=== PATIENT | female | born 1945 | race Caucasian/White ===

== ENCOUNTER 2019-03-20 12:41 | Inpatient (IN) | payer MEDICARE, MEDICAID, SELFPAY ==
[2019-03-21] VITALS (8 sets, daily range): BP systolic 144–162; BP diastolic 80–85; PULSE 64–73; RESP 18–22; TEMP 36.4–36.7; O2SAT 91–98
[2019-03-21] MEDS: heparin 5,000 unit/mL INJ 1 mL 5000 UNIT SUBCUT ×2 (06:00→13:52)
[2019-03-21] MEDS: amlodipine 10 mg Tablet PO (08:49)
[2019-03-21] MEDS: azithromycin 250 mg Tablet 500 MG PO (08:49)
[2019-03-21] MEDS: sennosides-docusate Tablet 2 TAB PO (08:49)
[2019-03-21] MEDS: levothyroxine 25 mcg Tablet PO (08:49)
[2019-03-21] MEDS: pantoprazole DR 40 mg Tablet PO (08:49)
[2019-03-21] MEDS: predniSONE 20 mg Tablet 40 MG PO (08:49)
[2019-03-21] MEDS: polyethylene glycol 3350 Pkt 17 gm PO (08:51)
--- NOTE | 2019-03-21 10:14 | P.DS_ITS ---
Discharge Providers Date of Admission: 03/19/19 20:06 Date of Discharge: 03/21/19 Attending Provider at Admission: Master Gomez MD Attending Provider at Discharge: Master Gomez MD Primary Care Provider: Viri Molina Diagnoses at Discharge Discharge Diagnosis (1) COPD exacerbation: Status: Acute Problem details: Significantly improving (2) Acute bronchitis: Status: Acute Problem details: Significantly improving (3) Obesity: Status: Acute Problem details: Discussed weight loss (4) Chronic kidney disease, stage II (mild): Status: Acute (5) Hypertension: Status: Acute Problem details: Controlled (6) Sleep apnea, obstructive: Status: Acute Problem details: Needs outpatient sleep study (7) Type 2 diabetes mellitus: Status: Acute (8) 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: Status: Acute (9) Chronic back pain: Status: Acute Reason for Visit Reason for Visit: Reason For Visit: Bronchitis Resp Distress Physical Exam Narrative: EXAM NARRATIVE: General exam no apparent distress Cardiovascular regular in rhythm Lungs a few bilateral expiratory wheezes. Extremities no cyanosis clubbing or edema Discharge Data Data Completed and Pending: Labs from last 24 hours 03/20/19 03/20/19 03/20/19 21:35 16:18 11:24 WBC RBC Hgb Hct MCV MCH MCHC RDW Plt Count MPV Neut % (Auto) Lymph % (Auto) Branch % (Auto) Eos % (Auto) Baso % (Auto) Neut # (Auto) Lymph # (Auto) Branch # (Auto) Eos # (Auto) Baso # (Auto) Nucleated RBC % (a uto) Nucleated RBCs # Specimen Type Sample Site ABG pH ABG pCO2 ABG pO2 ABG HCO3 ABG Base Excess Vineet Test Hematocrit O2 Delivery Device O2 Liters/Min [employer] Tech ID Sodium Potassium Chloride Carbon Dioxide Anion Gap BUN Creatinine POC Glucose 248 H 199 H 270 H Random Glucose Calcium Phosphorus Total Bilirubin AST ALT Alkaline Phosphata se Troponin T Hi Sens 6Hr Troponin T Hi Sens 6Hr Delta Total Protein Albumin Globulin Influenza Type A A g Influenza Type B A g 03/20/19 03/20/19 03/20/19 10:30 08:10 03:15 WBC RBC Hgb Hct MCV MCH MCHC RDW Plt Count MPV Neut % (Auto) Lymph % (Auto) Branch % (Auto) Eos % (Auto) Baso % (Auto) Neut # (Auto) Lymph # (Auto) Branch # (Auto) Eos # (Auto) Baso # (Auto) Nucleated RBC % (a uto) Nucleated RBCs # Specimen Type Arterial Sample Site Radial, right ABG pH 7.40 ABG pCO2 51.1 H ABG pO2 79.1 L ABG HCO3 31.6 H ABG Base Excess 5.6 H Vineet Test Pos Hematocrit 37.5 O2 Delivery Device NC O2 Liters/Min 3.0 Convenience Recycle Center Tech ID harkr Sodium Potassium Chloride Carbon Dioxide Anion Gap BUN Creatinine POC Glucose 303 H Random Glucose Calcium Phosphorus Total Bilirubin AST ALT Alkaline Phosphata se Troponin T Hi Sens 6Hr Troponin T Hi Sens 6Hr Delta Total Protein Albumin Globulin Influenza Type A A g NEGATIVE Influenza Type B A g NEGATIVE 03/20/19 03/20/19 03/20/19 01:10 01:10 01:10 WBC 7.5 RBC 4.50 Hgb 11.9 Hct 39.6 MCV 88.0 MCH 26.4 L MCHC 30.1 RDW 15.3 H Plt Count 263 MPV 10.1 Neut % (Auto) 90.5 Lymph % (Auto) 7.4 Branch % (Auto) 0.9 Eos % (Auto) 0.0 Baso % (Auto) 0.1 Neut # (Auto) 6.8 Lymph # (Auto) 0.6 L Branch # (Auto) 0.1 L Eos # (Auto) 0.0 Baso # (Auto) 0.0 Nucleated RBC % (a uto) 0.5 Nucleated RBCs # 0.0 Specimen Type Sample Site ABG pH ABG pCO2 ABG pO2 ABG HCO3 ABG Base Excess Vineet Test Hematocrit O2 Delivery Device O2 Liters/Min [employer] Tech ID Sodium 135 L Potassium 4.4 Chloride 93 L Carbon Dioxide 27 Anion Gap 19.4 H BUN 15 Creatinine 1.4 H POC Glucose Random Glucose 259 H Calcium 8.9 Phosphorus 2.6 Total Bilirubin 0.2 AST 18 ALT 9 Alkaline Phosphata se 100 Troponin T Hi Sens 6Hr 11.25 H Troponin T Hi Sens 6Hr Delta -0.49 L Total Protein 7.2 Albumin 4.1 Globulin 3.1 Influenza Type A A g Influenza Type B A g Vitals: Last Vital Signs Temp 97.5 F L 03/21/19 08:00 Pulse 67 03/21/19 08:00 Resp 22 H 03/21/19 08:00 BP 162/85 03/21/19 08:00 Pulse Ox 96 01/01/20 08:00 Discharge Plan Discharge Patient Disposition: Home, Self-Care Condition: Stable Prescriptions: New fluticasone propion-salmeterol [Advair Diskus] 500-50 mcg/dose blister with device 1 inh INHALATION BID Qty: 60 RF: 0 ipratropium-albuterol 0.5 mg-3 mg(2.5 mg base)/3 mL solution for nebulization 3 ml INHALATION Q6H PRN (Reason: shortness of breath or wheezing) Qty: 180 RF: 0 prednisone 20 mg Tablet 40 mg PO DAILY Qty: 6 RF: 0 levofloxacin [Levaquin] 750 mg tablet 750 mg PO DAILY 7 Days RF: 0 Continued gabapentin 600 mg tablet 900 mg PO TID RF: 0 ascorbic acid (vitamin C) 1,000 mg Tablet Extended Release 1,000 mg PO Q12H RF: 0 metformin 850 mg tablet 850 mg PO BID RF: 0 amlodipine 5 mg tablet 5 mg PO DAILY RF: 0 aspirin [Aspir-81] 81 mg Tablet,Delayed Release (Dr/Ec) 81 mg PO DAILY RF: 0 levothyroxine 25 mcg tablet 25 mcg PO DAILY RF: 0 methenamine hippurate 1 gram tablet 1 g PO BID RF: 0 omeprazole 20 mg capsule,delayed release(DR/EC) 20 mg PO BID RF: 0 lovastatin 20 mg tablet 20 mg PO DAILY RF: 0 Linzess 290 mcg capsule 290 mcg PO DAILY PRN (Reason: Constipation) RF: 0 Discontinued sulfamethoxazole-trimethoprim [Bactrim DS] 800-160 mg Tablet 1 tab PO BID RF: 0 ranitidine HCl 150 mg capsule 150 mg PO BID RF: 0 morphine 15 mg tablet 15 mg PO QID PRN (Reason: Pain, Severe) RF: 0 Discharge Orders: Discharge Order (Routine); Ordered 03/21/19 Ordered By: Master Gomez Other Ambulatory Orders: DME: Nebulizer (Order) Location: None Selected Ordered By: Master Gomez Referrals: Viri Molina DO [Primary Care Provider] - 4-7 days (Please call Dr. Molina's office tomorrow to set up your follow up appointment.) Discharge Diet: Diabetic Discharge Activity: Resume usual activity Activity Restrictions/Additional Instructions: Take all medicine as prescribed. Avoid any tobacco smoke. Please arrange for outpatient sleep study. This can be arranged through primary care provider. Indication is sleep disordered breathing, snoring, insomnia, witnessed apnea. Primary to consider repeating CT scan noncontrast 3 to 6 months secondary to nodules noted on CT scan in hospital Discharge Attestations Time Spent in Discharge Care*: greater than 30 min Quality Metrics Clinical Quality Measures During this hospital stay, did patient experience: None Coding Level of Care Code Acute Street Sweeper Operator for Nayelig Fwd Diagnoses COPD exacerbation J44.1 Acute bronchitis J20.9 Obesity E66.9 Chronic kidney disease, stage II (mild) N18.2 Hypertension I10 Sleep apnea, obstructive G47.33 Type 2 diabetes mellitus E11.9 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 E03.9 Chronic back pain M54.9; G89.29
[2019-03-21] MEDS: insulin glargine 100 units/1 mL 35 UNIT SUBCUT (10:37)
[2019-03-21] MEDS: TRAMadol 50 mg Tablet PO (10:39)
== END 2019-03-21 15:11 | disposition home or self-care (01) | DRG 190 ==
PROVIDERS: Admitting Provider Internal Medicine; Emergency Provider Emergency Medicine; Family Provider Family Medicine; PCP Family Medicine; Referring Provider Family Medicine; Visit Provider Internal Medicine
DX: J44.1 Chronic obstructive pulmonary disease with (acute) exacerbation (principal); J96.21 Acute and chronic respiratory failure with hypoxia; J96.22 Acute and chronic respiratory failure with hypercapnia; Z68.42 Body mass index [BMI] 45.0-49.9, adult; J20.9 Acute bronchitis, unspecified; J44.0 Chronic obstructive pulmonary disease with (acute) lower respiratory infection; E66.01 Morbid (severe) obesity due to excess calories; Z79.4 Long term (current) use of insulin; G89.29 Other chronic pain; M54.5 Low back pain; M19.90 Unspecified osteoarthritis, unspecified site; E11.22 Type 2 diabetes mellitus with diabetic chronic kidney disease; I12.9 Hypertensive chronic kidney disease with stage 1 through stage 4 chronic kidney disease, or unspecified chronic kidney disease; N18.2 Chronic kidney disease, stage 2 (mild); E03.9 Hypothyroidism, unspecified; Z87.891 Personal history of nicotine dependence; K59.03 Drug induced constipation; T40.2X5A Adverse effect of other opioids, initial encounter; G47.33 Obstructive sleep apnea (adult) (pediatric); Z79.82 Long term (current) use of aspirin
CPT/HCPCS: 36415; 36416; 36600; 71045; 71275; 80053; 82803; 82962; 83036; 83880; 84100; 84443; 84484; 85025; 85378; 85610; 87804; 93005; 93306; 93970; 94640; 96365; 96375; 97116; 97161; 99284; 99285; G0378; J0456; J0696; J1644; J1815; J2270; J7512; J7611; Q0144; Q9967

== ENCOUNTER → 2019-03-30 10:48 | Outpatient (BNVA) | payer MEDICARE, MEDICAID, SELFPAY | PROVIDERS: Family Provider Family Medicine; PCP Family Medicine; Visit Provider Family Medicine | DX: R10.13 Epigastric pain (principal); Z79.4 Long term (current) use of insulin; M54.5 Low back pain; G89.29 Other chronic pain; I12.9 Hypertensive chronic kidney disease with stage 1 through stage 4 chronic kidney disease, or unspecified chronic kidney disease; E11.22 Type 2 diabetes mellitus with diabetic chronic kidney disease; N18.2 Chronic kidney disease, stage 2 (mild) | CPT/HCPCS: 36415; 80053; 80061; 83036 ==

== ENCOUNTER 2019-05-02 12:00 | Outpatient (CLI) | payer MEDICARE, MEDICAID, SELFPAY | END 2019-05-02 12:01 | disposition home or self-care (01) | LOC: SLEEP 05-03 13:21 | PROVIDERS: Family Provider Family Medicine; PCP Family Medicine; Visit Provider Family Medicine | DX: G47.33 Obstructive sleep apnea (adult) (pediatric) (principal) | CPT/HCPCS: G0399 ==

== ENCOUNTER → 2019-08-02 10:33 | Outpatient (BNVA) | payer MEDICARE, MEDICAID, SELFPAY | PROVIDERS: Family Provider Family Medicine; PCP Family Medicine; Referring Provider Family Medicine; Visit Provider Family Medicine | DX: E11.65 Type 2 diabetes mellitus with hyperglycemia (principal); Z79.4 Long term (current) use of insulin; I10 Essential (primary) hypertension; R79.89 Other specified abnormal findings of blood chemistry; R94.5 Abnormal results of liver function studies | CPT/HCPCS: 80053; 80074; 83036 ==

== ENCOUNTER → 2019-09-19 09:46 | Outpatient (BNVA) | payer MEDICARE, MEDICAID, SELFPAY | PROVIDERS: Family Provider Family Medicine; PCP Family Medicine; Referring Provider Family Medicine; Visit Provider Anesthesiology Pain Medicine | DX: G89.29 Other chronic pain (principal); M47.816 Spondylosis without myelopathy or radiculopathy, lumbar region; M54.16 Radiculopathy, lumbar region; E66.9 Obesity, unspecified; Z79.891 Long term (current) use of opiate analgesic | CPT/HCPCS: 99204; 99205 ==

== ENCOUNTER → 2020-01-23 11:09 | Outpatient (BNVA) | payer MEDICARE, MEDICAID, SELFPAY | PROVIDERS: Family Provider Family Medicine; PCP Family Medicine; Visit Provider Family Medicine | DX: I10 Essential (primary) hypertension (principal); E78.5 Hyperlipidemia, unspecified; E11.9 Type 2 diabetes mellitus without complications; E03.9 Hypothyroidism, unspecified; Z79.4 Long term (current) use of insulin; D64.9 Anemia, unspecified | CPT/HCPCS: 80053; 80061; 82043; 82728; 83036; 83550; 84443; 85025 ==

== ENCOUNTER 2020-03-15 11:08 | Inpatient (IN) | payer MEDICARE, MEDICAID, SELFPAY ==
[2020-03-15] VITALS (20 sets, daily range): BP systolic 97–198; BP diastolic 65–138; PULSE 62–92; RESP 13–30; TEMP 37.8–37.9; O2SAT 72–99; BMI 64.5
--- NOTE | 2020-03-15 11:29 | XRR_ITS ---
PROCEDURE INFORMATION: Exam: XR Chest, 1 View Exam date and time: 03/15/2020 11:34 AM Age: 74 years old Clinical indication: Shortness of breath; Additional info: Sepsis, hypoxia TECHNIQUE: Imaging protocol: XR of the chest Views: 1 view. COMPARISON: CR Chest 1 [place] [id number] 03/19/2019 6:41 PM FINDINGS: Lungs: Left lung base is not well seen. There are some streaky opacities at the left lung base. Pleural space: Left costophrenic angle is obscured and a pleural effusion cannot be excluded. Heart/Mediastinum: Possible cardiomegaly. Heart size not optimally evaluated with a single AP view of the chest. Vasculature: There is calcified plaque in the aortic arch similar to the prior study. Bones/joints: Unremarkable. XR/XR chest 1V [id number] IMPRESSION: Streaky opacities at the left lung base may represent scarring, atelectasis, or pneumonia.
--- NOTE | 2020-03-15 11:34 | ECG_ITS ---
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 Measurements Intervals Robert Rate: 85 P: -66 LA: 197 QRS: -13 QRSD: 83 T: 0 QT: 352 QTc: 421 Interpretive Statements SINUS RHYTHM WITH OCCASIONAL SUPRAVENTRICULAR PREMATURE COMPLEXES LOW QRS VOLTAGE IN PRECORDIAL LEADS [QRS DEFLECTION < 1.0 mV IN CHEST LEADS] ANTERIOR MYOCARDIAL INFARCTION , OF INDETERMINATE AGE [40+ ms Q WAVE AND/OR ST/T ABNORMALITY IN V3/V4] Compared to ECG 03/20/2019 00:34:14 Sinus arrhythmia no longer present First degree AV block no longer present Myocardial infarct finding still present Electronically Signed On 03-15-2020 16:40:39 SALESPERSON [employer] by Tray Rizo M.D. [id number]
--- NOTE | 2020-03-15 11:47 | ED_ITS ---
HPI - Altered Mental Status General: Chief Complaint: Altered Mental Status Stated Complaint: AMS; HEADACHE Time Seen by Provider: 03/15/20 11:24 History of Present Illness: HPI narrative: The patient is a 74-year-old female with past medical history COPD, diabetes, sleep apnea, and chronic kidney disease who comes to the ER after she was found unresponsive by EMS. Family were unable to get a hold of her and called 911. She was found slumped over in a chair. Her temperature is 100.3. She was found satting in the 70s on room air and is placed on 4 L oxygen and now in the upper 80s low 90s. She appears to be in mild respiratory distress and is tachycardic as well. In the ED she is also altered mental status and confused. Answer some questions correctly and others she answers inappropriate answers MD complaint: altered mental status, confusion, decreased responsiveness and weakness Onset (ago): unknown Severity: severe Consistency of symptoms: Constant Context: diabetes and COPD Review of Systems General: Reports: ROS unobtainable due to medical condition and Other (altered mental status) [facility] ED PFSH: Medical History Chronic back pain Chronic kidney disease, stage II (mild) COPD (chronic obstructive pulmonary disease) Dyslipidemia Enrolled in chronic care management 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 care home (current) use of opiate analgesic Obesity Discussed weight loss Sleep apnea, obstructive Needs outpatient sleep study Type 2 diabetes mellitus, with long-term current use of insulin Surgical History History of cholecystectomy History of tonsillectomy and adenoidectomy S/P appendectomy Family History Other Diabetes Social History Smoking and tobacco status: former smoker Alcohol intake: never Physical Exam Narrative: EXAM NARRATIVE: The patient is in moderate respiratory distress, tachypneic, and hypoxic satting in the upper 80s low 90s on 4 L of nasal cannula oxygen. She has altered mental status with confusion and inattention. She answers some questions appropriately well most questions are inappropriately answered. She has a large ventral hernia which is not significantly tender. On her lower extremities bilaterally she has reddish pigmentation likely from chronic venous stasis and old ulcers. Does not appear to be acutely erythematous but more likely a chronic issue. Const: EXAM LIMITATIONS: altered mental status GENERAL APPEARANCE: comfortable, in distress, anxious, combative, ill appearing, appears older than stated age and diaphoretic NUTRITIONAL APPEARANCE: obese ORIENTATION/CONSCIOUSNESS: Yes awake, Yes oriented to person and Yes confused HENMT: COMMON NORMALS: normocephalic, external ears normal and Normal external nose present HEAD & SCALP: normal to inspection and normocephalic NOSE: Normal external nose present EXTERNAL EAR: Yes external ears normal MOUTH: Normal oral and palatal mucosa present THROAT: posterior oropharynx normal Eye: COMMON NORMALS: Equal, round and reactive pupils present and EOMs intact bilaterally GENERAL EYE: appearance normal, both eyes and all related structures PUPIL: Yes Equal, round and reactive pupils present Neck/C-Spine: COMMON NORMALS: full ROM, no lymphadenopathy, no meningeal signs and no JVD GENERAL: Yes normal visual inspection Lymph: LYMPHATIC: no lymphadenopathy noted Chest: COMMONS NORMALS: normal inspection of the chest and normal palpation of entire chest wall Resp: EFFORT & INSPECTION: Yes able to speak in complete sentences, Yes tachypneic, Yes respiratory distress (moderate), Yes labored, Yes Actively coughing and Yes uses accessory muscles AUSCULTATION: wheezes and diminished lung sounds Cardio: COMMON NORMALS: no JVD, regular rhythm, S1 normal heart sound present, S2 normal heart sound present and Peripheral pulses 2+ throughout RATE: tachycardic RHYTHM: regular rhythm HEART SOUNDS: S1 normal heart sound present and S2 normal heart sound present PERIPHERAL PULSES: Peripheral pulses 2+ throughout GI: COMMON NORMALS: Soft to palpation and non-tender INSPECTION: Yes other (Ventral wall abdominal hernia quite large in size. Nontender.) PALPATION: Yes Soft to palpation : COMMON NORMALS: Yes no CVA tenderness BLADDER/KIDNEY EXAM: Yes no CVA tenderness Back/Pelvis: COMMON NORMALS: no CVA tenderness, thoracic and lumbar spine normal to inspection, no thoracic nor lumbar tenderness and thoraco-lumbar ROM normal Extremity: COMMON NORMALS: normal to inspection, full ROM, capillary refill normal, no joint enlargement and no pedal edema NARRATIVE EXTREMITY EXAM: Hyperpigmentation to ankles and feet bilaterally likely from venous stasis ulcers which are old. GENERAL: Yes normal exam except as noted Neuro: COMMON NORMALS: CN's II-XII intact bilaterally, moves all extremities, no focal motor deficits and no sensory deficits noted SENSORIUM/ORIENTATION: Yes oriented to person MENINGEAL SIGNS: Yes no meningeal signs SPEECH: speech normal GAIT: Yes Unable to assess gait MOTOR EXAM: 5/5 motor strength present throughout Psych: COMMON NORMALS: speech normal APPEARANCE: Yes unkempt and Yes disheveled ATTITUDE: Yes bizarre and Yes agitated SPEECH: Yes normal speech MOOD & AFFECT: Yes depressed mood and Yes irritable Skin: COMMON NORMALS: no rashes or lesions noted NARRATIVE SKIN EXAM: Hyperpigmentation in ankles from old venous stasis ulcers. Diaphoresis generally in her face GENERAL SKIN EXAM: no rashes or lesions noted Course Vital Signs: Vital signs: Vital Signs Temperature 100.3 F H 03/15/20 11:12 Pulse Rate 83 03/15/20 17:00 Respiratory Rate 22 H 03/15/20 17:00 Blood Pressure 146/88 03/15/20 17:00 Pulse Oximetry 96 03/15/20 17:00 MDM - Altered Mental Status MDM Narrative: Medical decision making narrative: The patient came in from home after she was not responding to phone calls for hours. She was found slumped over in a chair. Satting in the 70s on room air in respiratory distress. Chest x-ray reveals left lower lobe pneumonia and she was started on antibiotics. She also has a UTI. Her COPD is chronic and severe and her last ABG at a prior visit showed CO2 in the 50s at baseline. Here it is in the 60s and she was confused on arrival. Given nasal cannula oxygen and albuterol treatment her mental status improved moderately however she is still mildly confused. We will place her on BiPAP now. Discussed with Dr. Castellanos who accepts to the ICU Differential Diagnosis: Differential diagnosis altered mental status: Likely alcoholic intoxication, altered mental status, delirium and dementia Lab Data: Labs: Lab Results 03/15/20 03/15/20 03/15/20 Range/Units 11:43 11:43 11:48 D-Dimer (0-0.59) ug/mIFE U Specimen Type Arterial Sample Site Brachial, left ABG pH 7.35 (7.35-7.45) ABG pCO2 64.3 H* (35-45) mmHg ABG pO2 97.0 (80.0-100.0) mmH g ABG HCO3 35.1 H (22-26) mmol/L ABG O2 Saturation ABG Base Excess 7.1 H (-2.0-2.0) mmol/ L Vineet Test N/a A-a O2 Gradient (5-10) mmHg Hematocrit 42.1 (37-47) % Hgb O2 Saturation 94.8 L (95-100) % Carboxyhemoglobin 1.5 (0.4-20.1) %THgb Methemoglobin 1.0 (0.4-1.5) % Total Hemoglobin 13.7 (12-16) g/dL Ionized Calcium (1.1-1.4) mmol/L O2 Delivery Device Nc O2 Liters/Min 8.0 % FiO2 % Shoemaking Cutter ID Gd Sodium (136-145) mmol/L Potassium (3.5-5.1) mmol/L Chloride (98-107) mmol/L Carbon Dioxide (22-29) mmol/L Anion Gap (5-19) BUN (8-23) mg/dL Creatinine (0.5-0.9) mg/dL GFR Calculation Glucose (65-115) mg/dL Calculated Osmolal ity (285-295) mOsm/k g Lactate (0.5-2.2) mmol/L Calcium (8.5-10.5) mg/dL Total Bilirubin (0.15-1.2) mg/dL AST (0-32) U/L ALT (0-33) U/L Alkaline Phosphata se (35-105) IU/L Troponin T Baselin e (0-10) ng/L Troponin T 120 Min [place] (0-10) ng/L Delta Troponin T (0-10) ABS# NT-Pro-B Natriuret Pep (0-450) pg/mL Total Protein (6.6-8.7) g/dL Albumin (3.5-5.2) g/dL Globulin (1.3-4.6) g/dL Procalcitonin (0-0.5) ng/mL Urine Color Yellow (Yellow) Urine Appearance Hazy A (CLEAR) Urine pH 5 (5-7) Ur Specific Gravit y 1.020 (1.005-1.030) Urine Protein 2+ H (Negative) Urine Glucose (UA) 2+ (Normal) Urine Ketones 1+ H (Negative) Urine Blood Neg (Negative) Urine Nitrate Positive H (Negative) Urine Bilirubin Neg (Negative) Urine Urobilinogen Norm (Negative) mg/dL Ur Leukocyte Arianna ase Negative (Negative) Urine RBC None (0-2) /hpf Urine WBC 10-15 H (0-5) /hpf Ur Squamous Epith Cells 0-4 H (0-5) /hpf Amorphous Sediment Not Reportable Urine Bacteria 4+ H (NONE) /hpf Urine Mucus 2+ /hpf Urine Opiates Scre en Negative (Negative) ng/mL Ur Barbiturates Sc reen Negative (Negative) ng/mL Ur Phencyclidine S crn Negative (Negative) ng/mL Ur Amphetamines Sc reen Negative (Negative) ng/mL U Benzodiazepines Scrn Negative (Negative) ng/mL Urine Cocaine Scre en Negative (Negative) ng/mL U Marijuana (THC) Screen Negative (Negative) ng/mL Ethyl Alcohol (0-10) mg/dL Influenza Type A A g (Negative) Influenza Type B A g (Negative) SARS-CoV-2 Ag (Rap id) (Negative) 03/15/20 03/15/20 03/15/20 Range/Units 12:40 12:40 12:40 D-Dimer 3.02 H (0-0.59) ug/mIFE U Specimen Type Sample Site ABG pH (7.35-7.45) ABG pCO2 (35-45) mmHg ABG pO2 (80.0-100.0) mmH g ABG HCO3 (22-26) mmol/L ABG O2 Saturation ABG Base Excess (-2.0-2.0) mmol/ L Vineet Test A-a O2 Gradient (5-10) mmHg Hematocrit (37-47) % Hgb O2 Saturation (95-100) % Carboxyhemoglobin (0.4-20.1) %THgb Methemoglobin (0.4-1.5) % Total Hemoglobin (12-16) g/dL Ionized Calcium (1.1-1.4) mmol/L O2 Delivery Device O2 Liters/Min % FiO2 % [place] Cutter ID Sodium (136-145) mmol/L Potassium (3.5-5.1) mmol/L Chloride (98-107) mmol/L Carbon Dioxide (22-29) mmol/L Anion Gap (5-19) BUN (8-23) mg/dL Creatinine (0.5-0.9) mg/dL GFR Calculation Glucose (65-115) mg/dL Calculated Osmolal ity (285-295) mOsm/k g Lactate 1.4 (0.5-2.2) mmol/L Calcium (8.5-10.5) mg/dL Total Bilirubin (0.15-1.2) mg/dL AST (0-32) U/L ALT (0-33) U/L Alkaline Phosphata se (35-105) IU/L Troponin T Baselin e 22 H (0-10) ng/L Troponin T 120 Min [place] (0-10) ng/L Delta Troponin T (0-10) ABS# NT-Pro-B Natriuret Pep (0-450) pg/mL Total Protein (6.6-8.7) g/dL Albumin (3.5-5.2) g/dL Globulin (1.3-4.6) g/dL Procalcitonin (0-0.5) ng/mL Urine Color (Yellow) Urine Appearance (CLEAR) Urine pH (5-7) Ur Specific Gravit y (1.005-1.030) Urine Protein (Negative) Urine Glucose (UA) (Normal) Urine Ketones (Negative) Urine Blood (Negative) Urine Nitrate (Negative) Urine Bilirubin (Negative) Urine Urobilinogen (Negative) mg/dL Ur Leukocyte Arianna ase (Negative) Urine RBC (0-2) /hpf Urine WBC (0-5) /hpf Ur Squamous Epith Cells (0-5) /hpf Amorphous Sediment Urine Bacteria (NONE) /hpf Urine Mucus /hpf Urine Opiates Scre en (Negative) ng/mL Ur Barbiturates Sc reen (Negative) ng/mL Ur Phencyclidine S crn (Negative) ng/mL Ur Amphetamines Sc reen (Negative) ng/mL U Benzodiazepines Scrn (Negative) ng/mL Urine Cocaine Scre en (Negative) ng/mL U Marijuana (THC) Screen (Negative) ng/mL Ethyl Alcohol (0-10) mg/dL Influenza Type A A g (Negative) Influenza Type B A g (Negative) SARS-CoV-2 Ag (Rap id) (Negative) 03/15/20 03/15/20 03/15/20 Range/Units 12:40 12:40 12:40 D-Dimer (0-0.59) ug/mIFE U Specimen Type Sample Site ABG pH (7.35-7.45) ABG pCO2 (35-45) mmHg ABG pO2 (80.0-100.0) mmH g ABG HCO3 (22-26) mmol/L ABG O2 Saturation ABG Base Excess (-2.0-2.0) mmol/ L Vineet Test A-a O2 Gradient (5-10) mmHg Hematocrit (37-47) % Hgb O2 Saturation (95-100) % Carboxyhemoglobin (0.4-20.1) %THgb Methemoglobin (0.4-1.5) % Total Hemoglobin (12-16) g/dL Ionized Calcium (1.1-1.4) mmol/L O2 Delivery Device O2 Liters/Min % FiO2 % [place] Cutter ID Sodium (136-145) mmol/L Potassium (3.5-5.1) mmol/L Chloride (98-107) mmol/L Carbon Dioxide (22-29) mmol/L Anion Gap (5-19) BUN (8-23) mg/dL Creatinine (0.5-0.9) mg/dL GFR Calculation Glucose (65-115) mg/dL Calculated Osmolal ity (285-295) mOsm/k g Lactate (0.5-2.2) mmol/L Calcium (8.5-10.5) mg/dL Total Bilirubin (0.15-1.2) mg/dL AST (0-32) U/L ALT (0-33) U/L Alkaline Phosphata se (35-105) IU/L Troponin T Baselin e (0-10) ng/L Troponin T 120 Min [place] (0-10) ng/L Delta Troponin T (0-10) ABS# NT-Pro-B Natriuret Pep 56790 H (0-450) pg/mL Total Protein (6.6-8.7) g/dL Albumin (3.5-5.2) g/dL Globulin (1.3-4.6) g/dL Procalcitonin 0.16 (0-0.5) ng/mL Urine Color (Yellow) Urine Appearance (CLEAR) Urine pH (5-7) Ur Specific Gravit y (1.005-1.030) Urine Protein (Negative) Urine Glucose (UA) (Normal) Urine Ketones (Negative) Urine Blood (Negative) Urine Nitrate (Negative) Urine Bilirubin (Negative) Urine Urobilinogen (Negative) mg/dL Ur Leukocyte Arianna ase (Negative) Urine RBC (0-2) /hpf Urine WBC (0-5) /hpf Ur Squamous Epith Cells (0-5) /hpf Amorphous Sediment Urine Bacteria (NONE) /hpf Urine Mucus /hpf Urine Opiates Scre en (Negative) ng/mL Ur Barbiturates Sc reen (Negative) ng/mL Ur Phencyclidine S crn (Negative) ng/mL Ur Amphetamines Sc reen (Negative) ng/mL U Benzodiazepines Scrn (Negative) ng/mL Urine Cocaine Scre en (Negative) ng/mL U Marijuana (THC) Screen (Negative) ng/mL Ethyl Alcohol < 10 (0-10) mg/dL Influenza Type A A g Negative (Negative) Influenza Type B A g Negative (Negative) SARS-CoV-2 Ag (Rap id) Negative (Negative) 03/15/20 03/15/20 03/15/20 Range/Units 12:40 14:25 16:36 D-Dimer (0-0.59) ug/mIFE U Specimen Type Arterial Sample Site Radial, right ABG pH 7.35 (7.35-7.45) ABG pCO2 63.4 H* (35-45) mmHg ABG pO2 69.5 L (80.0-100.0) mmH g ABG HCO3 35.0 H (22-26) mmol/L ABG O2 Saturation 90.3 ABG Base Excess 7.2 H (-2.0-2.0) mmol/ L Vineet Test Pos A-a O2 Gradient 14.3 H (5-10) mmHg Hematocrit 41.9 (37-47) % Hgb O2 Saturation 88.5 L (95-100) % Carboxyhemoglobin 1.4 (0.4-20.1) %THgb Methemoglobin 0.5 (0.4-1.5) % Total Hemoglobin 13.7 (12-16) g/dL Ionized Calcium 1.1 (1.1-1.4) mmol/L O2 Delivery Device Nc O2 Liters/Min 4.0 % FiO2 36.0 % Shoemaking Cutter ID Gd Sodium 138 142.0 (136-145) mmol/L Potassium 4.8 4.3 (3.5-5.1) mmol/L Chloride 95 L (98-107) mmol/L Carbon Dioxide 31 H (22-29) mmol/L Anion Gap 16.8 (5-19) BUN 32 H (8-23) mg/dL Creatinine 1.4 H (0.5-0.9) mg/dL GFR Calculation Not Reportable Glucose 331 H 297.0 H (65-115) mg/dL Calculated Osmolal ity 306 H (285-295) mOsm/k g Lactate (0.5-2.2) mmol/L Calcium 9.0 (8.5-10.5) mg/dL Total Bilirubin 0.3 (0.15-1.2) mg/dL AST 407 H (0-32) U/L ALT 394 H (0-33) U/L Alkaline Phosphata se 129 H (35-105) IU/L Troponin T Baselin e (0-10) ng/L Troponin T 120 Min [place] 18.28 H (0-10) ng/L Delta Troponin T -3.72 L (0-10) ABS# NT-Pro-B Natriuret Pep (0-450) pg/mL Total Protein 7.7 (6.6-8.7) g/dL Albumin 3.7 (3.5-5.2) g/dL Globulin 4.0 (1.3-4.6) g/dL Procalcitonin (0-0.5) ng/mL Urine Color (Yellow) Urine Appearance (CLEAR) Urine pH (5-7) Ur Specific Gravit y (1.005-1.030) Urine Protein (Negative) Urine Glucose (UA) (Normal) Urine Ketones (Negative) Urine Blood (Negative) Urine Nitrate (Negative) Urine Bilirubin (Negative) Urine Urobilinogen (Negative) mg/dL Ur Leukocyte Arianna ase (Negative) Urine RBC (0-2) /hpf Urine WBC (0-5) /hpf Ur Squamous Epith Cells (0-5) /hpf Amorphous Sediment Urine Bacteria (NONE) /hpf Urine Mucus /hpf Urine Opiates Scre en (Negative) ng/mL Ur Barbiturates Sc reen (Negative) ng/mL Ur Phencyclidine S crn (Negative) ng/mL Ur Amphetamines Sc reen (Negative) ng/mL U Benzodiazepines Scrn (Negative) ng/mL Urine Cocaine Scre en (Negative) ng/mL U Marijuana (THC) Screen (Negative) ng/mL Ethyl Alcohol (0-10) mg/dL Influenza Type A A g (Negative) Influenza Type B A g (Negative) SARS-CoV-2 Ag (Rap id) (Negative) Discharge Plan Discharge Patient Disposition: Admitted As Inpatient Clinical Impression: Acute on chronic respiratory failure with hypercapnia, Delirium due to general medical condition, Acute UTI, Altered mental status Condition: Stable Discharge Activity: Bedrest Coding Level of Care Code ED Vault Service Mechanic for Isaiah Fwd Exam Comprehensive
[2020-03-15 12:02] LABS: ABG PH Result 7.35 (7.35-7.45); Arterial Blood Gas Hematocrit 42.1 % (37-47); Base Excess ABG 7.1 mmol/L (-2.0-2.0); Blood Gas Operator Identificat GD; Blood Gas Sample Site Brachial, left; Blood Gas Sample Type Arterial; Carboxyhemoglobin 1.5 %THgb (0.4-20.1); HCO3 ABG 35.1 mmol/L (22-26); HGB O2 Sat 94.8 % (95-100); Oxygen Device NC; Total Hemoglobin 13.7 g/dL (12-16)
[2020-03-15] MEDS: albuterol 8 gm MDI 2 PUFF INHALATION (12:04)
[2020-03-15 12:23] LABS: ABG PCO2 64.3 mmHg (35-45)
[2020-03-15] MEDS: piperacillin-tazobactam 3.375 GM in sodium chloride 0.9% (plus) 50 ML IV (12:26)
[2020-03-15] MEDS: vancomycin 1,500 MG/300 ML PIGGYBACK 200 MG IV (12:26)
[2020-03-15] MEDS: acetaminophen 325 mg Tablet 1000 MG PO (12:32)
[2020-03-15] MEDS: sodium chloride 0.9% 1,000 ML 999 ML IV (12:32)
[2020-03-15 13:33] LABS: Amphetamines Screen Urine Negative (Negative); Barbiturates Screen Urine Negative (Negative); Benzodiazepines Screen Urine Negative (Negative); Cocaine Screen Urine Negative (Negative); Glucose Urine UA 2+ (Normal); Ketones Urine 1+ (Negative); Opiate Screen Urine Negative (Negative); PCP Screen Urine Negative (Negative); Protein Urine 2+ (Negative); THC Screen Urine Negative (Negative); Urine Appearance Hazy (CLEAR); Urine Color Yellow (Yellow); pH Urine 5 (5-7)
[2020-03-15 13:33] LABS: D Dimer 3.02 ug/mIFEU (0-0.59)
[2020-03-15 13:34] LABS: Bilirubin Urine Neg (Negative); Blood Urine Neg (Negative); Leukocyte Esterase Urine Negative (Negative); Nitrate Urine Positive (Negative); Urobilinogen Urine Norm (Negative)
--- NOTE | 2020-03-15 13:34 | ECG_ITS ---
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 Measurements Intervals [place] Rate: 80 P: [place]: QRS: -14 QRSD: 92 T: 33 QT: 391 QTc: 454 Interpretive Statements SINUS RHYTHM WITH SINUS ARRHYTHMIA WITH FIRST DEGREE AV BLOCK LOW QRS VOLTAGE IN PRECORDIAL LEADS [QRS DEFLECTION < 1.0 mV IN CHEST LEADS] POSSIBLE ANTERIOR MYOCARDIAL INFARCTION , OF INDETERMINATE AGE [30 ms Q WAVE IN V3/V4, OR R < 0.2 mV IN V4] Compared to ECG 03/15/2020 11:51:23 Myocardial infarct finding still present Electronically Signed On 03-15-2020 16:49:27 DENTAL APPLIANCE REPAIRER by Tray Rizo M.D. [email or web address] [email or web address].[employer]/store/OM/[id number]
[2020-03-15 13:35] LABS: Add Urine Microscopic? YES
[2020-03-15 13:38] LABS: Influenza A by IFA Negative (Negative); Influenza B by IFA Negative (Negative); Lactate (Lactic Acid level) 1.4 mmol/L (0.5-2.2); SARS Covid-2 Antigen Negative (Negative); Troponin(5th) Baseline 22 ng/L (0-10)
[2020-03-15 13:40] LABS: NT Pro B Type Natriuretic Pept 11027 pg/mL (0-450); Procalcitonin 0.16 ng/mL (0-0.5)
[2020-03-15 13:50] LABS: Bacteria Urine 4+ /hpf; Squamous Epithelial Cell Urine 0-4 /hpf (0-5)
[2020-03-15 13:51] LABS: Mucus Urine 2+ /hpf
[2020-03-15 13:59] LABS: Alcohol Level < 10 mg/dL (0-10)
--- NOTE | 2020-03-15 14:12 | CTR_ITS ---
PROCEDURE INFORMATION: Exam: CT Angiography Chest With Contrast Exam date and time: 03/15/2020 3:14 PM Age: 74 years old Clinical indication: Shortness of breath; Additional info: Elevated d dimer. Chest pain, dyspnea. TECHNIQUE: Imaging protocol: Computed tomographic angiography of the chest with intravenous contrast. 3D rendering (Not supervised by radiologist): MIP and/or 3D reconstructed images were created by the technologist. Radiation optimization: All CT scans at this facility use at least one of these dose optimization techniques: automated exposure control; mA and/or kV adjustment per patient size (includes targeted exams where dose is matched to clinical indication); or iterative reconstruction. Contrast material: VISI 320; Contrast volume: 72 ml; Contrast route: INTRAVENOUS (IV); COMPARISON: CTA Chest-Pulmonary Emb [id number] 03/19/2019 9:43 PM RADIATION DOSE METRICS: Total DLP (mGy-cm): 569.35 FINDINGS: Pulmonary arteries: There is no definite contrast within subsegmental branches of the right pulmonary artery supplying the right lower lobe seen best on coronal series 601 images 24 and 25. Tiny pulmonary emboli in these regions cannot be excluded. There is artifact in this region making evaluation suboptimal. Aorta: Unremarkable. No aortic aneurysm. No aortic dissection. Lungs: There are dependent atelectatic changes in the lungs. Pleural space: Unremarkable. No pneumothorax. No pleural effusion. Heart: Multivessel atherosclerotic disease which involves the coronary arteries. Cardiomegaly. Mediastinal space: There is fluid in the esophagus. Lymph nodes: Unremarkable. No enlarged lymph nodes. Bones/joints: Unremarkable. No acute fracture. Soft tissues: Unremarkable. CT/CT angio chest PE protcl [id number] IMPRESSION: 1. Suboptimal/grainy images.There is no definite contrast within subsegmental branches of the right pulmonary artery supplying the right lower lobe and tiny pulmonary emboli in these regions cannot be excluded. 2. Cardiomegaly. 3. There is fluid in the esophagus consistent with poor swallowing and/or reflux. 4. Multivessel atherosclerotic disease which involves the coronary arteries. Radiation Dose CTDIVOL = (mGy): DLP = 569.35 (mGy-cm)
[2020-03-15] MEDS: FUROsemide 10 mg/mL SDV 4mL 40 MG IVP (14:22)
--- NOTE | 2020-03-15 14:37 | PC.NURSE ---
EKG done at 1409 and shown to ER doctor
[2020-03-15 15:27] LABS: Alanine Aminotransferase 394 U/L (0-33); Albumin Level 3.7 g/dL (3.5-5.2); Alkaline Phosphatase 129 IU/L (35-105); Anion Gap 16.8 (5-19); Aspartate Amino Transferase 407 U/L (0-32); Blood Urea Nitrogen 32 mg/dL (8-23); Carbon Dioxide 31 mmol/L (22-29); Chloride 95 mmol/L (98-107); Glucose 331 mg/dL (65-115); Osmolality Calculated 306 mOsm/kg (285-295); Potassium 4.8 mmol/L (3.5-5.1); Sodium 138 mmol/L (136-145); Total Bilirubin 0.3 mg/dL (0.15-1.2); Total Protein 7.7 g/dL (6.6-8.7)
[2020-03-15 15:40] LABS: Troponin 5 2HR 18.28 ng/L (0-10)
[2020-03-15 15:46] LABS: Troponin 5 2HR Delta -3.72 ABS# (0-10)
[2020-03-15] MEDS: iodixanol 320 mg/mL 100mL Btl IV (16:30)
[2020-03-15 16:47] LABS: ABG PCO2 63.4 mmHg (35-45); ABG PH Result 7.35 (7.35-7.45); Alveolar-Arterial Oxygen Gradi 14.3 mmHg (5-10); Arterial Blood Gas Hematocrit 41.9 % (37-47); Base Excess ABG 7.2 mmol/L (-2.0-2.0); Blood Gas Allen Test Pos; Blood Gas Operator Identificat GD; Blood Gas Sample Site Radial, right; Blood Gas Sample Type Arterial; Carboxyhemoglobin 1.4 %THgb (0.4-20.1); HGB O2 Sat 88.5 % (95-100); Ionized Calcium Level - ABG 1.1 mmol/L (1.1-1.4); Methemoglobin 0.5 % (0.4-1.5); Oxygen Device NC; Oxygen Saturation ABG 90.3; PO2 ABG 69.5 mmHg (80.0-100.0); Potassium Level - ABG 4.3 mmol/L (3.5-5.0); Total Hemoglobin 13.7 g/dL (12-16)
--- NOTE | 2020-03-15 18:56 | PM.HP ---
Providers/Chief Complaint Admitting Physician: Ray Castellanos Primary Care Provider: iVri Molina DO Chief Complaint: AMS; HEADACHE History of Present Illness 74-year-old lady with history of COPD, diabetes, ABBY, chronic kidney disease, hypothyroidism, obesity is admitted after she was brought to ER due to confusion, noted hypoxic, initially saturating in the 70s on room air, not normally on oxygen, subsequently requiring 4 L oxygen by nasal cannula. Noted low-grade fever 100.3. Initially tachypnea, 26-30. She is hypoxemic and hypercapnic, ABG 7.35/63.4/69.5/35 she is noted to have BUN 32, creatinine 1.4. Glucose is 331. Bicarbonate 31. Anion gap 16.8. AST 407, ALT 394, alk phos 129. Baseline troponin is 22. 2-hour troponin 18.28. BNP is 11,027. Urinalysis is nitrate positive, 10-15 WBCs. Urine drug screen is unremarkable. Rapid influenza is negative. Rapid COVID-19 is negative. Chest x-ray with streaky opacities in the left lung base, may represent scarring atelectasis or pneumonia. CTA chest with suboptimal/brain images, no definitive contrast with subsegmental branches of right pulmonary artery supplying the right lower lobe and tiny pulmonary emboli in region cannot be excluded. Fluid in esophagus consistent with poor swallowing and/or reflux. Multivessel atherosclerotic disease involving coronary arteries. In ER she received a dose of Lasix, also a bolus of 1 L. Started on vancomycin, Zosyn. After initial treatment she is more alert. She is able to provide a large portion of her past medical history. Still sluggish responses, and appears to have some asterixis. She reports she is having chronic back pain in her lower back and shoulders. Reports that she is in the hospital because she missed [facility] . It appears that her family got concerned about her and called EMS. She denies normally using oxygen. She says she has been having cough productive of small months of phlegm. Denies chest pain or pressure. She is having a frontal headache. She has no nausea vomiting or diarrhea. She did not notice fever at home. She has a chronic rash on her lower extremities which she says she meant to follow-up with wound care clinic, however, says that she has missed a number of appointments and is not sure whether she can still follow-up not. She says at home she gets around with a walker. She says she does not drive but takes a bus to get to her appointments. She reports she did not take any of her medications this morning. She states in case of cardiac arrest wants attempted resuscitation, but not prolonged if not successful and no prolonged life support. She names her son Sandeep Hoffman as surrogate decision-maker if she was not able to. Or son's monster? Cynthia Saba. Review of Systems Const: Reports: fatigue; Denies: chills, body aches or malaise Eyes: Denies: change in vision or eye redness ENMT: Denies: throat pain, oral sores or ear or mastoid pain Card: Denies: chest pain, edema, pre-syncope or dyspnea on exertion Resp: Reports: dyspnea and productive cough; Denies: change in phlegm color or hemoptysis GI: Denies: abdominal pain, nausea, vomiting, diarrhea, constipation, hematochezia or melena : Denies: flank pain, urinary frequency or hematuria Musc: Denies: back pain, joint swelling or joint redness Skin/Breast: Denies: rash, sores or new lesions Neuro: Reports: headache(s) and confusion; Denies: numbness in extremities, weakness in extremities, dizziness or seizure-like activity Endo: Denies: polyuria or polydipsia Lit/Lymph: Denies: easy bleeding or purpura All/Imm: Denies: urticaria, throat swelling or tongue swelling Medications/Allergies Home Medications Medication Instructions Recorded Confirmed Last Taken Type methenamine hippurate 1 g PO BID 03/20/19 03/15/20 Unknown History fluticasone propion-salmeterol 1 inh INHALATION BID #60 each 03/21/19 03/15/20 Unknown Rx [Advair Diskus] ipratropium-albuterol 3 ml INHALATION Q6H PRN #180 ml 03/21/19 03/15/20 Unknown Rx baclofen 10 mg tablet 10 - 20 mg PO TID PRN tab 05/16/19 03/15/20 Unknown History sennosides 8.6 mg-docusate sodium 2 tab-cap PO BID tab 05/16/19 03/15/20 Unknown History 50 mg tablet furosemide 40 mg tablet 40 mg PO BID #180 tab 08/02/19 03/15/20 Unknown Rx ondansetron HCl 4 mg tablet 4 mg PO Q8H PRN 7 Days #20 tab 09/19/19 03/15/20 Unknown Rx insulin lispro 100 unit/mL 10 unit SUBCUT TID #15 ml 09/25/19 03/15/20 Unknown Rx subcutaneous pen linaclotide 290 mcg capsule 290 mcg PO DAILY PRN #90 cap 11/08/19 03/15/20 Unknown Rx pen needle, diabetic 31 gauge x #200 each 11/21/19 03/15/20 Unknown Rx 3/16 gabapentin 600 mg tablet 900 mg PO TID #135 tab 11/27/19 03/15/20 Unknown Rx metformin 850 mg tablet 850 mg PO BID #60 tab 02/06/20 03/15/20 Unknown Rx sucralfate 1 gram tablet 1 g PO BID #60 tab 02/06/20 03/15/20 Unknown Rx lovastatin 20 mg tablet 20 mg PO DAILY #90 tab 02/12/20 03/15/20 Unknown Rx mirtazapine 7.5 mg tablet 7.5 mg PO DAILY #90 tab 02/22/20 03/15/20 Unknown Rx amlodipine 5 mg tablet 5 mg PO DAILY #90 tab 02/25/20 03/15/20 Unknown Rx pantoprazole 40 mg tablet,delayed 40 mg PO DAILY #90 tab 02/25/20 03/15/20 Unknown Rx release insulin detemir U-100 100 unit/mL 40 unit SUBCUT BID #15 ml 03/04/20 03/15/20 Unknown Rx (3 mL) subcutaneous pen levothyroxine 25 mcg tablet 25 mcg PO DAILY #90 tab 03/04/20 03/15/20 Unknown Rx aspirin 81 mg PO DAILY 03/15/20 03/15/20 Unknown History morphine 15 mg PO QID PRN 03/15/20 03/15/20 Unknown History sitagliptin [Januvia] 100 mg PO DAILY 03/15/20 03/15/20 Unknown History Allergies Allergy/AdvReac Type Severity Reaction Status Date / Time codeine Allergy ALGY-Hives Verified 02/22/20 09:54 PFSH Acute PFSH: Medical History Chronic back pain Chronic kidney disease, stage II (mild) COPD (chronic obstructive pulmonary disease) Dyslipidemia Enrolled in chronic care management 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 intermediate frame tender (current) use of opiate analgesic Obesity Discussed weight loss Sleep apnea, obstructive Needs outpatient sleep study Type 2 diabetes mellitus, with long-term current use of insulin Surgical History History of cholecystectomy History of tonsillectomy and adenoidectomy S/P appendectomy Family History Other Diabetes Social History Smoking and tobacco status: former smoker Alcohol intake: never Vitals/I&O/Wt Last Vital Signs Temp 100.3 F H 03/15/20 11:12 Pulse 69 03/15/20 18:22 Resp 17 03/15/20 18:00 BP 167/99 03/15/20 18:00 Pulse Ox 95 03/15/20 18:22 03/15/20 03/15/20 03/15/20 06:59 14:59 22:59 Intake Total 1300 / 1300 Balance 1300 / 1300 Weight last 48 hrs Weight 181.437 kg Physical Exam Const: COMMON NORMALS: no acute distress and patient oriented x3 NUTRITIONAL APPEARANCE: obese ORIENTATION/CONSCIOUSNESS: Yes awake OTHER: somnolent, sluggish responses HENMT: COMMON NORMALS: oropharynx normal Neck/C-Spine: COMMON NORMALS: no JVD Resp: COMMON NORMALS: normal respiratory effort AUSCULTATION: crackles (Basis) OTHER: Coarse breathing sounds Cardio: COMMON NORMALS: no JVD, regular rhythm, S1 normal heart sound present, S2 normal heart sound present and No murmurs present (Cardio) RHYTHM: regular rhythm HEART SOUNDS: S1 normal heart sound present and S2 normal heart sound present GI: COMMON NORMALS: Normal to inspection, nondistended, normoactive bowel sounds present, Soft to palpation and non-tender PALPATION: Yes Soft to palpation Extremity: COMMON NORMALS: no joint enlargement and no pedal edema Neuro: COMMON NORMALS: patient oriented x3 and moves all extremities Skin: LESIONS: lesion noted RASHES: rashes noted (Chronic rash, and lesions on right and left lower extremity, extending from) Urinary Catheter Management^: Chowdary: Cath Placed During This Visit: yes Reason for Continuing Indwelling Catheter: Accurate Measurement of Urinary Output in Critically Ill Patients Urinary Catheter Date of Insertion: 03/15/20 Urinary Catheter Time of Insertion: 13:39 Data : 03/15/20 12:40 03/15/20 12:40 Micro: Microbiology 03/15/20 12:40 Blood Culture - Preliminary Blood SPECIMEN COLLECTED A&P Assessment and plan (1) Delirium due to general medical condition: Confused on presentation. Acute encephalopathy resulting from acute infection, UTI, also acute hypercapnia, she is also on a number of medications which could contribute to mental status changes, although says she did not take medications this morning. Confusion appears to be improving with treatment in ER. Continue treatment of respiratory failure, UTI. Supportive care. Discussed with her son's Status: Acute (2) Acute UTI: Continue Zosyn. Follow urine culture. Status: Acute (3) Acute on chronic respiratory failure with hypercapnia: This may be multifactorial. She does have underlying COPD, although normally not requiring oxygen. It may be that UTI, acute encephalopathy cause her to retain carbon dioxide, subsequently also resulting in hypercapnic respiratory failure. She appears to be doing better with oxygen support and initial treatments in ER. She additionally appears to have COPD exacerbation, with productive cough for which we will treat her with steroid, antibiotic, breathing treatments. She is febrile. She has atelectasis, but cannot exclude entirely pneumonia. For now continue vancomycin and Zosyn for possible bacterial pneumonia. COVID-19 rapid antigen is negative, however, D-dimer is elevated, she is febrile, with leukocytosis, discussed with her and her [id number] regarding possible COVID-19 infection. Requesting PCR confirmation. CTA without obvious PE, however, without good visualization, with No definite contrastIn subsegmental branches of right pulmonary artery supplying the right lower lobe. Tiny pulmonary emboli not excluded. She is having no chest pain, however. There is no tachycardia. No unilateral Lower extremity swelling, and her symptoms are better explained otherwise. For now we will monitor with prophylactic anticoagulation. Possible concomitant OHS. Status: Acute (4) Transaminitis: She has no right upper quadrant pain. She does have diabetes per vsavkjag-sm-vjs. Possible fatty liver disease, although at the same time as discussed with flnldump-ss-qyg transaminitis appears to be more new since January. Will assess by right upper quadrant ultrasound. Hold statin. Reassess. Status: Acute Additional A&P Information Elevated D-dimer: No definitive evidence of VTE. Will check lower extremity Doppler. Abnormal troponin: She has no chest pain. There is no suggestion currently of acute RI. Suspect this is demand ischemia secondary to hypoxia. 6-hour troponin could not be drawn. Will reschedule for the morning. Chronic kidney disease, possible acute kidney injury superimposed: Received 1 L fluid challenge in ER. Hold off additional fluids for now. Monitor volume status. Renal function. Avoid nephrotoxins. Diabetes: She cannot recall exactly her insulin dose. For now we will start her on Levemir 20 units nightly. Sliding scale. 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: Check TSH Obesity ABBY Chronic back pain Other comorbidities Attestations Medical Necessity Statement*: Admission of over 2 midnights ago needed for assessment management of acute encephalopathy with acute hypoxic and hypercapnic respiratory failure, UTI in a lady with multiple comorbidities including chronic kidney disease, diabetes, morbid obesity and other. Coding Level of Care Code Acute Order Entry Administrator for [facility] Fwd Exam Comprehensive Diagnoses Delirium due to general medical condition F05 Acute UTI N39.0 Acute on chronic respiratory failure with hypercapnia J96.22 Transaminitis R74.01
[2020-03-15 19:16] LABS: Basophils # 0.1 10^3/uL (0.0-0.1); Basophils % 0.5 %; Eosinophils % 0.2 %; Hematocrit 46.3 % (37.0-47.0); Hemoglobin 13.5 g/dL (11.5-15.3); Lymphocytes # 1.7 10^3/uL (0.8-4.8); Lymphocytes % 11.1 %; Mean Corpuscular HGB Conc 29.2 g/dL (30.0-36.0); Mean Corpuscular Hemoglobin 27.3 pg (28.0-34.0); Mean Corpuscular Volume 93.7 fL (81-99); Mean Platelet Volume 10.5 fL (7.4-10.4); Monocytes # 1.1 10^3/uL (0.2-0.9); Monocytes % 7.2 %; Neutrophils # 12.61 10^3/uL (1.8-7.7); Neutrophils % 80.5 %; Nucleated Red Blood Cells # 0.2 /100WBC; Platelet Count 323 10^3/cmm (130-400); Red Blood Count 4.94 10^6/uL (4.1-5.3); Red Cell Distribution Width 18.5 % (12.1-15.1); White Blood Count 15.7 10^3/uL (4.0-10.0)
--- NOTE | 2020-03-15 19:54 | PC.NURSE ---
this nurse, veena (FRAN) and phlebotomy attempted to draw 6hr troponin and blood cultures. notified.
--- NOTE | 2020-03-15 19:56 | PC.NURSE ---
Attempted calling report, nurse unable to take report at this time.
--- NOTE | 2020-03-15 19:57 | PC.NURSE ---
2400mL emptied from catheter.
--- NOTE | 2020-03-15 20:32 | PC.NURSE ---
EKG done at 2024 and shown to ER doctor
--- NOTE | 2020-03-15 21:47 | PC.NURSE ---
Attempted calling report. Nurse is not available. Will call back.
[2020-03-15 22:38] LABS: Troponin 5 6HR 19.36 ng/L (0-10)
[2020-03-15 23:28] LABS: Basophils # 0.1 10^3/uL (0.0-0.1); Basophils % 0.5 %; Eosinophils # 0.1 10^3/uL (0.0-0.8); Eosinophils % 0.8 %; Hematocrit 45.2 % (37.0-47.0); Hemoglobin 13.5 g/dL (11.5-15.3); Lymphocytes # 1.3 10^3/uL (0.8-4.8); Lymphocytes % 7.6 %; Mean Corpuscular HGB Conc 29.9 g/dL (30.0-36.0); Mean Corpuscular Hemoglobin 27.2 pg (28.0-34.0); Mean Corpuscular Volume 91.1 fL (81-99); Mean Platelet Volume 10.1 fL (7.4-10.4); Monocytes # 1.9 10^3/uL (0.2-0.9); Monocytes % 10.7 %; Neutrophils # 13.85 10^3/uL (1.8-7.7); Neutrophils % 79.9 %; Nucleated Red Blood Cells # 0.2 /100WBC; Nucleated Red Blood Cells % 0.9 %; Platelet Count 327 10^3/cmm (130-400); Red Blood Count 4.96 10^6/uL (4.1-5.3); White Blood Count 17.3 10^3/uL (4.0-10.0)
[2020-03-15 23:38] LABS: Lactic Sepsis W/Reflex 1.2 mmol/L (0.5-2.2)
--- NOTE | 2020-03-15 23:47 | PC.PHAR ---
Vancomycin is dosed at 1gm IVPB every 12 hours to produce a predicted trough level of 17.78 (population based pharmacokinetic analysis). A trough level has been ordered from the lab to be obtained before the fourth dose to confirm and adjust if needed.
[2020-03-15 23:48] LABS: Alanine Aminotransferase 356 U/L (0-33); Albumin Level 3.4 g/dL (3.5-5.2); Alkaline Phosphatase 123 IU/L (35-105); Anion Gap 13.2 (5-19); Aspartate Amino Transferase 244 U/L (0-32); Blood Urea Nitrogen 30 mg/dL (8-23); C Reactive Protein 43.8 mg/L (0.0-4.9); Calcium 8.7 mg/dL (8.5-10.5); Carbon Dioxide 34 mmol/L (22-29); Chloride 96 mmol/L (98-107); Globulin 3.7 g/dL (1.3-4.6); Glucose 312 mg/dL (65-115); Osmolality Calculated 306 mOsm/kg (285-295); Potassium 4.2 mmol/L (3.5-5.1); Sodium 139 mmol/L (136-145); Thyroid Stimulating Hormone 3.59 uIU/mL (0.27-4.20); Total Bilirubin 0.4 mg/dL (0.15-1.2); Total Protein 7.1 g/dL (6.6-8.7)
[2020-03-16] VITALS (52 sets, daily range): BP systolic 104–164; BP diastolic 56–101; PULSE 60–105; RESP 9–39; TEMP 36.8–37.8; O2SAT 84–97
[2020-03-16] MEDS: piperacillin-tazobactam 3.375 GM in sodium chloride 0.9% (plus) 50 ML IV ×3 (00:05→20:45)
[2020-03-16] MEDS: gabapentin 300 mg Capsule 900 MG PO ×4 (00:05→20:45)
[2020-03-16] MEDS: enoxaparin 40 mg/0.4 mL Syringe SUBCUT (00:06)
[2020-03-16] MEDS: insulin glargine 100 units/1 mL 20 UNIT SUBCUT ×2 (00:06→20:47)
[2020-03-16 00:14] LABS: Glucose Point of Care 272 mg/dL (70-110)
[2020-03-16] MEDS: vancomycin 1,000 MG in sodium chloride 0.9% 250 ML 250 MG IV ×2 (00:19→11:13)
--- NOTE | 2020-03-16 03:45 | ECG_ITS ---
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 Measurements Intervals [place] Rate: 72 P: [place]: QRS: -17 QRSD: 96 T: 252 QT: 417 QTc: 459 Interpretive Statements ATRIAL FIBRILLATION LOW QRS VOLTAGE IN PRECORDIAL LEADS [QRS DEFLECTION < 1.0 mV IN CHEST LEADS] POSSIBLE ANTERIOR MYOCARDIAL INFARCTION [30 ms Q WAVE IN V3/V4, OR R < 0.2 mV IN V4], OF INDETERMINATE AGE MODERATE T-WAVE ABNORMALITY, CONSIDER LATERAL ISCHEMIA [-0.1+ mV T WAVE IN I/aVL/V5/V6] Compared to ECG 03/15/2020 20:25:08 T-wave abnormality now present Possible ischemia now present Myocardial infarct finding still present Electronically Signed On 03-16-2020 11:02:28 PATROL COMMANDER by Tray Rizo M.D. [email or web address].[email or web address]/[id number]
--- NOTE | 2020-03-16 04:40 | PC.NURSE ---
Patient had 11 beat run of v-tach. She is asymptomatic. EKG performed and showed aFib. Patients rate is 70s-90s. Dr. Kolb notified. No new orders except to check morning labs and add magnesium to labs.
[2020-03-16 05:53] LABS: Troponin T (5th) Once 19 ng/L (0-10)
[2020-03-16 06:02] LABS: ABG PCO2 57.7 mmHg (35-45); ABG PH Result 7.42 (7.35-7.45); Arterial Blood Gas Hematocrit 41.1 % (37-47); Base Excess ABG 10.4 mmol/L (-2.0-2.0); Blood Gas Allen Test Pos; Blood Gas Sample Type Arterial; HCO3 ABG 37.1 mmol/L (22-26); Oxygen Device BIPAP; PO2 ABG 84.2 mmHg (80.0-100.0)
[2020-03-16 08:24] LABS: Magnesium 1.9 mg/dL (1.7-2.3)
[2020-03-16 08:24] LABS: Glucose Point of Care 173 mg/dL (70-110)
[2020-03-16] MEDS: levothyroxine 25 mcg Tablet PO (09:32)
[2020-03-16] MEDS: aspirin 81 mg Chew Tablet PO (09:32)
[2020-03-16] MEDS: sucralfate 1 gm Tablet PO ×2 (09:32→17:05)
[2020-03-16] MEDS: amlodipine 5 mg Tablet PO (09:33)
[2020-03-16] MEDS: pantoprazole DR 40 mg Tablet PO (09:33)
--- NOTE | 2020-03-16 11:25 | P.PN_ITS ---
Subjective Subjective: Interval history: Afebrile since this morning, ultrasound liver from yesterday shows intra and extrahepatic biliary dilatation and possible pancreatic duct dilatation as well. Lipase at 8. WBC trending up to 17.3. Blood culture thus far negative to date, urine culture showing gram-negative rods prelim on culture. Medications: Reviewed: Yes Vitals/I&O/Wt Last Vital Signs Temp 100.1 F H 03/15/20 23:00 Pulse 67 03/16/20 09:49 Resp 17 03/16/20 09:00 BP 137/70 03/16/20 09:00 Pulse Ox 94 03/16/20 09:49 03/15/20 03/16/20 03/16/20 22:59 06:59 14:59 Intake Total 1300 / 1300 250 / 1550 0 / 0 Output Total 3200 / 3200 Balance 1300 / 1300 -2950 / -1650 0 / 0 Weight last 48 hrs Weight 133.81 kg Weight 181.437 kg Physical Exam Narrative: EXAM NARRATIVE: GEN: Awake, alert and oriented, no acute distress CVS: S1S2 N RS: CTA B/L Abd: Soft, nt/nd , bs+ CARDROOM DRAWING RUNNER: no focal neuro deficits Urinary Catheter Management^: Chowdary: Cath Placed During This Visit: yes Reason for Continuing Indwelling Catheter: Accurate Measurement of Urinary Output in Critically Ill Patients Urinary Catheter Date of Insertion: 03/15/20 Urinary Catheter Time of Insertion: 13:39 Data : 03/15/20 22:00 03/15/20 22:00 Micro: Microbiology 03/15/20 11:43 Urine Culture - Preliminary Urine Catheterized Gram Negative Rods 03/15/20 22:00 Blood Culture - Preliminary Blood SPECIMEN COLLECTED 03/15/20 12:40 Blood Culture - Preliminary Blood SPECIMEN COLLECTED A&P Assessment and plan (1) Delirium due to general medical condition: Confused on presentation. Likelyt multifactorial, acute encephalopathy resulting from acute infection, hypercapnia, she is also on a number of medications which could contribute to mental status changes Status: Acute (2) Acute UTI: Continue Zosyn. Follow urine culture. Status: Acute (3) Acute on chronic respiratory failure with hypercapnia: Likely from COPD exacerbation,Add steroids methylpred 30mg iv q8h less likely PNA, few infiltrates on CTA chest CTA without obvious PE, however, without good visualization, with No definite contrastIn subsegmental branches of right pulmonary artery supplying the right lower lobe. Tiny pulmonary emboli not excluded. She is having no chest pain, however. There is no tachycardia. No unilateral Lower extremity swelling, and her symptoms are better explained otherwise. For now we will monitor with proph ylactic anticoagulation. Possible concomitant OHS. Status: Acute (4) Transaminitis: RUQ USG with intra and xtrahepatic biliary dilattaion, possible pancreatic duct dilattaion , concernf or cholangitis continue zosyn ordered MRCP s/p cholecystectomy per US Status: Acute Additional A&P Information Elevated D-dimer: No definitive evidence of VTE. Will check lower extremity Doppler. Abnormal troponin: She has no chest pain. There is no suggestion currently of acute SD. Suspect this is demand ischemia secondary to hypoxia. 6-hour troponin could not be drawn. Will reschedule for the morning. Chronic kidney disease, possible acute kidney injury superimposed: Received 1 L fluid challenge in ER. Hold off additional fluids for now. Monitor volume status. Renal function. Avoid nephrotoxins. Diabetes: She cannot recall exactly her insulin dose. For now we will start her on Levemir 20 units nightly. Sliding scale. 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: Check TSH Obesity ABBY Chronic back pain Other comorbidities Plan: Add steroids, d/c vanc, MRCP, check lipase for possible pancreatitis Attestations Medical Necessity Statement*: continued Bipap use, monitor resp status, MRCP fro biliary diltataion. possible cholangitis Coding Level of Care Code Acute Public Relations Senior Associate for [facility]g Fwd Diagnoses Delirium due to general medical condition F05 Acute UTI N39.0 Acute on chronic respiratory failure with hypercapnia J96.22 Transaminitis R74.01
[2020-03-16 11:32] LABS: Glucose Point of Care 153 mg/dL (70-110)
[2020-03-16 11:45] LABS: Lipase 31 U/L (13-60)
[2020-03-16 17:03] LABS: Glucose Point of Care 162 mg/dL (70-110)
[2020-03-16 20:20] LABS: Glucose Point of Care 290 mg/dL (70-110)
--- NOTE | 2020-03-16 23:10 | USR_ITS ---
PROCEDURE INFORMATION: Exam: US Abdomen, Limited; Right Upper Quadrant Exam date and time: 03/16/2020 6:30 AM Age: 74 years old Clinical indication: Abnormal findings; Abnormal lab test; Elevated liver enzymes; Patient HX: S/P cholecystectomy, appy (unsure when); Additional info: Hepatobiliary. Transminintis. TECHNIQUE: Imaging protocol: US abdomen. Real time ultrasound with image documentation. Limited exam focused on the right upper quadrant. COMPARISON: CT abdomen pelvis w con* [id number] 06/10/2017 3:00 PM FINDINGS: Evaluation is limited due to patient body habitus. Liver: No focal hepatic mass. Gallbladder: Status post cholecystectomy. Common bile duct: Combined intrahepatic and extrahepatic biliary ductal dilatation, with the common bile duct measuring 17 mm in maximum diameter. ERCP or MRCP can be performed for further evaluation if clinically indicated. Pancreas: Partial obscuration of the pancreas by bowel gas, with borderline pancreatic ductal dilatation. Right kidney: Normal right renal morphology. No hydronephrosis. Inferior vena cava: Unremarkable IVC. US/US liver [id number] IMPRESSION: Combined intrahepatic and extrahepatic biliary ductal dilatation, with the common bile duct measuring 17 mm in maximum diameter. ERCP or MRCP can be performed for further evaluation if clinically indicated.
--- NOTE | 2020-03-16 23:10 | USR_ITS ---
PROCEDURE INFORMATION: Exam: US Duplex Lower Extremity Veins, Bilateral Exam date and time: 03/16/2020 6:30 AM Age: 74 years old Clinical indication: Other: Elevated d-dimer; Additional info: Assess for vte TECHNIQUE: Imaging protocol: Real-time duplex ultrasound of the extremities with 2-D nichols scale, color Doppler flow and spectral waveform analysis with image documentation. Complete exam focused on the bilateral lower extremity veins. COMPARISON: No relevant prior studies available. FINDINGS: Right deep veins: No deep venous thrombosis in the visualized right common femoral, profunda femoris, superficial femoral, popliteal, posterior tibial, or peroneal veins. Right superficial veins: Saphenofemoral junction is patent without thrombus. Left deep veins: No deep venous thrombosis in the visualized left common femoral, profunda femoris, superficial femoral, popliteal, posterior tibial, or peroneal veins. Left superficial veins: Saphenofemoral junction is patent without thrombus. Soft tissues: Subcutaneous edema. US/[place] [id number] IMPRESSION: No deep venous thrombosis in the visualized bilateral lower extremities.
--- NOTE | 2020-03-16 23:28 | USR_ITS ---
PROCEDURE INFORMATION: Exam: US Abdomen; Limited Exam date and time: 03/16/2020 6:30 AM Age: 74 years old Clinical indication: Abdominal tenderness; Additional info: Tender periumbilical hernia TECHNIQUE: Imaging protocol: Limited ultrasound of the periumbilical region. COMPARISON: CT abdomen pelvis w con* [id number] 06/10/2017 3:00 PM FINDINGS: Intraperitoneal space: No pathologic soft tissue mass or fluid collection. Soft tissues: Fat containing umbilical hernia, which was better visualized on CT. US/US abdomen limited [id number] IMPRESSION: Fat containing umbilical hernia, which was better visualized on CT.
[2020-03-17] VITALS (24 sets, daily range): BP systolic 114–146; BP diastolic 56–80; PULSE 51–80; RESP 9–23; TEMP 36.7–37.1; O2SAT 92–97
[2020-03-17] MEDS: enoxaparin 40 mg/0.4 mL Syringe SUBCUT (00:16)
[2020-03-17] MEDS: piperacillin-tazobactam 3.375 GM in sodium chloride 0.9% (plus) 50 ML IV ×3 (05:29→20:44)
[2020-03-17 07:45] LABS: Glucose Point of Care 215 mg/dL (70-110)
[2020-03-17] MEDS: pantoprazole DR 40 mg Tablet PO (08:30)
[2020-03-17] MEDS: aspirin 81 mg Chew Tablet PO (08:31)
[2020-03-17] MEDS: gabapentin 300 mg Capsule 900 MG PO ×3 (08:31→20:43)
[2020-03-17] MEDS: sucralfate 1 gm Tablet PO (08:31)
[2020-03-17] MEDS: levothyroxine 25 mcg Tablet PO (08:31)
[2020-03-17] MEDS: amlodipine 5 mg Tablet PO (08:31)
--- NOTE | 2020-03-17 09:37 | PC.CHAP ---
Pastoral Care Encounter/Spiritual Assessment Type of Contact [] Declined leaf conditioner helper visit [] Patient/Family/Request visit [] Outpatient visit [] Follow-up visit [] Physician referral [] Code/Alert [] Routine visit [] Staff referral [] Actively dying [] Patient sleeping [] Family support [] [] Out of room [] Palliative care [] [] Receiving care in room [] Pre-surgical visit [] Trauma [] Long length of stay [x] ICU visit [] Other: Relational/Emotional Strength [] Patient feels connected with others/family/visitors/staff [] Distress [] Loneliness/isolation [] Abandonment Spirituality of Patient [] Person of Keren [] Attends Yarsani of their Keren [] Believes in Prayer [] Reads Bible or Mormonism materials [] There are Spiritual issues to be addressed Fruit And Vegetable Classer Interventions [x] Prayer [] Active listening [] Non-anxious presence [] Spiritual/emotional support [] Crisis/trauma care [] Spiritual counseling [] Bereavement support [] Provided bereavement packet [] Provided Bible/devotional materials [] Provided toy/stuffed animal, coloring book to patient or family member [] Provided Communion [] Anointing/[place] [] Salvation [x] Completed spiritual assessment [] Other: Impact on Illness or Injury [] Angry [] Fearful [] Anxious [] Often cries [] Exhaustion [] Unable to work [] Unable to attend mormon [] Unable to walk/stand [] Unable to read [] Unable to drive [] Unable to eat/drink [] Unable to sleep [] Unable to be with family [] Patient intubated [] Other: Summary Time spent with patient
[2020-03-17 11:36] LABS: Glucose Point of Care 388 mg/dL (70-110)
[2020-03-17 14:39] LABS: Basophils % 0.2 %; Hematocrit 41.8 % (37.0-47.0); Hemoglobin 12.5 g/dL (11.5-15.3); Lymphocytes # 1.1 10^3/uL (0.8-4.8); Lymphocytes % 8.8 %; Mean Corpuscular HGB Conc 29.9 g/dL (30.0-36.0); Mean Corpuscular Hemoglobin 27.4 pg (28.0-34.0); Mean Corpuscular Volume 91.5 fL (81-99); Monocytes # 0.5 10^3/uL (0.2-0.9); Monocytes % 4.2 %; Neutrophils # 11.14 10^3/uL (1.8-7.7); Neutrophils % 86.2 %; Nucleated Red Blood Cells % 0 %; Platelet Count 273 10^3/cmm (130-400); Red Blood Count 4.57 10^6/uL (4.1-5.3); White Blood Count 12.9 10^3/uL (4.0-10.0)
[2020-03-17 15:04] LABS: Blood Urea Nitrogen 34 mg/dL (8-23); Calcium 8.3 mg/dL (8.5-10.5); Carbon Dioxide 30 mmol/L (22-29); Chloride 100 mmol/L (98-107); Glucose 305 mg/dL (65-115); Osmolality Calculated 311 mOsm/kg (285-295); Sodium 141 mmol/L (136-145)
[2020-03-17 15:07] LABS: Anion Gap 15.4 (5-19); Potassium 4.4 mmol/L (3.5-5.1)
[2020-03-17 16:07] LABS: Quest SARS-CoV-2 RNA NOT DETECTED (NOT DETECTED)
--- NOTE | 2020-03-17 16:07 | P.PN_ITS ---
Subjective Subjective: Interval history: Patient feels subjectively improved today. Saturating 92% on supplemental O2, leukocytosis trending down to 12.9. Used BiPAP overnight, remains off since this morning. Pending MRCP later today. Covid PCR returned negative Medications: Reviewed: Yes Vitals/I&O/Wt Last Vital Signs Temp 98.6 F 03/17/20 12:07 Pulse 77 03/17/20 14:00 Resp 23 H 03/17/20 11:00 BP 116/60 03/17/20 11:00 Pulse Ox 92 03/17/20 11:00 03/17/20 03/17/20 03/17/20 06:59 14:59 22:59 Intake Total 50 / 450 1130 / 1130 Output Total 250 / 4300 Balance -200 / -3850 1130 / 1130 Weight last 48 hrs Weight 133.81 kg Physical Exam Narrative: EXAM NARRATIVE: GEN: Awake, alert and oriented, no acute distress CVS: S1S2 N RS: CTA B/L Abd: Soft, nt/nd , bs+ MERCERIZING RANGE CONTROLLER: no focal neuro deficits Urinary Catheter Management^: Chowdary: Cath Placed During This Visit: yes Reason for Continuing Indwelling Catheter: Accurate Measurement of Urinary Output in Critically Ill Patients Urinary Catheter Date of Insertion: 03/15/20 Urinary Catheter Time of Insertion: 13:39 Data : 03/17/20 14:30 03/17/20 14:30 Micro: Microbiology 03/15/20 11:43 Urine Culture - Final Urine Catheterized Klebsiella pneumoniae 03/15/20 22:00 Blood Culture - Preliminary Blood NEGATIVE TO DATE 03/15/20 12:40 Blood Culture - Preliminary Blood NEGATIVE TO DATE A&P Assessment and plan (1) Delirium due to general medical condition: Confused on presentation. Likelyt multifactorial, acute encephalopathy resulting from acute infection, hypercapnia, she is also on a number of medications which could contribute to mental status changes. now resolved, patient alert awake and oriented x 3 Status: Acute (2) Acute UTI: Urine cx with Klebsiella pn, susceptible to multiple abx Continue Zosyn for now as also covering for possible cholangitis, if MRCP negatove for the same, will narrow coverage to ceftriaxone Status: Acute (3) Acute on chronic respiratory failure with hypercapnia: Likely from COPD exacerbation,Added steroids methylpred 30mg iv q8h 03/16, will taper on 03/18 less likely PNA, few infiltrates on CTA chest CTA without obvious PE Status: Acute (4) Transaminitis: RUQ USG with intra and xtrahepatic biliary dilattaion, possible pancreatic duct dilattaion , concern f or cholangitis continue zosyn ordered MRCP , pending this evening s/p cholecystectomy per US lipase normal, less likely pancreatitis Status: Acute Additional A&P Information Elevated D-dimer: No definitive evidence of VTE. negative LE duplex Abnormal troponin: She has no chest pain. There is no suggestion currently of acute HI. Suspect this is demand ischemia secondary to hypoxia. Chronic kidney disease, possible acute kidney injury superimposed: cr at [facility] for now Diabetes: She cannot recall exactly her insulin dose. For now we will start her on Levemir 20 units nightly. Sliding scale. Obesity ABBY Chronic back pain Other comorbidities transfer out of ICU Attestations Medical Necessity Statement*: pending MRCP today, resp status improving Coding Level of Care Code Acute Senior Drafter for Chg Fwd Diagnoses Delirium due to general medical condition F05 Acute UTI N39.0 Acute on chronic respiratory failure with hypercapnia J96.22 Transaminitis R74.01
[2020-03-17 16:32] LABS: Alanine Aminotransferase 356 U/L (0-33); Albumin Level 3.2 g/dL (3.5-5.2); Alkaline Phosphatase 95 IU/L (35-105); Aspartate Amino Transferase 160 U/L (0-32); Globulin 3.3 g/dL (1.3-4.6); Total Bilirubin 0.3 mg/dL (0.15-1.2); Total Protein 6.5 g/dL (6.6-8.7)
--- NOTE | 2020-03-17 17:08 | PC.RESP ---
Pulmonary Rehab information sent to patient.
[2020-03-17 17:45] LABS: Glucose Point of Care 269 mg/dL (70-110)
--- NOTE | 2020-03-17 17:51 | PC.NURSE ---
Alvarado NPO for MRCP at 1810. Novolog administration clarified with Dr. Almaguer. Verbal order to administer insulin as prescribed due to hyperglycemia. RBVO. Nurse to continue to monitor.
--- NOTE | 2020-03-17 18:45 | PC.NURSE ---
Report given at bedside to SEBASTIAN Haji on [facility]. No further questions at this time. Family notified of transfer.
--- NOTE | 2020-03-17 19:10 | PC.NURSE ---
Dr. Almaguer notified MRI was not able to be obtained on patient because patient did not fit in machine. No new orders received at this time.
[2020-03-17 20:25] LABS: Glucose Point of Care 227 mg/dL (70-110)
[2020-03-17] MEDS: insulin glargine 100 units/1 mL 20 UNIT SUBCUT (20:43)
[2020-03-18] VITALS (12 sets, daily range): BP systolic 114–168; BP diastolic 69–77; PULSE 55–81; RESP 17–20; TEMP 36.6–36.9; O2SAT 92–96
[2020-03-18] MEDS: enoxaparin 40 mg/0.4 mL Syringe SUBCUT ×2 (00:56→22:11)
[2020-03-18] MEDS: piperacillin-tazobactam 3.375 GM in sodium chloride 0.9% (plus) 50 ML IV ×3 (05:22→20:21)
[2020-03-18 08:06] LABS: Glucose Point of Care 220 mg/dL (70-110)
[2020-03-18 08:30] LABS: Basophils % 0.2 %; Hematocrit 43.4 % (37.0-47.0); Hemoglobin 12.7 g/dL (11.5-15.3); Lymphocytes # 1.2 10^3/uL (0.8-4.8); Lymphocytes % 9.6 %; Mean Corpuscular HGB Conc 29.3 g/dL (30.0-36.0); Mean Corpuscular Hemoglobin 27.1 pg (28.0-34.0); Mean Corpuscular Volume 92.7 fL (81-99); Mean Platelet Volume 9.9 fL (7.4-10.4); Monocytes # 0.6 10^3/uL (0.2-0.9); Monocytes % 4.4 %; Neutrophils # 10.84 10^3/uL (1.8-7.7); Neutrophils % 85.2 %; Nucleated Red Blood Cells % 0 %; Platelet Count 291 10^3/cmm (130-400); Red Blood Count 4.68 10^6/uL (4.1-5.3); Red Cell Distribution Width 17.9 % (12.1-15.1); White Blood Count 12.7 10^3/uL (4.0-10.0)
[2020-03-18] MEDS: aspirin 81 mg Chew Tablet PO (08:33)
[2020-03-18] MEDS: levothyroxine 25 mcg Tablet PO (08:33)
[2020-03-18] MEDS: pantoprazole DR 40 mg Tablet PO (08:33)
[2020-03-18] MEDS: gabapentin 300 mg Capsule 900 MG PO ×3 (08:33→20:20)
[2020-03-18] MEDS: sucralfate 1 gm Tablet PO ×2 (08:33→17:35)
[2020-03-18] MEDS: amlodipine 5 mg Tablet PO (08:33)
[2020-03-18 08:43] LABS: Alanine Aminotransferase 295 U/L (0-33); Albumin Level 3.2 g/dL (3.5-5.2); Alkaline Phosphatase 96 IU/L (35-105); Anion Gap 11.7 (5-19); Aspartate Amino Transferase 90 U/L (0-32); Blood Urea Nitrogen 33 mg/dL (8-23); Calcium 8.4 mg/dL (8.5-10.5); Carbon Dioxide 33 mmol/L (22-29); Chloride 100 mmol/L (98-107); Globulin 3.7 g/dL (1.3-4.6); Glucose 256 mg/dL (65-115); Osmolality Calculated 306 mOsm/kg (285-295); Potassium 4.7 mmol/L (3.5-5.1); Sodium 140 mmol/L (136-145); Total Bilirubin 0.4 mg/dL (0.15-1.2); Total Protein 6.9 g/dL (6.6-8.7)
[2020-03-18 10:46] LABS: Glucose Point of Care 256 mg/dL (70-110)
--- NOTE | 2020-03-18 12:06 | CT_ITS ---
WS: [id number] CT ABDOMEN PELVIS TECHNIQUE: Noncontrast CT of the abdomen and pelvis with coronal and sagittal reformatted images. CLINICAL INFORMATION: transaminitis, biliary dilatation on US, unable to get MRCP COMPARISON: CT . Ultrasound March 09, 2020 DLP: 1786.[address] scans at [facility] use at least one of these dose optimization techniques: automat ed exposure control; mA and/or kV adjustment per patient size (includes targeted exams where dose is matched to clinical indication); or iterative reconstruction. FINDINGS: Noncontrast liver demonstrates anterior and extrahepatic biliary ductal dilatation of the measuring u p to 2.0 CCM. This is unchanged since the prior 2 CTs October 19, 2016 and . No evidence of pr ogressed dilatation. Contrast was not administered today. Noncontrast pancreas appears unremarkable. Fatty atrophy of the pancreas. Common bile duct appears to taper distally at the pancreatic head. Small esophageal hiatal hernia. Trace pleural fluid in the lung bases with bibasilar usexu no atelect asis. Adrenal glands are normal. No hydronephrosis in either kidney. Bilateral renal cortical atrophy . Normal caliber abdominal aorta. Mild aortic calcification. CT/CT abdomen pelvis wo con [id number] IMPRESSION: Issues
[2020-03-18 12:12] LABS: Hepatitis A Antibody IgM Non-Reactive (Nonreactive); Hepatitis B Core AB, Total Non-Reactive (Nonreactive); Hepatitis B Surface AB 3.5 (0-8.5); Hepatitis B Surface Antigen Non-Reactive (Nonreactive); Hepatitis C Virus Antibody Non-Reactive (Nonreactive)
--- NOTE | 2020-03-18 14:36 | PM.PN ---
Subjective Subjective: Interval history: MRCP unable to be completed yesterday due to patient's body weight. CAT scan ordered today. Liver function is trending down reassuringly. Patient remains afebrile and hemodynamically stable at this time. Using baseline supplemental O2 at 4 L/min via nasal cannula. Did not require BiPAP use overnight. Medications: Reviewed: Yes Vitals/I&O/Wt Last Vital Signs Temp 98.0 F 03/18/20 11:37 Pulse 64 03/18/20 11:37 Resp 18 03/18/20 11:37 BP 135/69 03/18/20 11:37 Pulse Ox 92 03/18/20 11:37 03/17/20 03/18/20 03/18/20 22:59 06:59 14:59 Intake Total 50 / 1180 350 / 1530 890 / 890 Output Total 450 / 450 0 / 450 Balance -400 / 730 350 / 1080 890 / 890 Weight last 48 hrs Weight 139.706 kg Physical Exam Narrative: EXAM NARRATIVE: GEN: Awake, alert and oriented, no acute distress CVS: S1S2 N RS: CTA B/L Abd: Soft, nt/nd , bs+ MINIATURE SET CONSTRUCTOR: no focal neuro deficits Urinary Catheter Management^: Chowdary: Cath Placed During This Visit: yes Reason for Continuing Indwelling Catheter: Accurate Measurement of Urinary Output in Critically Ill Patients Urinary Catheter Date of Insertion: 03/15/20 Urinary Catheter Time of Insertion: 13:39 Data : 03/18/20 08:05 03/18/20 08:05 Micro: Microbiology 03/15/20 11:43 Urine Culture - Final Urine Catheterized Klebsiella pneumoniae A&P Assessment and plan (1) Delirium due to general medical condition: Confused on presentation. Likelyt multifactorial, acute encephalopathy resulting from acute infection, hypercapnia, she is also on a number of medications which could contribute to mental status changes. now resolved, patient alert awake and oriented x 3 Status: Acute (2) Acute UTI: Urine cx with Klebsiella pn, susceptible to multiple abx Continue Zosyn for now as also covering for possible cholangitis, if imaging negatove for the same, will narrow coverage to ceftriaxone Status: Acute (3) Acute on chronic respiratory failure with hypercapnia: Likely from COPD exacerbation, taper steroids to prednisone 40 mg p.o. daily Leukocytosis still persisting at about 12.7, likely to be contributed by steroids for COPD exacerbation. less likely PNA, few infiltrates on CTA chest CTA without obvious PE Status: Acute (4) Transaminitis: RUQ USG with intra and xtrahepatic biliary dilattaion, possible pancreatic duct dilattaion , concern f or cholangitis continue zosyn ordered MRCP , however the study could not be completed due to patient size. Ordered CT abdomen instead. Liver function is improving with AST ALT trending down which is reassuring. s/p cholecystectomy per US lipase normal, less likely pancreatitis Status: Acute Additional A&P Information Elevated D-dimer: No definitive evidence of VTE. negative LE duplex Abnormal troponin: She has no chest pain. There is no suggestion currently of acute MN. Suspect this is demand ischemia secondary to hypoxia. Chronic kidney disease, possible acute kidney injury superimposed: cr at baseline for now Diabetes: She cannot recall exactly her insulin dose. Continue sliding scale insulin Obesity ABBY Chronic back pain Other comorbidities transfer out of ICU Attestations Medical Necessity Statement*: Ct today, overnight oximetery study, [facility] Coding Level of Care Code Acute College Counselor for Chg Fwd Diagnoses Delirium due to general medical condition F05 Acute UTI N39.0 Acute on chronic respiratory failure with hypercapnia J96.22 Transaminitis R74.01
[2020-03-18 17:01] LABS: Glucose Point of Care 234 mg/dL (70-110)
--- NOTE | 2020-03-18 17:09 | PC.SOCIAL ---
IMM Update Pg. 2 of IMM updated and reviewed with patient who verbalized understanding. Copy provided.
[2020-03-18 21:21] LABS: Glucose Point of Care 385 mg/dL (70-110)
[2020-03-18] MEDS: insulin glargine 100 units/1 mL 20 UNIT SUBCUT (21:32)
[2020-03-19] VITALS (11 sets, daily range): BP systolic 122–168; BP diastolic 75–85; PULSE 56–88; RESP 17–20; TEMP 36.2–36.8; O2SAT 83–97; BMI 49.7
[2020-03-19] MEDS: piperacillin-tazobactam 3.375 GM in sodium chloride 0.9% (plus) 50 ML IV ×2 (04:36→12:28)
[2020-03-19 06:14] LABS: Glucose Point of Care 269 mg/dL (70-110)
--- NOTE | 2020-03-19 08:03 | P.DS_ITS ---
Discharge Providers Date of Admission: 03/15/20 17:32 Date of Discharge: March 19, 2020 Attending Provider at Admission: Ray Castellanos Attending Provider at Discharge: Berna Almaguer MD Primary Care Provider: Viri Molina DO Diagnoses at Discharge Discharge Diagnosis (1) Delirium due to general medical condition: Status: Acute (2) Acute UTI: Status: Acute (3) Acute on chronic respiratory failure with hypercapnia: Status: Acute (4) Transaminitis: Status: Acute Reason for Visit Reason for Visit: AMS; HEADACHE Hospital Course Hospital Course 74-year-old lady with history of COPD, diabetes, ABBY, chronic kidney disease, hypothyroidism, obesity is admitted on 03/15 after she was brought to ER due to confusion, noted hypoxic, initially saturating in the 70s on room air, not normally on oxygen, subsequently requiring 4 L oxygen by nasal cannula. Noted low-grade fever 100.3. Initially tachypnea, 26-30. She is hypoxemic and hypercapnic, ABG 7.35/63.4/69.5/35. Chest x-ray with streaky opacities in the left lung base, may represent scarring atelectasis or pneumonia. CTA chest without evidence of PE. Encephalopathy improved significantly after being placed on BiPAP, overall thought to be multifactorial resulting from acute infection, acute cystitis and hypercapnia. She does carry a diagnosis of sleep apnea as well and is supposed to be using the CPAP at nighttime but she has not used 1 in recent months because the nasal CPAP mask irritates her facial skin. Urine culture eventually returned with Klebsiella pneumonia, susceptible to several antibiotics. She was treated empirically with piperacillin tazobactam. Her LFTs were noted to be deranged upon arrival, now trending down during the course of admission. Ultrasound of the abdomen was initially concerning for biliary dilatation, this was attempted to be followed up with an MRCP given deranged LFTs, however because of her size she could not fit into the MRI machine. A CT was performed instead and overall while the biliary dilatation was still noted, the radiologist did compared to multiple prior scans and this is not noted to be any worse than what has been pre-existing pain since 2017. Lipase was negative therefore less likely to be pancreatitis. She is status post cholecystectomy already. Patient improved significantly with treatment of COPD exacerbation with IV steroids and scheduled nebulization. She is being discharged today with recommendation to continue her inhalers at home, prednisone taper has been given, she will finish a course of Levaquin both for the UTI and COPD exacerbation. Referral has been provided to pulmonology as outpatient. Home oxygen evaluation was performed and she did qualify for 2 L/min both on overnight oximetry and during daytime. A CPAP mask is being arranged for her and oxygen is to be bled into the CPAP machine at night. She has in home services Physical Exam Narrative: EXAM NARRATIVE: GEN: Awake, alert and oriented, no acute distress CVS: S1S2 N RS: CTA B/L Abd: Soft, nt/nd , bs+ GARNISHER: no focal neuro deficits Urinary Catheter Management^: Chowdary: Cath Placed During This Visit: yes, but has since been removed by the nurse Reason for Continuing Indwelling Catheter: Decision to DC Catheter Urinary Catheter Date of Insertion: 03/15/20 Urinary Catheter Time of Insertion: 13:39 Date Urinary Catheter Removed: 03/18/20 Time Urinary Catheter Discontinued: 17:50 Discharge Data Data Completed and Pending: Completed Studies During Hospitalization Category Date Time Status CT abdomen pelvis wo con [id number] Rout ine Cat Scan 03/18/20 12:[address] angio chest PE protcl [id number] Stat Cat Scan 03/15/20 14:12 Completed XR chest 1V [id number] Stat Exams 03/15/20 11:29 [place] [id number] Routin e Ultrasound 03/16/20 23:10 Completed US abdomen limite d [id number] Routine Ultrasound 03/16/20 23:28 Completed US liver [id number] Ro utine Ultrasound 03/16/20 23:10 Completed Pending at discharge Category Date Time Status Blood Culture Sta t Lab 03/15/20 22:00 Results Labs from last 24 hours 03/19/20 03/18/20 03/18/20 06:06 21:11 16:51 WBC RBC Hgb Hct MCV MCH MCHC RDW Plt Count MPV Neut % (Auto) Lymph % (Auto) [place] % (Auto) Eos % (Auto) Baso % (Auto) Neut # (Auto) Lymph # (Auto) [place] # (Auto) Eos # (Auto) Baso # (Auto) Nucleated RBC % (a uto) Nucleated RBCs # Sodium Potassium Chloride Carbon Dioxide Anion Gap BUN Creatinine GFR Calculation Glucose POC Glucose 269 H 385 H 234 H Calculated Osmolal ity Calcium Total Bilirubin AST ALT Alkaline Phosphata se Total Protein Albumin Globulin Hepatitis A IgM Ab Hep Bs Antigen Hep Bs Antibody Hep B Core Total A b Hepatitis C Antibo dy 03/18/20 03/18/20 03/18/20 10:35 08:05 08:05 WBC RBC Hgb Hct MCV MCH MCHC RDW Plt Count MPV Neut % (Auto) Lymph % (Auto) [place] % (Auto) Eos % (Auto) Baso % (Auto) Neut # (Auto) Lymph # (Auto) [place] # (Auto) Eos # (Auto) Baso # (Auto) Nucleated RBC % (a uto) Nucleated RBCs # Sodium 140 Potassium 4.7 Chloride 100 Carbon Dioxide 33 H Anion Gap 11.7 BUN 33 H Creatinine 1.3 H GFR Calculation Not Reportable Glucose 256 H POC Glucose 256 H Calculated Osmolal ity 306 H Calcium 8.4 L Total Bilirubin 0.4 AST 90 H ALT 295 H Alkaline Phosphata se 96 Total Protein 6.9 Albumin 3.2 L Globulin 3.7 Hepatitis A IgM Ab Non-reactive Hep Bs Antigen Non-reactive Hep Bs Antibody 3.5 Hep B Core Total A b Non-reactive Hepatitis C Antibo dy Non-reactive 03/18/20 03/18/20 08:05 08:04 WBC 12.7 H RBC 4.68 Hgb 12.7 Hct 43.4 MCV 92.7 MCH 27.1 L MCHC 29.3 L RDW 17.9 H Plt Count 291 MPV 9.9 Neut % (Auto) 85.2 Lymph % (Auto) 9.6 [place] % (Auto) 4.4 Eos % (Auto) 0.0 Baso % (Auto) 0.2 Neut # (Auto) 10.84 H Lymph # (Auto) 1.2 [place] # (Auto) 0.6 Eos # (Auto) 0.0 Baso # (Auto) 0.0 Nucleated RBC % (a uto) 0 Nucleated RBCs # 0.0 Sodium Potassium Chloride Carbon Dioxide Anion Gap BUN Creatinine GFR Calculation Glucose POC Glucose 220 H Calculated Osmolal ity Calcium Total Bilirubin AST ALT Alkaline Phosphata se Total Protein Albumin Globulin Hepatitis A IgM Ab Hep Bs Antigen Hep Bs Antibody Hep B Core Total A b Hepatitis C Antibo dy Vitals: Last Vital Signs Temp 97.6 F 03/19/20 03:40 Pulse 63 03/19/20 07:54 Resp 20 H 03/19/20 07:54 BP 134/79 03/19/20 03:40 Pulse Ox 96 03/19/20 07:54 Discharge Plan Discharge Patient Disposition: Home Condition: Stable Prescriptions: New levofloxacin 750 mg tablet 750 mg PO DAILY 3 Days Qty: 3 RF: 0 prednisone 10 mg tablets,dose pack See Rx Instructions .ROUTE .COMPLEX Qty: 21 RF: 0 Continued ondansetron HCl [Zofran] 4 mg tablet 4 mg PO Q8H PRN (Reason: nausea and vomiting) 7 Days Qty: 20 RF: 0 baclofen 10 mg tablet 10 - 20 mg PO TID PRN (Reason: Pain) RF: 0 sennosides-docusate sodium [Stool Softener-Laxative] 8.6-50 mg tablet 2 tab-cap PO BID RF: 0 furosemide [Lasix] 40 mg tablet 40 mg PO BID Qty: 180 RF: 1 insulin lispro [Humalog KwikPen Insulin] 100 unit/mL insulin pen 10 unit SUBCUT TID Qty: 15 RF: 0 mirtazapine 7.5 mg tablet 7.5 mg PO DAILY Qty: 90 RF: 0 (DME) pen needle, diabetic [BD Ultra-Fine Mini Pen Needle] 31 gauge x 3/16 needle See Rx Instructions .ROUTE .MEDSUPPLY Qty: 200 RF: 1 gabapentin 600 mg tablet 900 mg PO TID Qty: 135 RF: 0 metformin 850 mg tablet 850 mg PO BID Qty: 60 RF: 2 sucralfate 1 gram tablet 1 g PO BID Qty: 60 RF: 2 lovastatin 20 mg tablet 20 mg PO DAILY Qty: 90 RF: 0 amlodipine 5 mg tablet 5 mg PO DAILY Qty: 90 RF: 0 pantoprazole 40 mg tablet,delayed release (DR/EC) 40 mg PO DAILY Qty: 90 RF: 1 levothyroxine 25 mcg tablet 25 mcg PO DAILY Qty: 90 RF: 1 Levemir FlexTouch U-100 Insuln 100 unit/mL (3 mL) insulin pen 40 unit SUBCUT BID Qty: 15 RF: 3 methenamine hippurate 1 gram tablet 1 g PO BID RF: 0 ipratropium-albuterol 0.5 mg-3 mg(2.5 mg base)/3 mL solution for nebulization 3 ml INHALATION Q6H PRN (Reason: shortness of breath or wheezing) Qty: 180 RF: 0 fluticasone propion-salmeterol [Advair Diskus] 500-50 mcg/dose blister with device 1 inh INHALATION BID Qty: 60 RF: 0 Linzess 290 mcg capsule 290 mcg PO DAILY PRN (Reason: Constipation) Qty: 90 RF: 1 aspirin 81 mg Tablet,Chewable 81 mg PO DAILY RF: 0 Januvia 100 mg tablet 100 mg PO DAILY RF: 0 morphine 15 mg Tablet 15 mg PO QID PRN (Reason: Pain) RF: 0 Discharge Orders: Discharge Order (Routine); Ordered 03/19/20 Ordered By: Berna Almaguer Other Ambulatory Orders: DME: Miscellaneous (Order) Location: None Selected Ordered By: Berna Almaguer DME: Oxygen (Order) Location: None Selected Ordered By: Berna Almaguer DME: Oxygen (Order) Location: None Selected Ordered By: Berna Almaguer Referrals: Viri Molina DO [Primary Care Provider] - 03/25/20 2:30 pm Vivian Parker MD [Physician] - 04/07/20 3:00 pm (worsening COPD) Discharge Diet: Diabetic Discharge Activity: Increase activity as tolerated Patient Instructions: COPD, Prednisone (By mouth), Levofloxacin (By mouth), COPD Stoplight Discharge Attestations Time Spent in Discharge Care*: greater than 30 min Specific Discharge Activities: educating patient, discussing with case worker/social workers/dc planners and documenting/other paperwork Quality Metrics Clinical Quality Measures During this hospital stay, did patient experience: None Coding Level of Care Code Acute Cargo Operations Agent for [facility] Fwd Diagnoses Delirium due to general medical condition F05 Acute UTI N39.0 Acute on chronic respiratory failure with hypercapnia J96.22 Transaminitis R74.01
[2020-03-19] MEDS: pantoprazole DR 40 mg Tablet PO (08:40)
[2020-03-19] MEDS: levothyroxine 25 mcg Tablet PO (08:40)
[2020-03-19] MEDS: sucralfate 1 gm Tablet PO (08:40)
[2020-03-19] MEDS: aspirin 81 mg Chew Tablet PO (08:40)
[2020-03-19] MEDS: gabapentin 300 mg Capsule 900 MG PO ×2 (08:40→14:58)
[2020-03-19] MEDS: amlodipine 5 mg Tablet PO (08:40)
[2020-03-19] MEDS: FUROsemide 10 mg/mL SDV 2mL 20 MG IVP (08:43)
[2020-03-19 11:59] LABS: Glucose Point of Care 370 mg/dL (70-110)
--- NOTE | 2020-03-19 14:50 | XR_ITS ---
WS: [id number] Exam: XR hip BI 3-4V wo/w pel [id number] Date/Time of Exam: 03/19/2020 3:02 PM Reason For Exam: slide to floor No fracture or dislocation involving the right or left hips. Moderately advanced degenerative narrowi ng of the bilateral hip joints which is bilaterally symmetrical. Normal bilateral soft tissues. XR/XR hip BI 3-4V wo/[place] [id number] IMPRESSION: 1. No fracture or dislocation. 2. Moderate degenerative changes of both hips the pattern is bilaterally symmet rical.
[2020-03-19 16:31] LABS: Glucose Point of Care 203 mg/dL (70-110)
== END 2020-03-19 17:20 | disposition home or self-care (01) | DRG 190 ==
LOC: ER 17:38 → ICU 18:38 → MEDSURG 03-17 19:52
PROVIDERS: Internal Medicine; Admitting Provider Internal Medicine; Emergency Provider Family Medicine; PCP Family Medicine; Visit Provider Student in an Organized Health Care Education/Training Program
DX: J44.1 Chronic obstructive pulmonary disease with (acute) exacerbation (principal); J96.22 Acute and chronic respiratory failure with hypercapnia; J96.21 Acute and chronic respiratory failure with hypoxia; Z68.42 Body mass index [BMI] 45.0-49.9, adult; F05 Delirium due to known physiological condition; G93.40 Encephalopathy, unspecified; N30.00 Acute cystitis without hematuria; K83.09 Other cholangitis; N17.9 Acute kidney failure, unspecified; I24.8 Other forms of acute ischemic heart disease; E11.22 Type 2 diabetes mellitus with diabetic chronic kidney disease; N18.2 Chronic kidney disease, stage 2 (mild); G47.33 Obstructive sleep apnea (adult) (pediatric); E03.9 Hypothyroidism, unspecified; E66.01 Morbid (severe) obesity due to excess calories; G89.29 Other chronic pain; M54.9 Dorsalgia, unspecified; R21 Rash and other nonspecific skin eruption; E78.5 Hyperlipidemia, unspecified; Z79.891 Long term (current) use of opiate analgesic; Z87.891 Personal history of nicotine dependence; B96.1 Klebsiella pneumoniae [K. pneumoniae] as the cause of diseases classified elsewhere; Z79.82 Long term (current) use of aspirin; Z79.4 Long term (current) use of insulin
CPT/HCPCS: 12345; 36415; 36416; 36600; 51702; 71045; 71275; 73522; 74176; 76705; 80048; 80051; 80053; 80076; 80306; 80307; 81001; 82330; 82803; 82805; 82962; 83605; 83690; 83735; 83880; 84145; 84443; 84484; 85025; 85378; 86140; 86705; 86706; 86709; 86803; 87040; 87077; 87086; 87186; 87340; 87426; 87635; 87804; 93005; 93970; 94640; 94660; 96372; 99283; J1650; J1815 ×2; J1940; J2543; J2920; J3370; J3535; J7030; J7050; Q9967

== ENCOUNTER 2020-03-20 13:54 | Inpatient (IN) | payer MEDICARE, MEDICAID, SELFPAY ==
[2020-03-20] VITALS (9 sets, daily range): BP systolic 105–134; BP diastolic 59–81; PULSE 62–82; RESP 16–20; TEMP 36.6–36.7; O2SAT 91–98; BMI 45.1
--- NOTE | 2020-03-20 14:44 | ECG_ITS ---
[facility] Test Date: 2020-03-20 Pat Name: Irina Velasquez Department: Room: Gender: Female Target Worker: : 1945 Requested By: Rigoberto Martinez Order Number: [id number] Percy MD: Tray Rizo M.D. Measurements Intervals [place] Rate: 67 P: VT: QRS: 69 QRSD: 94 T: 0 QT: 364 QTc: 386 Interpretive Statements ATRIAL FIBRILLATION LOW QRS VOLTAGE IN PRECORDIAL LEADS [QRS DEFLECTION < 1.0 mV IN CHEST LEADS] ANTEROSEPTAL MYOCARDIAL INFARCTION , OF INDETERMINATE AGE [40+ ms Q WAVE IN V1-V4] Compared to ECG 03/16/2020 03:57:20 T-wave abnormality no longer present Possible ischemia no longer present Myocardial infarct finding still present Electronically Signed On 03-20-2020 14:59:02 [employer]ARK [employer]INNER by Tray Rizo M.D. [id number]
--- NOTE | 2020-03-20 14:44 | XR_ITS ---
WS: [id number] Exam: XR chest 1V portable [id number] Date/Time of Exam: 03/20/2020 2:44 PM Reason For Exam: dyspnea/cough Comparison 03/15/2020. The lungs are fully expanded and clear. Heart size is top limits normal. The mediastinum and bony tho rax are unremarkable. No pleural effusions. No pneumothorax. XR/XR chest 1V portable [id number] IMPRESSION: 1. No acute cardiopulmonary finding. No change.
--- NOTE | 2020-03-20 14:58 | PC.NURSE ---
EKG done at 1455 and shown to ER doctor
--- NOTE | 2020-03-20 15:08 | W.ED.WEAKNES ---
HPI - Weakness General: Chief complaint: Weakness Stated complaint: BILATERAL LEG PAIN Time Seen by Provider: 03/20/20 14:29 History of Present Illness: HPI Narrative: 74-year-old female who was discharged yesterday from [facility]. Since getting home she has she has not been able to get up or get around and she is too weak to stand. Reviewing the hospitalist notes and talking to the hospitalist discharge to that offered to discharge to the custodial and she declined now she is returning stating she cannot manage things at home. She denies chest pain denies shortness of breath denies dysuria urgency or frequency. MD Complaint: generalized weakness and difficulty walking Onset (ago): week(s) Duration: constant Location: LLE and RLE Relieving factors: none Exacerbating factors: none Associated symptoms: Reports myalgias and short of breath; Denies chest pain, chills, confusion, melena, decreased appetite, diaphoresis, dysuria, easy bruising, fever(s), headache(s), nausea, rash, syncope or vomiting Review of Systems Const: Denies: fever(s), chills or diaphoresis ENMT: Denies: throat pain, ear or mastoid pain, nasal discharge or nasal congestion Card: Denies: chest pain or syncope Resp: Denies: dyspnea, productive cough or non-productive cough GI: Denies: nausea or melena : Denies: dysuria Skin/Breast: Denies: rash or pruritus Neuro: Denies: headache(s) or confusion Lit/Lymph: Denies: easy bruising PFSH ED PFSH: Medical History Chronic back pain Chronic kidney disease, stage II (mild) COPD (chronic obstructive pulmonary disease) Dyslipidemia Enrolled in chronic care management 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 jail (current) use of opiate analgesic Obesity Discussed weight loss Sleep apnea, obstructive Needs outpatient sleep study Type 2 diabetes mellitus, with long-term current use of insulin Surgical History History of cholecystectomy History of tonsillectomy and adenoidectomy S/P appendectomy Family History Other Diabetes Social History Smoking and tobacco status: former smoker Alcohol intake: never Physical Exam Const: COMMON NORMALS: no acute distress GENERAL APPEARANCE: cooperative and comfortable ORIENTATION/CONSCIOUSNESS: Yes awake, Yes oriented to person, Yes oriented to place and Yes oriented to time HENMT: COMMON NORMALS: normocephalic and atraumatic HEAD & SCALP: normocephalic and atraumatic Neck/C-Spine: COMMON NORMALS: no JVD Resp: COMMON NORMALS: normal respiratory effort, No retractions, No use of accessory muscles and clear to auscultation bilaterally AUSCULTATION: clear to auscultation bilaterally Cardio: COMMON NORMALS: no JVD, regular rate, regular rhythm and No murmurs present (Cardio) RATE: regular rate RHYTHM: regular rhythm GI: COMMON NORMALS: Soft to palpation and No hepatosplenomegaly present AUSCULTATION: Yes normoactive bowel sounds PALPATION: Yes Soft to palpation, No Tenderness to palpation present (GI), No Guarding due to palpation present (GI) and Yes No hepatosplenomegaly present Neuro: SENSORIUM/ORIENTATION: Yes oriented to person, Yes oriented to place and Yes oriented to time Course Vital Signs: Vital signs: Vital Signs Temperature 97.5 F L 03/21/20 07:55 Pulse Rate 58 L 03/21/20 07:55 Respiratory Rate 18 03/21/20 07:55 Blood Pressure 125/69 03/21/20 07:55 Pulse Oximetry 93 03/21/20 07:55 MDM - Weakness MDM Narrative: Medical decision making narrative: Morbidly obese unable to ambulate. Her history reviewed discussed Dr. Arriola who discharged her yesterday we will go ahead and readmit her to the hospital and look for placement. Discharge Plan Discharge Patient Disposition: Admitted As Inpatient Admit Provider: Berna Almaguer Clinical Impression: Generalized weakness, Obesity, Chronic kidney disease, stage II (mild), Hypertension, Sleep apnea, obstructive, 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, Chronic back pain, Type 2 diabetes mellitus, with long-term current use of insulin, COPD (chronic obstructive pulmonary disease), Physical deconditioning Condition: Stable Coding Level of Care Code ED Professor Of Astronomy for Chg Fwd Exam Detailed
--- NOTE | 2020-03-20 15:20 | CT_ITS ---
WS: [id number] Exam: CT pelvis wo con [id number] Date/Time of Exam: 03/20/2020 3:25 PM Reason For Exam: pain after fall No evidence of the pelvic fracture. The hips are intact bilaterally. The pelvis is osteopenic. Degene rative changes of the visualized spine and hips. No sign of pelvic wall hematoma or mass. No mass or adenopathy within the pelvis. Large abdominal wall panniculus. DLP: 1348.[address] scans at [facility] use at least one of these dose optimization techniques: automat ed exposure control; mA and/or kV adjustment per patient size (includes targeted exams where dose is matched to clinical indication); or iterative reconstruction. CT/CT pelvis con [id number] IMPRESSION: 1. No indication of acute pelvic or hip fracture. 2. No pelvic wall mass or hematoma. No mass or adenopathy within the pelvis.
--- NOTE | 2020-03-20 15:27 | DCPLANNER ---
wind power project manager was asked to find long-term placement for patient. Nena from the in patient side of care coordination called complex case manager and asked complex case manager if complex case manager could start working on long-term placement. wind power project manager spoke with patient and she stated that she would like to go to a long-term. wind power project manager gave patient the medicare performance information, and had patient sign the Patient Choice sheet. Patient stated that she would like to go to [facility] first, then [facility] would be second choice. wind power project manager called [facility], spoke with [facility] was told that they were unable to accept at this time. wind power project manager called [facility], spoke with Jaja, was told that they would need a prior auth since patient has a medicare advantage plan. She stated that due to the holiday weekend that it would be at least next week before they would be able to get a prior authorization. wind power project manager informed ED physician of this and Nena on the in patient side of this.
[2020-03-20 16:18] LABS: Basophils % 0.1 %; Eosinophils # 0.3 10^3/uL (0.0-0.8); Eosinophils % 1.9 %; Lymphocytes # 2.7 10^3/uL (0.8-4.8); Lymphocytes % 19.8 %; Mean Corpuscular HGB Conc 29.5 g/dL (30.0-36.0); Mean Corpuscular Hemoglobin 27.5 pg (28.0-34.0); Mean Corpuscular Volume 93.2 fL (81-99); Monocytes # 1.5 10^3/uL (0.2-0.9); Monocytes % 11.2 %; Neutrophils # 8.92 10^3/uL (1.8-7.7); Neutrophils % 66.6 %; Nucleated Red Blood Cells % 0 %; Platelet Count 307 10^3/cmm (130-400); Red Blood Count 4.72 10^6/uL (4.1-5.3); Red Cell Distribution Width 17.2 % (12.1-15.1); White Blood Count 13.4 10^3/uL (4.0-10.0)
[2020-03-20 16:41] LABS: Alanine Aminotransferase 132 U/L (0-33); Albumin Level 3.3 g/dL (3.5-5.2); Alkaline Phosphatase 91 IU/L (35-105); Anion Gap 11.5 (5-19); Aspartate Amino Transferase 24 U/L (0-32); Blood Urea Nitrogen 33 mg/dL (8-23); Calcium 8.7 mg/dL (8.5-10.5); Carbon Dioxide 34 mmol/L (22-29); Chloride 99 mmol/L (98-107); Creatine Phosphokinase 43 U/L (26-192); Globulin 3.1 g/dL (1.3-4.6); Glucose 163 mg/dL (65-115); Osmolality Calculated 303 mOsm/kg (285-295); Potassium 3.5 mmol/L (3.5-5.1); Sodium 141 mmol/L (136-145); Total Bilirubin 0.3 mg/dL (0.15-1.2); Total Protein 6.4 g/dL (6.6-8.7)
[2020-03-20 17:35] LABS: Glucose Point of Care 121 mg/dL (70-110)
[2020-03-20] MEDS: pneumococcal (23 valent) SDV 0.5 mL IM (18:00)
[2020-03-20 19:10] LABS: Add Urine Microscopic? NO
[2020-03-20 20:17] LABS: Bilirubin Urine Neg (Negative); Blood Urine Neg (Negative); Glucose Urine UA Norm (Normal); Ketones Urine Negative (Negative); Leukocyte Esterase Urine Negative (Negative); Nitrate Urine Negative (Negative); Protein Urine Neg (Negative); Specific Gravity, Urine 1.005 (1.005-1.030); Urine Appearance Clear (CLEAR); Urine Color Yellow (Yellow); Urobilinogen Urine Norm (Negative)
[2020-03-20 21:25] LABS: Glucose Point of Care 168 mg/dL (70-110)
--- NOTE | 2020-03-20 21:36 | PM.HP ---
Providers/Chief Complaint Admitting Physician: Berna Almaguer MD Primary Care Provider: Viri Molina DO Chief Complaint: BILATERAL LEG PAIN History of Present Illness Irina Velasquez is a 74 year old female discharged yesterday after being managed for hypercapenic respiratory failure, UTI and encephalopathy, please see discharge summary from yesterday. Prior to discharge yesterday she had slipped between her commode and bed , x ray of the pelvis and hip were without acute fractures, she elected to return home. She remaine din her recliner for most of the night, today when attempted to get out she felt weak and deconditioned, felt her knees give out and came back to the hospital for weakness Review of Systems General: Reports: 10 or more systems reviewed and unremarkable except in HPI and below Const: Denies: fever(s), chills or body aches Eyes: Denies: change in vision, blurry vision or photophobia ENMT: Reports: hoarseness; Denies: throat pain, enlarged tonsils, odynophagia or nasal congestion Card: Denies: chest pain, palpitations, irregular heart rhythm, edema, swelling of feet/ankles, lightheadedness, pre-syncope, dyspnea on exertion or orthopnea Resp: Denies: dyspnea, productive cough, non-productive cough, wheezing, stridor, pain on inspiration, change in phlegm color, hemoptysis or chest congestion GI: Denies: abdominal pain, nausea, vomiting, hematemesis, coffee ground emesis, dysphagia, heartburn, diarrhea, constipation, GI cramping, change in stool character, hematochezia or melena : Denies: flank pain, difficulty voiding, dysuria, urinary frequency, urinary urgency, urinary hesitancy or hematuria Musc: Denies: neck pain, back pain, extremity pain, joint swelling, joint warmth or deformity Neuro: Denies: headache(s), numbness in extremities, weakness in extremities, sensory changes, difficulty walking, frequent falls, dizziness, vertigo, behavioral changes, Slurred speech present or seizure-like activity Psych: Denies: anxiety, depression, suicidal ideation or homicidal ideation Endo: Denies: polyuria, polydipsia, tired all the time, cold intolerance or hot flashes Lit/Lymph: Denies: easy bruising or easy bleeding Medications/Allergies Home Medications Medication Instructions Recorded Confirmed Last Taken Type methenamine hippurate 1 g PO BID@0700,199903/20/19 03/20/20 03/20/20 History ipratropium-albuterol 3 ml INHALATION Q6H PRN #180 ml 03/21/19 03/20/20 Unknown Rx baclofen 10 mg tablet 10 - 20 mg PO TID PRN tab 05/16/19 03/20/20 Unknown History sennosides 8.6 mg-docusate sodium 2 tab-cap PO BID@0700,1999 tab 05/16/19 03/20/20 03/20/20 History 50 mg tablet ondansetron HCl 4 mg tablet 4 mg PO Q8H PRN 7 Days #20 tab 09/19/19 03/20/20 Unknown Rx linaclotide 290 mcg capsule 290 mcg PO DAILY PRN #90 cap 11/08/19 03/20/20 03/20/20 Rx pen needle, diabetic 31 gauge x #200 each 11/21/19 03/20/20 Unknown Rx 3/16 Januvia 100 mg PO DAILY@0700 03/15/20 03/20/20 03/20/20 History aspirin 81 mg PO DAILY@0700 03/15/20 03/20/20 03/20/20 History prednisone See Rx Instructions .ROUTE 03/19/20 03/20/20 Unknown Rx .COMPLEX #21 ea Humalog KwikPen Insulin 10 unit SUBCUT TID@0700,1200,1900 03/20/20 03/20/20 03/20/20 History Lasix 40 mg PO BID@0700,1900 03/20/20 03/20/20 03/20/20 History Levemir FlexTouch U-100 Insuln 40 unit SUBCUT BID@0700,1900 03/20/20 03/20/20 03/20/20 History amlodipine 5 mg PO DAILY@0700 03/20/20 03/20/20 03/20/20 History gabapentin 900 mg PO TID@0700,1200,1900 03/20/20 03/20/20 03/20/20 History levofloxacin 750 mg PO DAILY@0700 03/20/20 03/20/20 Unknown History levothyroxine 25 mcg PO DAILY@0700 03/20/20 03/20/20 03/20/20 History lovastatin 20 mg PO DAILY@0703/20/20 03/20/20 03/20/20 History metformin 850 mg PO BID@699,199903/20/20 03/20/20 03/20/20 History mirtazapine 7.5 mg PO DAILY@199903/20/20 03/20/20 03/20/20 History pantoprazole 40 mg PO DAILY@0703/20/20 03/20/20 03/20/20 History sucralfate 1 g PO BID@699,199903/20/20 03/20/20 03/20/20 History Allergies Allergy/AdvReac Type Severity Reaction Status Date / Time codeine Allergy ALGY-Hives Verified 02/22/20 09:54 PFSH Acute PFSH: Medical History Chronic back pain Chronic kidney disease, stage II (mild) COPD (chronic obstructive pulmonary disease) Dyslipidemia Enrolled in chronic care management 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 shelter (current) use of opiate analgesic Obesity Discussed weight loss Sleep apnea, obstructive Needs outpatient sleep study Type 2 diabetes mellitus, with long-term current use of insulin Surgical History History of cholecystectomy History of tonsillectomy and adenoidectomy S/P appendectomy Family History Other Diabetes Social History Smoking and tobacco status: former smoker Alcohol intake: never Vitals/I&O/Wt Last Vital Signs Temp 97.9 F 03/20/20 19: Pulse 62 03/20/20 19:20 Resp 16 03/20/20 19:20 BP 134/76 03/20/20 19:20 Pulse Ox 95 03/20/20 19:20 03/20/20 03/20/20 03/20/20 06:59 14:59 22:59 Intake Total 240 / 240 Balance 240 / 240 Weight last 48 hrs Weight 127.006 kg Physical Exam Narrative: EXAM NARRATIVE: GEN: Awake, alert and oriented, no acute distress CVS: S1S2 N RS: CTA B/L Abd: Soft, nt/nd , bs+ GARAGE SUPERVISOR: no focal neuro deficits Urinary Catheter Management^: Chowdary: Cath Placed During This Visit: yes Reason for Continuing Indwelling Catheter: Other Urinary Catheter Date of Insertion: 03/20/20 Urinary Catheter Time of Insertion: 16:15 Data : 03/20/20 15:46 03/20/20 15:46 A&P Assessment and plan (1) Generalized weakness: Status: Acute (2) Physical deconditioning: Status: Acute (3) COPD (chronic obstructive pulmonary disease): Status: Acute Additional A&P Information Patient experiencing generalized weakness and physical deconditioing after recent hospital discharge lives alone, states she is unable to manage independently at home , SNF will likely be most appropriate in this setting aids social worker consult PT/OT X ray pelvis yesterday without acute fractures , check CT hip and pelvis additionally ,ordred from ER continue abx prescribe don discharge to complete course Continue prednisone taper as prescribed on discharge yesetrday Full code DVt ppx: lovenox Attestations Medical Necessity Statement*: >2midnight anticipated Coding Level of Care Code Acute Elastic Attacher Chainstitch for Chg Fwd Diagnoses Generalized weakness R53.1 Physical deconditioning R53.81 COPD (chronic obstructive pulmonary disease) J44.9
[2020-03-20] MEDS: insulin glargine 100 units/1 mL 30 UNIT SUBCUT (22:54)
[2020-03-20] MEDS: morphine IR 15 mg Tablet PO (23:35)
[2020-03-21] VITALS (10 sets, daily range): BP systolic 123–161; BP diastolic 69–83; PULSE 58–80; RESP 18–20; TEMP 35.9–36.8; O2SAT 93–98
[2020-03-21] MEDS: aspirin 81 mg Chew Tablet PO (06:18)
[2020-03-21] MEDS: atorvastatin 40 mg Tablet 20 MG PO (06:18)
[2020-03-21] MEDS: gabapentin 300 mg Capsule 600 MG PO ×3 (06:18→17:25)
[2020-03-21] MEDS: amlodipine 5 mg Tablet PO (06:18)
[2020-03-21] MEDS: levoFLOXacin 750 mg Tablet PO (06:19)
[2020-03-21] MEDS: levothyroxine 25 mcg Tablet PO (06:19)
[2020-03-21] MEDS: pantoprazole DR 40 mg Tablet PO (06:20)
[2020-03-21] MEDS: sennosides-docusate Tablet 2 TAB PO ×2 (06:20→20:30)
[2020-03-21] MEDS: morphine IR 15 mg Tablet PO (06:21)
[2020-03-21] MEDS: sucralfate 1 gm Tablet PO ×2 (06:21→20:30)
[2020-03-21 06:35] LABS: Basophils % 0.2 %; Eosinophils # 0.4 10^3/uL (0.0-0.8); Eosinophils % 3.5 %; Hematocrit 46.1 % (37.0-47.0); Lymphocytes # 3.3 10^3/uL (0.8-4.8); Lymphocytes % 26.5 %; Mean Corpuscular HGB Conc 28.2 g/dL (30.0-36.0); Mean Corpuscular Hemoglobin 27.5 pg (28.0-34.0); Mean Corpuscular Volume 97.7 fL (81-99); Mean Platelet Volume 10.1 fL (7.4-10.4); Monocytes # 1.2 10^3/uL (0.2-0.9); Monocytes % 9.5 %; Neutrophils # 7.49 10^3/uL (1.8-7.7); Nucleated Red Blood Cells % 0 %; Platelet Count 265 10^3/cmm (130-400); Red Blood Count 4.72 10^6/uL (4.1-5.3); Red Cell Distribution Width 17.5 % (12.1-15.1); White Blood Count 12.5 10^3/uL (4.0-10.0)
[2020-03-21 07:03] LABS: Blood Urea Nitrogen 29 mg/dL (8-23); Calcium 8.1 mg/dL (8.5-10.5); Carbon Dioxide 29 mmol/L (22-29); Chloride 100 mmol/L (98-107); Glucose 61 mg/dL (65-115); Osmolality Calculated 290 mOsm/kg (285-295); Sodium 138 mmol/L (136-145)
[2020-03-21 07:04] LABS: Anion Gap 13.7 (5-19); Potassium 4.7 mmol/L (3.5-5.1)
[2020-03-21 07:06] LABS: Glucose Point of Care 72 mg/dL (70-110)
[2020-03-21] MEDS: FUROsemide 40 mg Tablet PO (07:57)
[2020-03-21] MEDS: predniSONE 20 mg Tablet PO (07:57)
--- NOTE | 2020-03-21 09:29 | PC.CHAP ---
Pastoral Care Encounter/Spiritual Assessment Type of Contact [] Declined logistics specialist visit [] Patient/Family/Request visit [] Outpatient visit [] Follow-up visit [] Physician referral [] Code/Alert [x] Routine visit [] Staff referral [] Actively dying [] Patient sleeping [] Family support [] [] Out of room [] Palliative care [] [] Receiving care in room [] Pre-surgical visit [] Trauma [] Long length of stay [] ICU visit [] Other: Relational/Emotional Strength [x] Patient feels connected with others/family/visitors/staff [] Distress [] Loneliness/isolation [] Abandonment Spirituality of Patient [x] Person of Keren [] Attends Anglican of their Keren [] Believes in Prayer [] Reads Bible or Catholic materials [] There are Spiritual issues to be addressed Purler Interventions [x] Prayer [x] Active listening [] Non-anxious presence [] Spiritual/emotional support [] Crisis/trauma care [] Spiritual counseling [] Bereavement support [] Provided bereavement packet [] Provided Bible/devotional materials [] Provided toy/stuffed animal, coloring book to patient or family member [] Provided Communion [] Anointing/[place] [] Salvation [x] Completed spiritual assessment [] Other: Impact on Illness or Injury [] Angry [] Fearful [] Anxious [] Often cries [] Exhaustion [] Unable to work [] Unable to attend oriental orthodox [] Unable to walk/stand [] Unable to read [] Unable to drive [] Unable to eat/drink [] Unable to sleep [] Unable to be with family [] Patient intubated [] Other: Summary patient can not hold her food down Time spent with patient 10 min
[2020-03-21 11:47] LABS: Glucose Point of Care 148 mg/dL (70-110)
--- NOTE | 2020-03-21 15:23 | P.PN_ITS ---
Subjective Subjective: Interval history: Complains of dyspnea mass nausea vomiting since this morning. Unable to participate with PT today as she felt dizzy and was placed back in bed. Noted to be hypoglycemic this morning Medications: Reviewed: Yes Vitals/I&O/Wt Last Vital Signs Temp 97.6 F 03/21/20 12:00 Pulse 74 03/21/20 14:46 Resp 18 03/21/20 14:46 BP 131/82 03/21/20 12:00 Pulse Ox 97 03/21/20 14:46 03/21/20 03/21/20 03/21/20 06:59 14:59 22:59 Intake Total 240 / 240 Output Total 225 / 1175 750 / 750 Balance -225 / -935 -510 / -510 Weight last 48 hrs Weight 127.006 kg Physical Exam Narrative: EXAM NARRATIVE: GEN: Awake, alert and oriented, no acute distress CVS: S1S2 N RS: CTA B/L Abd: Soft, nt/nd , bs+, reducible ventral hernia AIRPLANE AND ENGINE INSPECTOR: no focal neuro deficits Urinary Catheter Management^: Chowdary: Cath Placed During This Visit: yes Reason for Continuing Indwelling Catheter: Other Urinary Catheter Date of Insertion: 03/20/20 Urinary Catheter Time of Insertion: 16:15 Data : 03/21/20 05:13 03/21/20 05:13 A&P Assessment and plan (1) Generalized weakness: Status: Acute (2) Physical deconditioning: Status: Acute (3) COPD (chronic obstructive pulmonary disease): Status: Acute Additional A&P Information Patient experiencing generalized weakness and physical deconditioing after recent hospital discharge Today reports dizziness, few episodes of vomiting in the morning, still describing significant weakness Check orthostatics, telemetry monitoring to rule out underlying arrhythmias this patient noted to be tachycardic when feeling dizzy, noted hypoglycemia this morning at 61, which may be contributing, reduce insulin glargine to [address] head to rule out CVA lives alone, states she is unable to manage independently at home , SNF will likely be most appropriate in this setting neonatal social worker consult for placement to SNF PT/OT X ray pelvis yesterday without acute fractures , CT hip without any acute hip or pelvic fractures Change p.o. levofloxacin to IV ceftriaxone in case contributing to her dizziness Continue prednisone 1 g p.o. daily for COPD exacerbation from recent admission Full code DVt ppx: lovenox Attestations Medical Necessity Statement*: CT head today, hypoglycemic needing insulin adjustment, check orthostatics and telemetry monitoring for any underlying arrhythmias, ongoing disposition decisions regarding placement to SNF Coding Level of Care Code Acute Outside Sales Manager for Chg Fwd Diagnoses Generalized weakness R53.1 Physical deconditioning R53.81 COPD (chronic obstructive pulmonary disease) J44.9
[2020-03-21 17:09] LABS: Glucose Point of Care 191 mg/dL (70-110)
[2020-03-21] MEDS: cefTRIAXone 1,000 MG in sodium chloride 0.9% (plus) 50 ML 100 MG IV (18:33)
[2020-03-21 21:28] LABS: Glucose Point of Care 225 mg/dL (70-110)
[2020-03-21] MEDS: insulin glargine 100 units/1 mL 15 UNIT SUBCUT (21:37)
[2020-03-22] VITALS (12 sets, daily range): BP systolic 128–146; BP diastolic 73–77; PULSE 57–89; RESP 17–20; TEMP 36.4–36.9; O2SAT 91–97
[2020-03-22] MEDS: aspirin 81 mg Chew Tablet PO (06:21)
[2020-03-22] MEDS: levothyroxine 25 mcg Tablet PO (06:22)
[2020-03-22] MEDS: amlodipine 5 mg Tablet PO (06:22)
[2020-03-22] MEDS: gabapentin 300 mg Capsule 600 MG PO ×3 (06:22→17:48)
[2020-03-22] MEDS: atorvastatin 40 mg Tablet 20 MG PO (06:23)
[2020-03-22] MEDS: pantoprazole DR 40 mg Tablet PO (06:23)
[2020-03-22] MEDS: sennosides-docusate Tablet 2 TAB PO ×2 (07:08→20:12)
[2020-03-22] MEDS: sucralfate 1 gm Tablet PO ×2 (07:08→20:13)
[2020-03-22 07:15] LABS: Glucose Point of Care 117 mg/dL (70-110)
--- NOTE | 2020-03-22 08:00 | CTR_ITS ---
PROCEDURE INFORMATION: Exam: CT Head Without Contrast Exam date and time: 03/22/2020 8:09 AM Age: 74 years old Clinical indication: Patient HX: C/O dizziness, n/v; Additional info: Dizzziness, nausea TECHNIQUE: Imaging protocol: Computed tomography of the head without contrast. Radiation optimization: All CT scans at this facility use at least one of these dose optimization techniques: automated exposure control; mA and/or kV adjustment per patient size (includes targeted exams where dose is matched to clinical indication); or iterative reconstruction. COMPARISON: No relevant prior studies available. RADIATION DOSE METRICS: Total DLP (mGy-cm): 809.13 FINDINGS: Brain: There is volume loss. There is periventricular white matter lucency consistent with chronic microvascular disease. There is no evidence of acute infarct. There is no hemorrhage or extra-axial collection. There is no mass. Cerebral ventricles: Ventricular size is proportionate to the prominence of the sulci.. Bones/joints: Unremarkable. No acute fracture. Paranasal sinuses: Visualized sinuses are unremarkable. No fluid levels. Mastoid air cells: Visualized mastoid air cells are well aerated. Soft tissues: Unremarkable. CT/CT head wo con* [id number] IMPRESSION: 1. Volume loss and chronic microvascular disease. 2. No acute intracranial lesion or injury. Radiation Dose CTDIVOL = (mGy): DLP = 809.13 (mGy-cm)
[2020-03-22] MEDS: predniSONE 20 mg Tablet PO (08:19)
[2020-03-22] MEDS: FUROsemide 40 mg Tablet PO (08:19)
[2020-03-22 11:06] LABS: Glucose Point of Care 200 mg/dL (70-110)
--- NOTE | 2020-03-22 13:42 | P.PN_ITS ---
Subjective Subjective: Interval history: States feeling somewhat better today today. Dizziness is better. CT head was unable to be completed yesterday. Participating with physical therapy as she was afraid she may fall. Medications: Reviewed: Yes Vitals/I&O/Wt Last Vital Signs Temp 97.6 F 03/22/20 11:00 Pulse 71 03/22/20 11:00 Resp 20 H 03/22/20 11:00 BP 146/76 03/22/20 11:00 Pulse Ox 94 03/22/20 11:00 03/21/20 03/22/20 03/22/20 22:59 06:59 14:59 Intake Total 120 / 360 120 / 120 Balance 120 / -390 120 / 120 Weight last 48 hrs Weight 127.006 kg Physical Exam 2 Narrative: EXAM NARRATIVE: GEN: Awake, alert and oriented, no acute distress CVS: S1S2 N RS: CTA B/L Abd: Soft, nt/nd , bs+ INSTALLATION AND REPAIR TECHNICIAN: no focal neuro deficits Urinary Catheter Management^: Chowdary: Cath Placed During This Visit: yes Reason for Continuing Indwelling Catheter: Acute Urinary Retention or Obstruction Urinary Catheter Date of Insertion: 03/20/20 Urinary Catheter Time of Insertion: 16:15 Data : 03/21/20 05:13 03/21/20 05:13 A&P Assessment and plan (1) Generalized weakness: Status: Acute (2) Physical deconditioning: Status: Acute (3) COPD (chronic obstructive pulmonary disease): Status: Acute Additional A&P Information Patient experiencing generalized weakness and physical deconditioing after recent hospital discharge Dizziness is better today, orthostatics are stable, however still does not participate with PT afraid that she will not be able to bear weight on both of her legs. C no events on telemetry. No further hypoglycemic episodes Check CT head to rule out CVA, the study was not performed yesterday lives alone, states she is unable to manage independently at home , SNF will likely be most appropriate in this setting social worker delinquency prevention consult for placement to SNF PT/OT X ray pelvis yesterday without acute fractures , CT hip without any acute hip or pelvic fractures Change p.o. levofloxacin to IV ceftriaxone in case contributing to her dizziness Continue prednisone 20 p.o. daily for COPD exacerbation from recent admission And budesonide inhalation, change DuoNeb to scheduled 6-hour nebulization, CPAP at night Full code DVt ppx: lovenox Attestations Medical Necessity Statement*: Significant deconditioning after recent hospital admission, awaiting SNF placement, CT head today Coding Level of Care Code Acute Telegraph Installer for Chg Fwd Diagnoses Generalized weakness R53.1 Physical deconditioning R53.81 COPD (chronic obstructive pulmonary disease) J44.9
[2020-03-22] MEDS: ipratropium-albuterol 3 mL Neb INHALATION ×2 (14:53→20:02)
[2020-03-22 16:56] LABS: Glucose Point of Care 292 mg/dL (70-110)
[2020-03-22] MEDS: cefTRIAXone 1,000 MG in sodium chloride 0.9% (plus) 50 ML 100 MG IV (19:23)
[2020-03-22] MEDS: budesonide 0.5 mg/2 mL Neb INHALATION (20:02)
[2020-03-22 21:30] LABS: Glucose Point of Care 300 mg/dL (70-110)
[2020-03-22] MEDS: insulin glargine 100 units/1 mL 15 UNIT SUBCUT (21:48)
[2020-03-23] VITALS (19 sets, daily range): BP systolic 105–150; BP diastolic 64–82; PULSE 54–80; RESP 16–18; TEMP 36.5–37.1; O2SAT 90–96
[2020-03-23] MEDS: ipratropium-albuterol 3 mL Neb INHALATION ×4 (02:50→20:57)
[2020-03-23 05:22] LABS: Basophils % 0.2 %; Eosinophils # 0.4 10^3/uL (0.0-0.8); Eosinophils % 2.8 %; Hematocrit 40.5 % (37.0-47.0); Hemoglobin 11.9 g/dL (11.5-15.3); Lymphocytes # 2.7 10^3/uL (0.8-4.8); Lymphocytes % 19.6 %; Mean Corpuscular HGB Conc 29.4 g/dL (30.0-36.0); Mean Corpuscular Hemoglobin 27.9 pg (28.0-34.0); Mean Corpuscular Volume 95.1 fL (81-99); Mean Platelet Volume 10.5 fL (7.4-10.4); Monocytes # 1.2 10^3/uL (0.2-0.9); Monocytes % 8.9 %; Neutrophils # 9.46 10^3/uL (1.8-7.7); Neutrophils % 68.1 %; Nucleated Red Blood Cells % 0 %; Platelet Count 268 10^3/cmm (130-400); Red Blood Count 4.26 10^6/uL (4.1-5.3); White Blood Count 13.9 10^3/uL (4.0-10.0)
[2020-03-23 05:56] LABS: Alanine Aminotransferase 61 U/L (0-33); Albumin Level 3.2 g/dL (3.5-5.2); Alkaline Phosphatase 90 IU/L (35-105); Aspartate Amino Transferase 19 U/L (0-32); Blood Urea Nitrogen 26 mg/dL (8-23); Calcium 8.6 mg/dL (8.5-10.5); Carbon Dioxide 39 mmol/L (22-29); Chloride 98 mmol/L (98-107); Glucose 130 mg/dL (65-115); Osmolality Calculated 303 mOsm/kg (285-295); Sodium 143 mmol/L (136-145); Total Bilirubin 0.4 mg/dL (0.15-1.2); Total Protein 6.2 g/dL (6.6-8.7)
[2020-03-23 06:09] LABS: Anion Gap 9.7 (5-19); Potassium 3.7 mmol/L (3.5-5.1)
[2020-03-23] MEDS: levothyroxine 25 mcg Tablet PO (06:40)
[2020-03-23] MEDS: aspirin 81 mg Chew Tablet PO (06:40)
[2020-03-23] MEDS: gabapentin 300 mg Capsule 600 MG PO ×3 (06:40→17:41)
[2020-03-23] MEDS: pantoprazole DR 40 mg Tablet PO (06:40)
[2020-03-23] MEDS: amlodipine 5 mg Tablet PO (06:40)
[2020-03-23] MEDS: atorvastatin 40 mg Tablet 20 MG PO (06:41)
[2020-03-23] MEDS: morphine IR 15 mg Tablet PO (06:46)
[2020-03-23 07:27] LABS: Glucose Point of Care 112 mg/dL (70-110)
[2020-03-23] MEDS: sennosides-docusate Tablet 2 TAB PO ×2 (08:47→20:26)
[2020-03-23] MEDS: baclofen 10 mg Tablet PO ×2 (08:48→17:41)
[2020-03-23] MEDS: FUROsemide 40 mg Tablet PO (08:48)
[2020-03-23] MEDS: predniSONE 20 mg Tablet PO (08:49)
[2020-03-23] MEDS: meclizine 25 mg tablet PO (08:49)
[2020-03-23] MEDS: lidocaine 5% Patch 1 PATCH TOPICAL ×3 (08:51→21:22)
[2020-03-23] MEDS: budesonide 0.5 mg/2 mL Neb INHALATION ×2 (09:57→20:57)
[2020-03-23] MEDS: fixodent 39 gm Tube 1 APPLIC DENTAL (10:47)
[2020-03-23] MEDS: sucralfate 1 gm Tablet PO ×2 (10:47→20:26)
--- NOTE | 2020-03-23 11:03 | P.PN_ITS ---
Subjective Subjective: Interval history: ct head negative, afebrile, hemodynamically stable, no acute events , leukocytosis imcreasing to 13, likely from steroids Medications: Reviewed: Yes Vitals/I&O/Wt Last Vital Signs Temp 97.7 F 03/23/20 08:00 Pulse 67 03/23/20 10:05 Resp 18 03/23/20 10:05 BP 145/77 03/23/20 08:00 Pulse Ox 92 03/23/20 10:05 03/22/20 03/23/20 03/23/20 22:59 06:59 14:59 Intake Total 620 / 1040 240 / 1280 Output Total 1500 / 3500 Balance 620 / -960 -1260 / -2220 Physical Exam Narrative: EXAM NARRATIVE: GEN: Awake, alert and oriented, no acute distress CVS: S1S2 N RS: CTA B/L Abd: Soft, nt/nd , bs+ COMPUTER INFORMATION SYSTEMS PROFESSOR: no focal neuro deficits Urinary Catheter Management^: Chowdary: Cath Placed During This Visit: yes Reason for Continuing Indwelling Catheter: Accurate Measurement of Urinary Output in Critically Ill Patients Urinary Catheter Date of Insertion: 03/20/20 Urinary Catheter Time of Insertion: 16:15 Data : 03/23/20 04:38 03/23/20 04:38 A&P Assessment and plan (1) Generalized weakness: Status: Acute (2) Physical deconditioning: Status: Acute (3) COPD (chronic obstructive pulmonary disease): Status: Acute Additional A&P Information Patient experiencing generalized weakness and physical deconditioing after recent hospital discharge Dizziness is better today, orthostatics are stable,encourage partcipation with PT no events on telemetry. No further hypoglycemic episodes after reducing lantus to 15 units, Fingersticks well controleld Check CT head to rule out CVA, study negative for the same lives alone, states she is unable to manage independently at home , SNF will likely be most appropriate in this setting social and political studies professor consult for placement to SNF PT/OT X ray pelvis without acute fractures , CT hip without any acute hip or pelvic fractures Stop iv ceftriaxone as completed adequate course for UTI from last admission , reduce prednisone to 10mg po qd conitnue budesonide inhalation, change DuoNeb to scheduled 6-hour nebulization, CPAP at night Full code DVt ppx: lovenox Attestations Medical Necessity Statement*: awaiting safe discharge to SNF Coding Level of Care Code Acute Delinquency Counselor for Chg Fwd Diagnoses Generalized weakness R53.1 Physical deconditioning R53.81 COPD (chronic obstructive pulmonary disease) J44.9
--- NOTE | 2020-03-23 11:16 | PC.SOCIAL ---
Pg 2 IMM Explained to pt Pg 2 IMM. No questions voiced. Provided pt a copy. Signed, dated, & timed a copy & placed in chart.
[2020-03-23 11:30] LABS: Glucose Point of Care 211 mg/dL (70-110)
[2020-03-23 17:27] LABS: Glucose Point of Care 286 mg/dL (70-110)
[2020-03-23 20:18] LABS: Glucose Point of Care 338 mg/dL (70-110)
[2020-03-23] MEDS: insulin glargine 100 units/1 mL 15 UNIT SUBCUT (20:27)
--- NOTE | 2020-03-23 23:26 | PC.RESP ---
at 2252 placed cpap on patient, at 2315 checked on patient, patient took off cpap it was laying on her stomach sp02 82% on room air, placed patient back on cpap sp02 increased to 95%, spoke with nurse, placed patient on continuous pulse ox at this time
[2020-03-24] VITALS (12 sets, daily range): BP systolic 130–145; BP diastolic 69–80; PULSE 52–82; RESP 17–20; TEMP 36.6–37.2; O2SAT 90–95
[2020-03-24] MEDS: ipratropium-albuterol 3 mL Neb INHALATION ×3 (02:13→14:48)
--- NOTE | 2020-03-24 04:06 | PC.NURSE ---
C-PAP : AT 2256 RESPIRATORY THERAPIST NOTIFIED THIS NURSE THAT PATIENT HAD REMOVED C-PAP MASK AND HAD IT RESTING ON HER STOMACH AND WAS SATING AT 82%. RESPIRATORY THEN REAPPLIED MASK TO PATIENT AND SATS CAME UP TO 95%. RESPIRATORY SPOKE WITH THIS NURSE AND WE COLLECTIVELY DECIDED TO PUT HER ON CONTINUOUS PULSE OX MACHINE TO MONITOR HER O2 LEVELS. THIS NURSE ROUNDED ON PATIENT AT 0325 AND PATIENT HAD C-PAP MASK ON AND WAS SATING AT 92%. AT 0340 RESPIRATORY ROUNDED WITH PATIENT AND SHE ENTERED THE ROOM THE CONTINUOUS PULSE OX MACHINE WAS BEEPING, UPON ENTERING ROOM PATIENT WAS REMOVING MASK, PULSE OX LEAD AND SHUT OFF CONTINUOUS MONITOR THAT WAS AT BEDSIDE. RESPIRATORY PUT PATIENT ON NASAL CANNULA AT 2.5 L. RESPIRATORY THEN NOTIFIED THIS NURSE OF HER ACTIONS AND NURSE WENT AND SPOKE WITH PATIENT. WHEN ASKED WHY SHE TOOK THE PROBE AND MONITOR OFF SHE STATED I TOOK IT ALL OFF BECAUSE IT STARTED BEEPING AND IT IS DRIVING ME NUTS. THIS NURSE EDUCATED PATIENT ON IMPORTANCE OF MAINTAINING OXYGENATION SATURATIONS ABOVE 90% AND THE REASON FOR THE MONITOR. PATIENT REFUSED TO HAVE NEW PROBE PLACED.
[2020-03-24 06:34] LABS: Glucose Point of Care 115 mg/dL (70-110)
[2020-03-24] MEDS: atorvastatin 40 mg Tablet 20 MG PO (06:40)
[2020-03-24] MEDS: amlodipine 5 mg Tablet PO (06:41)
[2020-03-24] MEDS: levothyroxine 25 mcg Tablet PO (06:41)
[2020-03-24] MEDS: pantoprazole DR 40 mg Tablet PO (06:41)
[2020-03-24] MEDS: aspirin 81 mg Chew Tablet PO (06:42)
[2020-03-24] MEDS: gabapentin 300 mg Capsule 600 MG PO ×2 (06:46→12:04)
[2020-03-24] MEDS: sennosides-docusate Tablet 2 TAB PO (06:47)
[2020-03-24] MEDS: meclizine 25 mg tablet PO (08:21)
[2020-03-24] MEDS: FUROsemide 40 mg Tablet PO (08:21)
[2020-03-24] MEDS: predniSONE 20 mg Tablet 10 MG PO (08:22)
[2020-03-24] MEDS: lidocaine 5% Patch 1 PATCH TOPICAL (08:22)
[2020-03-24] MEDS: budesonide 0.5 mg/2 mL Neb INHALATION (08:44)
--- NOTE | 2020-03-24 10:55 | PM.DCS ---
Discharge Providers Date of Admission: 03/20/20 15:21 Date of Discharge: March 24, 2020 Attending Provider at Admission: Berna Almaguer MD Attending Provider at Discharge: Berna Almaguer MD Primary Care Provider: Viri Molina DO Diagnoses at Discharge Discharge Diagnosis (1) Generalized weakness: Status: Acute (2) Physical deconditioning: Status: Acute (3) COPD (chronic obstructive pulmonary disease): Status: Acute Reason for Visit Reason for Visit: BILATERAL LEG PAIN Hospital Course Hospital Course 74-year-old lady with history of COPD, diabetes, ABBY, chronic kidney disease, hypothyroidism, obesity is admitted on 03/15 after she was brought to ER due to confusion, noted hypoxic, initially saturating in the 70s on room air, not normally on oxygen, subsequently requiring 4 L oxygen by nasal cannula. Noted low-grade fever 100.3. Initially tachypnea, 26-30. She is hypoxemic and hypercapnic, ABG 7.35/63.4/69.5/35. Chest x-ray with streaky opacities in the left lung base, may represent scarring atelectasis or pneumonia. CTA chest without evidence of PE. Encephalopathy improved significantly after being placed on BiPAP, overall thought to be multifactorial resulting from acute infection, acute cystitis and hypercapnia. She does carry a diagnosis of sleep apnea as well and is supposed to be using the CPAP at nighttime but she has not used 1 in recent months because the nasal CPAP mask irritates her facial skin. Urine culture eventually returned with Klebsiella pneumonia, susceptible to several antibiotics. She was treated empirically with piperacillin tazobactam. A CT was performed instead and overall while the biliary dilatation was still noted, the radiologist did compared to multiple prior scans and this is not noted to be any worse than what has been pre-existing pain since 2017. Lipase was negative therefore less likely to be pancreatitis.Patient improved significantly with treatment of COPD exacerbation with IV steroids and scheduled nebulization. She was discharged on March 19, qualified for 2 L/min at home with an overnight oximetry and during daytime. She was advised to use her CPAP at home.She was discharged with recommendation to continue her inhalers at home, prednisone taper ,a course of Levaquin both for the UTI and COPD exacerbation. Referral was provided to pulmonology as outpatient. Prior to discharge home on March 19, she had a mechanical fall when she slipped between the bedside commode and her bed, x-ray of the hip and pelvis was performed which did not show any fractures, she was anxious to return home and was eventually discharged. She returned the next day on March 20 with increasing difficulty on attempting to get out of bed, felt like her knees were giving way under her, felt overall very weak and deconditioned and therefore decided to come back to the hospital. She also complained of dizziness and some nausea this time. The latter did improve with being given meclizine and ondansetron. CT of the head was unremarkable. X-rays and CT of the pelvis were performed which did not show any evidence of fracture either in the pelvis or at the hips. She was noted to be significantly deconditioned after her recent hospital stay, underwent physical therapy evaluation was stopped overall benefit from continued skilled therapy to increase strength mobility and independence. Patient does live alone and therefore increased endurance and strength will be crucial before returning home safely. 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 Urinary Catheter Management^: Chowdary: Cath Placed During This Visit: yes Reason for Continuing Indwelling Catheter: Acute Urinary Retention or Obstruction Urinary Catheter Date of Insertion: 03/20/20 Urinary Catheter Time of Insertion: 16:15 Discharge Data Data Completed and Pending: Completed Studies During Hospitalization Category Date Time Status CT head wo con* 7 0450 Routine Cat Scan 03/22/20 08:[address] pelvis wo con [id number] Stat Cat Scan 03/20/20 15:20 Completed XR chest 1V harris ble [id number] Stat Exams 03/20/20 14:44 Completed Labs from last 24 hours 03/24/20 03/23/20 03/23/20 06:31 20:14 17:03 POC Glucose 115 H 338 H 286 H 03/23/20 10:51 POC Glucose 211 H Vitals: Last Vital Signs Temp 97.9 F 03/24/20 07:44 Pulse 66 03/24/20 08:56 Resp 17 03/24/20 08:44 BP 142/80 03/24/20 07:44 Pulse Ox 94 03/24/20 08:44 Discharge Plan Discharge Patient Disposition: Xfer SNF Condition: Stable Prescriptions: New meclizine 25 mg Tablet 25 mg PO TID PRN (Reason: Dizziness) 30 Days Qty: 90 RF: 0 gabapentin 300 mg Capsule 600 mg PO TID@0700,1200,1900 30 Days Qty: 90 RF: 0 Continued ondansetron HCl [Zofran] 4 mg tablet 4 mg PO Q8H PRN (Reason: nausea and vomiting) 7 Days Qty: 20 RF: 0 baclofen 10 mg tablet 10 - 20 mg PO TID PRN (Reason: Pain) RF: 0 sennosides-docusate sodium [Stool Softener-Laxative] 8.6-50 mg tablet 2 tab-cap PO BID@699,1999 RF: 0 (DME) pen needle, diabetic [BD Ultra-Fine Mini Pen Needle] 31 gauge x 3/16 needle See Rx Instructions .ROUTE .MEDSUPPLY Qty: 200 RF: 1 methenamine hippurate 1 gram tablet 1 g PO BID@699,1999 RF: 0 ipratropium-albuterol 0.5 mg-3 mg(2.5 mg base)/3 mL solution for nebulization 3 ml INHALATION Q6H PRN (Reason: shortness of breath or wheezing) Qty: 180 RF: 0 Linzess 290 mcg capsule 290 mcg PO DAILY PRN (Reason: Constipation) Qty: 90 RF: 1 aspirin 81 mg Tablet,Chewable 81 mg PO DAILY@0700 RF: 0 Januvia 100 mg tablet 100 mg PO DAILY@0700 RF: 0 prednisone 10 mg tablets,dose pack See Rx Instructions .ROUTE .COMPLEX Qty: 21 RF: 0 Lasix 40 mg tablet 40 mg PO BID@0700,1900 RF: 0 sucralfate 1 gram tablet 1 g PO BID@699,1999 RF: 0 metformin 850 mg tablet 850 mg PO BID@699,1999 RF: 0 amlodipine 5 mg tablet 5 mg PO DAILY@0700 RF: 0 levothyroxine 25 mcg tablet 25 mcg PO DAILY@0700 RF: 0 pantoprazole 40 mg tablet,delayed release (DR/EC) 40 mg PO DAILY@0700 RF: 0 lovastatin 20 mg tablet 20 mg PO DAILY@0700 RF: 0 Humalog KwikPen Insulin 100 unit/mL insulin pen 10 unit SUBCUT TID@0700,1200,1900 RF: 0 mirtazapine 7.5 mg tablet 7.5 mg PO DAILY@1999 RF: 0 Changed Levemir FlexTouch U-100 Insuln 100 unit/mL (3 mL) insulin pen 20 unit SUBCUT QPM Qty: 0 RF: 0 Discontinued gabapentin 600 mg tablet 900 mg PO TID@0700,1200,1900 RF: 0 levofloxacin 750 mg tablet 750 mg PO DAILY@0700 RF: 0 Discharge Orders: Discharge Order (Routine); Ordered 03/24/20 Ordered By: Berna Almaguer Referrals: [facility] [Outside] Discharge Diet: Usual diet and Diabetic Discharge Activity: Increase activity as tolerated and As per PT/OT instructions Activity Restrictions/Additional Instructions: Continue CPAP use at nighttime. Chowdary was attempted to be removed, however patient requests keeping it in for her own comfort, removal of Chowdary would need to be reassessed at the half-way. Discharge Attestations Time Spent in Discharge Care*: greater than 30 min Quality Metrics Clinical Quality Measures During this hospital stay, did patient experience: None Coding Level of Care Code Acute Steward/Stewardess Smoke Room for Isaiah Fwpatience Diagnoses Generalized weakness R53.1 Physical deconditioning R53.81 COPD (chronic obstructive pulmonary disease) J44.9
--- NOTE | 2020-03-24 11:22 | PC.NURSE ---
In room to remove patient's Chowdary Catheter at this time. Patient states, You can not take it out because I can not pee if you do. Explained to patient that the doctor requests I take it out because she needs to be getting up and down to make her legs stronger. Patient states, No I need it because I can not pee without it. Dr. Almaguer notified.
[2020-03-24 11:23] LABS: Glucose Point of Care 246 mg/dL (70-110)
--- NOTE | 2020-03-24 11:53 | PC.NURSE ---
Attempted to call report to [facility]. Nurse is with another new admit and will need another 30 minutes.
--- NOTE | 2020-03-24 12:39 | PC.NURSE ---
Report to Arabella Hall RN at [facility] at this time.
--- NOTE | 2020-03-24 14:37 | PC.RESP ---
Pulmonary Rehab information sent to patient.
--- NOTE | 2020-03-24 16:30 | PC.NURSE ---
Patient assisted to EMS stretcher x4 people. Patient is A&Ox3. Respirations are even and non-labored on 2 liters by nasal cannula. All patient belongings sent with patient to [facility] Including dress, pants, coat, cell phone and cell phone smelter charger.
== END 2020-03-24 16:30 | disposition skilled nursing facility (03) | DRG 190 ==
LOC: ER 14:29 → MEDSURG 15:44
PROVIDERS: Admitting Provider Student in an Organized Health Care Education/Training Program; Emergency Provider Family Medicine; PCP Family Medicine; Visit Provider Student in an Organized Health Care Education/Training Program
DX: J44.1 Chronic obstructive pulmonary disease with (acute) exacerbation (principal); J96.22 Acute and chronic respiratory failure with hypercapnia; Z68.42 Body mass index [BMI] 45.0-49.9, adult; N39.0 Urinary tract infection, site not specified; F05 Delirium due to known physiological condition; R53.1 Weakness; G89.29 Other chronic pain; M54.9 Dorsalgia, unspecified; E11.22 Type 2 diabetes mellitus with diabetic chronic kidney disease; N18.2 Chronic kidney disease, stage 2 (mild); E11.649 Type 2 diabetes mellitus with hypoglycemia without coma; E78.5 Hyperlipidemia, unspecified; E03.9 Hypothyroidism, unspecified; Z79.891 Long term (current) use of opiate analgesic; E66.9 Obesity, unspecified; G47.33 Obstructive sleep apnea (adult) (pediatric); Z87.891 Personal history of nicotine dependence; R53.81 Other malaise; R42 Dizziness and giddiness; Z79.82 Long term (current) use of aspirin; Z79.4 Long term (current) use of insulin; B96.1 Klebsiella pneumoniae [K. pneumoniae] as the cause of diseases classified elsewhere
CPT/HCPCS: 12345; 36415; 36416; 51702; 70450; 71045; 72192; 80048; 80053; 81003; 82550; 82962; 85025; 90471; 90732; 93005; 94640; 94762; 96372; 97110; 97162; 99283; J0696; J1815 ×2; J7512; J7626; J8597

== ENCOUNTER 2020-06-05 15:47 | Inpatient (IN) | payer MEDICARE, MEDICAID, SELFPAY ==
[2020-06-05] VITALS (8 sets, daily range): BP systolic 106–140; BP diastolic 58–85; PULSE 71–117; RESP 16–26; TEMP 36.9–37.1; O2SAT 90–99; BMI 45.8
--- NOTE | 2020-06-05 16:02 | ECG_ITS ---
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 Measurements Intervals [place] Rate: 84 P: IN: QRS: 13 QRSD: 93 T: 92 QT: 343 QTc: 407 Interpretive Statements ATRIAL FIBRILLATION WITH ABERRANT CONDUCTION OR VENTRICULAR PREMATURE COMPLEXES LOW QRS VOLTAGE IN PRECORDIAL LEADS [QRS DEFLECTION < 1.0 mV IN CHEST LEADS] POSSIBLE ANTERIOR MYOCARDIAL INFARCTION , PROBABLY OLD [30 ms Q WAVE IN V3/V4, OR R < 0.2 mV IN V4] ABNORMAL RHYTHM ECG Compared to ECG 03/20/2020 14:55:04 Ventricular premature complex(es) now present Aberrant conduction of supraventricular beat(s) now present Myocardial infarct finding still present Electronically Signed On 06-06-2020 22:57:07 CDT by Jane Calvillo M.D. [email or web address]
--- NOTE | 2020-06-05 16:02 | XR_ITS ---
WS: [id number] XR chest 1V portable [id number] REASON FOR EXAM: ams FINDINGS: Examination is unchanged compared to previous study 03/20/2020. There is elevation There is elevation of the left hemidiaphragm. Mild tortuosity thoracic aorta without aneurysmal dilatation. Mild cardiomegaly. No active pulmonary parenchymal or pleural disease. XR/XR chest 1V portable [id number] IMPRESSION: No acute abnormality identified.
[2020-06-05 16:29] LABS: ABG PH Result 7.28 (7.35-7.45); Alveolar-Arterial Oxygen Gradi 6.3 mmHg (5-10); Arterial Blood Gas Hematocrit 34.8 % (37-47); Base Excess ABG 10.4 mmol/L (-2.0-2.0); Blood Gas Allen Test Pos; Blood Gas Operator Identificat CAK; Blood Gas Sample Site Brachial, left; Blood Gas Sample Type Arterial; Carboxyhemoglobin 1.4 %THgb (0.4-20.1); HCO3 ABG 40.1 mmol/L (22-26); HGB O2 Sat 93.1 % (95-100); Ionized Calcium Level - ABG 1.3 mmol/L (1.1-1.4); Methemoglobin 0.3 % (0.4-1.5); Oxygen Device NC; Oxygen Saturation ABG 94.7; PO2 ABG 76.3 mmHg (80.0-100.0); Potassium Level - ABG 4.4 mmol/L (3.5-5.0); Total Hemoglobin 11.4 g/dL (12-16)
[2020-06-05 16:30] LABS: ABG PCO2 86.2 mmHg (35-45)
--- NOTE | 2020-06-05 16:45 | W.ED.WEAKNES ---
HPI - Weakness General: Chief complaint: Weakness Stated complaint: GENERAL WEAKNESS Time Seen by Provider: 06/05/20 15:48 Source: patient Mode of arrival: EMS History of Present Illness: HPI Narrative: 74-year-old female with history of COPD, chronic respiratory failure with hypercapnia, insulin-dependent diabetes, chronic pain, and CKD who is complaining of generalized weakness and inability to care for self at home. She was hospitalized here in March of this year for acute on chronic respiratory failure, altered mental status, UTI, COPD exacerbation. She was discharged to [facility], and recently left there to go back home where she lives alone. She has trouble moving around her house, getting up to use the bathroom, fixing food for self, and taking her medication. She has decreased appetite, and has not eaten much over the past 24 hours, and her weakness has worsened over that time. She denies using oxygen or CPAP at home. No fever. No nausea vomiting or diarrhea. MD Complaint: generalized weakness and lack of energy Onset (ago): day(s) Duration: constant and progressively worsening Location: generalized Context: history of similar Associated symptoms: Reports decreased appetite, myalgias and short of breath; Denies chest pain, chills, dysuria, fever(s), headache(s), nausea or vomiting Review of Systems General: Reports: 10 or more systems reviewed and unremarkable except in HPI and below Const: Reports: change in appetite, fatigue and malaise; Denies: fever(s), chills or body aches Eyes: Denies: change in vision, blurry vision or blind spots ENMT: Denies: odynophagia or hoarseness Card: Reports: edema and swelling of feet/ankles; Denies: chest pain or irregular heart rhythm Resp: Reports: dyspnea, wheezing and chest congestion GI: Reports: bloating; Denies: nausea or vomiting : Reports: difficulty voiding; Denies: flank pain, dysuria or urinary frequency Musc: Reports: neck pain, back pain, extremity swelling, joint swelling and muscle weakness Skin/Breast: Reports: rash and erythema; Denies: skin tenderness Neuro: Reports: weakness in extremities and difficulty walking; Denies: headache(s) or Slurred speech present PFS ED PFSH: Medical History (Updated 06/07/20 @ 14:32 by Kenyon Dc DO) Chronic back pain Chronic idiopathic constipation Chronic kidney disease, stage II (mild) COPD (chronic obstructive pulmonary disease) Dyslipidemia Enrolled in chronic care management Hypertension 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 custodial (current) use of opiate analgesic Obesity Sleep apnea, obstructive sleep study 04/2019, does not sound like she ever had titration study for bipap at home Type 2 diabetes mellitus, with long-term current use of insulin Venous stasis ulcers Surgical History History of cholecystectomy History of tonsillectomy and adenoidectomy S/P appendectomy Family History Other Diabetes Social History (Updated 06/06/20 @ 07:17 by Donna Bunn MD) Smoking and tobacco status: former smoker Alcohol intake: never Substance/Drug Use: never Household members: none and other Details: has some nurse practitioner home assessments services a few days per week Physical Exam Const: EXAM LIMITATIONS: physical limitations GENERAL APPEARANCE: in distress, disheveled and ill appearing; not diaphoretic NUTRITIONAL APPEARANCE: obese morbidly obese HENMT: COMMON NORMALS: normocephalic and atraumatic HEAD & SCALP: normocephalic and atraumatic FACE & SINUS: normal facial exam and face symmetric Eye: COMMON NORMALS: Equal, round and reactive pupils present, EOMs intact bilaterally, conjunctivae normal and no scleral icterus GENERAL EYE: appearance normal, both eyes and all related structures CONJUNCTIVA: Yes conjunctivae normal PUPIL: Yes Equal, round and reactive pupils present Neck/C-Spine: COMMON NORMALS: full ROM, no lymphadenopathy, supple and no meningeal signs Resp: EFFORT & INSPECTION: Yes respiratory distress, Yes decreased respiratory effort, Yes uses accessory muscles and Yes prolonged expiratory phase AUSCULTATION: rales and diminished lung sounds Cardio: COMMON NORMALS: regular rate, S1 normal heart sound present and S2 normal heart sound present RATE: regular rate RHYTHM: abnormal rhythm HEART SOUNDS: S1 normal heart sound present and S2 normal heart sound present GI: COMMON NORMALS: Soft to palpation PALPATION: Yes Soft to palpation, No Tenderness to palpation present (GI), No Guarding due to palpation present (GI) and No Rigid due to palpation Extremity: GENERAL: Yes edema Neuro: MENINGEAL SIGNS: Yes no meningeal signs Skin: NARRATIVE SKIN EXAM: Intertrigo GENERAL SKIN EXAM: erythema Course Vital Signs: Vital signs: Vital Signs Temperature 98.1 F 06/07/20 19:20 Pulse Rate 79 06/07/20 19:20 Respiratory Rate 18 06/07/20 19:20 Blood Pressure 119/73 06/07/20 19:20 Pulse Oximetry 91 06/07/20 19:20 MDM - Weakness MDM Narrative: Medical decision making narrative: 74-year-old female with generalized weakness, acute on chronic respiratory failure with hypercapnia, unable to care for self at home. she lives by herself, and wishes to be placed back in a [place] [facility]. she does have chronic respiratory failure with hypercapnia and does not have a CPAP or BiPAP at home. I just cussed the case with Dr. henning, hospitalist, she excepts admission for obersvation. Lab Data: Labs: Lab Results 06/05/20 06/05/20 06/05/20 Range/Units 16:17 17:00 18:20 WBC 10.1 H (4.0-10.0) 10^3/ uL RBC 3.67 L (4.1-5.3) 10^6/u L Hgb 10.7 L (11.5-15.3) g/dL Hct 36.9 L (37.0-47.0) % MCV 100.5 H (81-99) fL MCH 29.2 (28.0-34.0) pg MCHC 29.0 L (30.0-36.0) g/dL RDW 14.1 (12.1-15.1) % Plt Count 260 (130-400) 10^3/c mm MPV 10.2 (7.4-10.4) fL Neut % (Auto) 65.7 % Lymph % (Auto) 23.0 % Dickson % (Auto) 8.8 % Eos % (Auto) 1.5 % Baso % (Auto) 0.5 % Neut # (Auto) 6.62 (1.8-7.7) 10^3/u L Lymph # (Auto) 2.3 (0.8-4.8) 10^3/u L Dickson # (Auto) 0.9 (0.2-0.9) 10^3/u L Eos # (Auto) 0.2 (0.0-0.8) 10^3/u L Baso # (Auto) 0.1 (0.0-0.1) 10^3/u L Nucleated RBC % (a uto) 0 % Nucleated RBCs # 0.0 /100WBC PT (12.1-14.9) SECO NDS INR (0.8-1.2) Specimen Type Arterial Sample Site Brachial, left ABG pH 7.28 L (7.35-7.45) ABG pCO2 86.2 H* (35-45) mmHg ABG pO2 76.3 L (80.0-100.0) mmH g ABG HCO3 40.1 H (22-26) mmol/L ABG O2 Saturation 94.7 ABG Base Excess 10.4 H (-2.0-2.0) mmol/ L Vineet Test Pos A-a O2 Gradient 6.3 (5-10) mmHg Hematocrit 34.8 L (37-47) % Hgb O2 Saturation 93.1 L (95-100) % Carboxyhemoglobin 1.4 (0.4-20.1) %THgb Methemoglobin 0.3 L (0.4-1.5) % Total Hemoglobin 11.4 L (12-16) g/dL Sodium 143.0 (131-143) mmol/L Potassium 4.4 (3.5-5.0) mmol/L Glucose 304.0 H (70-115) mg/dL Ionized Calcium 1.3 (1.1-1.4) mmol/L O2 Delivery Device Nc O2 Liters/Min 3.0 % FiO2 32.0 % Research Associate Quality Control Qc ID Cak Chloride (98-107) mmol/L Carbon Dioxide (22-29) mmol/L Anion Gap (5-19) BUN (8-23) mg/dL Creatinine (0.5-0.9) mg/dL GFR Calculation POC Glucose (70-110) mg/dL Estimat Average Gl ucose Hemoglobin A1c (4.0-6.0) % Calculated Osmolal ity (285-295) mOsm/k g Lactic Acid (0.5-2.2) mmol/L Calcium (8.5-10.5) mg/dL Phosphorus (2.5-4.5) mg/dL Magnesium (1.7-2.3) mg/dL Total Bilirubin (0.15-1.2) mg/dL AST (0-32) U/L ALT (0-33) U/L Alkaline Phosphata se (35-105) IU/L NT-Pro-B Natriuret Pep (0-450) pg/mL Total Protein (6.6-8.7) g/dL Albumin (3.5-5.2) g/dL Globulin (1.3-4.6) g/dL TSH (0.27-4.20) uIU/ mL Urine Color Yellow (Yellow) Urine Appearance Hazy A (CLEAR) Urine pH 5 (5-7) Ur Specific Gravit y 1.015 (1.005-1.030) Urine Protein Neg (Negative) Urine Glucose (UA) Norm (Normal) Urine Ketones Negative (Negative) Urine Blood Neg (Negative) Urine Nitrate Negative (Negative) Urine Bilirubin Neg (Negative) Urine Urobilinogen Norm (Negative) mg/dL Ur Leukocyte Arianna ase Negative (Negative) Urine RBC None (0-2) /hpf Urine WBC None (0-5) /hpf Ur Squamous Epith Cells None (0-5) /hpf Ur Transition Epit h Cell None /hpf Amorphous Sediment Not Reportable Urine Bacteria Trace (NONE) /hpf 06/05/20 06/05/20 06/05/20 Range/Units 18:20 18:20 18:20 WBC (4.0-10.0) 10^3/ uL RBC (4.1-5.3) 10^6/u L Hgb (11.5-15.3) g/dL Hct (37.0-47.0) % MCV (81-99) fL MCH (28.0-34.0) pg MCHC (30.0-36.0) g/dL RDW (12.1-15.1) % Plt Count (130-400) 10^3/c mm MPV (7.4-10.4) fL Neut % (Auto) % Lymph % (Auto) % Dickson % (Auto) % Eos % (Auto) % Baso % (Auto) % Neut # (Auto) (1.8-7.7) 10^3/u L Lymph # (Auto) (0.8-4.8) 10^3/u L Dickson # (Auto) (0.2-0.9) 10^3/u L Eos # (Auto) (0.0-0.8) 10^3/u L Baso # (Auto) (0.0-0.1) 10^3/u L Nucleated RBC % (a uto) % Nucleated RBCs # /100WBC PT 14.00 (12.1-14.9) SECO NDS INR 1.05 (0.8-1.2) Specimen Type Sample Site ABG pH (7.35-7.45) ABG pCO2 (35-45) mmHg ABG pO2 (80.0-100.0) mmH g ABG HCO3 (22-26) mmol/L ABG O2 Saturation ABG Base Excess (-2.0-2.0) mmol/ L Vineet Test A-a O2 Gradient (5-10) mmHg Hematocrit (37-47) % Hgb O2 Saturation (95-100) % Carboxyhemoglobin (0.4-20.1) %THgb Methemoglobin (0.4-1.5) % Total Hemoglobin (12-16) g/dL Sodium 140 (131-143) mmol/L Potassium 4.3 (3.5-5.0) mmol/L Glucose 256 H (70-115) mg/dL Ionized Calcium (1.1-1.4) mmol/L O2 Delivery Device O2 Liters/Min % FiO2 % Research Associate Quality Control Qc ID Chloride 96 L (98-107) mmol/L Carbon Dioxide 39 H (22-29) mmol/L Anion Gap 9.3 (5-19) BUN 21 (8-23) mg/dL Creatinine 1.0 H (0.5-0.9) mg/dL GFR Calculation Not Reportable POC Glucose (70-110) mg/dL Estimat Average Gl ucose Hemoglobin A1c (4.0-6.0) % Calculated Osmolal ity 302 H (285-295) mOsm/k g Lactic Acid 1.0 (0.5-2.2) mmol/L Calcium 9.1 (8.5-10.5) mg/dL Phosphorus (2.5-4.5) mg/dL Magnesium 1.7 (1.7-2.3) mg/dL Total Bilirubin 0.2 (0.15-1.2) mg/dL AST 11 (0-32) U/L ALT 11 (0-33) U/L Alkaline Phosphata se 104 (35-105) IU/L NT-Pro-B Natriuret Pep 2750 H (0-450) pg/mL Total Protein 7.3 (6.6-8.7) g/dL Albumin 3.3 L (3.5-5.2) g/dL Globulin 4.0 (1.3-4.6) g/dL TSH 2.21 (0.27-4.20) uIU/ mL Urine Color (Yellow) Urine Appearance (CLEAR) Urine pH (5-7) Ur Specific Gravit y (1.005-1.030) Urine Protein (Negative) Urine Glucose (UA) (Normal) Urine Ketones (Negative) Urine Blood (Negative) Urine Nitrate (Negative) Urine Bilirubin (Negative) Urine Urobilinogen (Negative) mg/dL Ur Leukocyte Arianna ase (Negative) Urine RBC (0-2) /hpf Urine WBC (0-5) /hpf Ur Squamous Epith Cells (0-5) /hpf Ur Transition Epit h Cell /hpf Amorphous Sediment Urine Bacteria (NONE) /hpf 06/06/20 06/06/20 06/06/20 Range/Units 06:50 07:37 07:37 WBC 11.1 H (4.0-10.0) 10^3/ uL RBC 3.88 L (4.1-5.3) 10^6/u L Hgb 11.2 L (11.5-15.3) g/dL Hct 38.3 (37.0-47.0) % MCV 98.7 (81-99) fL MCH 28.9 (28.0-34.0) pg MCHC 29.2 L (30.0-36.0) g/dL RDW 14.0 (12.1-15.1) % Plt Count 243 (130-400) 10^3/c mm MPV 9.9 (7.4-10.4) fL Neut % (Auto) 70.5 % Lymph % (Auto) 17.7 % Dickson % (Auto) 8.8 % Eos % (Auto) 2.2 % Baso % (Auto) 0.5 % Neut # (Auto) 7.83 H (1.8-7.7) 10^3/u L Lymph # (Auto) 2.0 (0.8-4.8) 10^3/u L Dickson # (Auto) 1.0 H (0.2-0.9) 10^3/u L Eos # (Auto) 0.2 (0.0-0.8) 10^3/u L Baso # (Auto) 0.1 (0.0-0.1) 10^3/u L Nucleated RBC % (a uto) 0 % Nucleated RBCs # 0.0 /100WBC PT (12.1-14.9) SECO NDS INR (0.8-1.2) Specimen Type Sample Site ABG pH (7.35-7.45) ABG pCO2 (35-45) mmHg ABG pO2 (80.0-100.0) mmH g ABG HCO3 (22-26) mmol/L ABG O2 Saturation ABG Base Excess (-2.0-2.0) mmol/ L Vineet Test A-a O2 Gradient (5-10) mmHg Hematocrit (37-47) % Hgb O2 Saturation (95-100) % Carboxyhemoglobin (0.4-20.1) %THgb Methemoglobin (0.4-1.5) % Total Hemoglobin (12-16) g/dL Sodium 143 (131-143) mmol/L Potassium 4.3 (3.5-5.0) mmol/L Glucose 202 H (70-115) mg/dL Ionized Calcium (1.1-1.4) mmol/L O2 Delivery Device O2 Liters/Min % FiO2 % Research Associate Quality Control Qc ID Chloride 96 L (98-107) mmol/L Carbon Dioxide 40 H (22-29) mmol/L Anion Gap 11.3 (5-19) BUN 18 (8-23) mg/dL Creatinine 0.9 (0.5-0.9) mg/dL GFR Calculation Not Reportable POC Glucose 213 H (70-110) mg/dL Estimat Average Gl ucose Hemoglobin A1c (4.0-6.0) % Calculated Osmolal ity 304 H (285-295) mOsm/k g Lactic Acid (0.5-2.2) mmol/L Calcium 9.3 (8.5-10.5) mg/dL Phosphorus 3.4 (2.5-4.5) mg/dL Magnesium 1.7 (1.7-2.3) mg/dL Total Bilirubin 0.3 (0.15-1.2) mg/dL AST 11 (0-32) U/L ALT 10 (0-33) U/L Alkaline Phosphata se 100 (35-105) IU/L NT-Pro-B Natriuret Pep (0-450) pg/mL Total Protein 7.4 (6.6-8.7) g/dL Albumin 3.5 (3.5-5.2) g/dL Globulin 3.9 (1.3-4.6) g/dL TSH (0.27-4.20) uIU/ mL Urine Color (Yellow) Urine Appearance (CLEAR) Urine pH (5-7) Ur Specific Gravit y (1.005-1.030) Urine Protein (Negative) Urine Glucose (UA) (Normal) Urine Ketones (Negative) Urine Blood (Negative) Urine Nitrate (Negative) Urine Bilirubin (Negative) Urine Urobilinogen (Negative) mg/dL Ur Leukocyte Arianna ase (Negative) Urine RBC (0-2) /hpf Urine WBC (0-5) /hpf Ur Squamous Epith Cells (0-5) /hpf Ur Transition Epit h Cell /hpf Amorphous Sediment Urine Bacteria (NONE) /hpf 06/06/20 Range/Units 07:37 WBC (4.0-10.0) 10^3/ uL RBC (4.1-5.3) 10^6/u L Hgb (11.5-15.3) g/dL Hct (37.0-47.0) % MCV (81-99) fL MCH (28.0-34.0) pg MCHC (30.0-36.0) g/dL RDW (12.1-15.1) % Plt Count (130-400) 10^3/c mm MPV (7.4-10.4) fL Neut % (Auto) % Lymph % (Auto) % Dickson % (Auto) % Eos % (Auto) % Baso % (Auto) % Neut # (Auto) (1.8-7.7) 10^3/u L Lymph # (Auto) (0.8-4.8) 10^3/u L Dickson # (Auto) (0.2-0.9) 10^3/u L Eos # (Auto) (0.0-0.8) 10^3/u L Baso # (Auto) (0.0-0.1) 10^3/u L Nucleated RBC % (a uto) % Nucleated RBCs # /100WBC PT (12.1-14.9) SECO NDS INR (0.8-1.2) Specimen Type Sample Site ABG pH (7.35-7.45) ABG pCO2 (35-45) mmHg ABG pO2 (80.0-100.0) mmH g ABG HCO3 (22-26) mmol/L ABG O2 Saturation ABG Base Excess (-2.0-2.0) mmol/ L Vineet Test A-a O2 Gradient (5-10) mmHg Hematocrit (37-47) % Hgb O2 Saturation (95-100) % Carboxyhemoglobin (0.4-20.1) %THgb Methemoglobin (0.4-1.5) % Total Hemoglobin (12-16) g/dL Sodium (131-143) mmol/L Potassium (3.5-5.0) mmol/L Glucose (70-115) mg/dL Ionized Calcium (1.1-1.4) mmol/L O2 Delivery Device O2 Liters/Min % FiO2 % Research Associate Quality Control Qc ID Chloride (98-107) mmol/L Carbon Dioxide (22-29) mmol/L Anion Gap (5-19) BUN (8-23) mg/dL Creatinine (0.5-0.9) mg/dL GFR Calculation POC Glucose (70-110) mg/dL Estimat Average Gl ucose 194 Hemoglobin A1c 8.4 H (4.0-6.0) % Calculated Osmolal ity (285-295) mOsm/k g Lactic Acid (0.5-2.2) mmol/L Calcium (8.5-10.5) mg/dL Phosphorus (2.5-4.5) mg/dL Magnesium (1.7-2.3) mg/dL Total Bilirubin (0.15-1.2) mg/dL AST (0-32) U/L ALT (0-33) U/L Alkaline Phosphata se (35-105) IU/L NT-Pro-B Natriuret Pep (0-450) pg/mL Total Protein (6.6-8.7) g/dL Albumin (3.5-5.2) g/dL Globulin (1.3-4.6) g/dL TSH (0.27-4.20) uIU/ mL Urine Color (Yellow) Urine Appearance (CLEAR) Urine pH (5-7) Ur Specific Gravit y (1.005-1.030) Urine Protein (Negative) Urine Glucose (UA) (Normal) Urine Ketones (Negative) Urine Blood (Negative) Urine Nitrate (Negative) Urine Bilirubin (Negative) Urine Urobilinogen (Negative) mg/dL Ur Leukocyte Arianna ase (Negative) Urine RBC (0-2) /hpf Urine WBC (0-5) /hpf Ur Squamous Epith Cells (0-5) /hpf Ur Transition Epit h Cell /hpf Amorphous Sediment Urine Bacteria (NONE) /hpf Discharge Plan Discharge Patient Disposition: Placed in Observation Admit Provider: Donna Bunn Clinical Impression: Acute on chronic respiratory failure with hypercapnia, Generalized weakness, Physical deconditioning Coding Level of Care Code ED 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
[2020-06-05 17:16] LABS: Add Urine Microscopic? YES; Bilirubin Urine Neg (Negative); Blood Urine Neg (Negative); Glucose Urine UA Norm (Normal); Ketones Urine Negative (Negative); Leukocyte Esterase Urine Negative (Negative); Nitrate Urine Negative (Negative); Protein Urine Neg (Negative); Specific Gravity, Urine 1.015 (1.005-1.030); Urine Appearance Hazy (CLEAR); Urine Color Yellow (Yellow); Urobilinogen Urine Norm (Negative); pH Urine 5 (5-7)
[2020-06-05 17:22] LABS: Add Urine Culture? No; Bacteria Urine TRACE /hpf
--- NOTE | 2020-06-05 18:30 | ECG_ITS ---
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 Measurements Intervals Gower Rate: 123 P: 159 AR: 152 QRS: 155 QRSD: 143 T: 158 QT: 251 QTc: 360 Interpretive Statements Possible atrial fibrillation with rapid ventricular rate ARM LEADS REVERSED [INVERTED P AND QRS IN I] ABNORMAL RHYTHM ECG Compared to ECG 06/05/2020 16:16:38 Atrial fibrillation no longer present Aberrant conduction of supraventricular beat(s) no longer present Myocardial infarct finding no longer present Heavy artifacts. Need to repeat the study Electronically Signed On 06-06-2020 23:23:29 CDT by Jane Calvillo M.D. [id number]
--- NOTE | 2020-06-05 18:35 | PC.NURSE ---
EKG done at 1830 and shown to ER doctor
[2020-06-05 18:55] LABS: Basophils # 0.1 10^3/uL (0.0-0.1); Basophils % 0.5 %; Eosinophils # 0.2 10^3/uL (0.0-0.8); Eosinophils % 1.5 %; Hematocrit 36.9 % (37.0-47.0); Hemoglobin 10.7 g/dL (11.5-15.3); Lymphocytes # 2.3 10^3/uL (0.8-4.8); Mean Corpuscular Hemoglobin 29.2 pg (28.0-34.0); Mean Corpuscular Volume 100.5 fL (81-99); Mean Platelet Volume 10.2 fL (7.4-10.4); Monocytes # 0.9 10^3/uL (0.2-0.9); Monocytes % 8.8 %; Neutrophils # 6.62 10^3/uL (1.8-7.7); Neutrophils % 65.7 %; Nucleated Red Blood Cells % 0 %; Platelet Count 260 10^3/cmm (130-400); Red Blood Count 3.67 10^6/uL (4.1-5.3); Red Cell Distribution Width 14.1 % (12.1-15.1); White Blood Count 10.1 10^3/uL (4.0-10.0)
--- NOTE | 2020-06-05 19:02 | PC.NURSE ---
PATIENT REPORT RECEIVED FROM FRAN PHILLIPS AND CARE TRANSFERRED TO FRAN FREY
[2020-06-05 19:06] LABS: INR 1.05 (0.8-1.2)
[2020-06-05 19:28] LABS: Alanine Aminotransferase 11 U/L (0-33); Albumin Level 3.3 g/dL (3.5-5.2); Alkaline Phosphatase 104 IU/L (35-105); Anion Gap 9.3 (5-19); Aspartate Amino Transferase 11 U/L (0-32); Blood Urea Nitrogen 21 mg/dL (8-23); Calcium 9.1 mg/dL (8.5-10.5); Carbon Dioxide 39 mmol/L (22-29); Chloride 96 mmol/L (98-107); Glucose 256 mg/dL (65-115); Magnesium 1.7 mg/dL (1.7-2.3); NT Pro B Type Natriuretic Pept 2750 pg/mL (0-450); Osmolality Calculated 302 mOsm/kg (285-295); Potassium 4.3 mmol/L (3.5-5.1); Sodium 140 mmol/L (136-145); Thyroid Stimulating Hormone 2.21 uIU/mL (0.27-4.20); Total Bilirubin 0.2 mg/dL (0.15-1.2); Total Protein 7.3 g/dL (6.6-8.7)
--- NOTE | 2020-06-05 20:31 | P.HP_ITS ---
Providers/Chief Complaint Admitting Physician: Donna Bunn MD Primary Care Provider: Viri Molina DO Chief Complaint: GENERAL WEAKNESS History of Present Illness Irina Velasquez is a 74 year old female who presented to the emergency room with chief complaint of not able to get around and feeling sleepy, mildly short of breath. She was last hospitalized here in March. She spent a couple of months and rehabilitation. She was discharged from there on May 19. She had b een doing okay initially at home but gradually over time has become weaker. Today she has got to the point that she could not get up and do what she needed to do. She felt like she was as bad as she was in February prior to when she ended up going to rehab. She felt heavy. She has a CPAP at home but reports that it needs some attention therefore she has not been using it. She reports compliance with her oxygen. She is not smoking. She has been having edema. The wounds to her lower extremities are better than they have been but continued to require constant care. Reports compliance with usual medications. The pain in her lower back limits her ability to do things. She admits to spending a lot of her time in her chair/recliner, being able to do less the longer she is home. While she describes the difficulty getting up is a sudden onset, she denies any new paresthesias to the lower extremities beyond her usual diabetic neuropathy. She denies any new bowel or bladder incontinence. No weakness involved both upper and lower extremities and was more general rather than focal. On arrival to the emergency room, oxygen saturations were around 90 to 92% on usual 2 L. She was tachycardic. ABG showed 28/86/76. She had some clinical evidence as well as some laboratory findings suggestive of volume overload. She was put on BiPAP. She is being admitted for further evaluation and treatment. Review of Systems Const: Reports: change in appetite, change in weight (Gain) and fatigue; Denies: fever(s) or chills Eyes: Denies: change in vision ENMT: Denies: throat pain, dry mouth or nasal congestion Card: Reports: edema, dyspnea on exertion and other (Chronically unable to lie flat); Denies: chest pain or palpitations Resp: Reports: dyspnea, productive cough, non-productive cough and wheezing GI: Reports: constipation and bloating; Denies: abdominal pain, nausea, vomiting or diarrhea : Reports: urinary incontinence Musc: Reports: back pain and extremity pain Skin/Breast: Reports: rash (Under breasts and in groin); Denies: pruritus Neuro: Reports: numbness in extremities and weakness in extremities; Denies: headache(s) or dizziness Psych: Denies: anxiety or depression Lit/Lymph: Denies: easy bruising or easy bleeding Medications/Allergies Home Medications Medication Instructions Recorded Confirmed Last Taken Type methenamine hippurate 1 g PO BID@07,199903/20/19 06/05/20 06/05/20 History ipratropium-albuterol 3 ml INHALATION Q6H PRN #180 ml 03/21/19 06/05/20 Unknown Rx baclofen 10 mg tablet 10 - 20 mg PO TID PRN tab 05/16/19 06/05/20 06/05/20 History sennosides 8.6 mg-docusate sodium 2 tab-cap PO BID@07,1999 tab 05/16/19 06/05/20 06/05/20 History 50 mg tablet ondansetron HCl 4 mg tablet 4 mg PO Q8H PRN 7 Days #20 tab 09/19/19 06/05/20 Unknown Rx Januvia 100 mg PO DAILY@0700 03/15/20 06/05/20 03/20/20 History aspirin 81 mg PO DAILY@0700 03/15/20 06/05/20 06/05/20 History amlodipine 5 mg PO DAILY@0700 03/20/20 06/05/20 06/05/20 History furosemide [Lasix] 40 mg PO BID@0700,1900 03/20/20 06/05/20 06/05/20 History insulin lispro [Humalog KwikPen 10 unit SUBCUT TID@0700,1200,1900 03/20/20 06/05/20 06/05/20 History Insulin] levothyroxine 25 mcg PO DAILY@0700 03/20/20 06/05/20 06/05/20 History lovastatin 20 mg PO DAILY@0700 03/20/20 06/05/20 06/05/20 History metformin 850 mg PO BID@07,199903/20/20 06/05/20 06/05/20 History mirtazapine 7.5 mg PO DAILY@199903/20/20 06/05/20 06/04/20 History pantoprazole 40 mg PO DAILY@69903/20/20 06/05/20 06/05/20 History sucralfate 1 g PO BID@699,199903/20/20 06/05/20 06/05/20 History Levemir FlexTouch U-100 Insuln 30 unit SUBCUT DAILY 06/05/20 06/05/20 06/04/20 History Linzess 290 mcg PO DAILY@0706/05/20 06/05/20 06/05/20 History gabapentin 600 mg PO TID 06/05/20 06/05/20 06/05/20 History meclizine 25 mg PO TID PRN 06/05/20 06/05/20 06/05/20 History potassium chloride 20 meq PO DAILY 06/05/20 06/05/20 Unknown History Allergies Allergy/AdvReac Type Severity Reaction Status Date / Time codeine Allergy ALGY-Hives Verified 06/05/20 15:58 PFSH Acute PFSH: Medical History (Updated 06/06/20 @ 07:39 by Donna Bunn MD) Chronic back pain Chronic idiopathic constipation Chronic kidney disease, stage II (mild) COPD (chronic obstructive pulmonary disease) Dyslipidemia Enrolled in chronic care management Hypertension 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 skilled nursing (current) use of opiate analgesic Obesity Sleep apnea, obstructive sleep study 04/2019, does not sound like she ever had titration study for bipap at home Type 2 diabetes mellitus, with long-term current use of insulin Venous stasis ulcers Surgical History History of cholecystectomy History of tonsillectomy and adenoidectomy S/P appendectomy Family History Other Diabetes Social History (Updated 06/06/20 @ 07:17 by Donna Bunn MD) Smoking and tobacco status: former smoker Alcohol intake: never Substance/Drug Use: never Household members: none and other Details: 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 Vitals/I&O/Wt Last Vital Signs Temp 98.8 F 06/05/20 15:48 Pulse 82 06/05/20 19:07 Resp 17 06/05/20 19:07 BP 121/85 06/05/20 19:07 Pulse Ox 90 06/05/20 17:58 Weight last 48 hrs Weight 128.82 kg Physical Exam Const: OTHER: Alert, oriented x3, cooperative, morbidly obese HENMT: OTHER: Normocephalic atraumatic, moist mucus membranes Eye: OTHER: Extraocular movements are intact Neck/C-Spine: OTHER: Large but supple Resp: OTHER: Scattered wheezes, lip breathing, has to pause every couple of sentences to take of breath, no accessory muscle use Cardio: OTHER: Regular rhythm, distant heart sounds GI: OTHER: Abdomen soft, nontender, obese with positive bowel sounds : OTHER: Catheter noted Extremity: OTHER: Swelling noted to both feet and ankle with 1+ pretibial edema. Chronic stasis changes. Neuro: OTHER: Face symmetric, speech clear, moves all extremities Psych: OTHER: Normal affect Skin: OTHER: Chronic stasis changes noted to both lower extremities. Several look like scabs have recently fallen off but there is no weeping or oozing wounds. None are actively bleeding. Urinary Catheter Management^: Chowdary: Cath Placed During This Visit: yes Urinary Catheter Date of Insertion: 06/05/20 Urinary Catheter Time of Insertion: 17:14 Data : 06/05/20 18:20 06/05/20 18:20 Other Labs: Laboratory Results WBC 10.1 10^3/uL (4.0-10.0) H 06/05/20 18:20 RBC 3.67 10^6/uL (4.1-5.3) L 06/05/20 18:20 Hgb 10.7 g/dL (11.5-15.3) L 06/05/20 18:20 Hct 36.9 % (37.0-47.0) L 06/05/20 18:20 MCV 100.5 fL (81-99) H 06/05/20 18:20 MCH 29.2 pg (28.0-34.0) 06/05/20 18:20 MCHC 29.0 g/dL (30.0-36.0) L 06/05/20 18:20 RDW 14.1 % (12.1-15.1) 06/05/20 18:20 Plt Count 260 10^3/cmm (130-400) 06/05/20 18:20 MPV 10.2 fL (7.4-10.4) 06/05/20 18:20 Neut % (Auto) 65.7 % 06/05/20 18:20 Lymph % (Auto) 23.0 % 06/05/20 18:20 Archer % (Auto) 8.8 % 06/05/20 18:20 Eos % (Auto) 1.5 % 06/05/20 18:20 Baso % (Auto) 0.5 % 06/05/20 18:20 Neut # (Auto) 6.62 10^3/uL (1.8-7.7) 06/05/20 18:20 Lymph # (Auto) 2.3 10^3/uL (0.8-4.8) 06/05/20 18:20 Archer # (Auto) 0.9 10^3/uL (0.2-0.9) 06/05/20 18:20 Eos # (Auto) 0.2 10^3/uL (0.0-0.8) 06/05/20 18:20 Baso # (Auto) 0.1 10^3/uL (0.0-0.1) 06/05/20 18:20 Nucleated RBC % (auto) 0 % 06/05/20 18:20 Nucleated RBCs # 0.0 /100WBC 06/05/20 18:20 PT 14.00 SECONDS (12.1-14.9) 06/05/20 18:20 INR 1.05 (0.8-1.2) 06/05/20 18:20 Specimen Type Arterial 06/05/20 16:17 Sample Site Brachial, left 06/05/20 16:17 ABG pH 7.28 (7.35-7.45) L 06/05/20 16:17 ABG pCO2 86.2 mmHg (35-45) H* 06/05/20 16:17 ABG pO2 76.3 mmHg (80.0-100.0) L 06/05/20 16:17 ABG HCO3 40.1 mmol/L (22-26) H 06/05/20 16:17 ABG O2 Saturation 94.7 06/05/20 16:17 ABG Base Excess 10.4 mmol/L (-2.0-2.0) H 06/05/20 16:17 Vineet Test Pos 06/05/20 16:17 A-a O2 Gradient 6.3 mmHg (5-10) 06/05/20 16:17 Hematocrit 34.8 % (37-47) L 06/05/20 16:17 Hgb O2 Saturation 93.1 % (95-100) L 06/05/20 16:17 Carboxyhemoglobin 1.4 %THgb (0.4-20.1) 06/05/20 16:17 Methemoglobin 0.3 % (0.4-1.5) L 06/05/20 16:17 Total Hemoglobin 11.4 g/dL (12-16) L 06/05/20 16:17 Sodium 143.0 mmol/L (131-143) 06/05/20 16:17 Potassium 4.4 mmol/L (3.5-5.0) 06/05/20 16:17 Glucose 304.0 mg/dL (70-115) H 06/05/20 16:17 Ionized Calcium 1.3 mmol/L (1.1-1.4) 06/05/20 16:17 O2 Delivery Device Nc 06/05/20 16:17 O2 Liters/Min 3.0 % 06/05/20 16:17 FiO2 32.0 % 06/05/20 16:17 Display Coordinator ID Cak 06/05/20 16:17 Sodium 140 mmol/L (136-145) 06/05/20 18:20 Potassium 4.3 mmol/L (3.5-5.1) 06/05/20 18:20 Chloride 96 mmol/L (98-107) L 06/05/20 18:20 Carbon Dioxide 39 mmol/L (22-29) H 06/05/20 18:20 Anion Gap 9.3 (5-19) 06/05/20 18:20 BUN 21 mg/dL (8-23) 06/05/20 18:20 Creatinine 1.0 mg/dL (0.5-0.9) H 06/05/20 18:20 GFR Calculation Not Reportable 06/05/20 18:20 Glucose 256 mg/dL (65-115) H 06/05/20 18:20 Calculated Osmolality 302 mOsm/kg (285-295) H 06/05/20 18:20 Lactic Acid 1.0 mmol/L (0.5-2.2) 06/05/20 18:20 Calcium 9.1 mg/dL (8.5-10.5) 06/05/20 18:20 Magnesium 1.7 mg/dL (1.7-2.3) 06/05/20 18:20 Total Bilirubin 0.2 mg/dL (0.15-1.2) 06/05/20 18:20 AST 11 U/L (0-32) 06/05/20 18:20 ALT 11 U/L (0-33) 06/05/20 18:20 Alkaline Phosphatase 104 IU/L (35-105) 06/05/20 18:20 NT-Pro-B Natriuret Pep 2750 pg/mL (0-450) H 06/05/20 18:20 Total Protein 7.3 g/dL (6.6-8.7) 06/05/20 18:20 Albumin 3.3 g/dL (3.5-5.2) L 06/05/20 18:20 Globulin 4.0 g/dL (1.3-4.6) 06/05/20 18:20 TSH 2.21 uIU/mL (0.27-4.20) 06/05/20 18:20 Urine Color Yellow (Yellow) 06/05/20 17:00 Urine Appearance Hazy (CLEAR) A 06/05/20 17:00 Urine pH 5 (5-7) 06/05/20 17:00 Ur Specific [place] 1.015 (1.005-1.030) 06/05/20 17:00 Urine Protein Neg (Negative) 06/05/20 17:00 Urine Glucose (UA) Norm (Normal) 06/05/20 17:00 Urine Ketones Negative (Negative) 06/05/20 17:00 Urine Blood Neg (Negative) 06/05/20 17:00 Urine Nitrate Negative (Negative) 06/05/20 17:00 Urine Bilirubin Neg (Negative) 06/05/20 17:00 Urine Urobilinogen Norm mg/dL (Negative) 06/05/20 17:00 Ur Leukocyte Esterase Negative (Negative) 06/05/20 17:00 Urine RBC None /hpf (0-2) 06/05/20 17:00 Urine WBC None /hpf (0-5) 06/05/20 17:00 Ur Squamous Epith Cells None /hpf (0-5) 06/05/20 17:00 Ur Transition Epith Cell None /hpf 06/05/20 17:00 Amorphous Sediment Not Reportable 06/05/20 17:00 Urine Bacteria Trace /hpf (NONE) 06/05/20 17:00 Impressions Chest X-Ray 06/05/20 16:02 IMPRESSION: No acute abnormality identified. A&P Assessment and plan (1) Acute on chronic respiratory failure with hypercapnia: Multifactorial from untreated sleep apnea, obesity hypoventilation, COPD. And suspect that she has a component of some pulmonary hypertension and diastolic dysfunction. Last echocardiogram a couple of years ago reported probably normal ejection fraction but was limited study due to body habitus and I suspect it will be the same today. Her BNP has increased from baseline values but not higher than what it was in March. Chest x-ray did not show gross effusions. No fever findings suggestive of pulmonary infection. 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: Status: Chronic (7) Chronic idiopathic constipation: Status: Chronic (8) Type 2 diabetes mellitus, with long-term current use of insulin: Status: Chronic Qualifiers: Diabetes mellitus complication status: with neurologic complications Diabetes mellitus complication detail: with polyneuropathy Qualified Code(s): E11.42 - Type 2 diabetes mellitus with diabetic polyneuropathy; Z79.4 - skilled nursing (current) use of insulin (9) Venous stasis ulcers: Status: Chronic Qualifiers: Venous stasis ulcer site: ankle Varicose vein presence: without varicose veins Laterality: left Non-pressure ulcer stage: limited to breakdown of skin Qualified Code(s): I87.2 - Venous insufficiency (chronic) (peripheral); L97.321 - Non-pressure chronic ulcer of left ankle limited to breakdown of skin (10) Chronic kidney disease, stage II (mild): Status: Chronic (11) Hypertension: Status: Chronic Qualifiers: Hypertension type: essential hypertension Qualified Code(s): I10 - Essential (primary) hypertension (12) 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: Status: Chronic Qualifiers: 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 type: acquired Qualified Code(s): E03.9 - 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, unspecified (13) Obesity: Status: Chronic Qualifiers: Obesity type: unspecified obesity type Obesity classification: adult class 3 (BMI >= 40) Serious obesity comorbidity presence: with serious comorb idity Body mass index: BMI 45.0-49.9 Qualified Code(s): E66.01 - Morbid (severe) obesity due to excess calories; Z68.42 - Body mass index [BMI] 45.0- 49.9, adult Additional A&P Information Inpatient admission IV diuresis Chowdary catheter was placed in the emergency room, will continue currently to monitor I's and O's closely Continue BiPAP Recheck ABG in the morning Breathing treatments Given diabetes I have held off on steroids until we see how she responds to other management Hold amlodipine currently, monitor blood pressures PT and OT evaluation Other home medications have been continued though those for which she can take arrangement at the lower end Bariatric recliner in the room to help with back pain Nystatin powder under breast and groin Sliding scale insulin We will need to reevaluate patient after some diuresis and BiPAP and see if she is physically doing any better and able to go back home. I will asked social media executive to see her to evaluate options for either broadened assistance at home, long-term care placement, assisted living placement or if indicated clinically return to skilled placement. Lovenox for DVT prophylaxis Supportive care otherwise Adarsh with patient and she was given an opportunity to ask questions Full code Attestations Medical Necessity Statement*: Anticipated stay greater than 2 midnights in a 74-year-old with comorbid conditions as listed who lives alone presenting with increasing weakness, difficulty breathing, evidence of recurrent hypercapnia and some volume overload after being home a little more than 2 weeks from skilled placement. She not have BiPAP or functioning CPAP at home. She is being treated with BiPAP here and will receive IV diuresis. We will evaluate her status after optimizing her medically to determine disposition plans as indicated. 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 Z79.891 Chronic idiopathic constipation K59.04 Type 2 diabetes mellitus, with long-term current use of insulin E11.42; Z79.4 Diabetes mellitus complication status: with neurologic complications Diabetes mellitus complication detail: with polyneuropathy Venous stasis ulcers I87.2; L97.321 Venous stasis ulcer site: ankle Varicose vein presence: without varicose veins Laterality: left Non-pressure ulcer stage: limited to breakdown of skin Chronic kidney disease, stage II (mild) N18.2 Hypertension I10 Hypertension type: essential hypertension 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 E03.9 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 type: acquired Obesity E66.01; Z68.42 Obesity type: unspecified obesity type Obesity classification: adult class 3 (BMI >= 40) Serious obesity comorbidity presence: with serious comorbidity Body mass index: BMI 45.0-49.9
[2020-06-06] VITALS (14 sets, daily range): BP systolic 116–144; BP diastolic 61–83; PULSE 65–84; RESP 15–19; TEMP 36.6–37.1; O2SAT 92–97
[2020-06-06 07:22] LABS: Glucose Point of Care 213 mg/dL (70-110)
[2020-06-06] MEDS: aspirin 81 mg Chew Tablet PO (07:38)
[2020-06-06] MEDS: FUROsemide 10 mg/mL SDV 4mL 40 MG IVP ×2 (07:38→18:23)
[2020-06-06] MEDS: enoxaparin 40 mg/0.4 mL Syringe SUBCUT (07:38)
[2020-06-06] MEDS: baclofen 10 mg Tablet PO (07:38)
[2020-06-06] MEDS: atorvastatin 40 mg Tablet 20 MG PO (07:38)
[2020-06-06] MEDS: levothyroxine 25 mcg Tablet PO (07:38)
[2020-06-06] MEDS: pantoprazole DR 40 mg Tablet PO (07:38)
[2020-06-06] MEDS: sitagliptin 100 mg Tablet PO (07:38)
[2020-06-06 08:00] LABS: Basophils # 0.1 10^3/uL (0.0-0.1); Basophils % 0.5 %; Eosinophils # 0.2 10^3/uL (0.0-0.8); Eosinophils % 2.2 %; Hematocrit 38.3 % (37.0-47.0); Hemoglobin 11.2 g/dL (11.5-15.3); Lymphocytes % 17.7 %; Mean Corpuscular HGB Conc 29.2 g/dL (30.0-36.0); Mean Corpuscular Hemoglobin 28.9 pg (28.0-34.0); Mean Corpuscular Volume 98.7 fL (81-99); Mean Platelet Volume 9.9 fL (7.4-10.4); Monocytes % 8.8 %; Neutrophils # 7.83 10^3/uL (1.8-7.7); Neutrophils % 70.5 %; Nucleated Red Blood Cells % 0 %; Platelet Count 243 10^3/cmm (130-400); Red Blood Count 3.88 10^6/uL (4.1-5.3); White Blood Count 11.1 10^3/uL (4.0-10.0)
[2020-06-06 08:20] LABS: Alanine Aminotransferase 10 U/L (0-33); Albumin Level 3.5 g/dL (3.5-5.2); Alkaline Phosphatase 100 IU/L (35-105); Anion Gap 11.3 (5-19); Aspartate Amino Transferase 11 U/L (0-32); Blood Urea Nitrogen 18 mg/dL (8-23); Calcium 9.3 mg/dL (8.5-10.5); Carbon Dioxide 40 mmol/L (22-29); Chloride 96 mmol/L (98-107); Globulin 3.9 g/dL (1.3-4.6); Glucose 202 mg/dL (65-115); Magnesium 1.7 mg/dL (1.7-2.3); Osmolality Calculated 304 mOsm/kg (285-295); Phosphorus 3.4 mg/dL (2.5-4.5); Potassium 4.3 mmol/L (3.5-5.1); Sodium 143 mmol/L (136-145); Total Bilirubin 0.3 mg/dL (0.15-1.2); Total Protein 7.4 g/dL (6.6-8.7)
[2020-06-06] MEDS: gabapentin 300 mg Capsule 600 MG PO ×3 (11:14→22:21)
[2020-06-06] MEDS: potassium chloride ER 20 mEq Tablet PO (11:14)
[2020-06-06] MEDS: sennosides-docusate Tablet 2 TAB PO ×2 (11:15→22:21)
[2020-06-06] MEDS: vitamin A & D oint 1 APPLIC TOPICAL ×2 (11:16→18:27)
[2020-06-06] MEDS: nystatin powder 15 gm Btl 1 APPLIC TOPICAL ×2 (11:16→18:27)
[2020-06-06 11:20] LABS: Glucose Point of Care 243 mg/dL (70-110)
[2020-06-06] MEDS: sucralfate 1 gm Tablet PO ×2 (11:48→22:21)
[2020-06-06 12:42] LABS: Glucose Point of Care 225 mg/dL (70-110)
--- NOTE | 2020-06-06 13:17 | PC.CHAP ---
Pastoral Care Encounter/Spiritual Assessment Type of Contact [] Declined aerophysics engineer visit [] Patient/Family/Request visit [] Outpatient visit [] Follow-up visit [] Physician referral [] Code/Alert [xx] Routine visit [] Staff referral [] Actively dying [] Patient sleeping [] Family support [] [] Out of room [] Palliative care [] [] Receiving care in room [] Pre-surgical visit [] Trauma [] Long length of stay [] ICU visit [] Other: Relational/Emotional Strength [xx] Patient feels connected with others/family/visitors/staff [] Distress [] Loneliness/isolation [] Abandonment Spirituality of Patient [xx] Person of Keren [] Attends Oriental Orthodox of their Keren [xx] Believes in Prayer [] Reads Bible or Sikhism materials [] There are Spiritual issues to be addressed Commercial Hvac Technician Interventions [xx] Prayer [xx] Active listening [xx] Non-anxious presence [] Spiritual/emotional support [] Crisis/trauma care [] Spiritual counseling [] Bereavement support [] Provided bereavement packet [] Provided Bible/devotional materials [] Provided toy/stuffed animal, coloring book to patient or family member [] Provided Communion [] Anointing/[place] [] Salvation [xx] Completed spiritual assessment [] Other: Impact on Illness or Injury [] Angry [] Fearful [] Anxious [] Often cries [] Exhaustion [] Unable to work [] Unable to attend jehovah's witness [] Unable to walk/stand [] Unable to read [] Unable to drive [] Unable to eat/drink [] Unable to sleep [] Unable to be with family [] Patient intubated [] Other: Summary Patient not feeling well enough for general visit but did want prayer. Patient stated [facility] as previous rehab time was not long enough to accomplish its purpose. She had returned home May 19. Time spent with patient
[2020-06-06 15:12] LABS: Glucose Point of Care 264 mg/dL (70-110)
[2020-06-06] MEDS: ipratropium-albuterol 3 mL Neb INHALATION ×2 (15:15→21:41)
--- NOTE | 2020-06-06 15:55 | PM.PN ---
Subjective Subjective: Interval history: Overnight labs and H&P reviewed. No interim events. Off BiPAP, saturating 94% on 3 L/min nasal cannula Medications: Reviewed: Yes Vitals/I&O/Wt Last Vital Signs Temp 97.9 F 06/06/20 10:55 Pulse 81 06/06/20 15:25 Resp 18 06/06/20 15:15 BP 144/80 06/06/20 10:55 Pulse Ox 94 06/06/20 15:15 06/06/20 06/06/20 06/06/20 06:59 14:59 22:59 Intake Total 260 / 260 Output Total 350 / 350 1650 / 1650 Balance -350 / -350 -1390 / -1390 Weight last 48 hrs Weight 128.82 kg Physical Exam Narrative: EXAM NARRATIVE: GEN: Awake, alert and oriented, no acute distress CVS: S1S2 N RS: CTA B/L Abd: Soft, nt/nd , bs+ DIRECTOR OF OUTSIDE SALES: no focal neuro deficits Urinary Catheter Management^: Chowdary: Cath Placed During This Visit: yes Reason for Continuing Indwelling Catheter: Acute Urinary Retention or Obstruction Urinary Catheter Date of Insertion: 06/05/20 Urinary Catheter Time of Insertion: 17:14 Data : 06/06/20 07:37 06/06/20 07:37 A&P Assessment and plan (1) Acute on chronic respiratory failure with hypercapnia: Multifactorial from untreated sleep apnea, obesity hypoventilation, COPD. And suspect that she has a component of some pulmonary hypertension and diastolic dysfunction. Last echocardiogram a couple of years ago reported probably normal ejection fraction but was limited study due to body habitus. Her BNP has increased from baseline values but not higher than what it was in March. Chest x-ray did not show gross effusions. No fever or findings suggestive of pneumonia. 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: Status: Chronic (7) Chronic idiopathic constipation: Status: Chronic (8) Type 2 diabetes mellitus, with long-term current use of insulin: Status: Chronic Qualifiers: Diabetes mellitus complication status: with neurologic complications Diabetes mellitus complication detail: with polyneuropathy Qualified Code(s): E11.42 - Type 2 diabetes mellitus with diabetic polyneuropathy; Z79.4 - retirement (current) use of insulin (9) Venous stasis ulcers: Status: Chronic Qualifiers: Venous stasis ulcer site: ankle Varicose vein presence: without varicose veins Laterality: left Non-pressure ulcer stage: limited to breakdown of skin Qualified Code(s): I87.2 - Venous insufficiency (chronic) (peripheral); L97.321 - Non-pressure chronic ulcer of left ankle limited to breakdown of skin (10) Chronic kidney disease, stage II (mild): Status: Chronic (11) Hypertension: Status: Chronic Qualifiers: Hypertension type: essential hypertension Qualified Code(s): I10 - Essential (primary) hypertension (12) 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: Status: Chronic Qualifiers: 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 type: acquired Qualified Code(s): E03.9 - 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, unspecified (13) Obesity: Status: Chronic Qualifiers: Body mass index: BMI 45.0-49.9 Obesity classification: adult class 3 (BMI >= 40) Obesity type: unspecified obesity type Serious obesity comorbidity presence: with serious comorbidity Qualified Code(s): E66.01 - Morbid (severe) obesity due to excess calories; Z68.42 - Body mass index [BMI] 45.0-49.9, adult Additional A&P Information Inpatient admission IV diuresis Chowdary catheter was placed in the emergency room, will continue currently to monitor I's and O's closely Continue BiPAP as needed Duoneb + budesonide inhalation Holding amlodipine currently, monitor blood pressures PT and OT evaluation, will need SNF placement due to significant deconditionig Nystatin powder under breast and groin Sliding scale insulin Lovenox for DVT prophylaxis Supportive care otherwise Full code Attestations Medical Necessity Statement*: optimization of respiratory status, COPD exacerbation, SNF placement Coding Level of Care Code Acute Tent Assembler for Nayelig Fwd Diagnoses Acute on chronic respiratory failure with hypercapnia J96.22 Generalized weakness R53.1 COPD (chronic obstructive pulmonary disease) J44.9 COPD type: unspecified COPD Sleep apnea, obstructive G47.33 Lumbar radiculopathy M54.16 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 Z79.891 Chronic idiopathic constipation K59.04 Type 2 diabetes mellitus, with long-term current use of insulin E11.42; Z79.4 Diabetes mellitus complication status: with neurologic complications Diabetes mellitus complication detail: with polyneuropathy Venous stasis ulcers I87.2; L97.321 Venous stasis ulcer site: ankle Varicose vein presence: without varicose veins Laterality: left Non-pressure ulcer stage: limited to breakdown of skin Chronic kidney disease, stage II (mild) N18.2 Hypertension I10 Hypertension type: essential hypertension 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 E03.9 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 type: acquired Obesity E66.01; Z68.42 Body mass index: BMI 45.0-49.9 Obesity classification: adult class 3 (BMI >= 40) Obesity type: unspecified obesity type Serious obesity comorbidity presence: with serious comorbidity
[2020-06-06 16:52] LABS: Glucose Point of Care 208 mg/dL (70-110)
[2020-06-06 20:35] LABS: Glucose Point of Care 209 mg/dL (70-110)
[2020-06-06] MEDS: budesonide 0.5 mg/2 mL Neb INHALATION (21:41)
[2020-06-07] VITALS (10 sets, daily range): BP systolic 97–132; BP diastolic 58–79; PULSE 55–86; RESP 16–19; TEMP 36.3–37.1; O2SAT 91–96
[2020-06-07] MEDS: sitagliptin 100 mg Tablet PO (06:37)
[2020-06-07] MEDS: FUROsemide 10 mg/mL SDV 4mL 40 MG IVP ×2 (06:37→18:15)
[2020-06-07] MEDS: aspirin 81 mg Chew Tablet PO (06:37)
[2020-06-07] MEDS: enoxaparin 40 mg/0.4 mL Syringe SUBCUT (06:37)
[2020-06-07] MEDS: atorvastatin 40 mg Tablet 20 MG PO (06:37)
[2020-06-07] MEDS: pantoprazole DR 40 mg Tablet PO (06:37)
[2020-06-07] MEDS: sucralfate 1 gm Tablet PO ×2 (06:43→21:26)
[2020-06-07] MEDS: sennosides-docusate Tablet 2 TAB PO ×2 (06:43→21:25)
[2020-06-07] MEDS: levothyroxine 25 mcg Tablet PO (06:43)
[2020-06-07 06:45] LABS: Glucose Point of Care 106 mg/dL (70-110)
[2020-06-07] MEDS: budesonide 0.5 mg/2 mL Neb INHALATION ×2 (07:56→21:11)
[2020-06-07] MEDS: ipratropium-albuterol 3 mL Neb INHALATION ×2 (07:56→21:11)
[2020-06-07] MEDS: potassium chloride ER 20 mEq Tablet PO (08:56)
[2020-06-07] MEDS: gabapentin 300 mg Capsule 600 MG PO ×3 (08:56→21:25)
[2020-06-07] MEDS: nystatin powder 15 gm Btl 1 APPLIC TOPICAL ×2 (08:57→18:14)
[2020-06-07] MEDS: vitamin A & D oint 1 APPLIC TOPICAL ×2 (08:57→18:15)
[2020-06-07 10:45] LABS: Glucose Point of Care 305 mg/dL (70-110)
--- NOTE | 2020-06-07 14:29 | PM.PN ---
Subjective Subjective: Interval history: Patient seen sitting in bed. BiPAP is at her bedside for nighttime. Nurse rounds with me and tells me patient's been very active today. She states that she is tired physically. Medications: Reviewed: Yes Vitals/I&O/Wt Last Vital Signs Temp 98.1 F 06/07/20 11:06 Pulse 86 06/07/20 11:06 Resp 17 06/07/20 11:06 BP 106/73 06/07/20 11:06 Pulse Ox 93 06/07/20 11:06 06/06/20 06/07/20 06/07/20 22:59 06:59 14:59 Intake Total 120 / 380 260 / 260 Output Total 1350 / 3000 500 / 3500 850 / 850 Balance -1230 / -2620 -500 / -3120 -590 / -590 Weight last 48 hrs Weight 128.82 kg Physical Exam Narrative: EXAM NARRATIVE: General, morbidly obese. No acute distress. Heart regular rate and rhythm normal S1-S2 without murmurs clicks gallops or rubs Lungs diminished throughout no wheezes rales or rhonchi. Prolonged expiration phase. Abdomen morbidly obese nontender nondistended positive bowel sounds Extremities no edema. Patient does have chronic venous stasis changes in bilateral lower extremities Urinary Catheter Management^: Chowdary: Cath Placed During This Visit: yes Reason for Continuing Indwelling Catheter: Acute Urinary Retention or Obstruction Urinary Catheter Date of Insertion: 06/05/20 Urinary Catheter Time of Insertion: 17:14 Data : 06/06/20 07:37 06/06/20 07:37 A&P Assessment and plan (1) Venous stasis ulcers: localized treatment Status: Chronic Qualifiers: Venous stasis ulcer site: ankle Varicose vein presence: without varicose veins Laterality: left Non-pressure ulcer stage: limited to breakdown of skin Qualified Code(s): I87.2 - Venous insufficiency (chronic) (peripheral); L97.321 - Non-pressure chronic ulcer of left ankle limited to breakdown of skin (2) Hypertension: on home meds Status: Chronic Qualifiers: Hypertension type: essential hypertension Qualified Code(s): I10 - Essential (primary) hypertension (3) Generalized weakness: PT/OT, to SNF for rehab, will require more so she can manage at home. Status: Acute (4) COPD (chronic obstructive pulmonary disease): stable Status: Chronic Qualifiers: COPD type: unspecified COPD Qualified Code(s): J44.9 - Chronic obstructive pulmonary disease, unspecified (5) Anxiety: on home regimen Status: Chronic (6) Type 2 diabetes mellitus, with long-term current use of insulin: last HgbA1C was Jan 2020. Will order. Pt's accu checks have been very high. Status: Chronic Qualifiers: Diabetes mellitus complication status: with neurologic complications Diabetes mellitus complication detail: with polyneuropathy Qualified Code(s): E11.42 - Type 2 diabetes mellitus with diabetic polyneuropathy; Z79.4 - worm raiser (current) use of insulin (7) 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: pt oon home meds. Status: Chronic Qualifiers: 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 type: acquired Qualified Code(s): E03.9 - 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, unspecified (8) Sleep apnea, obstructive: on BIpap at night Status: Chronic (9) Obesity: Status: Chronic Qualifiers: Body mass index: BMI 45.0-49.9 Obesity classification: adult class 3 (BMI >= 40) Obesity type: unspecified obesity type Serious obesity comorbidity presence: with serious comorbidity Qualified Code(s): E66.01 - Morbid (severe) obesity due to excess calories; Z68.42 - Body mass index [BMI] 45.0-49.9, adult (10) CHF (congestive heart failure): currently on lasix 40 mg q12h with good outpt. I don't see echo. Will need one at some point in next few months. Status: Acute Attestations Medical Necessity Statement*: continued diuresis Coding Level of Care Code Acute Pulmonary Physical Therapist for [facility] Fwd Diagnoses Venous stasis ulcers I87.2; L97.321 Venous stasis ulcer site: ankle Varicose vein presence: without varicose veins Laterality: left Non-pressure ulcer stage: limited to breakdown of skin Hypertension I10 Hypertension type: essential hypertension Generalized weakness R53.1 COPD (chronic obstructive pulmonary disease) J44.9 COPD type: unspecified COPD Anxiety F41.9 Type 2 diabetes mellitus, with long-term current use of insulin E11.42; Z79.4 Diabetes mellitus complication status: with neurologic complications Diabetes mellitus complication detail: with polyneuropathy 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 E03.9 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 type: acquired Sleep apnea, obstructive G47.33 Obesity E66.01; Z68.42 Body mass index: BMI 45.0-49.9 Obesity classification: adult class 3 (BMI >= 40) Obesity type: unspecified obesity type Serious obesity comorbidity presence: with serious comorbidity CHF (congestive heart failure) I50.9
[2020-06-07 15:25] LABS: Estmated Average Glucose 194; Hemoglobin A1C 8.4 % (4.0-6.0)
[2020-06-07 17:04] LABS: Glucose Point of Care 181 mg/dL (70-110)
[2020-06-07 20:32] LABS: Glucose Point of Care 187 mg/dL (70-110)
[2020-06-07] MEDS: baclofen 10 mg Tablet PO (21:38)
[2020-06-08] VITALS (11 sets, daily range): BP systolic 110–137; BP diastolic 67–79; PULSE 65–98; RESP 16–27; TEMP 36.8–37.2; O2SAT 90–97
[2020-06-08] MEDS: aspirin 81 mg Chew Tablet PO (06:02)
[2020-06-08] MEDS: sucralfate 1 gm Tablet PO ×2 (06:02→20:48)
[2020-06-08] MEDS: sennosides-docusate Tablet 2 TAB PO ×2 (06:02→20:49)
[2020-06-08] MEDS: pantoprazole DR 40 mg Tablet PO (06:03)
[2020-06-08] MEDS: levothyroxine 25 mcg Tablet PO (06:03)
[2020-06-08] MEDS: sitagliptin 100 mg Tablet PO (06:03)
[2020-06-08] MEDS: enoxaparin 40 mg/0.4 mL Syringe SUBCUT (06:08)
[2020-06-08] MEDS: FUROsemide 10 mg/mL SDV 4mL 40 MG IVP ×2 (06:10→17:22)
[2020-06-08] MEDS: atorvastatin 40 mg Tablet 20 MG PO (06:11)
[2020-06-08 06:25] LABS: Glucose Point of Care 120 mg/dL (70-110)
[2020-06-08] MEDS: ipratropium-albuterol 3 mL Neb INHALATION ×3 (08:07→20:22)
[2020-06-08] MEDS: budesonide 0.5 mg/2 mL Neb INHALATION ×2 (08:07→20:22)
[2020-06-08] MEDS: potassium chloride ER 20 mEq Tablet PO (08:39)
[2020-06-08] MEDS: vitamin A & D oint 1 APPLIC TOPICAL ×2 (08:39→17:21)
[2020-06-08] MEDS: gabapentin 300 mg Capsule 600 MG PO ×3 (08:40→20:49)
[2020-06-08] MEDS: nystatin powder 15 gm Btl 1 APPLIC TOPICAL ×2 (08:40→17:21)
--- NOTE | 2020-06-08 10:03 | PC.NURSE ---
AM NOTE SKIN ASSESSMENT CONTINUED - NOTED SACRAL AREA TO HAVE AREAS OF DARKENED SKIN - NO OPENING NOTED - BLE WITH SCATTERED DARKENED AREAS - PREVIOUS BLISTERED AREAS NOTED - SKIN NOTED TO BE LOOSE ON BLE DUE TO PREVIOUS EDEMA
[2020-06-08 11:49] LABS: Glucose Point of Care 180 mg/dL (70-110)
[2020-06-08 14:00] LABS: Anion Gap 12.5 (5-19); Blood Urea Nitrogen 18 mg/dL (8-23); Calcium 9.3 mg/dL (8.5-10.5); Chloride 89 mmol/L (98-107); Glucose 225 mg/dL (65-115); Osmolality Calculated 299 mOsm/kg (285-295); Potassium 4.5 mmol/L (3.5-5.1); Sodium 140 mmol/L (136-145)
[2020-06-08 14:12] LABS: Carbon Dioxide 43 mmol/L (22-29)
[2020-06-08 16:58] LABS: Glucose Point of Care 254 mg/dL (70-110)
--- NOTE | 2020-06-08 18:47 | P.PN_ITS ---
Subjective Subjective: Interval history: Patient seen asleep wit BiPAP on. I did not wake her. RN said earlier she would not wear BIPAP. . Medications: Reviewed: Yes Vitals/I&O/Wt Last Vital Signs Temp 98.6 F 06/08/20 15:15 Pulse 70 06/08/20 15:28 Resp 27 H 06/08/20 15:28 BP 137/78 06/08/20 15:15 Pulse Ox 97 06/08/20 15:28 06/08/20 06/08/20 06/08/20 06:59 14:59 22:59 Intake Total 360 / 360 240 / 600 Output Total 2400 / 3250 850 / 850 Balance -2400 / -2870 360 / 360 -610 / -250 Physical Exam Narrative: EXAM NARRATIVE: General, morbidly obese. comfortable sleeping.. Heart regular rate and rhythm normal S1-S2 without murmurs clicks gallops or rubs Lungs diminished throughout no wheezes rales or rhonchi. Prolonged expiration phase. Abdomen morbidly obese nondistended positive bowel sounds Extremities no edema. Patient does have chronic venous stasis changes in bilateral lower extremities Urinary Catheter Management^: Chowdary: Cath Placed During This Visit: yes Reason for Continuing Indwelling Catheter: Other Urinary Catheter Date of Insertion: 06/05/20 Urinary Catheter Time of Insertion: 17:14 Data : 06/06/20 07:37 06/08/20 12:55 A&P Assessment and plan (1) Venous stasis ulcers: localized treatment Status: Chronic Qualifiers: Venous stasis ulcer site: ankle Varicose vein presence: without varicose veins Laterality: left Non-pressure ulcer stage: limited to breakdown of skin Qualified Code(s): I87.2 - Venous insufficiency (chronic) (peripheral); L97.321 - Non-pressure chronic ulcer of left ankle limited to breakdown of skin (2) Hypertension: on home meds Status: Chronic Qualifiers: Hypertension type: essential hypertension Qualified Code(s): I10 - Essential (primary) hypertension (3) Generalized weakness: PT/OT, to SNF for rehab, will require more so she can manage at home. Status: Acute (4) COPD (chronic obstructive pulmonary disease): stable Status: Chronic Qualifiers: COPD type: unspecified COPD Qualified Code(s): J44.9 - Chronic obstructive pulmonary disease, unspecified (5) Anxiety: on home regimen Status: Chronic (6) Type 2 diabetes mellitus, with long-term current use of insulin: Current HgbA1C 8.2. accu checks here have been high Status: Chronic Qualifiers: Diabetes mellitus complication status: with neurologic complications Diabetes mellitus complication detail: with polyneuropathy Qualified Code(s): E11.42 - Type 2 diabetes mellitus with diabetic polyneuropathy; Z79.4 - half-way (current) use of insulin (7) 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: pt on home meds. Status: Chronic Qualifiers: 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 type: acquired Qualified Code(s): E03.9 - 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, unspecified (8) Sleep apnea, obstructive: on BIpap when sleeping Status: Chronic (9) Obesity: Status: Chronic Qualifiers: Body mass index: BMI 45.0-49.9 Obesity classification: adult class 3 (BMI >= 40) Obesity type: unspecified obesity type Serious obesity comorbidity presence: with serious comorbidity Qualified Code(s): E66.01 - Morbid (severe) obesity due to excess calories; Z68.42 - Body mass index [BMI] 45.0-49.9, adult (10) CHF (congestive heart failure): currently on lasix 40 mg q12h with good outpt. I don't see echo. Will need one at some point in next few months. Status: Acute Additional A&P Information Inpatient admission IV diuresis Chowdary catheter was placed in the emergency room, will continue currently to monitor I's and O's closely Continue BiPAP as needed Duoneb + budesonide inhalation Holding amlodipine currently, monitor blood pressures PT and OT evaluation, will need SNF placement due to significant deconditionig Nystatin powder under breast and groin Sliding scale insulin Lovenox for DVT prophylaxis Supportive care otherwise Full code Attestations Medical Necessity Statement*: continued IV diuresis. Anticipate d/c tomorrow or tuesday Coding Level of Care Code Acute Paint Line Operator for g Fwd Diagnoses Venous stasis ulcers I87.2; L97.321 Venous stasis ulcer site: ankle Varicose vein presence: without varicose veins Laterality: left Non-pressure ulcer stage: limited to breakdown of skin Hypertension I10 Hypertension type: essential hypertension Generalized weakness R53.1 COPD (chronic obstructive pulmonary disease) J44.9 COPD type: unspecified COPD Anxiety F41.9 Type 2 diabetes mellitus, with long-term current use of insulin E11.42; Z79.4 Diabetes mellitus complication status: with neurologic complications Diabetes mellitus complication detail: with polyneuropathy 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 E03.9 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 type: acquired Sleep apnea, obstructive G47.33 Obesity E66.01; Z68.42 Body mass index: BMI 45.0-49.9 Obesity classification: adult class 3 (BMI >= 40) Obesity type: unspecified obesity type Serious obesity comorbidity presence: with serious comorbidity CHF (congestive heart failure) I50.9
[2020-06-08 20:02] LABS: Glucose Point of Care 294 mg/dL (70-110)
[2020-06-08] MEDS: baclofen 10 mg Tablet PO (20:49)
[2020-06-09] VITALS (13 sets, daily range): BP systolic 107–123; BP diastolic 64–78; PULSE 65–91; RESP 17–20; TEMP 36.3–37.3; O2SAT 91–95
[2020-06-09] MEDS: lanolin oint 7 gm 1 APPLIC TOPICAL (05:02)
[2020-06-09] MEDS: FUROsemide 10 mg/mL SDV 4mL 40 MG IVP ×2 (06:07→17:57)
[2020-06-09] MEDS: levothyroxine 25 mcg Tablet PO (06:11)
[2020-06-09] MEDS: sennosides-docusate Tablet 2 TAB PO ×2 (06:11→20:07)
[2020-06-09] MEDS: sitagliptin 100 mg Tablet PO (06:11)
[2020-06-09] MEDS: pantoprazole DR 40 mg Tablet PO (06:11)
[2020-06-09] MEDS: aspirin 81 mg Chew Tablet PO (06:11)
[2020-06-09] MEDS: sucralfate 1 gm Tablet PO ×2 (06:11→20:07)
[2020-06-09] MEDS: atorvastatin 40 mg Tablet 20 MG PO (06:12)
[2020-06-09] MEDS: enoxaparin 40 mg/0.4 mL Syringe SUBCUT (06:12)
[2020-06-09 07:47] LABS: Glucose Point of Care 146 mg/dL (70-110)
[2020-06-09] MEDS: budesonide 0.5 mg/2 mL Neb INHALATION ×2 (08:08→20:43)
[2020-06-09] MEDS: ipratropium-albuterol 3 mL Neb INHALATION ×3 (08:08→20:43)
--- NOTE | 2020-06-09 09:02 | PC.SOCIAL ---
-IMM update- Pg 2 of IMM updated and reviewed with pt. No questions, copy provided. Signed, dated and timed copy in chart.
[2020-06-09] MEDS: potassium chloride ER 20 mEq Tablet PO (09:33)
[2020-06-09] MEDS: gabapentin 300 mg Capsule 600 MG PO ×3 (09:33→20:07)
[2020-06-09] MEDS: nystatin powder 15 gm Btl 1 APPLIC TOPICAL ×2 (09:34→16:59)
[2020-06-09] MEDS: vitamin A & D oint 1 APPLIC TOPICAL ×2 (09:34→17:01)
[2020-06-09 11:04] LABS: Glucose Point of Care 219 mg/dL (70-110)
[2020-06-09] MEDS: ondansetron 2 mg/ML SDV 2 mL 4 MG IVP (12:41)
--- NOTE | 2020-06-09 14:35 | PC.RESP ---
Pulmonary Rehab information sent to patient.
[2020-06-09 17:23] LABS: Glucose Point of Care 229 mg/dL (70-110)
--- NOTE | 2020-06-09 18:13 | PM.PN ---
Subjective Subjective: Interval history: Saturating well currently on 3 L/min nasal cannula, required BiPAP briefly this morning, currently respiratory status is stable, no acute overnight events Medications: Reviewed: Yes Vitals/I&O/Wt Last Vital Signs Temp 97.4 F L 06/09/20 15:34 Pulse 72 06/09/20 15:34 Resp 18 06/09/20 15:34 BP 111/77 06/09/20 15:34 Pulse Ox 95 06/09/20 15:34 06/09/20 06/09/20 06/09/20 06:59 14:59 22:59 Intake Total 240 / 1316 240 / 240 240 / 480 Output Total 700 / 2350 900 / 900 225 / 1125 Balance -460 / -1034 -660 / -660 15 / -645 Physical Exam Narrative: EXAM NARRATIVE: GEN: Awake, alert and oriented, no acute distress CVS: S1S2 N RS: CTA B/L Abd: Soft, nt/nd , bs+ 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 And suspect that she has a component of some pulmonary hypertension and diastolic dysfunction. Last echocardiogram a couple of years ago reported probably normal ejection fraction but was limited study due to body habitus. Her BNP has increased from baseline values but not higher than what it was in March. Chest x-ray did not show gross effusions. No fever or findings suggestive of pneumonia. Status: Acute (2) Generalized weakness: Status: Acute (3) COPD (chronic obstructive pulmonary disease): Status: Chronic Qualifiers: COPD type: unspecified COPD Qualified Code(s): J44.9 - Chronic obstructive pulmonary disease, unspecified (4) Sleep apnea, obstructive: Status: Chronic (5) Lumbar radiculopathy: Status: Chronic (6) senior care (current) use of opiate analgesic: Status: Chronic (7) Chronic idiopathic constipation: Status: Chronic (8) Type 2 diabetes mellitus, with long-term current use of insulin: Status: Chronic Qualifiers: Diabetes mellitus complication status: with neurologic complications Diabetes mellitus complication detail: with polyneuropathy Qualified Code(s): E11.42 - Type 2 diabetes mellitus with diabetic polyneuropathy; Z79.4 - senior care (current) use of insulin (9) Venous stasis ulcers: Status: Chronic Qualifiers: Venous stasis ulcer site: ankle Varicose vein presence: without varicose veins Laterality: left Non-pressure ulcer stage: limited to breakdown of skin Qualified Code(s): I87.2 - Venous insufficiency (chronic) (peripheral); L97.321 - Non-pressure chronic ulcer of left ankle limited to breakdown of skin (10) Chronic kidney disease, stage II (mild): Status: Chronic (11) Hypertension: Status: Chronic Qualifiers: Hypertension type: essential hypertension Qualified Code(s): I10 - Essential (primary) hypertension (12) 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: Status: Chronic Qualifiers: 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 type: acquired Qualified Code(s): E03.9 - 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, unspecified (13) Obesity: Status: Chronic Qualifiers: Body mass index: BMI 45.0-49.9 Obesity classification: adult class 3 (BMI >= 40) Obesity type: unspecified obesity type Serious obesity comorbidity presence: with serious comorbidity Qualified Code(s): E66.01 - Morbid (severe) obesity due to excess calories; Z68.42 - Body mass index [BMI] 45.0-49.9, adult Additional A&P Information Inpatient admission IV diuresis Chowdary catheter was placed in the emergency room, will continue currently to monitor I's and O's closely Continue BiPAP as needed Duoneb + budesonide inhalation Holding amlodipine currently, monitor blood pressures PT and OT evaluation, will need SNF placement due to significant deconditionig Nystatin powder under breast and groin Sliding scale insulin Lovenox for DVT prophylaxis Supportive care otherwise Full code Attestations Medical Necessity Statement*: Awaiting prior authorization for SNF placement. Coding Level of Care Code Acute Mogul Operator for [facility] Fwd Diagnoses Acute on chronic respiratory failure with hypercapnia J96.22 Generalized weakness R53.1 COPD (chronic obstructive pulmonary disease) J44.9 COPD type: unspecified COPD Sleep apnea, obstructive G47.33 Lumbar radiculopathy M54.16 senior care (current) use of opiate analgesic Z79.891 Chronic idiopathic constipation K59.04 Type 2 diabetes mellitus, with long-term current use of insulin E11.42; Z79.4 Diabetes mellitus complication status: with neurologic complications Diabetes mellitus complication detail: with polyneuropathy Venous stasis ulcers I87.2; L97.321 Venous stasis ulcer site: ankle Varicose vein presence: without varicose veins Laterality: left Non-pressure ulcer stage: limited to breakdown of skin Chronic kidney disease, stage II (mild) N18.2 Hypertension I10 Hypertension type: essential hypertension 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 E03.9 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 type: acquired Obesity E66.01; Z68.42 Body mass index: BMI 45.0-49.9 Obesity classification: adult class 3 (BMI >= 40) Obesity type: unspecified obesity type Serious obesity comorbidity presence: with serious comorbidity
[2020-06-09] MEDS: baclofen 10 mg Tablet PO (20:07)
[2020-06-09 20:28] LABS: Glucose Point of Care 242 mg/dL (70-110)
[2020-06-10] VITALS (10 sets, daily range): BP systolic 101–134; BP diastolic 66–77; PULSE 66–81; RESP 17–19; TEMP 36.2–37; O2SAT 90–97
[2020-06-10] MEDS: acetaminophen 325 mg Tablet 650 MG PO ×2 (04:41→10:39)
[2020-06-10] MEDS: enoxaparin 40 mg/0.4 mL Syringe SUBCUT (06:04)
[2020-06-10] MEDS: sitagliptin 100 mg Tablet PO (06:05)
[2020-06-10] MEDS: pantoprazole DR 40 mg Tablet PO (06:05)
[2020-06-10] MEDS: atorvastatin 40 mg Tablet 20 MG PO (06:05)
[2020-06-10] MEDS: sucralfate 1 gm Tablet PO ×2 (06:06→20:57)
[2020-06-10] MEDS: levothyroxine 25 mcg Tablet PO (06:06)
[2020-06-10] MEDS: sennosides-docusate Tablet 2 TAB PO ×2 (06:06→20:57)
[2020-06-10] MEDS: aspirin 81 mg Chew Tablet PO (06:06)
[2020-06-10] MEDS: FUROsemide 10 mg/mL SDV 4mL 40 MG IVP (06:35)
[2020-06-10 06:43] LABS: Glucose Point of Care 187 mg/dL (70-110)
[2020-06-10] MEDS: potassium chloride ER 20 mEq Tablet PO (08:48)
[2020-06-10] MEDS: nystatin powder 15 gm Btl 1 APPLIC TOPICAL ×2 (08:48→18:14)
[2020-06-10] MEDS: gabapentin 300 mg Capsule 600 MG PO ×3 (08:48→20:57)
[2020-06-10] MEDS: vitamin A & D oint 1 APPLIC TOPICAL ×2 (08:49→18:14)
[2020-06-10] MEDS: ipratropium-albuterol 3 mL Neb INHALATION ×2 (08:59→20:57)
[2020-06-10] MEDS: budesonide 0.5 mg/2 mL Neb INHALATION ×2 (08:59→20:57)
[2020-06-10 12:30] LABS: Glucose Point of Care 232 mg/dL (70-110)
[2020-06-10] MEDS: baclofen 10 mg Tablet PO ×2 (13:20→20:57)
--- NOTE | 2020-06-10 13:51 | PC.NURSE ---
rcvd verbal order during heart to heart to remove calhoun catheter. investment underwriter put order in.
--- NOTE | 2020-06-10 17:01 | P.PN_ITS ---
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 And suspect that she has a component of some pulmonary hypertension and diastolic dysfunction. Last echocardiogram a couple of years ago reported probably normal ejection fraction but was limited study due to body habitus. Her BNP has increased from baseline values but not higher than what it was in March. Chest x-ray did not show gross effusions. No fever or findings suggestive of pneumonia. Status: Acute (2) Generalized weakness: Status: Acute (3) COPD (chronic obstructive pulmonary disease): Status: Chronic Qualifiers: COPD type: unspecified COPD Qualified Code(s): J44.9 - Chronic obstructive pulmonary disease, unspecified (4) Sleep apnea, obstructive: Status: Chronic (5) Lumbar radiculopathy: Status: Chronic (6) correction (current) use of opiate analgesic: Status: Chronic (7) Chronic idiopathic constipation: Status: Chronic (8) Type 2 diabetes mellitus, with long-term current use of insulin: Status: Chronic Qualifiers: Diabetes mellitus complication status: with neurologic complications Diabetes mellitus complication detail: with polyneuropathy Qualified Code(s): E11.42 - Type 2 diabetes mellitus with diabetic polyneuropathy; Z79.4 - roasterman (current) use of insulin (9) Venous stasis ulcers: Status: Chronic Qualifiers: Venous stasis ulcer site: ankle Varicose vein presence: without varicose veins Laterality: left Non-pressure ulcer stage: limited to breakdown of skin Qualified Code(s): I87.2 - Venous insufficiency (chronic) (peripheral); L97.321 - Non-pressure chronic ulcer of left ankle limited to breakdown of skin (10) Chronic kidney disease, stage II (mild): Status: Chronic (11) Hypertension: Status: Chronic Qualifiers: Hypertension type: essential hypertension Qualified Code(s): I10 - Essential (primary) hypertension (12) 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: Status: Chronic Qualifiers: 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 type: acquired Qualified Code(s): E03.9 - 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, unspecified (13) Obesity: Status: Chronic Qualifiers: Body mass index: BMI 45.0-49.9 Obesity classification: adult class 3 (BMI >= 40) Obesity type: unspecified obesity type Serious obesity comorbidity presence: with serious comorbidity Qualified Code(s): E66.01 - Morbid (severe) obesity due to excess calories; Z68.42 - Body mass index [BMI] 45.0-49.9, adult Additional A&P Information Inpatient admission IV diuresis,c hange to po lasix 60mg BID today and monitor urine output D/c calhoun catheter Continue BiPAP as needed Duoneb + budesonide inhalation Holding amlodipine currently, BP well controlled PT and OT evaluation, will need SNF placement due to significant deconditionig Nystatin powder under breast and groin Sliding scale insulin Lovenox for DVT prophylaxis Supportive care otherwise Full code Attestations Medical Necessity Statement*: chnage iv to po diuresis, awiating prior auth for SNF placement Coding Level of Care Code Acute Alumnae Secretary for Chg Fwd Diagnoses Acute on chronic respiratory failure with hypercapnia J96.22 Generalized weakness R53.1 COPD (chronic obstructive pulmonary disease) J44.9 COPD type: unspecified COPD Sleep apnea, obstructive G47.33 Lumbar radiculopathy M54.16 correction (current) use of opiate analgesic Z79.891 Chronic idiopathic constipation K59.04 Type 2 diabetes mellitus, with long-term current use of insulin E11.42; Z79.4 Diabetes mellitus complication status: with neurologic complications Diabetes mellitus complication detail: with polyneuropathy Venous stasis ulcers I87.2; L97.321 Venous stasis ulcer site: ankle Varicose vein presence: without varicose veins Laterality: left Non-pressure ulcer stage: limited to breakdown of skin Chronic kidney disease, stage II (mild) N18.2 Hypertension I10 Hypertension type: essential hypertension 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 E03.9 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 type: acquired Obesity E66.01; Z68.42 Body mass index: BMI 45.0-49.9 Obesity classification: adult class 3 (BMI >= 40) Obesity type: unspecified obesity type Serious obesity comorbidity presence: with serious comorbidity
[2020-06-10 17:02] LABS: Glucose Point of Care 207 mg/dL (70-110)
[2020-06-10 20:23] LABS: Glucose Point of Care 233 mg/dL (70-110)
[2020-06-11] VITALS (10 sets, daily range): BP systolic 112–137; BP diastolic 53–83; PULSE 18–82; RESP 14–18; TEMP 36.4–36.7; O2SAT 93–97
[2020-06-11] MEDS: sennosides-docusate Tablet 2 TAB PO (06:23)
[2020-06-11] MEDS: levothyroxine 25 mcg Tablet PO (06:23)
[2020-06-11] MEDS: atorvastatin 40 mg Tablet 20 MG PO (06:23)
[2020-06-11] MEDS: enoxaparin 40 mg/0.4 mL Syringe SUBCUT (06:23)
[2020-06-11] MEDS: sucralfate 1 gm Tablet PO (06:23)
[2020-06-11] MEDS: pantoprazole DR 40 mg Tablet PO (06:24)
[2020-06-11] MEDS: sitagliptin 100 mg Tablet PO (06:24)
[2020-06-11] MEDS: aspirin 81 mg Chew Tablet PO (06:24)
[2020-06-11 06:54] LABS: Glucose Point of Care 141 mg/dL (70-110)
[2020-06-11] MEDS: gabapentin 300 mg Capsule 600 MG PO ×2 (08:07→14:43)
[2020-06-11] MEDS: FUROsemide 40 mg Tablet 60 MG PO ×2 (08:08→15:47)
[2020-06-11] MEDS: vitamin A & D oint 1 APPLIC TOPICAL (08:08)
[2020-06-11] MEDS: potassium chloride ER 20 mEq Tablet PO (08:08)
[2020-06-11] MEDS: nystatin powder 15 gm Btl 1 APPLIC TOPICAL (08:08)
[2020-06-11] MEDS: ipratropium-albuterol 3 mL Neb INHALATION (09:10)
[2020-06-11] MEDS: budesonide 0.5 mg/2 mL Neb INHALATION (09:11)
[2020-06-11 11:06] LABS: Glucose Point of Care 262 mg/dL (70-110)
--- NOTE | 2020-06-11 12:23 | PC.SOCIAL ---
IMM Update Pg. 2 of IMM updated and reviewed with patient who verbalized understanding. Copy provided.
--- NOTE | 2020-06-11 14:32 | P.DS_ITS ---
Discharge Providers Date of Admission: 06/06/20 07:48 Date of Discharge: June 11, 2020 Attending Provider at Admission: Donna Bunn MD Attending Provider at Discharge: Berna Almaguer MD Primary Care Provider: Viri Molina DO Diagnoses at Discharge Discharge Diagnosis (1) Acute on chronic respiratory failure with hypercapnia: Status: Acute (2) Generalized weakness: Status: Acute (3) COPD (chronic obstructive pulmonary disease): Status: Chronic Qualifiers: COPD type: unspecified COPD Qualified Code(s): J44.9 - Chronic obstructive pulmonary disease, unspecified (4) Sleep apnea, obstructive: Status: Chronic Permanent problem details: sleep study 04/2019, does not sound like she ever had titration study for bipap at home (5) Lumbar radiculopathy: Status: Chronic (6) [facility] (current[facility] use of opiate analgesic: Status: Chronic (7) Chronic idiopathic constipation: Status: Chronic (8) Type 2 diabetes mellitus, with long-term current use of insulin: Status: Chronic Qualifiers: Diabetes mellitus complication status: with neurologic complications Diabetes mellitus complication detail: with polyneuropathy Qualified Code(s): E11.42 - Type 2 diabetes mellitus with diabetic polyneuropathy; 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 (9) Venous stasis ulcers: Status: Chronic Qualifiers: Venous stasis ulcer site: ankle Varicose vein presence: without varicose veins Laterality: left Non-pressure ulcer stage: limited to breakdown of skin Qualified Code(s): I87.2 - Venous insufficiency (chronic) (peripheral); L97.321 - Non-pressure chronic ulcer of left ankle limited to breakdown of skin (10) Chronic kidney disease, stage II (mild): Status: Chronic (11) Hypertension: Status: Chronic Qualifiers: Hypertension type: essential hypertension Qualified Code(s): I10 - Essential (primary) hypertension (12) 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: Status: Chronic Qualifiers: 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 type: acquired Qualified Code(s): E03.9 - 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, unspecified (13) Obesity: Status: Chronic Qualifiers: Body mass index: BMI 45.0-49.9 Obesity classification: adult class 3 (BMI >= 40) Obesity type: unspecified obesity type Serious obesity comorbidity presence: with serious comorbidity Qualified Code(s): E66.01 - Morbid (severe) obesity due to excess calories; Z68.42 - Body mass index [BMI] 45.0-49.9, adult Reason for Visit Reason for Visit: GENERAL WEAKNESS Hospital Course Hospital Course Irina Velasquez is a 74 year old female who presented to the emergency room with chief complaint of not able to get around and feeling sleepy, mildly short of breath.She was last hospitalized here in March. She spent a couple of months and rehabilitation. She was discharged from there on May 19. She had been doing okay initially at home but gradually over time has become weaker. Today she has got to the point that she could not get up and do what she needed to do.She had been having LE edema.On arrival to the emergency room, oxygen saturations were around 90 to 92% on usual 2 L. She was tachycardic. ABG showed . She had some clinical evidence as well as some laboratory findings suggestive of volume overload. She was put on BiPAP and admitted for further evaluation and treatment. Acute on chronic respiratory failure with hyp ercapnia Multifactorial from untreated sleep apnea, obesity hypoventilation, COPD. And suspect that she has a component of some pulmonary hypertension and diastolic dysfunction. No fever findings suggestive of pulmonary infection. She received diuresis initially with iv lasix, transitioned to po lasix 60mg BID upon discharge. Patient is currently euvolemic on this current regimen. BiPAP was continued nightly and as needed. Due to significant deconditioning, PT evaluation was performed and SNF placement recommended. She is being discharged today to SNF in stable condition. 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 Changes of stasis dermatitis are noted, few areas of skin excoriation, currently improving with application of A&E ointment. Urinary Catheter Management^: [place]: Cath Placed During This Visit: yes, but has since been removed by the nurse Reason for Continuing Indwelling Catheter: Decision to DC Catheter Urinary Catheter Date of Insertion: 06/05/20 Urinary Catheter Time of Insertion: 17:14 Date Urinary Catheter Removed: 06/10/20 Time Urinary Catheter Discontinued: 18:47 Discharge Data Data Completed and Pending: Completed Studies During Hospitalization Category Date Time Status XR chest 1V harris ble [id number] Stat Exams 06/05/20 16:02 Completed Labs from last 24 hours 06/11/20 06/11/20 06/10/20 10:57 06:24 19:18 POC Glucose 262 H 141 H 233 H 06/10/20 16:58 POC Glucose 207 H Vitals: Last Vital Signs Temp 97.6 F 06/11/20 12:00 Pulse 18 L 06/11/20 12:00 Resp 17 06/11/20 12:00 BP 137/83 06/11/20 12:00 Pulse Ox 97 06/11/20 12:00 Discharge Plan Discharge Patient Disposition: Xfer SNF Condition: Stable Prescriptions: New nystatin [Nystop] 100,000 unit/gram Powder 1 applic topical BID 15 Days Qty: 20 RF: 0 Continued ondansetron HCl [Zofran] 4 mg tablet 4 mg PO Q8H PRN (Reason: nausea and vomiting) 7 Days Qty: 20 RF: 0 baclofen 10 mg tablet 10 - 20 mg PO TID PRN (Reason: Pain) RF: 0 sennosides-docusate sodium [Stool Softener-Laxative] 8.6-50 mg tablet 2 tab-cap PO BID@ RF: 0 methenamine hippurate 1 gram tablet 1 g PO BID@ RF: 0 ipratropium-albuterol 0.5 mg-3 mg(2.5 mg base)/3 mL solution for nebulization 3 ml INHALATION Q6H PRN (Reason: shortness of breath or wheezing) Qty: 180 RF: 0 aspirin 81 mg Tablet,Chewable 81 mg PO DAILY@07 RF: 0 Januvia 100 mg tablet 100 mg PO DAILY@07 RF: 0 sucralfate 1 gram tablet 1 g PO BID@ RF: 0 metformin 850 mg tablet 850 mg PO BID@ RF: 0 amlodipine 5 mg tablet 5 mg PO DAILY@699 RF: 0 levothyroxine 25 mcg tablet 25 mcg PO DAILY@0700 RF: 0 pantoprazole 40 mg tablet,delayed release (DR/EC) 40 mg PO DAILY@0700 RF: 0 lovastatin 20 mg tablet 20 mg PO DAILY@0700 RF: 0 insulin lispro [Humalog KwikPen Insulin] 100 unit/mL insulin pen 10 unit SUBCUT TID@0700,1200,1900 RF: 0 mirtazapine 7.5 mg tablet 7.5 mg PO DAILY@2000 RF: 0 Levemir FlexTouch U-100 Insuln 100 unit/mL (3 mL) insulin pen 30 unit SUBCUT DAILY RF: 0 Linzess 290 mcg capsule 290 mcg PO DAILY@0700 RF: 0 gabapentin 600 mg Tablet 600 mg PO TID RF: 0 meclizine 25 mg Tablet 25 mg PO TID PRN (Reason: Dizziness) RF: 0 potassium chloride 20 mEq Tablet Extended Release 20 meq PO DAILY RF: 0 Changed furosemide [Lasix] 40 mg tablet 60 mg PO BID@0700,1900 Qty: 0 RF: 0 Discharge Orders: Discharge Order (Routine); Ordered 06/11/20 Ordered By: Berna Almaguer Referrals: Viri Molina DO [Primary Care Provider] - Discharge Diet: Cardiac and Diabetic Discharge Activity: As per PT/OT instructions Activity Restrictions/Additional Instructions: Patient uses CPAP/BiPAP at nighttime. Continue supplemental oxygen at 4 L/min, titrate to keep sats >90% Discharge Attestations Time Spent in Discharge Care*: greater than 30 min Specific Discharge Activities: educating patient, discussing with nurse case manager/social workers/dc planners and documenting/other paperwork Quality Metrics Clinical Quality Measures During this hospital stay, did patient experience: None Coding Level of Care Code Acute [facility] DC note Diagnoses Acute on chronic respiratory failure with hypercapnia J96.22 Generalized weakness R53.1 COPD (chronic obstructive pulmonary disease) J44.9 COPD type: unspecified COPD Sleep apnea, obstructive G47.33 Lumbar radiculopathy M54.16 jail (current) use of opiate analgesic Z79.891 Chronic idiopathic constipation K59.04 Type 2 diabetes mellitus, with long-term current use of insulin E11.42; Z79.4 Diabetes mellitus complication status: with neurologic complications Diabetes mellitus complication detail: with polyneuropathy Venous stasis ulcers I87.2; L97.321 Venous stasis ulcer site: ankle Varicose vein presence: without varicose veins Laterality: left Non-pressure ulcer stage: limited to breakdown of skin Chronic kidney disease, stage II (mild) N18.2 Hypertension I10 Hypertension type: essential hypertension 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 E03.9 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 type: acquired Obesity E66.01; Z68.42 Body mass index: BMI 45.0-49.9 Obesity classification: adult class 3 (BMI >= 40) Obesity type: unspecified obesity type Serious obesity comorbidity presence: with serious comorbidity
[2020-06-11 16:29] LABS: SARS Covid-2 Antigen Negative (Negative)
[2020-06-11 16:56] LABS: Glucose Point of Care 173 mg/dL (70-110)
== END 2020-06-11 19:33 | disposition skilled nursing facility (03) | DRG 189 ==
LOC: ER 19:16 → MEDSURG 19:47
PROVIDERS: Internal Medicine; Admitting Provider Hospitalist; Emergency Provider Family Medicine; PCP Family Medicine; Visit Provider Student in an Organized Health Care Education/Training Program
DX: J96.22 Acute and chronic respiratory failure with hypercapnia (principal); I13.0 Hypertensive heart and chronic kidney disease with heart failure and stage 1 through stage 4 chronic kidney disease, or unspecified chronic kidney disease; I50.30 Unspecified diastolic (congestive) heart failure; E66.2 Morbid (severe) obesity with alveolar hypoventilation; Z68.42 Body mass index [BMI] 45.0-49.9, adult; L97.321 Non-pressure chronic ulcer of left ankle limited to breakdown of skin; Z99.81 Dependence on supplemental oxygen; G89.29 Other chronic pain; E11.42 Type 2 diabetes mellitus with diabetic polyneuropathy; K59.04 Chronic idiopathic constipation; E11.22 Type 2 diabetes mellitus with diabetic chronic kidney disease; N18.2 Chronic kidney disease, stage 2 (mild); J44.9 Chronic obstructive pulmonary disease, unspecified; E78.5 Hyperlipidemia, unspecified; E03.9 Hypothyroidism, unspecified; Z79.891 Long term (current) use of opiate analgesic; I27.20 Pulmonary hypertension, unspecified; M54.16 Radiculopathy, lumbar region; Z79.4 Long term (current) use of insulin
CPT/HCPCS: 36415; 36416; 36600; 51702; 71045; 80048; 80051; 80053; 81001; 82330; 82805; 82962; 83036; 83605; 83735; 83880; 84100; 84443; 85025; 85610; 87426; 93005; 94640; 94660; 94664; 96372; 97110; 97161; 97167; 97530; 97535; 99291; G0378; J1650; J1815; J1940; J2405; J7626

== ENCOUNTER 2020-06-13 03:57 | Emergency (ER) | payer MEDICARE, MEDICAID, SELFPAY ==
--- NOTE | 2020-06-13 04:02 | CTR_ITS ---
PROCEDURE INFORMATION: Exam: CT Head Without Contrast Exam date and time: 06/13/2020 4:08 AM Age: 74 years old Clinical indication: Altered mental status/memory loss; Confusion or disorientation; Patient HX: AMS. Confusion. Patient states she thinks she has had a stroke before but is not sure. TECHNIQUE: Imaging protocol: Computed tomography of the head without contrast. Radiation optimization: All CT scans at this facility use at least one of these dose optimization techniques: automated exposure control; mA and/or kV adjustment per patient size (includes targeted exams where dose is matched to clinical indication); or iterative reconstruction. Other technique: STROKE PROTOCOL was implemented. COMPARISON: CT head wo con* [id number] 03/22/2020 2:02 PM RADIATION DOSE METRICS: Total DLP (mGy-cm): 874.94 FINDINGS: Brain: There is mild parenchymal atrophy and chronic small vessel disease. No acute infarct or hemorrhage. Cerebral ventricles: No ventriculomegaly. Bones/joints: Unremarkable. No acute fracture. Paranasal sinuses: Paranasal sinuses are clear. No air-fluid level. Mastoid air cells: Visualized mastoid air cells are clear. Soft tissues: Unremarkable. CT/CT head wo con* [id number] IMPRESSION: 1. No acute infarct or hemorrhage. 2. Mild parenchymal atrophy and chronic small vessel disease. ASSESSMENT: ASPECTS ([place] Stroke Program Early CT Score) is 10. Radiation Dose CTDIVOL = (mGy): DLP = 874.94 (mGy-cm)
[2020-06-13 04:04] VITALS: BP 145/81; PULSE 65; RESP 16; TEMP 36.6; O2SAT 93; BMI 47.1
--- NOTE | 2020-06-13 04:11 | W.ED.AMS ---
HPI - Altered Mental Status General: Chief Complaint: Altered Mental Status Stated Complaint: CONFUSED Time Seen by Provider: 06/13/20 04:01 Source: patient and EMS Mode of arrival: EMS Limitations: no limitations History of Present Illness: HPI narrative: Irina is a 74-year-old female who is here from [facility] skilled nursing and called states when they woke up this morning she was confused and was worried she is having a stroke. Patient here states that she was groggy when she first woke up but now feels fine. She has no complaints. She is able answer all my questions appropriately able to tell me her name along with a year. She has no focal deficits can move all extremities. She denies headache or chest pain. Associated symptoms: Deny depression Review of Systems Const: Denies: fever(s), chills, body aches or change in appetite Eyes: Denies: blurry vision or eye discomfort ENMT: Denies: throat pain or dental pain Card: Denies: chest pain Resp: Denies: dyspnea GI: Denies: abdominal pain, nausea, vomiting or diarrhea : Denies: dysuria Musc: Denies: neck pain or back pain Skin/Breast: Denies: rash Neuro: Reports: confusion Psych: Denies: depression Lit/Lymph: Denies: easy bruising All/Imm: Denies: urticaria PFSH ED PFSH: Medical History (Updated 06/13/20 @ 05:37 by Delores Mccall MD) Chronic back pain Chronic idiopathic constipation Chronic kidney disease, stage II (mild) COPD (chronic obstructive pulmonary disease) Dyslipidemia Enrolled in chronic care management Hypertension 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 [facility] (current) use of opiate analgesic Obesity Sleep apnea, obstructive sleep study 04/2019, does not sound like she ever had titration study for bipap at home Type 2 diabetes mellitus, with long-term current use of insulin Venous stasis ulcers Surgical History History of cholecystectomy History of tonsillectomy and adenoidectomy S/P appendectomy Family History Other Diabetes Social History (Updated 06/06/20 @ 07:17 by Donna Bunn MD) Smoking and tobacco status: former smoker Alcohol intake: never Household members: none and other Details: 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 Physical Exam Const: COMMON NORMALS: no acute distress, patient oriented x3, healthy appearing and alert ORIENTATION/CONSCIOUSNESS: Yes oriented to person, Yes oriented to place and Yes oriented to time HENMT: COMMON NORMALS: normocephalic and atraumatic HEAD & SCALP: normocephalic and atraumatic Eye: COMMON NORMALS: Equal, round and reactive pupils present and EOMs intact bilaterally PUPIL: Yes Equal, round and reactive pupils present Neck/C-Spine: COMMON NORMALS: full ROM and supple Chest: COMMONS NORMALS: normal inspection of the chest and normal palpation of entire chest wall Resp: COMMON NORMALS: normal respiratory effort, No retractions, No use of accessory muscles and clear to auscultation bilaterally AUSCULTATION: clear to auscultation bilaterally Cardio: COMMON NORMALS: regular rate, regular rhythm and No murmurs present (Cardio) RATE: regular rate RHYTHM: regular rhythm GI: COMMON NORMALS: Normal to inspection, nondistended, normoactive bowel sounds present, Soft to palpation, non-tender and no masses PALPATION: Yes Soft to palpation Extremity: COMMON NORMALS: normal to inspection and full ROM Neuro: COMMON NORMALS: patient oriented x3, moves all extremities and no focal motor deficits SENSORIUM/ORIENTATION: Yes alert, Yes oriented to person, Yes oriented to place and Yes oriented to time CRANIAL NERVES: Yes CN normal except as noted SPEECH: speech normal MOTOR EXAM: 5/5 motor strength present throughout Psych: COMMON NORMALS: mental status grossly normal, Normal thought process present and cooperative THOUGHT PROCESS: Normal thought process present Skin: COMMON NORMALS: no rashes or lesions noted and no wounds GENERAL SKIN EXAM: no rashes or lesions noted Course Vital Signs: Vital signs: Vital Signs Temperature 97.8 F 06/13/20 04:04 Pulse Rate 65 06/13/20 04:04 Respiratory Rate 16 06/13/20 04:04 Blood Pressure 145/81 06/13/20 04:04 Pulse Oximetry 93 06/13/20 04:04 MDM - Altered Mental Status MDM Narrative: Medical decision making narrative: Irina presents here with altered mental status. She is well-appearing here and is answering all my questions here appropriately and has no focal deficits. She is hypercapnic and states she is not been wearing her CPAP at the [facility]. I informed her is very important she wears her CPAP. I did offer her admission here but she adamantly refuses and states she wants to go back to the [facility]. She is awake and alert and able answer all my questions. We will discharge her back. Lab Data: Labs: Lab Results 06/13/20 06/13/20 06/13/20 Range/Units 04:46 04:46 05:24 WBC 11.3 H (4.0-10.0) 10^3/ uL RBC 4.09 L (4.1-5.3) 10^6/u L Hgb 12.0 (11.5-15.3) g/dL Hct 40.3 (37.0-47.0) % MCV 98.5 (81-99) fL MCH 29.3 (28.0-34.0) pg MCHC 29.8 L (30.0-36.0) g/dL RDW 13.7 (12.1-15.1) % Plt Count 287 (130-400) 10^3/c mm MPV 10.0 (7.4-10.4) fL Neut % (Auto) 59.7 % Lymph % (Auto) 24.7 % [place] % (Auto) 9.6 % Eos % (Auto) 5.3 % Baso % (Auto) 0.4 % Neut # (Auto) 6.72 (1.8-7.7) 10^3/u L Lymph # (Auto) 2.8 (0.8-4.8) 10^3/u L [place] # (Auto) 1.1 H (0.2-0.9) 10^3/u L Eos # (Auto) 0.6 (0.0-0.8) 10^3/u L Baso # (Auto) 0.1 (0.0-0.1) 10^3/u L Nucleated RBC % (a uto) 0 % Nucleated RBCs # 0.0 /100WBC Specimen Type Arterial Sample Site Radial, right ABG pH 7.43 (7.35-7.45) ABG pCO2 74.2 H* (35-45) mmHg ABG pO2 60.9 L (80.0-100.0) mmH g ABG HCO3 49.6 H (22-26) mmol/L ABG Base Excess 21.2 H (-2.0-2.0) mmol/ L Vineet Test Pos Hematocrit 38.1 (37-47) % O2 Delivery Device Nc O2 Liters/Min 3.0 % Wallcovering Texturer ID Harkr Sodium 144 (136-145) mmol/L Potassium 4.3 (3.5-5.1) mmol/L Chloride 92 L (98-107) mmol/L Carbon Dioxide 45 H* (22-29) mmol/L Anion Gap 11.3 (5-19) BUN 20 (8-23) mg/dL Creatinine 1.0 H (0.5-0.9) mg/dL GFR Calculation Not Reportable Glucose 127 H (65-115) mg/dL Calculated Osmolal ity 302 H (285-295) mOsm/k g Calcium 10.0 (8.5-10.5) mg/dL Discharge Plan Discharge Patient Disposition: Home Clinical Impression: Hypercapnia Altered mental status Qualifiers: Altered mental status type: unspecified Qualified Code(s): R41.82 - Altered mental status, unspecified Condition: Stable Prescriptions: No Action ondansetron HCl [Zofran] 4 mg tablet 4 mg PO Q8H PRN (Reason: nausea and vomiting) 7 Days Qty: 20 RF: 0 baclofen 10 mg tablet 10 - 20 mg PO TID PRN (Reason: Pain) RF: 0 sennosides-docusate sodium [Stool Softener-Laxative] 8.6-50 mg tablet 2 tab-cap PO BID@699,1999 RF: 0 methenamine hippurate 1 gram tablet 1 g PO BID@ RF: 0 ipratropium-albuterol 0.5 mg-3 mg(2.5 mg base)/3 mL solution for nebulization 3 ml INHALATION Q6H PRN (Reason: shortness of breath or wheezing) Qty: 180 RF: 0 aspirin 81 mg Tablet,Chewable 81 mg PO DAILY@699 RF: 0 Januvia 100 mg tablet 100 mg PO DAILY@699 RF: 0 sucralfate 1 gram tablet 1 g PO BID@699,1999 RF: 0 metformin 850 mg tablet 850 mg PO BID@699,1999 RF: 0 amlodipine 5 mg tablet 5 mg PO DAILY@699 RF: 0 levothyroxine 25 mcg tablet 25 mcg PO DAILY@0700 RF: 0 pantoprazole 40 mg tablet,delayed release (DR/EC) 40 mg PO DAILY@0700 RF: 0 lovastatin 20 mg tablet 20 mg PO DAILY@0700 RF: 0 insulin lispro [Humalog KwikPen Insulin] 100 unit/mL insulin pen 10 unit SUBCUT TID@0700,1200,1900 RF: 0 mirtazapine 7.5 mg tablet 7.5 mg PO DAILY@2000 RF: 0 Levemir FlexTouch U-100 Insuln 100 unit/mL (3 mL) insulin pen 30 unit SUBCUT DAILY RF: 0 Linzess 290 mcg capsule 290 mcg PO DAILY@0700 RF: 0 gabapentin 600 mg Tablet 600 mg PO TID RF: 0 meclizine 25 mg Tablet 25 mg PO TID PRN (Reason: Dizziness) RF: 0 potassium chloride 20 mEq Tablet Extended Release 20 meq PO DAILY RF: 0 Nystop 100,000 unit/gram Powder 1 applic topical BID 15 Days Qty: 20 RF: 0 Lasix 40 mg tablet 60 mg PO BID@0700,1900 Qty: 0 RF: 0 Discharge Orders: Discharge ED (Routine); Ordered 06/13/20 Ordered By: Delores Mccall Referrals: Viri Molina DO [Primary Care Provider] - 1-3 days Discharge Diet: Advance as tolerated Discharge Activity: Resume usual activity Patient Instructions: Opioid Safety Coding Level of Care Code ED Public Safety Dispatcher for Isaiah Fwd Exam Comprehensive
[2020-06-13 04:53] LABS: Basophils # 0.1 10^3/uL (0.0-0.1); Basophils % 0.4 %; Eosinophils # 0.6 10^3/uL (0.0-0.8); Eosinophils % 5.3 %; Hematocrit 40.3 % (37.0-47.0); Lymphocytes # 2.8 10^3/uL (0.8-4.8); Lymphocytes % 24.7 %; Mean Corpuscular HGB Conc 29.8 g/dL (30.0-36.0); Mean Corpuscular Hemoglobin 29.3 pg (28.0-34.0); Mean Corpuscular Volume 98.5 fL (81-99); Monocytes # 1.1 10^3/uL (0.2-0.9); Monocytes % 9.6 %; Neutrophils # 6.72 10^3/uL (1.8-7.7); Neutrophils % 59.7 %; Nucleated Red Blood Cells % 0 %; Platelet Count 287 10^3/cmm (130-400); Red Blood Count 4.09 10^6/uL (4.1-5.3); Red Cell Distribution Width 13.7 % (12.1-15.1); White Blood Count 11.3 10^3/uL (4.0-10.0)
[2020-06-13 05:09] VITALS: PULSE 80; O2SAT 92
[2020-06-13 05:13] LABS: Anion Gap 11.3 (5-19); Blood Urea Nitrogen 20 mg/dL (8-23); Chloride 92 mmol/L (98-107); Glucose 127 mg/dL (65-115); Osmolality Calculated 302 mOsm/kg (285-295); Potassium 4.3 mmol/L (3.5-5.1); Sodium 144 mmol/L (136-145)
[2020-06-13 05:19] LABS: Carbon Dioxide 45 mmol/L (22-29)
[2020-06-13 05:35] LABS: ABG PCO2 74.2 mmHg (35-45); ABG PH Result 7.43 (7.35-7.45); Arterial Blood Gas Hematocrit 38.1 % (37-47); Base Excess ABG 21.2 mmol/L (-2.0-2.0); Blood Gas Allen Test Pos; Blood Gas Operator Identificat HARKR; Blood Gas Sample Site Radial, right; Blood Gas Sample Type Arterial; HCO3 ABG 49.6 mmol/L (22-26); Oxygen Device NC; PO2 ABG 60.9 mmHg (80.0-100.0)
[2020-06-13 05:40] VITALS: PULSE 85; RESP 14; O2SAT 96
[2020-06-13 07:03] VITALS: BP 125/61; PULSE 61; O2SAT 97
[2020-06-13 07:32] VITALS: RESP 18
== END 2020-06-13 07:37 | disposition home or self-care (01) ==
PROVIDERS: Emergency Provider Emergency Medicine; PCP Family Medicine
DX: R41.82 Altered mental status, unspecified (principal); R06.89 Other abnormalities of breathing; Z79.82 Long term (current) use of aspirin; Z79.4 Long term (current) use of insulin; I12.9 Hypertensive chronic kidney disease with stage 1 through stage 4 chronic kidney disease, or unspecified chronic kidney disease; E11.22 Type 2 diabetes mellitus with diabetic chronic kidney disease; N18.2 Chronic kidney disease, stage 2 (mild); J44.9 Chronic obstructive pulmonary disease, unspecified; E78.5 Hyperlipidemia, unspecified; Z87.891 Personal history of nicotine dependence
CPT/HCPCS: 36600; 70450; 80048; 82803; 85025; 94660; 99284

== ENCOUNTER 2020-08-11 16:37 | Emergency (ER) | payer MEDICARE, MEDICAID, SELFPAY ==
[2020-08-11 16:39] VITALS: BP 165/97; PULSE 80; RESP 15; TEMP 36.5; O2SAT 99; BMI 46.7
--- NOTE | 2020-08-11 17:07 | ED_ITS ---
HPI - Fall General: Chief Complaint: Fall Stated Complaint: FALL/ LAC TO LEG History of Present Illness: HPI Narrative: The patient is a 75-year-old female who comes after a fall. She tripped over a basket. Her baseline mode of transportation is transferring from chair to bed. While transferring she fell forward and scraped her right leg on wheelchair and has a 4 cm laceration there. Not up-to-date on her tetanus. Offers no other complaints today or injuries from the fall. She says she only came in because the ambulance people made her. complaint: fall Place fall occurred: home Loss of consciousness: None Prolonged down time: no Symptoms prior to fall: none Context: tripped/slipped Severity: mild Quality: sharp Associated symptoms-after fall: Reports no associated symptoms; Denies abdominal pain, chest pain, confusion, difficulty walking, headache(s) or neck pain Review of Systems General: Reports: 10 or more systems reviewed and unremarkable except in HPI and below Const: Denies: fatigue Eyes: Denies: change in vision, blurry vision or eye redness ENMT: Denies: throat pain, swelling of lips/tongue, ear or mastoid pain or nasal congestion Card: Denies: chest pain, palpitations, irregular heart rhythm, edema, dyspnea on exertion or orthopnea Resp: Denies: dyspnea, productive cough or non-productive cough GI: Denies: abdominal pain, diarrhea or GI cramping : Denies: flank pain, difficulty voiding, urinary frequency or urinary urgency Musc: Denies: neck pain, back pain, extremity pain, joint pain, joint redness, limited range of motion or muscle weakness Skin/Breast: Reports: other (laceration); Denies: rash, pruritus, erythema, skin pain or skin tenderness Neuro: Denies: headache(s), numbness in extremities, weakness in extremities, sensory changes, difficulty walking, dizziness, confusion or Slurred speech present Psych: Denies: anxiety or depression Endo: Denies: polyuria All/Imm: Denies: urticaria, throat swelling or tongue swelling PFSH ED PFSH: Medical History Chronic back pain Chronic idiopathic constipation Chronic kidney disease, stage II (mild) COPD (chronic obstructive pulmonary disease) Dyslipidemia Enrolled in chronic care management Hypertension 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 Obesity Sleep apnea, obstructive sleep study 04/2019, does not sound like she ever had titration study for bipap at home Type 2 diabetes mellitus, with long-term current use of insulin Venous stasis ulcers Surgical History History of cholecystectomy History of tonsillectomy and adenoidectomy S/P appendectomy Family History Other Diabetes Social History Smoking and tobacco status: former smoker Alcohol intake: never Household members: none and other Details: has some home health lpn services a few days per week Physical Exam Const: COMMON NORMALS: no acute distress, average body habitus, patient oriented x3, no limitations, healthy appearing, alert and well nourished GENERAL APPEARANCE: cooperative, comfortable, well kempt and well developed ORIENTATION/CONSCIOUSNESS: Yes awake, Yes oriented to person, Yes oriented to place and Yes oriented to time HENMT: COMMON NORMALS: normocephalic, external ears normal and Normal external nose present HEAD & SCALP: normal to inspection and normocephalic NOSE: Normal external nose present EXTERNAL EAR: Yes external ears normal MOUTH: Normal oral and palatal mucosa present THROAT: posterior oropharynx normal Eye: COMMON NORMALS: Equal, round and reactive pupils present and EOMs intact bilaterally GENERAL EYE: appearance normal, both eyes and all related structures PUPIL: Yes Equal, round and reactive pupils present Neck/C-Spine: COMMON NORMALS: full ROM, no lymphadenopathy, no meningeal signs and no JVD GENERAL: Yes normal visual inspection Lymph: LYMPHATIC: no lymphadenopathy noted Chest: COMMONS NORMALS: normal inspection of the chest and normal palpation of entire chest wall Resp: COMMON NORMALS: normal respiratory effort, No retractions, No use of accessory muscles, clear to auscultation bilaterally and percussion normal EFFORT & INSPECTION: Yes able to speak in complete sentences AUSCULTATION: clear to auscultation bilaterally PERCUSSION: percussion normal Cardio: COMMON NORMALS: no JVD, regular rate, regular rhythm, S1 normal heart sound present, S2 normal heart sound present and Peripheral pulses 2+ throughout RATE: regular rate RHYTHM: regular rhythm HEART SOUNDS: S1 normal heart sound present and S2 normal heart sound present PERIPHERAL PULSES: Peripheral pulses 2+ throughout GI: COMMON NORMALS: Normal to inspection, nondistended, normoactive bowel sounds present, Soft to palpation, non-tender and no masses INSPECTION: Yes normal to inspection PALPATION: Yes Soft to palpation : COMMON NORMALS: Yes no CVA tenderness BLADDER/KIDNEY EXAM: Yes no CVA tenderness Back/Pelvis: COMMON NORMALS: no CVA tenderness, thoracic and lumbar spine normal to inspection, no thoracic nor lumbar tenderness and thoraco-lumbar ROM normal Extremity: COMMON NORMALS: normal to inspection, full ROM, capillary refill normal, no joint enlargement and no pedal edema GENERAL: Yes normal exam except as noted Neuro: COMMON NORMALS: patient oriented x3, CN's II-XII intact bilaterally, moves all extremities, no focal motor deficits, no sensory deficits noted and gait normal SENSORIUM/ORIENTATION: Yes alert, Yes oriented to person, Yes oriented to place and Yes oriented to time MENINGEAL SIGNS: Yes no meningeal signs Psych: COMMON NORMALS: mental status grossly normal, Normal thought process present, cooperative, normal affect and speech normal APPEARANCE: Yes well kempt ATTITUDE: Yes calm SPEECH: Yes normal speech THOUGHT PROCESS: Normal thought process present Skin: COMMON NORMALS: no rashes or lesions noted NARRATIVE SKIN EXAM: 4 cm laceration to right lateral leg. Repaired with 9 sutures. GENERAL SKIN EXAM: no rashes or lesions noted Procedures Laceration Laceration 1: Site: lower extremity Side (If applicable): right Size (cm): 4 Description: irregular Depth: simple, single layer Local Anesthetic: lidocaine 1% Amount of anesthesia used (mL): 3 Pre-repair: wound explored and irrigated extensively Skin layer closed with: other (Ethilon) Size (cm): 3-0 Number of sutures: 9 Technique: simple, interrupted Course Vital Signs: Vital signs: Vital Signs Temperature 97.7 F 08/11/20 16:39 Pulse Rate 80 08/11/20 16:39 Respiratory Rate 15 08/11/20 16:39 Blood Pressure 165/97 08/11/20 16:39 Pulse Oximetry 99 08/11/20 16:39 MDM - Fall MDM Narrative: Medical decision making narrative: The patient came after a trip and fall with a laceration to right lateral leg. It is 4 cm long and irregular repaired with 9 sutures. Sutures out in 10 to 14 days. Will be given Keflex for prevention of infection. ER with worsening symptoms or signs of infection. Primary care in a few days to monitor improvement. Tetanus updated today. Discharge Plan Discharge Patient Disposition: Home Clinical Impression: Laceration Condition: Stable Prescriptions: New cephalexin 500 mg capsule 500 mg PO BID 7 Days Qty: 14 RF: 0 No Action ondansetron HCl [Zofran] 4 mg tablet 4 mg PO Q8H PRN (Reason: nausea and vomiting) 7 Days Qty: 20 RF: 0 cephalexin 500 mg capsule 500 mg PO BID 7 Days Qty: 14 RF: 0 metformin 850 mg tablet 850 mg PO BID@699,1999 Qty: 60 RF: 1 sucralfate 1 gram tablet 1 g PO BID@699,1999 Qty: 60 RF: 1 Januvia 100 mg tablet 100 mg PO DAILY@07 Qty: 30 RF: 1 amlodipine 5 mg tablet 5 mg PO DAILY@07 Qty: 30 RF: 1 Lasix 40 mg tablet 60 mg PO BID@0700,1900 Qty: 60 RF: 1 gabapentin 600 mg tablet 600 mg PO TID Qty: 90 RF: 1 (DME) pen needle, diabetic [BD Ultra-Fine Mini Pen Needle] 31 gauge x 3/16 needle See Rx Instructions .Route Qty: 120 RF: 1 sennosides-docusate sodium [Stool Softener-Laxative] 8.6-50 mg tablet 2 tab-cap PO BID@699,1999 RF: 0 methenamine hippurate 1 gram tablet 1 g PO BID@699,1999 Qty: 180 RF: 1 ipratropium-albuterol 0.5 mg-3 mg(2.5 mg base)/3 mL solution for nebulization 3 ml INHALATION Q6H PRN (Reason: shortness of breath or wheezing) Qty: 180 RF: 0 aspirin 81 mg Tablet,Chewable 81 mg PO DAILY@0700 RF: 0 Vitamin C 1,000 mg Tablet 1,000 mg PO BID RF: 0 Ventolin HFA 90 mcg/actuation Hfa Aerosol Inhaler 2 puff INHALATION Q4H PRN (Reason: Shortness Of Breath) RF: 0 Admelog SoloStar U-100 Insulin 100 unit/mL insulin pen See Rx Instructions .ROUTE .COMPLEX RF: 0 baclofen 10 mg tablet 10 mg PO TID PRN (Reason: Muscle Spasm) RF: 0 levothyroxine 25 mcg tablet 25 mcg PO DAILY@0700 RF: 0 pantoprazole 40 mg tablet,delayed release (DR/EC) 40 mg PO DAILY@0700 RF: 0 lovastatin 20 mg tablet 20 mg PO BEDTIME RF: 0 mirtazapine 7.5 mg tablet 7.5 mg PO DAILY@2000 RF: 0 Levemir FlexTouch U-100 Insuln 100 unit/mL (3 mL) insulin pen 30 unit SUBCUT BEDTIME RF: 0 Linzess 290 mcg capsule 290 mcg PO DAILY@0700 RF: 0 meclizine 25 mg Tablet 25 mg PO TID PRN (Reason: Dizziness) RF: 0 potassium chloride 20 mEq Tablet Extended Release 10 meq PO DAILY RF: 0 Discharge Orders: Discharge ED (Routine); Ordered 08/11/20 Ordered By: Anderson Matthews Referrals: Viri Molina DO [Primary Care Provider] - Discharge Diet: Advance as tolerated Discharge Activity: Resume usual activity Patient Instructions: Laceration (ED), Opioid Safety Activity Restrictions/Additional Instructions: You have a small laceration to your right leg repaired with 9 sutures. They must be removed in 10 to 14 days. Please take Keflex to prevent infection return to the ER with worsening symptoms or signs of infection such as redness, pain, swelling, discharge, fevers. Your primary care provider can remove them or we can if needed. Coding Level of Care Code ED Press Clippings Cutter And Paster for Isaiah Fwd Exam Comprehensive
--- NOTE | 2020-08-11 17:19 | PC.PHAR ---
Addendum entered by Lauren Corona 08/11/20 17:22: pt states she hasnt filled some of her medications in a while because she had some medications the [facility]pc sent her home with-pt states she is only taking 10meq daily for kcl Original Note: pt states she takes care of her own medications-pt verified the medications entered
[2020-08-11] MEDS: lidocaine 1% INJ 20 mL SUBCUT (18:00)
[2020-08-11] MEDS: cephALEXin 500 mg Capsule PO (19:22)
[2020-08-11] MEDS: tetanus-dipt-pertussis 0.5 mL SDV IM (19:22)
== END 2020-08-11 19:38 | disposition home or self-care (01) ==
PROVIDERS: Emergency Provider Family Medicine; PCP Family Medicine
DX: S81.811A Laceration without foreign body, right lower leg, initial encounter (principal); W05.0XXA Fall from non-moving wheelchair, initial encounter; Y92.009 Unspecified place in unspecified non-institutional (private) residence as the place of occurrence of the external cause; Z23 Encounter for immunization; E66.9 Obesity, unspecified; Z68.42 Body mass index [BMI] 45.0-49.9, adult; E11.9 Type 2 diabetes mellitus without complications; Z87.891 Personal history of nicotine dependence; Z79.4 Long term (current) use of insulin; Z79.82 Long term (current) use of aspirin
CPT/HCPCS: 12002; 90471; 90715; 99283

== ENCOUNTER → 2020-09-01 13:20 | Outpatient (BNVA) | payer MEDICARE, MEDICAID, SELFPAY | PROVIDERS: PCP Family Medicine; Visit Provider Family Medicine | DX: E11.42 Type 2 diabetes mellitus with diabetic polyneuropathy (principal); Z79.4 Long term (current) use of insulin; L03.90 Cellulitis, unspecified | CPT/HCPCS: 83036 ==

== ENCOUNTER 2020-09-18 09:39 | Outpatient (CLI) | payer MEDICARE, MEDICAID, SELFPAY | END 2020-09-18 09:40 | disposition home or self-care (01) | LOC: WOUND 09:40 | PROVIDERS: PCP Family Medicine; Visit Provider Nurse Practitioner Family | DX: E11.622 Type 2 diabetes mellitus with other skin ulcer (principal); L97.812 Non-pressure chronic ulcer of other part of right lower leg with fat layer exposed | CPT/HCPCS: 11042; 99203 ==

== ENCOUNTER 2020-09-25 09:45 | Outpatient (CLI) | payer MEDICARE, MEDICAID, SELFPAY | END 2020-09-25 09:46 | disposition home or self-care (01) | LOC: WOUND 09:46 | PROVIDERS: PCP Family Medicine; Visit Provider Nurse Practitioner Family | DX: E11.622 Type 2 diabetes mellitus with other skin ulcer (principal); L97.812 Non-pressure chronic ulcer of other part of right lower leg with fat layer exposed | CPT/HCPCS: 11042 ==

== ENCOUNTER 2020-10-07 09:48 | Outpatient (CLI) | payer MEDICARE, MEDICAID, SELFPAY | END 2020-10-07 09:49 | disposition home or self-care (01) | LOC: WOUND 09:51 | PROVIDERS: PCP Family Medicine; Visit Provider Thoracic Surgery (Cardiothoracic Vascular Surgery) | DX: E11.622 Type 2 diabetes mellitus with other skin ulcer (principal); L97.811 Non-pressure chronic ulcer of other part of right lower leg limited to breakdown of skin | CPT/HCPCS: 97597 ==

== ENCOUNTER 2020-10-09 11:42 | Outpatient (CLI) | payer MEDICARE, MEDICAID, SELFPAY ==
--- NOTE | 2020-10-09 11:50 | XR_ITS ---
WS: [id number] Right leg including the tibia and fibula, AP and lateral views, 10/09/2020 Clinical Data: ACUTE PAIN D/T TRAUMA Comparison: Right knee, 07/16/2016. Findings: No fractures or dislocations are seen. The tibia and fibula are intact. There is osteoarthritic fr[place] e of the right knee with osteophytes and narrowing of the medial joint compartment.. There are numerous phleboliths throughout the subcutaneous tissue of the right leg. There is arthriti c change about the right ankle. XR/XR tibia fibula RT 2V [id number] Impression: 1. Negative for right tibial or fibular fracture. 2. Multiple subcutaneous calcifications which are probably phleboliths.
== END 2020-10-09 11:43 | disposition home or self-care (01) ==
PROVIDERS: PCP Family Medicine; Visit Provider Thoracic Surgery (Cardiothoracic Vascular Surgery)
DX: G89.11 Acute pain due to trauma (principal); M79.604 Pain in right leg
CPT/HCPCS: 73590

== ENCOUNTER 2020-10-14 09:48 | Outpatient (CLI) | payer MEDICARE, MEDICAID, SELFPAY | END 2020-10-14 09:49 | disposition home or self-care (01) | LOC: WOUND 09:49 | PROVIDERS: PCP Family Medicine; Visit Provider Nurse Practitioner Family | DX: I87.2 Venous insufficiency (chronic) (peripheral) (principal); L97.812 Non-pressure chronic ulcer of other part of right lower leg with fat layer exposed | CPT/HCPCS: 11042 ==

== ENCOUNTER 2020-10-21 09:38 | Outpatient (CLI) | payer MEDICARE, MEDICAID, SELFPAY | END 2020-10-21 09:39 | disposition home or self-care (01) | LOC: WOUND 09:39 | PROVIDERS: PCP Family Medicine; Visit Provider Thoracic Surgery (Cardiothoracic Vascular Surgery) | DX: I87.2 Venous insufficiency (chronic) (peripheral) (principal); L97.812 Non-pressure chronic ulcer of other part of right lower leg with fat layer exposed; Z87.891 Personal history of nicotine dependence | CPT/HCPCS: 97597 ==

== ENCOUNTER 2020-10-28 09:42 | Outpatient (CLI) | payer MEDICARE, MEDICAID, SELFPAY | END 2020-10-28 09:43 | disposition home or self-care (01) | LOC: WOUND 09:44 | PROVIDERS: PCP Family Medicine; Visit Provider Emergency Medicine | DX: I87.2 Venous insufficiency (chronic) (peripheral) (principal); L97.812 Non-pressure chronic ulcer of other part of right lower leg with fat layer exposed; Z87.891 Personal history of nicotine dependence | CPT/HCPCS: 11042 ==

== ENCOUNTER 2020-11-04 09:46 | Outpatient (CLI) | payer MEDICARE, MEDICAID, SELFPAY | END 2020-11-04 09:47 | disposition home or self-care (01) | LOC: WOUND 09:50 | PROVIDERS: PCP Family Medicine; Visit Provider Thoracic Surgery (Cardiothoracic Vascular Surgery) | DX: S81.811A Laceration without foreign body, right lower leg, initial encounter (principal); X58.XXXA Exposure to other specified factors, initial encounter; Z87.891 Personal history of nicotine dependence | CPT/HCPCS: 99212 ==

== ENCOUNTER 2020-11-11 09:40 | Outpatient (CLI) | payer MEDICARE, MEDICAID, SELFPAY | END 2020-11-11 09:41 | disposition home or self-care (01) | LOC: WOUND 09:41 | PROVIDERS: PCP Family Medicine; Visit Provider Nurse Practitioner Family | DX: I96 Gangrene, not elsewhere classified (principal); E11.622 Type 2 diabetes mellitus with other skin ulcer; L97.822 Non-pressure chronic ulcer of other part of left lower leg with fat layer exposed; Z87.891 Personal history of nicotine dependence | CPT/HCPCS: 11042 ==

== ENCOUNTER 2020-11-18 09:44 | Outpatient (CLI) | payer MEDICARE, MEDICAID, SELFPAY | END 2020-11-18 09:45 | disposition home or self-care (01) | LOC: WOUND 09:45 | PROVIDERS: PCP Family Medicine; Visit Provider Thoracic Surgery (Cardiothoracic Vascular Surgery) | DX: I96 Gangrene, not elsewhere classified (principal); E11.622 Type 2 diabetes mellitus with other skin ulcer; L97.822 Non-pressure chronic ulcer of other part of left lower leg with fat layer exposed; L97.812 Non-pressure chronic ulcer of other part of right lower leg with fat layer exposed; Z87.891 Personal history of nicotine dependence | CPT/HCPCS: 97597 ==

== ENCOUNTER 2020-11-23 09:07 | Emergency (ER) | payer MEDICARE, MEDICAID, SELFPAY ==
[2020-11-23 09:09] VITALS: BP 170/94; PULSE 76; RESP 20; TEMP 36.9; O2SAT 99; BMI 48.4
--- NOTE | 2020-11-23 09:25 | ED_ITS ---
HPI - General Adult General: Chief complaint: General Medical Stated complaint: WEAKNESS Time Seen by Provider: 11/23/20 09:10 History of Present Illness: HPI narrative: Patient is a 75-year-old female with history of hyperlipidemia, diabetes, COPD, CKD, chronic venous stasis ulcer in the lower extremities who presents to the emergency room for generalized weakness and inability to ambulate. Patient reports that she was in a chair for the last 2 days unable to get up. Eventually patient was able to walk the chair in which a phone call EMS. Patient says that chronically, she uses a moped to get around. However, has been having difficulty moving because of decreased strength. Patient denies any associated chest pain, shortness breath, palpitation, lightheadedness at this time. Onset: 2 days ago Duration:2 days Location:home Severity:moderate Review of Systems Narrative: Constitutional: No fever, no chills. HEENT: No vision changes CV: No chest pain, no palpitations PULM: no cough, no dyspnea. GI: No abdominal pain, no N/V/D. : No dysuria MSKEL: +diffuse weakness throughout body, +glute pain SKIN: No new rashes, no lesions. NEURO: No headache, no focal weakness. 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 Obesity Sleep apnea, obstructive sleep study 04/2019, does not sound like she ever had titration study for bipap at home Type 2 diabetes mellitus, with long-term current use of insulin Venous stasis ulcers Surgical History History of cholecystectomy History of tonsillectomy and adenoidectomy S/P appendectomy Family History Other Diabetes Social History Smoking and tobacco status: former smoker Alcohol intake: never Household members: none and other Details: has some home service consultant services a few days per week Female Reproductive History: Date of last menstrual period: 06/12/20 Physical Exam Narrative: EXAM NARRATIVE: Head: Atraumatic Eyes: PERRL, conjunctiva without injection ENT: Mucous membrane moist NECK: Supple, ROM intact LUNGS: LCTAB, no crackles/rhonchi CV: RRR ABDOMEN: Soft, nontender in all quadrants EXTREMITY: Normal ROM, strength 5/5 in all extremities SKIN: +chronic lower extremity venous stasis ulcers NEURO: Awake and alert, no focal motor deficits PSYCH: Normal mood and affect Course Vital Signs: Vital signs: Vital Signs Temperature 98.5 F 11/23/20 09:09 Pulse Rate 79 11/23/20 16:03 Respiratory Rate 16 11/23/20 16:03 Blood Pressure 157/96 11/23/20 16:03 Pulse Oximetry 96 11/23/20 16:03 MDM - General Adult MDM Narrative: Medical decision making narrative: Patient is a 75-year-old female presenting to the emergency room because she has been unable to get up out of a chair for the last 2 days. Patient complains of butt pain. On physical exam: There is no focal tenderness palpation. HDS. On reassessment, patient is noted to have white count is 11.6. Troponin is noted to to be similar to baseline at 24. I have offered patient admission for cardiac work-up however this time patient declined. Patient reports that she only want to be placed in a rehab. I Have discussed risk of not a fully workuped cardiac enzyme including possible cardiac arrhythmia and . Patient verbalized understanding of these risks and likes to follow-up with cardiology outpatient. Case was discussed with our case social work with plan for rehab. I have given patient strict instruction to follow-up with heel blacker for her troponin elevation. Patient agrees with plan and reassures me that she will follow up. Disposition: jail Lab Data: Labs: Lab Results 11/23/20 11/23/20 11/23/20 Range/Units 11:10 11:10 11:10 WBC 11.6 H (4.0-10.0) 10^3/ uL RBC 4.30 (4.1-5.3) 10^6/u L Hgb 11.8 (11.5-15.3) g/dL Hct 39.9 (37.0-47.0) % MCV 92.8 (81-99) fl MCH 27.4 L (28.0-34.0) pg MCHC 29.6 L (30.0-36.0) g/dL RDW 13.7 (12.1-15.1) % Plt Count 270 (130-400) 10^3/c mm MPV 9.6 (7.4-10.4) fL Neut % (Auto) 71.7 % Lymph % (Auto) 16.9 % [place] % (Auto) 7.9 % Eos % (Auto) 2.6 % Baso % (Auto) 0.4 % Neut # (Auto) 8.34 H (1.8-7.7) 10^3/u L Lymph # (Auto) 2.0 (0.8-4.8) 10^3/u L [place] # (Auto) 0.9 (0.2-0.9) 10^3/u L Eos # (Auto) 0.3 (0.0-0.8) 10^3/u L Baso # (Auto) 0.1 (0.0-0.1) 10^3/u L Nucleated RBC % (a uto) 0 % Nucleated RBCs # 0.0 /100WBC Sodium 141 (136-145) mmol/L Potassium 4.5 (3.5-5.1) mmol/L Chloride 95 L (98-107) mmol/L Carbon Dioxide 39 H (22-29) mmol/L Anion Gap 11.5 (5-19) BUN 11 (8-23) mg/dL Creatinine 0.9 (0.5-0.9) mg/dL GFR Calculation Not Reportable Glucose 131 H (65-115) mg/dL Calculated Osmolal ity 293 (285-295) mOsm/k g Calcium 9.0 (8.5-10.5) mg/dL Total Bilirubin 0.5 (0.15-1.2) mg/dL AST 16 (0-32) U/L ALT 11 (0-33) U/L Alkaline Phosphata se 111 H (35-105) IU/L Creatine Kinase 45 (26-192) U/L Troponin T Gen 5 n g/L 24 H (0-10) ng/L Troponin T 120 Min [place] (0-10) ng/L Delta Troponin T (0-10) ABS# Total Protein 6.7 (6.6-8.7) g/dL Albumin 3.5 (3.5-5.2) g/dL Globulin 3.2 (1.3-4.6) g/dL Lipase 16 (13-60) U/L Urine Color (Yellow) Urine Appearance (CLEAR) Urine pH (5-7) Ur Specific Gravit y (1.005-1.030) Urine Protein (Negative) Urine Glucose (UA) (Normal) Urine Ketones (Negative) Urine Blood (Negative) Urine Nitrate (Negative) Urine Bilirubin (Negative) Urine Urobilinogen (Negative) mg/dL Ur Leukocyte Arianna ase (Negative) Urine RBC (0-2) /hpf Urine WBC (0-5) /hpf Ur Squamous Epith Cells (0-5) /hpf Amorphous Sediment Urine Bacteria (NONE) /hpf Urine Mucus /hpf 11/23/20 11/23/20 Range/Units 11:53 14:41 WBC (4.0-10.0) 10^3/ uL RBC (4.1-5.3) 10^6/u L Hgb (11.5-15.3) g/dL Hct (37.0-47.0) % MCV (81-99) fl MCH (28.0-34.0) pg MCHC (30.0-36.0) g/dL RDW (12.1-15.1) % Plt Count (130-400) 10^3/c mm MPV (7.4-10.4) fL Neut % (Auto) % Lymph % (Auto) % [place] % (Auto) % Eos % (Auto) % Baso % (Auto) % Neut # (Auto) (1.8-7.7) 10^3/u L Lymph # (Auto) (0.8-4.8) 10^3/u L [place] # (Auto) (0.2-0.9) 10^3/u L Eos # (Auto) (0.0-0.8) 10^3/u L Baso # (Auto) (0.0-0.1) 10^3/u L Nucleated RBC % (a uto) % Nucleated RBCs # /100WBC Sodium (136-145) mmol/L Potassium (3.5-5.1) mmol/L Chloride (98-107) mmol/L Carbon Dioxide (22-29) mmol/L Anion Gap (5-19) BUN (8-23) mg/dL Creatinine (0.5-0.9) mg/dL GFR Calculation Glucose (65-115) mg/dL Calculated Osmolal ity (285-295) mOsm/k g Calcium (8.5-10.5) mg/dL Total Bilirubin (0.15-1.2) mg/dL AST (0-32) U/L ALT (0-33) U/L Alkaline Phosphata se (35-105) IU/L Creatine Kinase (26-192) U/L Troponin T Gen 5 n g/L (0-10) ng/L Troponin T 120 Min [place] 23.43 H (0-10) ng/L Delta Troponin T -0.57 L (0-10) ABS# Total Protein (6.6-8.7) g/dL Albumin (3.5-5.2) g/dL Globulin (1.3-4.6) g/dL Lipase (13-60) U/L Urine Color Yellow (Yellow) Urine Appearance Clear (CLEAR) Urine pH 7 (5-7) Ur Specific Gravit y 1.005 (1.005-1.030) Urine Protein Trace (Negative) Urine Glucose (UA) Norm (Normal) Urine Ketones 1+ H (Negative) Urine Blood Neg (Negative) Urine Nitrate Negative (Negative) Urine Bilirubin Neg (Negative) Urine Urobilinogen Norm (Negative) mg/dL Ur Leukocyte Arianna ase Negative (Negative) Urine RBC None (0-2) /hpf Urine WBC 0-4 H (0-5) /hpf Ur Squamous Epith Cells 0-4 H (0-5) /hpf Amorphous Sediment Not Reportable Urine Bacteria Trace (NONE) /hpf Urine Mucus Trace /hpf Imaging Data^: Other Imaging: Radiologist's impression: [address] [id number] Scan ReportSigned Patient: Irina Velasquez #: [id number]: 4Acct#:[id number]/Sex: 75 / FADM Date: 11/23/20Loc: ERRoom/Bed:Attending Dr: Ordering Provider/Ordering MD: Олег Coleman MD Date of Service: 11/23/20 Procedure(s): CT pelvis [facility] [address] Accession Number(s): [id number] Report Number: [id number] PROCEDURE INFORMATION: Exam: CT Pelvis Without Contrast; Skeletal Exam date and time: 11/23/2020 9:27 AM Age: 75 years old Clinical indication: Injury or trauma; Fall; Blunt trauma (contusions or hematomas); Bilateral; Pelvic region; Additional info: Back pain TECHNIQUE: Imaging protocol: Computed tomography images of the pelvis without contrast. Exam focused on the skeletal structures. Radiation optimization: All CT scans at this facility use at least one of these dose optimization techniques: automated exposure control; mA and/or kV adjustment per patient size (includes targeted exams where dose is matched to clinical indication); or iterative reconstruction. COMPARISON: CT pelvis [facility] [id number] 03/20/2020 3:43 PM RADIATION DOSE METRICS: Total DLP (mGy-cm): 1150.86 FINDINGS: Bladder: The urinary bladder is decompressed and difficult to assess. Reproductive: 5.7 mm submucosal/intramural anterior uterine fundal calcified leiomyoma. Vasculature: Moderate aortic atherosclerotic calcification without aneurysm. The iliac arteries show moderate bilateral atherosclerotic calcifications without evidence of aneurysm. Lymph nodes: Left inguinal lymph nodes, largest 15.5 mm short axis. Right inguinal lymph nodes, largest 12.6 mm short axis. Bones/joints: No acute bony abnormality identified. Soft tissues: Skin thickening and subcutaneous adipose edema of the lower abdominal anterior panniculus. CT/CT pelvis [facility] [address] IMPRESSION: 1. No acute bony injury identified. 2. Small uterine fundal calcified leiomyoma. 3. Nonspecific mild bilateral inguinal lymphadenopathy. 4. Skin thickening and subcutaneous adipose edema of the lower abdominal anterior panniculus. Cellulitis not excluded. Clinical correlation is recommended. Radiation Dose CTDIVOL = (mGy): DLP = 1150.86 (mGy-cm) Dictated By:Dereje Lovett MDSigned By:Dereje Lovett MDSigned Date/Time:11/23/20 1016DD/ [address] [id number] Scan ReportSigned Patient: Irina Velasquez #: [id number]: [birth year] 44Acct#:[id number]/Sex: 75 / FADM Date: 11/23/20Loc: ERRoom/Bed:Attending Dr: Ordering Provider/Ordering MD: Олег Coleman MD Date of Service: 11/23/20 Procedure(s): CT lumbar spine wo con* [id number] Accession Number(s): [id number] Report Number: [id number] PROCEDURE INFORMATION: Exam: CT Lumbar Spine Without Contrast Exam date and time: 11/23/2020 9:27 AM Age: 75 years old Clinical indication: Injury or trauma; Fall; Blunt trauma (contusions or hematomas); Additional info: Back pain TECHNIQUE: Imaging protocol: Computed tomography images of the lumbar spine without contrast. Radiation optimization: All CT scans at this facility use at least one of these dose optimization techniques: automated exposure control; mA and/or kV adjustment per patient size (includes targeted exams where dose is matched to clinical indication); or iterative reconstruction. COMPARISON: CR Lumbar Spine 2-3 views* [id number] 11/13/2018 10:04 AM RADIATION DOSE METRICS: Total DLP (mGy-cm): 2389.45 FINDINGS: Vertebrae: Diffuse osteopenia. Discs/Spinal canal/Neural foramina: Right L1-L2 and L5-S1 degenerative disc disease. Mild left L3-L4 primary facet osteoarthritis. Vasculature: Moderate aortic atherosclerotic calcification without aneurysm. The iliac arteries show moderate bilateral atherosclerotic calcifications without evidence of aneurysm. Soft tissues: Unremarkable. CT/CT lumbar spine wo con* [id number] IMPRESSION: 1. Degenerative changes as above. 2. No acute lumbar spinal bony injury identified. Radiation Dose CTDIVOL = (mGy): DLP = 2389.45 (mGy-cm) Dictated By:Dereje Lovett MDSigned By:Dereje Lovett MDSigned Date/Time:11/23/20 1026DD/ 1024 Discharge Plan Discharge Patient Disposition: [facility] Clinical Impression: Inability to walk, Weakness generalized Condition: Stable Referrals: Viri Molina DO [Primary Care Provider] - Discharge Diet: Advance as tolerated Discharge Activity: Resume usual activity Coding Level of Care Code ED Lanolin Plant Operator for Chg Deepti
--- NOTE | 2020-11-23 09:27 | ECG_ITS ---
[facility] Test Date: 2020-11-23 Pat Name: Irina Velasquez Department: Room: Gender: Female Ammonia Box Tender: : 1945 Requested By: Олег Coleman Order Number: [id number] Reading MD: TYLER LEE Measurements Intervals Benoit Rate: 66 P: OK: QRS: -13 QRSD: 91 T: 75 QT: 393 QTc: 413 Interpretive Statements ATRIAL FIBRILLATION WITH ABERRANT CONDUCTION OR VENTRICULAR PREMATURE COMPLEXES LOW QRS VOLTAGE IN PRECORDIAL LEADS [QRS DEFLECTION < 1.0 mV IN CHEST LEADS] PATTERN CONSISTENT WITH PULMONARY DISEASE Compared to ECG 06/05/2020 18:31:08 Ventricular premature complex(es) now present Aberrant conduction of supraventricular beat(s) now present Low QRS voltage now present Electronically Signed On 11-23-2020 15:02:27 CDT by TYLER LEE [id number]
[2020-11-23 11:19] LABS: Basophils # 0.1 10^3/uL (0.0-0.1); Basophils % 0.4 %; Eosinophils # 0.3 10^3/uL (0.0-0.8); Eosinophils % 2.6 %; Hematocrit 39.9 % (37.0-47.0); Hemoglobin 11.8 g/dL (11.5-15.3); Lymphocytes % 16.9 %; Mean Corpuscular HGB Conc 29.6 g/dL (30.0-36.0); Mean Corpuscular Hemoglobin 27.4 pg (28.0-34.0); Mean Corpuscular Volume 92.8 fl (81-99); Mean Platelet Volume 9.6 fL (7.4-10.4); Monocytes # 0.9 10^3/uL (0.2-0.9); Monocytes % 7.9 %; Neutrophils # 8.34 10^3/uL (1.8-7.7); Neutrophils % 71.7 %; Nucleated Red Blood Cells % 0 %; Platelet Count 270 10^3/cmm (130-400); Red Cell Distribution Width 13.7 % (12.1-15.1); White Blood Count 11.6 10^3/uL (4.0-10.0)
[2020-11-23] MEDS: sodium chloride 0.9% 500 ML IV (11:42)
[2020-11-23] MEDS: orphenadrine 30 mg/mL Inj 2 mL 60 MG IVP (11:43)
[2020-11-23 11:44] LABS: Troponin T (5th) Once 24 ng/L (0-10)
[2020-11-23 11:47] LABS: Alanine Aminotransferase 11 U/L (0-33); Albumin Level 3.5 g/dL (3.5-5.2); Alkaline Phosphatase 111 IU/L (35-105); Anion Gap 11.5 (5-19); Aspartate Amino Transferase 16 U/L (0-32); Blood Urea Nitrogen 11 mg/dL (8-23); Carbon Dioxide 39 mmol/L (22-29); Chloride 95 mmol/L (98-107); Creatine Phosphokinase 45 U/L (26-192); Globulin 3.2 g/dL (1.3-4.6); Glucose 131 mg/dL (65-115); Lipase 16 U/L (13-60); Osmolality Calculated 293 mOsm/kg (285-295); Potassium 4.5 mmol/L (3.5-5.1); Sodium 141 mmol/L (136-145); Total Bilirubin 0.5 mg/dL (0.15-1.2); Total Protein 6.7 g/dL (6.6-8.7)
[2020-11-23 12:30] LABS: Bilirubin Urine Neg (Negative); Blood Urine Neg (Negative); Glucose Urine UA Norm (Normal); Ketones Urine 1+ (Negative); Nitrate Urine Negative (Negative); Protein Urine Trace (Negative); Specific Gravity, Urine 1.005 (1.005-1.030); Urine Appearance Clear (CLEAR); Urine Color Yellow (Yellow); pH Urine 7 (5-7)
[2020-11-23 12:31] LABS: Add Urine Microscopic? YES; Leukocyte Esterase Urine Negative (Negative); Urobilinogen Urine Norm (Negative)
[2020-11-23 12:32] LABS: Bacteria Urine TRACE /hpf; Mucus Urine TRACE /hpf; Squamous Epithelial Cell Urine 0-4 /hpf (0-5); WBC Urine 0-4 /hpf (0-5)
[2020-11-23 12:33] LABS: Add Urine Culture? No
[2020-11-23 12:39] VITALS: BP 200/157; PULSE 72; O2SAT 97
[2020-11-23 14:30] VITALS: BP 179/132; PULSE 89; O2SAT 96
--- NOTE | 2020-11-23 14:54 | ECG_ITS ---
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 Counter: : 1945 Requested By: Олег Coleman Order Number: [id number] Reading MD: TYLER LEE Measurements Intervals Coleridge Rate: 74 P: DC: QRS: -4 QRSD: 88 T: 82 QT: 395 QTc: 439 Interpretive Statements ATRIAL FIBRILLATION WITH ABERRANT CONDUCTION OR VENTRICULAR PREMATURE COMPLEXES LOW QRS VOLTAGE IN PRECORDIAL LEADS [QRS DEFLECTION < 1.0 mV IN CHEST LEADS] PATTERN CONSISTENT WITH PULMONARY DISEASE Compared to ECG 11/23/2020 10:52:06 No significant changes Electronically Signed On 11-24-2020 18:37:03 CDT by TYLER LEE [id number]
[2020-11-23 16:03] VITALS: BP 157/96; PULSE 79; RESP 16; O2SAT 96
[2020-11-23 16:13] LABS: Troponin 5 2HR 23.43 ng/L (0-10)
[2020-11-23 16:48] LABS: Troponin 5 2HR Delta -0.57 ABS# (0-10)
[2020-11-24 00:59] VITALS: BP 164/90; PULSE 66; RESP 16; O2SAT 93
--- NOTE | 2020-11-24 05:35 | PC.NURSE ---
2:1 ASSIST TO BEDSIDE COMMODE FOR LARGE, SOFT, BROWN BM
[2020-11-24 06:11] VITALS: RESP 22; O2SAT 98
[2020-11-24] MEDS: oxyCODONE-APAP 5-325 mg Tablet 1 TAB PO (06:11)
[2020-11-24 09:38] LABS: SARS Covid-2 Antigen Negative (Negative)
--- NOTE | 2020-11-24 10:24 | PC.SOCIAL ---
[facility] Accepts Rossy at [facility] state that they can accept patient. Medication list, negative COVID test. Rossy is going to check to see, they will likely pick patient up. Updated patient of acceptance.
--- NOTE | 2020-11-24 11:22 | PC.SOCIAL ---
[id number] signed by Dr. Terry,faxed to [facility] at this time. Updated Dr. Terry that patient is ready to discharge. [employer] ride set up. Per Mayela w/ayan and needs O2. Trip ID: [id number] Provided Trip ID to ANJ. Gallardo states that she will call this CM back with ETA.
--- NOTE | 2020-11-24 14:51 | PC.SOCIAL ---
Called and spoke to Tyler at [facility] not sure why report could not be called tried to call but info never received by fax. Patient at facility reviewed info by phone and faxed again to [facility].
--- NOTE | 2020-11-26 14:20 | DCPLANNER ---
amusement centre manager had message to schedule a follow up appointment for patient with [facility]. amusement centre manager called [facility], spoke with Marisa, gave clinic patients information. A follow up appointment was scheduled for Wednesday, December 09, 2020 at 12:15. amusement centre manager called [facility], spoke with Tammy, gave clinic patients appointment information.
== END 2020-11-24 12:20 ==
PROVIDERS: Family Medicine; Emergency Provider Emergency Medicine; PCP Family Medicine
DX: R53.1 Weakness (principal); R26.2 Difficulty in walking, not elsewhere classified; I12.9 Hypertensive chronic kidney disease with stage 1 through stage 4 chronic kidney disease, or unspecified chronic kidney disease; E11.22 Type 2 diabetes mellitus with diabetic chronic kidney disease; N18.2 Chronic kidney disease, stage 2 (mild); J44.9 Chronic obstructive pulmonary disease, unspecified; E78.5 Hyperlipidemia, unspecified; Z87.891 Personal history of nicotine dependence; Z20.822 Contact with and (suspected) exposure to COVID-19
CPT/HCPCS: 72131; 72192; 80053; 81001; 82550; 83690; 84484; 85025; 87426; 93005; 96361; 96374; 99285; J2360; J7040

== ENCOUNTER 2020-11-25 11:09 | Outpatient (CLI) | payer MEDICARE, MEDICAID, SELFPAY | END 2020-11-25 11:10 | disposition home or self-care (01) | LOC: WOUND 11:09 | PROVIDERS: PCP Family Medicine; Visit Provider Emergency Medicine | DX: S81.812A Laceration without foreign body, left lower leg, initial encounter (principal); X58.XXXA Exposure to other specified factors, initial encounter; Z87.891 Personal history of nicotine dependence | CPT/HCPCS: 11042 ==

== ENCOUNTER 2020-11-25 22:31 | Emergency (ER) | payer MEDICARE, MEDICAID, SELFPAY ==
[2020-11-25 22:32] VITALS: BP 99/69; PULSE 78; RESP 28; TEMP 36.5; O2SAT 86; BMI 47.6
--- NOTE | 2020-11-25 22:37 | CTR_ITS ---
PROCEDURE INFORMATION: Exam: CT Head Without Contrast Exam date and time: 11/25/2020 10:37 PM Age: 75 years old Clinical indication: Altered mental status/memory loss; Confusion or disorientation; Patient HX: AMS. Lethargy. TECHNIQUE: Imaging protocol: Computed tomography of the head without contrast. Radiation optimization: All CT scans at this facility use at least one of these dose optimization techniques: automated exposure control; mA and/or kV adjustment per patient size (includes targeted exams where dose is matched to clinical indication); or iterative reconstruction. COMPARISON: CT head wo con* [id number] 06/13/2020 5:18 AM RADIATION DOSE METRICS: Total DLP (mGy-cm): 988.92 FINDINGS: Brain: The brain is unremarkable. There is no mass effect or significant white matter disease. There is no acute intracranial hemorrhage. Cerebral ventricles: There is no significant ventricular dilation. The basal cisterns are unremarkable. Paranasal sinuses: The paranasal sinuses are clear. Mastoid air cells: The mastoid air cells are clear. Bones/joints: The calvarium is intact. Soft tissues: The visible extracranial soft tissues are unremarkable. CT/CT head wo con* [id number] IMPRESSION: No acute intracranial abnormality. Radiation Dose CTDIVOL = (mGy): DLP = 988.92 (mGy-cm)
--- NOTE | 2020-11-25 22:48 | XRR_ITS ---
PROCEDURE INFORMATION: Exam: XR Chest Exam date and time: 11/25/2020 10:48 PM Age: 75 years old Clinical indication: Shortness of breath; Additional info: SOB TECHNIQUE: Imaging protocol: XR of the chest. Views: 1 view. COMPARISON: CR XR chest 1V portable [id number] 06/05/2020 4:33 PM FINDINGS: Lungs: There is no consolidation. There is central lower lung predominant ground-glass opacity bilaterally. Pleural spaces: There is no pleural effusion or pneumothorax. Heart/Mediastinum: There is mild enlargement of the cardiac silhouette. Bones/joints: Bones are unremarkable. XR/XR chest 1V portable [id number] IMPRESSION: 1. Possible mild pulmonary edema. 2. Cardiac enlargement.
[2020-11-25] MEDS: sodium chloride 0.9% 1,000 ML 999 ML IV (23:15)
[2020-11-25 23:24] LABS: Glucose Point of Care 154 mg/dL (70-110)
[2020-11-25 23:26] LABS: Basophils % 0.2 %; Hematocrit 35.7 % (37.0-47.0); Lymphocytes # 1.3 10^3/uL (0.8-4.8); Lymphocytes % 8.8 %; Mean Corpuscular Volume 96.5 fl (81-99); Monocytes # 1.6 10^3/uL (0.2-0.9); Monocytes % 10.5 %; Neutrophils # 11.79 10^3/uL (1.8-7.7); Neutrophils % 79.1 %; Nucleated Red Blood Cells % 0.3 %; Platelet Count 222 10^3/cmm (130-400); Red Cell Distribution Width 14.4 % (12.1-15.1); White Blood Count 14.9 10^3/uL (4.0-10.0)
[2020-11-25 23:43] LABS: Troponin(5th) Baseline 66 ng/L (0-10)
[2020-11-25 23:44] LABS: Lactic Sepsis W/Reflex 2.1 mmol/L (0.5-2.2)
[2020-11-25 23:46] LABS: Alkaline Phosphatase 75 IU/L (35-105); Anion Gap 14.8 (5-19); Carbon Dioxide 23 mmol/L (22-29); Potassium 3.8 mmol/L (3.5-5.1); Total Bilirubin 0.2 mg/dL (0.15-1.2)
--- NOTE | 2020-11-25 23:46 | W.ED.WEAKNES ---
HPI - Weakness General: Chief complaint: Weakness Stated complaint: AMS Time Seen by Provider: 11/25/20 22:32 Source: patient and EMS Mode of arrival: EMS Limitations: no limitations History of Present Illness: HPI Narrative: 75-year-old female presents here from [facility] with weakness and altered mental status. Patient was seen here recently 2 days ago for generalized weakness and discharged from here yesterday to the [facility]. detention states tonight that he fell there she was sleeping altered and extremely weak. Patient now is awake and answering all my questions appropriately. She remembers her stay here knows the year knows her name knows where she is at. Patient here is requiring 4 L and states that she does wear oxygen at all times. She denies any fever. Patient does state that while she is here she had a Chowdary placed that they removed before discharging the [facility]dc she has had difficulty urinating and states that she feels like she needs to go but not able to urinate. Associated symptoms: Reports confusion; Denies chest pain, chills, dysuria, easy bruising, fever(s), headache(s), nausea or vomiting Review of Systems Const: Denies: fever(s), chills, body aches or change in appetite Eyes: Denies: blurry vision or eye discomfort ENMT: Denies: throat pain or dental pain Card: Denies: chest pain Resp: Denies: dyspnea GI: Denies: abdominal pain, nausea, vomiting or diarrhea : Denies: dysuria Musc: Denies: neck pain or back pain Skin/Breast: Denies: rash Neuro: Reports: weakness in extremities and confusion; Denies: headache(s) Psych: Denies: depression Lit/Lymph: Denies: easy bruising All/Imm: Denies: urticaria PFSH ED PFSH: Medical History Chronic back pain Chronic idiopathic constipation Chronic kidney disease, stage II (mild) COPD (chronic obstructive pulmonary disease) Dyslipidemia Enrolled in chronic care management Hypertension 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 Obesity Sleep apnea, obstructive sleep study 04/2019, does not sound like she ever had titration study for bipap at home Type 2 diabetes mellitus, with long-term current use of insulin Venous stasis ulcers Surgical History History of cholecystectomy History of tonsillectomy and adenoidectomy S/P appendectomy Family History Other Diabetes Social History Smoking and tobacco status: former smoker Alcohol intake: never Household members: none and other Details: has 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 home care manager rn services a few days per week Female Reproductive History: Date of last menstrual period: 06/12/20 Physical Exam Const: COMMON NORMALS: no acute distress and patient oriented x3 GENERAL APPEARANCE: lethargic ORIENTATION/CONSCIOUSNESS: Yes lethargic HENMT: COMMON NORMALS: normocephalic and atraumatic HEAD & SCALP: normocephalic and atraumatic Eye: COMMON NORMALS: Equal, round and reactive pupils present and EOMs intact bilaterally PUPIL: Yes Equal, round and reactive pupils present Neck/C-Spine: COMMON NORMALS: full ROM and supple Chest: COMMONS NORMALS: normal inspection of the chest and normal palpation of entire chest wall Resp: COMMON NORMALS: normal respiratory effort, No retractions, No use of accessory muscles and clear to auscultation bilaterally AUSCULTATION: clear to auscultation bilaterally Cardio: COMMON NORMALS: regular rate, regular rhythm and No murmurs present (Cardio) RATE: regular rate RHYTHM: regular rhythm GI: COMMON NORMALS: Normal to inspection, nondistended, normoactive bowel sounds present, Soft to palpation, non-tender and no masses PALPATION: Yes Soft to palpation Extremity: COMMON NORMALS: normal to inspection and full ROM Neuro: COMMON NORMALS: patient oriented x3, moves all extremities and no focal motor deficits SENSORIUM/ORIENTATION: Yes lethargic Psych: COMMON NORMALS: mental status grossly normal, Normal thought process present and cooperative THOUGHT PROCESS: Normal thought process present Skin: COMMON NORMALS: no rashes or lesions noted and no wounds GENERAL SKIN EXAM: no rashes or lesions noted Procedures Intubation Time out performed: Yes sedative: Etomidate Mg Given: 20 paralytic: Succinylcholine Mg Given: 200 Laryngoscope: Amara ET Tube Size: 8 ET Tube Uncuffed: No Tube Secured Depth (cm): 26 Tube Secured Location: lips Tube Placement Confirmation: visualized tube passing through cords, equal breath sounds bilaterally, no breath sounds over epigastrium and confirmation by capnometry Patient Tolerated Procedure: well Intubation Complications: none Course Vital Signs: Vital signs: Vital Signs Temperature 97.7 F 11/25/20 22:32 Pulse Rate 65 11/26/20 04:34 Respiratory Rate 16 11/26/20 04:30 Blood Pressure 99/69 11/25/20 22:32 Pulse Oximetry 99 11/26/20 04:30 MDM - Weakness MDM Narrative: Medical decision making narrative: Presents here with history of COPD along with hypercapnia. I did trial BiPAP her bicarb worsen. Patient's tidal volumes went down and she was intubated due to respiratory failure from her hypercapnia. Patient does have a urinary tract infection as well. Patient started on IV antibiotics for the UTI and a possible pneumonia. Her Covid here is negative. Will transfer to [facility] due to ICU bed availability. Lab Data: Labs: Lab Results 11/25/20 11/25/20 11/25/20 Range/Units 11:45 23:17 23:19 WBC 14.9 H (4.0-10.0) 10^3/ uL RBC 3.70 L (4.1-5.3) 10^6/u L Hgb 10.0 L (11.5-15.3) g/dL Hct 35.7 L (37.0-47.0) % MCV 96.5 (81-99) fl MCH 27.0 L (28.0-34.0) pg MCHC 28.0 L (30.0-36.0) g/dL RDW 14.4 (12.1-15.1) % Plt Count 222 (130-400) 10^3/c mm MPV 10.0 (7.4-10.4) fL Neut % (Auto) 79.1 % Lymph % (Auto) 8.8 % [place] % (Auto) 10.5 % Eos % (Auto) 0.0 % Baso % (Auto) 0.2 % Neut # (Auto) 11.79 H (1.8-7.7) 10^3/u L Lymph # (Auto) 1.3 (0.8-4.8) 10^3/u L [place] # (Auto) 1.6 H (0.2-0.9) 10^3/u L Eos # (Auto) 0.0 (0.0-0.8) 10^3/u L Baso # (Auto) 0.0 (0.0-0.1) 10^3/u L Nucleated RBC % (a uto) 0.3 % Nucleated RBCs # 0.0 /100WBC PT (12.1-14.9) SECO NDS INR (0.8-1.2) D-Dimer (0-0.59) ug/mIFE U Specimen Type Arterial Sample Site Brachial, left ABG pH 7.22 L (7.35-7.45) ABG pCO2 (35-45) mmHg ABG pO2 69.5 L (80.0-100.0) mmH g ABG HCO3 33.0 H (22-26) mmol/L ABG Base Excess 2.9 H (-2.0-2.0) mmol/ L Vineet Test N/a Hematocrit 37.5 (37-47) % O2 Delivery Device Nc O2 Liters/Min 6.0 % FiO2 44.0 % Tidal Volume PEEP cmH20 Field Support Technician ID Rieri Sodium (136-145) mmol/L Potassium (3.5-5.1) mmol/L Chloride (98-107) mmol/L Carbon Dioxide (22-29) mmol/L Anion Gap (5-19) BUN (8-23) mg/dL Creatinine (0.5-0.9) mg/dL GFR Calculation Glucose (65-115) mg/dL POC Glucose 154 H (70-110) mg/dL Calculated Osmolal ity (285-295) mOsm/k g Lactic Acid (0.5-2.2) mmol/L Calcium (8.5-10.5) mg/dL Total Bilirubin (0.15-1.2) mg/dL AST (0-32) U/L ALT (0-33) U/L Alkaline Phosphata se (35-105) IU/L Troponin T Baselin e (0-10) ng/L Troponin T 120 Min [place] (0-10) ng/L Delta Troponin T (0-10) ABS# C-Reactive Protein (0.0-4.9) mg/L NT-Pro-B Natriuret Pep (0-450) pg/mL Total Protein (6.6-8.7) g/dL Albumin (3.5-5.2) g/dL Globulin (1.3-4.6) g/dL Urine Color (Yellow) Urine Appearance (CLEAR) Urine pH (5-7) Ur Specific Gravit y (1.005-1.030) Urine Protein (Negative) Urine Glucose (UA) (Normal) Urine Ketones (Negative) Urine Blood (Negative) Urine Nitrate (Negative) Urine Bilirubin (Negative) Urine Urobilinogen (Negative) mg/dL Ur Leukocyte Arianna ase (Negative) Urine RBC (0-2) /hpf Urine WBC (0-5) /hpf Ur Squamous Epith Cells (0-5) /hpf Amorphous Sediment Urine Bacteria (NONE) /hpf SARS-CoV-2 Ag (Rap id) (Negative) 11/25/20 11/25/20 11/25/20 Range/Units 23:19 23:19 23:19 WBC (4.0-10.0) 10^3/ uL RBC (4.1-5.3) 10^6/u L Hgb (11.5-15.3) g/dL Hct (37.0-47.0) % MCV (81-99) fl MCH (28.0-34.0) pg MCHC (30.0-36.0) g/dL RDW (12.1-15.1) % Plt Count (130-400) 10^3/c mm MPV (7.4-10.4) fL Neut % (Auto) % Lymph % (Auto) % [place] % (Auto) % Eos % (Auto) % Baso % (Auto) % Neut # (Auto) (1.8-7.7) 10^3/u L Lymph # (Auto) (0.8-4.8) 10^3/u L [place] # (Auto) (0.2-0.9) 10^3/u L Eos # (Auto) (0.0-0.8) 10^3/u L Baso # (Auto) (0.0-0.1) 10^3/u L Nucleated RBC % (a uto) % Nucleated RBCs # /100WBC PT (12.1-14.9) SECO NDS INR (0.8-1.2) D-Dimer (0-0.59) ug/mIFE U Specimen Type Sample Site ABG pH (7.35-7.45) ABG pCO2 (35-45) mmHg ABG pO2 (80.0-100.0) mmH g ABG HCO3 (22-26) mmol/L ABG Base Excess (-2.0-2.0) mmol/ L Vineet Test Hematocrit (37-47) % O2 Delivery Device O2 Liters/Min % FiO2 % Tidal Volume PEEP cmH20 Field Support Technician ID Sodium 146 H (136-145) mmol/L Potassium 3.8 (3.5-5.1) mmol/L Chloride 112 H (98-107) mmol/L Carbon Dioxide 23 (22-29) mmol/L Anion Gap 14.8 (5-19) BUN 16 (8-23) mg/dL Creatinine 1.5 H (0.5-0.9) mg/dL GFR Calculation Not Reportable Glucose 115 (65-115) mg/dL POC Glucose (70-110) mg/dL Calculated Osmolal ity 304 H (285-295) mOsm/k g Lactic Acid 2.1 (0.5-2.2) mmol/L Calcium 5.8 L* (8.5-10.5) mg/dL Total Bilirubin 0.2 (0.15-1.2) mg/dL AST 689 H (0-32) U/L ALT 459 H (0-33) U/L Alkaline Phosphata se 75 (35-105) IU/L Troponin T Baselin e 66 H (0-10) ng/L Troponin T 120 Min [place] (0-10) ng/L Delta Troponin T (0-10) ABS# C-Reactive Protein 21.7 H (0.0-4.9) mg/L NT-Pro-B Natriuret Pep 9455 H (0-450) pg/mL Total Protein 4.4 L (6.6-8.7) g/dL Albumin 2.2 L (3.5-5.2) g/dL Globulin 2.2 (1.3-4.6) g/dL Urine Color (Yellow) Urine Appearance (CLEAR) Urine pH (5-7) Ur Specific Gravit y (1.005-1.030) Urine Protein (Negative) Urine Glucose (UA) (Normal) Urine Ketones (Negative) Urine Blood (Negative) Urine Nitrate (Negative) Urine Bilirubin (Negative) Urine Urobilinogen (Negative) mg/dL Ur Leukocyte Arianna ase (Negative) Urine RBC (0-2) /hpf Urine WBC (0-5) /hpf Ur Squamous Epith Cells (0-5) /hpf Amorphous Sediment Urine Bacteria (NONE) /hpf SARS-CoV-2 Ag (Rap id) (Negative) 11/25/20 11/26/20 11/26/20 Range/Units 23:44 00:41 01:04 WBC (4.0-10.0) 10^3/ uL RBC (4.1-5.3) 10^6/u L Hgb (11.5-15.3) g/dL Hct (37.0-47.0) % MCV (81-99) fl MCH (28.0-34.0) pg MCHC (30.0-36.0) g/dL RDW (12.1-15.1) % Plt Count (130-400) 10^3/c mm MPV (7.4-10.4) fL Neut % (Auto) % Lymph % (Auto) % [place] % (Auto) % Eos % (Auto) % Baso % (Auto) % Neut # (Auto) (1.8-7.7) 10^3/u L Lymph # (Auto) (0.8-4.8) 10^3/u L [place] # (Auto) (0.2-0.9) 10^3/u L Eos # (Auto) (0.0-0.8) 10^3/u L Baso # (Auto) (0.0-0.1) 10^3/u L Nucleated RBC % (a uto) % Nucleated RBCs # /100WBC PT 17.20 H (12.1-14.9) SECO NDS INR 1.37 H (0.8-1.2) D-Dimer 9.52 H (0-0.59) ug/mIFE U Specimen Type Sample Site ABG pH (7.35-7.45) ABG pCO2 (35-45) mmHg ABG pO2 (80.0-100.0) mmH g ABG HCO3 (22-26) mmol/L ABG Base Excess (-2.0-2.0) mmol/ L Vineet Test Hematocrit (37-47) % O2 Delivery Device O2 Liters/Min % FiO2 % Tidal Volume PEEP cmH20 Field Support Technician ID Sodium (136-145) mmol/L Potassium (3.5-5.1) mmol/L Chloride (98-107) mmol/L Carbon Dioxide (22-29) mmol/L Anion Gap (5-19) BUN (8-23) mg/dL Creatinine (0.5-0.9) mg/dL GFR Calculation Glucose (65-115) mg/dL POC Glucose (70-110) mg/dL Calculated Osmolal ity (285-295) mOsm/k g Lactic Acid (0.5-2.2) mmol/L Calcium (8.5-10.5) mg/dL Total Bilirubin (0.15-1.2) mg/dL AST (0-32) U/L ALT (0-33) U/L Alkaline Phosphata se (35-105) IU/L Troponin T Baselin e (0-10) ng/L Troponin T 120 Min [place] 85.80 H (0-10) ng/L Delta Troponin T 19.80 H* (0-10) ABS# C-Reactive Protein (0.0-4.9) mg/L NT-Pro-B Natriuret Pep (0-450) pg/mL Total Protein (6.6-8.7) g/dL Albumin (3.5-5.2) g/dL Globulin (1.3-4.6) g/dL Urine Color Dark yellow (Yellow) Urine Appearance Hazy A (CLEAR) Urine pH 5 (5-7) Ur Specific Gravit y 1.020 (1.005-1.030) Urine Protein 3+ H (Negative) Urine Glucose (UA) Norm (Normal) Urine Ketones 1+ H (Negative) Urine Blood 3+ H (Negative) Urine Nitrate Negative (Negative) Urine Bilirubin 2+ H (Negative) Urine Urobilinogen 4 H (Negative) mg/dL Ur Leukocyte Arianna ase 2+ H (Negative) Urine RBC 0-4 H (0-2) /hpf Urine WBC >100 H (0-5) /hpf Ur Squamous Epith Cells 0-4 H (0-5) /hpf Amorphous Sediment Not Reportable Urine Bacteria 4+ H (NONE) /hpf SARS-CoV-2 Ag (Rap id) (Negative) 11/26/20 11/26/20 11/26/20 Range/Units 01:10 01:17 02:05 WBC (4.0-10.0) 10^3/ uL RBC (4.1-5.3) 10^6/u L Hgb (11.5-15.3) g/dL Hct (37.0-47.0) % MCV (81-99) fl MCH (28.0-34.0) pg MCHC (30.0-36.0) g/dL RDW (12.1-15.1) % Plt Count (130-400) 10^3/c mm MPV (7.4-10.4) fL Neut % (Auto) % Lymph % (Auto) % [place] % (Auto) % Eos % (Auto) % Baso % (Auto) % Neut # (Auto) (1.8-7.7) 10^3/u L Lymph # (Auto) (0.8-4.8) 10^3/u L [place] # (Auto) (0.2-0.9) 10^3/u L Eos # (Auto) (0.0-0.8) 10^3/u L Baso # (Auto) (0.0-0.1) 10^3/u L Nucleated RBC % (a uto) % Nucleated RBCs # /100WBC PT (12.1-14.9) SECO NDS INR (0.8-1.2) D-Dimer (0-0.59) ug/mIFE U Specimen Type Arterial Arterial Sample Site Brachial, left Brachial, right ABG pH 7.15 L* 7.23 L (7.35-7.45) ABG pCO2 96.4 H* 80.7 H* (35-45) mmHg ABG pO2 96.3 95.2 (80.0-100.0) mmH g ABG HCO3 33.7 H 33.5 H (22-26) mmol/L ABG Base Excess 2.2 H 3.6 H (-2.0-2.0) mmol/ L Vineet Test N/a N/a Hematocrit 37.4 38.2 (37-47) % O2 Delivery Device Bipap Bipap O2 Liters/Min % FiO2 70.0 65.0 % Tidal Volume 0.45 PEEP 10.0 cmH20 Field Support Technician ID Carol Gilmore Sodium (136-145) mmol/L Potassium (3.5-5.1) mmol/L Chloride (98-107) mmol/L Carbon Dioxide (22-29) mmol/L Anion Gap (5-19) BUN (8-23) mg/dL Creatinine (0.5-0.9) mg/dL GFR Calculation Glucose (65-115) mg/dL POC Glucose (70-110) mg/dL Calculated Osmolal ity (285-295) mOsm/k g Lactic Acid (0.5-2.2) mmol/L Calcium (8.5-10.5) mg/dL Total Bilirubin (0.15-1.2) mg/dL AST (0-32) U/L ALT (0-33) U/L Alkaline Phosphata se (35-105) IU/L Troponin T Baselin e (0-10) ng/L Troponin T 120 Min [place] (0-10) ng/L Delta Troponin T (0-10) ABS# C-Reactive Protein (0.0-4.9) mg/L NT-Pro-B Natriuret Pep (0-450) pg/mL Total Protein (6.6-8.7) g/dL Albumin (3.5-5.2) g/dL Globulin (1.3-4.6) g/dL Urine Color (Yellow) Urine Appearance (CLEAR) Urine pH (5-7) Ur Specific Gravit y (1.005-1.030) Urine Protein (Negative) Urine Glucose (UA) (Normal) Urine Ketones (Negative) Urine Blood (Negative) Urine Nitrate (Negative) Urine Bilirubin (Negative) Urine Urobilinogen (Negative) mg/dL Ur Leukocyte Arianna ase (Negative) Urine RBC (0-2) /hpf Urine WBC (0-5) /hpf Ur Squamous Epith Cells (0-5) /hpf Amorphous Sediment Urine Bacteria (NONE) /hpf SARS-CoV-2 Ag (Rap id) Negative (Negative) Imaging Data^: CT Head: Attestation: I personally reviewed and interpreted this imaging study as follows: Radiologist's impression: [address] [address] [address] Scan Report Signed Patient: Irina Velasquez Unit [facility] [id number] : 1945 [id number] Age/Sex: 75 / F ADM Date: 11/25/20 Loc: ER Room/Bed: Attending Dr: Ordering Provider/Ordering MD: Delores Mccall MD Date of Service: 11/25/20 Procedure(s): CT head wo con* [id number] Accession Number(s): [id number] Report Number: [id number] PROCEDURE INFORMATION: Exam: CT Head Without Contrast Exam date and time: 11/25/2020 10:37 PM Age: 75 years old Clinical indication: Altered mental status/memory loss; Confusion or disorientation; Patient HX: AMS. Lethargy. TECHNIQUE: Imaging protocol: Computed tomography of the head without contrast. Radiation optimization: All CT scans at this facility use at least one of these dose optimization techniques: automated exposure control; mA and/or kV adjustment per patient size (includes targeted exams where dose is matched to clinical indication); or iterative reconstruction. COMPARISON: CT head wo con* [id number] 06/13/2020 5:18 AM RADIATION DOSE METRICS: Total DLP (mGy-cm): 988.92 FINDINGS: Brain: The brain is unremarkable. There is no mass effect or significant white matter disease. There is no acute intracranial hemorrhage. Cerebral ventricles: There is no significant ventricular dilation. The basal cisterns are unremarkable. Paranasal sinuses: The paranasal sinuses are clear. Mastoid air cells: The mastoid air cells are clear. Bones/joints: The calvarium is intact. Soft tissues: The visible extracranial soft tissues are unremarkable. CT/CT head wo con* [id number] IMPRESSION: No acute intracranial abnormality. Radiation Dose CTDIVOL = (mGy): DLP = 988.92 (mGy-cm) Dictated By: aRmiro Briggs MD Signed By: Ramiro Briggs MD Signed Date/Time: 11/26/20 0010 DD/ 0008 EKG Data^: EKG 1: Attestation: I personally reviewed and interpreted this EKG as follows: EKG interpretation date: 11/25/20 EKG interpretation time: 23:00 Interpretation: afib hr [address] or t wave abonrmalities qrs 94 qtc 435 Critical Care Time Critical Care Time: Critical Care Time: Yes Total Critical Care Time: 35 Attestation: This case had a high probability of a clinically significant, sudden, or life threatening deterioration of this patient's condition which required my full and direct attention, intervention and personal management. Discharge Plan Discharge Patient Disposition: Xfer Short-Term Hosp Clinical Impression: Acute UTI Respiratory failure with hypercapnia Qualifiers: Chronicity: acute on chronic Qualified Code(s): J96.22 - Acute and chronic respiratory failure with hypercapnia Condition: Stable Referrals: Viri Molina DO [Primary Care Provider] - Coding Level of Care Code ED Improvement Analyst for Chg Fwd Exam Comprehensive
[2020-11-25 23:56] LABS: ABG PH Result 7.22 (7.35-7.45); Arterial Blood Gas Hematocrit 37.5 % (37-47); Base Excess ABG 2.9 mmol/L (-2.0-2.0); Blood Gas Sample Site Brachial, left; Blood Gas Sample Type Arterial; Oxygen Device NC; PO2 ABG 69.5 mmHg (80.0-100.0)
[2020-11-26] VITALS (14 sets, daily range): BP systolic 105–134; BP diastolic 65–93; PULSE 56–86; RESP 14–22; TEMP 36.5; O2SAT 90–100
[2020-11-26 00:01] LABS: INR 1.37 (0.8-1.2)
[2020-11-26 00:06] LABS: Alanine Aminotransferase 459 U/L (0-33); Albumin Level 2.2 g/dL (3.5-5.2); Aspartate Amino Transferase 689 U/L (0-32); Blood Urea Nitrogen 16 mg/dL (8-23); C Reactive Protein 21.7 mg/L (0.0-4.9); Calcium 5.8 mg/dL (8.5-10.5); Chloride 112 mmol/L (98-107); Globulin 2.2 g/dL (1.3-4.6); Glucose 115 mg/dL (65-115); NT Pro B Type Natriuretic Pept 9455 pg/mL (0-450); Osmolality Calculated 304 mOsm/kg (285-295); Sodium 146 mmol/L (136-145); Total Protein 4.4 g/dL (6.6-8.7)
[2020-11-26 00:10] LABS: D Dimer 9.52 ug/mIFEU (0-0.59)
--- NOTE | 2020-11-26 00:19 | CTR_ITS ---
PROCEDURE INFORMATION: Exam: CTA Chest With Contrast Exam date and time: 11/26/2020 12:19 AM Age: 75 years old Clinical indication: Shortness of breath; Patient HX: Sob/hypoxia. Elevated ddimer. TECHNIQUE: Imaging protocol: Computed tomographic angiography of the chest with contrast. 3D rendering (Not supervised by radiologist): MIP and/or 3D reconstructed images were created by the technologist. Radiation optimization: All CT scans at this facility use at least one of these dose optimization techniques: automated exposure control; mA and/or kV adjustment per patient size (includes targeted exams where dose is matched to clinical indication); or iterative reconstruction. Contrast material: VISI 320; Contrast volume: 52 ml; Contrast route: INTRAVENOUS (IV); COMPARISON: CT angio chest PE protcl [id number] 03/15/2020 4:14 PM RADIATION DOSE METRICS: Total DLP (mGy-cm): 829.58 FINDINGS: Pulmonary arteries: No pulmonary embolus or aortic dissection. Aorta: Unremarkable. No aortic aneurysm. No aortic dissection. Great vessels off aortic arch: Calcification of the thoracic aorta and/or great vessels consistent with atherosclerotic vessel disease. Lungs: Grossly stable 1.4 x 1.3 cm spiculated scar or atelectasis or infiltrate or mass in the left suprahilar parahilar area with increased associated discoid atelectasis extending to the chest wall. Axial series 2, image 150-99. Nonemergent PET scan may be helpful to rule out underlying neoplasm. Mild right basilar atelectasis and/or pneumonia. Pleural spaces: Interval appearance of small right pleural fluid collection. Heart: Stable moderate calcified coronary artery disease. Borderline to mild cardiomegaly. Lymph nodes: Unremarkable. No enlarged lymph nodes. Bones/joints: Severe thoracic spondylosis. Soft tissues: Unremarkable. CT/CT angio chest PE protcl [id number] IMPRESSION: 1. Grossly stable 1.4 x 1.3 cm spiculated scar or atelectasis or infiltrate or mass in the left suprahilar parahilar area with increased associated discoid atelectasis extending to the chest wall. Axial series 2, image 150-99. Nonemergent PET scan may be helpful to rule out underlying neoplasm. 2. Interval appearance of small right pleural fluid collection. 3. Mild right basilar atelectasis and/or pneumonia. 4. Stable moderate calcified coronary artery disease. 5. Borderline to mild cardiomegaly. 6. No pulmonary embolus or aortic dissection. Radiation Dose CTDIVOL = (mGy): DLP = 829.58 (mGy-cm)
[2020-11-26 00:52] LABS: Bacteria Urine 4+ /hpf; Bilirubin Urine 2+ (Negative); Blood Urine 3+ (Negative); Glucose Urine UA Norm (Normal); Ketones Urine 1+ (Negative); Leukocyte Esterase Urine 2+ (Negative); Nitrate Urine Negative (Negative); Protein Urine 3+ (Negative); RBC Urine 0-4 /hpf (0-2); Squamous Epithelial Cell Urine 0-4 /hpf (0-5); Urine Appearance Hazy (CLEAR); Urine Color Dark Yellow (Yellow); Urobilinogen Urine 4 mg/dL (Negative); WBC Urine >100 /hpf (0-5); pH Urine 5 (5-7)
[2020-11-26 00:53] LABS: Add Urine Culture? Yes; Add Urine Microscopic? YES
[2020-11-26] MEDS: sodium chloride 0.9% 500 ML 999 ML IV (01:00)
[2020-11-26] MEDS: cefTRIAXone 1,000 MG in sodium chloride 0.9% (plus) 50 ML 100 MG IV (01:10)
[2020-11-26 01:11] LABS: Reflex Lactate Order REFLEX LACTIC ORDERD
[2020-11-26 01:21] LABS: Arterial Blood Gas Hematocrit 37.4 % (37-47); Base Excess ABG 2.2 mmol/L (-2.0-2.0); Blood Gas Sample Site Brachial, left; Blood Gas Sample Type Arterial; HCO3 ABG 33.7 mmol/L (22-26); Oxygen Device BIPAP; PO2 ABG 96.3 mmHg (80.0-100.0)
[2020-11-26 01:54] LABS: SARS Covid-2 Antigen Negative (Negative)
[2020-11-26 02:06] LABS: ABG PCO2 96.4 mmHg (35-45); ABG PH Result 7.15 (7.35-7.45)
[2020-11-26 02:08] LABS: ABG PH Result 7.23 (7.35-7.45); Arterial Blood Gas Hematocrit 38.2 % (37-47); Base Excess ABG 3.6 mmol/L (-2.0-2.0); Blood Gas Operator Identificat HARKR; Blood Gas Sample Site Brachial, right; Blood Gas Sample Type Arterial; Blood Gas Tidal Volume 0.45; HCO3 ABG 33.5 mmol/L (22-26); Oxygen Device BIPAP; PO2 ABG 95.2 mmHg (80.0-100.0)
[2020-11-26 02:09] LABS: ABG PCO2 80.7 mmHg (35-45)
[2020-11-26] MEDS: iodixanol 320 mg/mL 100mL Btl IV (02:38)
--- NOTE | 2020-11-26 03:23 | XRR_ITS ---
PROCEDURE INFORMATION: Exam: XR Chest Exam date and time: 11/26/2020 3:23 AM Age: 75 years old Clinical indication: Device placement; Ett placement (vent status); Patient HX: Check S/P et placement; Additional info: Intubation TECHNIQUE: Imaging protocol: XR of the chest. Views: 1 view. COMPARISON: CR (CHEST, ) 11/25/2020 10:55 PM, CTA chest dated November 26, 2020. FINDINGS: Tubes, catheters and devices: Interval placement of endotracheal tube tip over the distal trachea, 5 mm proximal to the trudi. Lungs: Possible narrowing of the right proximal mainstem bronchus on plain films which was not present the CTA chest performed 1 hour prior to this chest x-ray. Pleural spaces: Unremarkable. No pleural effusion. No pneumothorax. Heart/Mediastinum: Unremarkable. No cardiomegaly. Bones/joints: Unremarkable. XR/XR chest 1V portable [id number] IMPRESSION: 1. Interval placement of endotracheal tube tip over the distal trachea, 5 mm proximal to the trudi. 2. Possible narrowing of the right proximal mainstem bronchus on plain films which was not present on the CTA chest performed 1 hour prior to this chest x-ray.
[2020-11-26] MEDS: succinylcholine 20 mg/mL SDV 10mL 200 MG IV (03:27)
[2020-11-26] MEDS: propofol 1,000 MG/100 ML INJ 4.01 MG IV (03:35)
[2020-11-26] MEDS: ipratropium-albuterol 3 mL Neb INHALATION (04:33)
[2020-11-26 05:04] LABS: ABG PCO2 49.2 mmHg (35-45); ABG PH Result 7.41 (7.35-7.45); Arterial Blood Gas Hematocrit 36.8 % (37-47); Base Excess ABG 5.3 mmol/L (-2.0-2.0); Blood Gas Operator Identificat HARKR; Blood Gas Sample Site Brachial, left; Blood Gas Sample Type Arterial; Blood Gas Tidal Volume 0.45; Oxygen Device VENT
--- NOTE | 2020-11-26 05:12 | PC.NURSE ---
report called to Dorita PETERS
[2020-11-26] MEDS: azithromycin 500 MG in sodium chloride 0.9% 250 ML 250 MG IV (05:40)
[2020-12-02 18:53] LABS: ABG PCO2 81.4 mmHg (35-45)
--- NOTE | 2020-12-11 09:19 | DCPLANNER ---
Patient had a follow up appointment scheduled for 12.09.20 with [facility] - patient did not attend appointment.
== END 2020-11-26 07:39 | disposition short-term general hospital (02) ==
PROVIDERS: Emergency Provider Emergency Medicine; PCP Family Medicine
DX: J96.22 Acute and chronic respiratory failure with hypercapnia (principal); N39.0 Urinary tract infection, site not specified; I12.9 Hypertensive chronic kidney disease with stage 1 through stage 4 chronic kidney disease, or unspecified chronic kidney disease; E11.22 Type 2 diabetes mellitus with diabetic chronic kidney disease; N18.2 Chronic kidney disease, stage 2 (mild); J44.9 Chronic obstructive pulmonary disease, unspecified; E78.5 Hyperlipidemia, unspecified; Z87.891 Personal history of nicotine dependence; Z20.822 Contact with and (suspected) exposure to COVID-19
CPT/HCPCS: 31500; 36415; 36416; 36600; 51702; 70450; 71045; 71275; 80053; 81001; 82803; 82962; 83605; 83880; 84484; 85025; 85378; 85610; 86140; 87077; 87086; 87186; 87426; 94002; 94640; 94660; 94799; 96365; 96367; 96375; 99291; 99292; J0330; J0456; J0696; J2704; J2930; J3010; J3490; J7030; J7040; J7050; Q9967

== ENCOUNTER 2020-12-21 07:20 | Inpatient (IN) | payer MEDICARE, MEDICAID, SELFPAY ==
[2020-12-21] VITALS (10 sets, daily range): BP systolic 113–160; BP diastolic 52–87; PULSE 60–119; RESP 16–27; TEMP 36.3–37.1; O2SAT 84–99; BMI 50.1
--- NOTE | 2020-12-21 07:30 | XRR_ITS ---
PROCEDURE INFORMATION: Exam: XR Chest Exam date and time: 12/21/2020 7:30 AM Age: 75 years old Clinical indication: Dyspnea TECHNIQUE: Imaging protocol: XR of the chest. Views: 1 view. COMPARISON: CR (CHEST, ) 11/26/2020 3:26 AM FINDINGS: Lungs: Low lung volumes. Patchy left basilar opacity with suspected small effusion. No consolidation on the right. Mild pulmonary vascular congestion. No overt edema. Right costophrenic angle sharp. No visible pneumothorax. Pleural spaces: See Lungs finding. Heart/Mediastinum: Cardiac silhouette mildly enlarged. Bones/joints: Unremarkable. XR/XR chest 1V portable [id number] IMPRESSION: Patchy left basilar opacities consistent with atelectasis and small effusion. Superimposed pneumonia not excluded.
--- NOTE | 2020-12-21 07:31 | ECG_ITS ---
[facility] Test Date: 2020-12-21 Pat Name: Irina Velasquez Department: Room: Gender: Female Guest Services Director: : 1945 Requested By: Олег Coleman Order Number: [id number] Reading MD: TYLER LEE Measurements Intervals [place] Rate: 88 P: [place]: QRS: 53 QRSD: 80 T: 89 QT: 336 QTc: 407 Interpretive Statements ATRIAL FIBRILLATION LOW QRS VOLTAGE IN PRECORDIAL LEADS [QRS DEFLECTION < 1.0 mV IN CHEST LEADS] POSSIBLE ANTERIOR MYOCARDIAL INFARCTION , PROBABLY OLD [30 ms Q WAVE IN V3/V4, OR R < 0.2 mV IN V4] ABNORMAL RHYTHM ECG Compared to ECG 11/23/2020 18:27:11 Myocardial infarct finding now present Ventricular premature complex(es) no longer present Aberrant conduction of supraventricular beat(s) no longer present Electronically Signed On 12-22-2020 20:21:35 CDT by TYLRE LEE [id number]
--- NOTE | 2020-12-21 07:56 | ED_ITS ---
HPI - General Adult General: Chief complaint: Shortness of Breath/Dyspnea Stated complaint: LOW O2 SATS Time Seen by Provider: 12/21/20 07:29 History of Present Illness: HPI narrative: Patient a 75-year-old female with a history of COPD, hyperlipidemia, atrial fibrillation CKD, diabetes who presents the emergency room with concerns for hypoxemia [facility]. Per [facility] staff, patient was noted to have low O2 sat and called EMS. By the time EMS arrived, patient had an O2 sat of 78% on room air that improved to 90% with nasal cannula. On arrival, patient is rather poor historian. Patient endorses shortness of breath denies chest pain, nausea/vomiting, abdominal pain, back pain, fever/chill. Patient reports cough for last few days. Onset: unknown Duration: ongoing Location:home Severity: moderate Review of Systems Narrative: Constitutional: No fever, no chills. HEENT: No vision changes CV: No chest pain, no palpitations PULM: +cough, +dyspnea. GI: No abdominal pain, no N/V/D. : No dysuria MSKEL: No muscle pain SKIN: No new rashes, no lesions. NEURO: No headache, no focal weakness. 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 Obesity Sleep apnea, obstructive sleep study 04/2019, does not sound like she ever had titration study for bipap at home Type 2 diabetes mellitus, with long-term current use of insulin Venous stasis ulcers Surgical History History of cholecystectomy History of tonsillectomy and adenoidectomy S/P appendectomy Family History Other Diabetes Social History Smoking and tobacco status: former smoker Alcohol intake: never Household members: none and other Details: 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 Female Reproductive History: Date of last menstrual period: 06/12/20 Physical Exam Narrative: EXAM NARRATIVE: Head: Atraumatic Eyes: PERRL, conjunctiva without injection ENT: Mucous membrane moist NECK: Supple, ROM intact LUNGS: LCTAB, no crackles/rhonchi CV: RRR ABDOMEN: Soft, nontender in all quadrants EXTREMITY: Normal ROM SKIN: No rash or erythema NEURO: Awake and alert, no focal motor deficits, GCS 14 (confused and occasionally answering questions) PSYCH: Normal mood and affect Course Vital Signs: Vital signs: Vital Signs Temperature 97.5 F L 12/23/20 00:00 Pulse Rate 72 12/23/20 00:00 Respiratory Rate 21 H 12/23/20 00:00 Blood Pressure 119/74 12/23/20 00:00 Pulse Oximetry 96 12/23/20 00:00 MDM - General Adult MDM Narrative: Medical decision making narrative: 75-year-old female with history of COPD complicated by chronic hypercapnic respiratory failure who presents emergency room with altered mental status and hypoxemia. Patient was noted to be satting at 90% on 4 L nasal cannula. Patient has coarse breath sounds bilaterally. Otherwise patient is confused, GCS 14, able to answer to only answer some questions. WBC of 11.8 which is consistent with baseline. X-ray shows possible atelectasis with possible superimposed pneumonia. Patient is noted to be hypercapnic with PCO2 in the 80s. Treated for pneumonia given chest x-ray findings and new onset of hypoxemia. Patient received ceftriaxone and azithromycin in the emergency room. Patient will be placed on BiPAP for hypercapnic respiratory failure. Disposition: Admission for observation. Lab Data: Labs: Lab Results 12/21/20 12/21/20 12/21/20 07:53 08:52 08:52 WBC RBC Hgb Hct MCV MCH MCHC RDW Plt Count MPV Neut % (Auto) Lymph % (Auto) [place] % (Auto) Eos % (Auto) Baso % (Auto) Neut # (Auto) Lymph # (Auto) [place] # (Auto) Eos # (Auto) Baso # (Auto) Nucleated RBC % (a uto) Nucleated RBCs # D-Dimer Specimen Type Sample Site ABG pH ABG pCO2 ABG pO2 ABG HCO3 ABG Base Excess Vineet Test Hematocrit O2 Delivery Device O2 Liters/Min FiO2 Senior Marketing Data Analyst ID Blood Gas Notified Time Sodium Potassium Chloride Carbon Dioxide Anion Gap BUN Creatinine GFR Calculation Glucose Calculated Osmolal ity Calcium Total Bilirubin AST ALT Alkaline Phosphata se Troponin T Baselin e NT-Pro-B Natriuret Pep Total Protein Albumin Globulin Lipase Procalcitonin Urine Color Yellow (Yellow) Urine Appearance Clear (CLEAR) Urine pH 5 (5-7) Ur Specific Gravit y 1.015 (1.005-1.030) Urine Protein 1+ H (Negative) Urine Glucose (UA) Norm (Normal) Urine Ketones Negative (Negative) Urine Blood Neg (Negative) Urine Nitrate Negative (Negative) Urine Bilirubin 1+ H (Negative) Urine Urobilinogen Norm mg/dL mg/dL (Negative) Ur Leukocyte Arianna ase Negative (Negative) Urine RBC None /hpf /hpf (0-2) Urine WBC 5-10 /hpf H /hpf (0-5) Ur Squamous Epith Cells 0-4 /hpf H /hpf (0-5) Amorphous Sediment 1+ /hpf /hpf Urine Bacteria 1+ /hpf H /hpf (NONE) Hyaline Casts 0-4 /lpf H /lpf Coarse Granular Ca sts 15-25 /lpf H /lpf Urine Mucus Trace /hpf /hpf Nasal/Oral COVID-1 9 PCR Not detected SARS-CoV-2 Ag (Rap id) Negative (Negative) 12/21/20 12/21/20 12/21/20 10:13 10:13 10:13 WBC 11.8 10^3/uL H 10 ^3/uL (4.0-10.0) RBC 3.96 10^6/uL L 10 ^6/uL (4.1-5.3) Hgb 11.0 g/dL L g/dL (11.5-15.3) Hct 39.2 % % (37.0-47.0) MCV 99.0 fl fl (81-99) MCH 27.8 pg L pg (28.0-34.0) MCHC 28.1 g/dL L g/dL (30.0-36.0) RDW 15.8 % H % (12.1-15.1) Plt Count 204 10^3/cmm 10^3 /cmm (130-400) MPV 10.6 fL H fL (7.4-10.4) Neut % (Auto) 78.3 % % Lymph % (Auto) 11.3 % % [place] % (Auto) 7.6 % % Eos % (Auto) 1.8 % % Baso % (Auto) 0.3 % % Neut # (Auto) 9.25 10^3/uL H 10 ^3/uL (1.8-7.7) Lymph # (Auto) 1.3 10^3/uL 10^3/ uL (0.8-4.8) [place] # (Auto) 0.9 10^3/uL 10^3/ uL (0.2-0.9) Eos # (Auto) 0.2 10^3/uL 10^3/ uL (0.0-0.8) Baso # (Auto) 0.0 10^3/uL 10^3/ uL (0.0-0.1) Nucleated RBC % (a uto) 0 % % Nucleated RBCs # 0.0 /100WBC /100W BC D-Dimer 1.15 ug/mIFEU H u g/mIFEU (0-0.59) Specimen Type Sample Site ABG pH ABG pCO2 ABG pO2 ABG HCO3 ABG Base Excess Vineet Test Hematocrit O2 Delivery Device O2 Liters/Min FiO2 Senior Marketing Data Analyst ID Blood Gas Notified Time Sodium 142 mmol/L mmol/L (136-145) Potassium 4.6 mmol/L mmol/L (3.5-5.1) Chloride 99 mmol/L mmol/L (98-107) Carbon Dioxide 35 mmol/L H mmol/ L (22-29) Anion Gap 12.6 (5-19) BUN 18 mg/dL mg/dL (8-23) Creatinine 0.6 mg/dL mg/dL (0.5-0.9) GFR Calculation Not Reportable Glucose 130 mg/dL H mg/dL (65-115) Calculated Osmolal ity 298 mOsm/kg H mOs m/kg (285-295) Calcium 9.0 mg/dL mg/dL (8.5-10.5) Total Bilirubin 0.3 mg/dL mg/dL (0.15-1.2) AST 19 U/L U/L (0-32) ALT 19 U/L U/L (0-33) Alkaline Phosphata se 85 IU/L IU/L (35-105) Troponin T Baselin e NT-Pro-B Natriuret Pep 3836 pg/mL H pg/m L (0-450) Total Protein 5.9 g/dL L g/dL (6.6-8.7) Albumin 3.6 g/dL g/dL (3.5-5.2) Globulin 2.3 g/dL g/dL (1.3-4.6) Lipase 12 U/L L U/L (13-60) Procalcitonin Urine Color Urine Appearance Urine pH Ur Specific Gravit y Urine Protein Urine Glucose (UA) Urine Ketones Urine Blood Urine Nitrate Urine Bilirubin Urine Urobilinogen Ur Leukocyte Arianna ase Urine RBC Urine WBC Ur Squamous Epith Cells Amorphous Sediment Urine Bacteria Hyaline Casts Coarse Granular Ca sts Urine Mucus Nasal/Oral COVID-1 9 PCR SARS-CoV-2 Ag (Rap id) 12/21/20 12/21/20 12/21/20 10:13 10:13 11:39 WBC RBC Hgb Hct MCV MCH MCHC RDW Plt Count MPV Neut % (Auto) Lymph % (Auto) [place] % (Auto) Eos % (Auto) Baso % (Auto) Neut # (Auto) Lymph # (Auto) [place] # (Auto) Eos # (Auto) Baso # (Auto) Nucleated RBC % (a uto) Nucleated RBCs # D-Dimer Specimen Type Arterial Sample Site Brachial, right ABG pH 7.31 L (7.35-7.45) ABG pCO2 82.5 mmHg H* mmHg (35-45) ABG pO2 64.4 mmHg L mmHg (80.0-100.0) ABG HCO3 41.9 mmol/L H mmo l/L (22-26) ABG Base Excess 12.7 mmol/L H mmo l/L (-2.0-2.0) Vineet Test N/a Hematocrit 35.2 % L % (37-47) O2 Delivery Device Nc O2 Liters/Min 2.5 % % FiO2 30.0 % % Senior Marketing Data Analyst ID glc Blood Gas Notified Time 1205 Sodium Potassium Chloride Carbon Dioxide Anion Gap BUN Creatinine GFR Calculation Glucose Calculated Osmolal ity Calcium Total Bilirubin AST ALT Alkaline Phosphata se Troponin T Baselin e 28 ng/L H ng/L (0-10) NT-Pro-B Natriuret Pep Total Protein Albumin Globulin Lipase Procalcitonin 0.11 ng/mL ng/mL (0-0.5) Urine Color Urine Appearance Urine pH Ur Specific Gravit y Urine Protein Urine Glucose (UA) Urine Ketones Urine Blood Urine Nitrate Urine Bilirubin Urine Urobilinogen Ur Leukocyte Arianna ase Urine RBC Urine WBC Ur Squamous Epith Cells Amorphous Sediment Urine Bacteria Hyaline Casts Coarse Granular Ca sts Urine Mucus Nasal/Oral COVID-1 9 PCR SARS-CoV-2 Ag (Rap id) Imaging Data^: Other Imaging: Radiologist's impression: [id number] [place], [place] [address]GDsn ReportSigned Patient: Irina Velasquez #: [id number]: 1945cct#:[id number]/Sex: 75 / FADM Date: 12/21/20Loc: ERRoom/Bed:Attending Dr: Ordering Provider/Ordering MD: Олег Coleman MD Date of Service: 12/21/20 Procedure(s): XR chest 1V portable [id number] Accession Number(s): [id number] Report Number: [id number] PROCEDURE INFORMATION: Exam: XR Chest Exam date and time: 12/21/2020 7:30 AM Age: 75 years old Clinical indication: Dyspnea TECHNIQUE: Imaging protocol: XR of the chest. Views: 1 view. COMPARISON: CR (CHEST, ) 11/26/2020 3:26 AM FINDINGS: Lungs: Low lung volumes. Patchy left basilar opacity with suspected small effusion. No consolidation on the right. Mild pulmonary vascular congestion. No overt edema. Right costophrenic angle sharp. No visible pneumothorax. Pleural spaces: See Lungs finding. Heart/Mediastinum: Cardiac silhouette mildly enlarged. Bones/joints: Unremarkable. XR/XR chest 1V portable [id number] IMPRESSION: Patchy left basilar opacities consistent with atelectasis and small effusion. Superimposed pneumonia not excluded. Dictated By:Dirk Lucas MDSigned By:Dirk Lucas MDSigned Date/Time:12/21/2041DD/ 9 Discharge Plan Discharge Patient Disposition: Admitted As Inpatient Admit Provider: Marya Berg Clinical Impression: Hypercapnic respiratory failure, Hypoxemia, Pneumonia Condition: Stable Coding Level of Care Code ED Turkey Roll Maker for Isaiah Tatum
[2020-12-21 09:47] LABS: Specific Gravity, Urine 1.015 (1.005-1.030); Urine Appearance Clear (CLEAR); Urine Color Yellow (Yellow); pH Urine 5 (5-7)
[2020-12-21 09:48] LABS: Add Urine Microscopic? YES; Bacteria Urine 1+ /hpf; Bilirubin Urine 1+ (Negative); Blood Urine Neg (Negative); Glucose Urine UA Norm (Normal); Ketones Urine Negative (Negative); Leukocyte Esterase Urine Negative (Negative); Mucus Urine TRACE /hpf; Nitrate Urine Negative (Negative); Protein Urine 1+ (Negative); Squamous Epithelial Cell Urine 0-4 /hpf (0-5); Urobilinogen Urine Norm (Negative)
[2020-12-21 09:49] LABS: Add Urine Culture? No; Amorphous Sediment Urine 1+ /hpf; Coarse Granular Casts Urine 15-25 /lpf; Hyaline Casts Urine 0-4 /lpf
[2020-12-21 09:57] LABS: SARS Covid-2 Antigen Negative (Negative)
[2020-12-21 10:35] LABS: Basophils % 0.3 %; Eosinophils # 0.2 10^3/uL (0.0-0.8); Eosinophils % 1.8 %; Hematocrit 39.2 % (37.0-47.0); Lymphocytes # 1.3 10^3/uL (0.8-4.8); Lymphocytes % 11.3 %; Mean Corpuscular HGB Conc 28.1 g/dL (30.0-36.0); Mean Corpuscular Hemoglobin 27.8 pg (28.0-34.0); Mean Platelet Volume 10.6 fL (7.4-10.4); Monocytes # 0.9 10^3/uL (0.2-0.9); Monocytes % 7.6 %; Neutrophils # 9.25 10^3/uL (1.8-7.7); Neutrophils % 78.3 %; Nucleated Red Blood Cells % 0 %; Platelet Count 204 10^3/cmm (130-400); Red Blood Count 3.96 10^6/uL (4.1-5.3); Red Cell Distribution Width 15.8 % (12.1-15.1); White Blood Count 11.8 10^3/uL (4.0-10.0)
[2020-12-21 10:49] LABS: D Dimer 1.15 ug/mIFEU (0-0.59)
[2020-12-21 10:56] LABS: Troponin(5th) Baseline 28 ng/L (0-10)
--- NOTE | 2020-12-21 11:00 | CTR_ITS ---
PROCEDURE INFORMATION: Exam: CTA Chest With Contrast Exam date and time: 12/21/2020 11:00 AM Age: 75 years old Clinical indication: Shortness of breath; Patient HX: C/O SOB. TECHNIQUE: Imaging protocol: Computed tomographic angiography of the chest with contrast. 3D rendering (Not supervised by radiologist): MIP and/or 3D reconstructed images were created by the technologist. Radiation optimization: All CT scans at this facility use at least one of these dose optimization techniques: automated exposure control; mA and/or kV adjustment per patient size (includes targeted exams where dose is matched to clinical indication); or iterative reconstruction. Contrast material: OMNI 350; Contrast volume: 95 ml; Contrast route: INTRAVENOUS (IV); COMPARISON: CT angio chest PE protcl [id number] 11/26/2020 2:27 AM RADIATION DOSE METRICS: Total DLP (mGy-cm): 526.22 FINDINGS: Pulmonary arteries: Central pulmonary arteries are dilated without filling defects. Aorta: Unremarkable. No aortic aneurysm. No aortic dissection. Lungs: Bilateral dependent airspace opacities with volume loss. Air bronchograms are visible. Background emphysematous lung change. Mostly linear opacity which is somewhat nodular at the medial margin in the left upper lobe mention on the prior scan is stable from the comparison imaging. Pleural spaces: Small volume bilateral pleural effusions mildly increased from comparison. No pneumothorax. Heart: Unremarkable. No cardiomegaly. No pericardial effusion. Mediastinal space: No thoracic esophageal wall thickening. Lymph nodes: Unremarkable. No enlarged lymph nodes. Bones/joints: Bridging osteophytes of thoracic spine. Unremarkable thoracic spine alignment. No acute thoracic spine fracture. Soft tissues: Unremarkable. CT/CT angio chest PE protcl [id number] IMPRESSION: 1. Negative for pulmonary embolism. 2. Bilateral pleural effusions mildly increased in size from comparison. Radiation Dose CTDIVOL = (mGy): DLP = 526.22 (mGy-cm)
[2020-12-21 11:03] LABS: Alanine Aminotransferase 19 U/L (0-33); Albumin Level 3.6 g/dL (3.5-5.2); Alkaline Phosphatase 85 IU/L (35-105); Aspartate Amino Transferase 19 U/L (0-32); Blood Urea Nitrogen 18 mg/dL (8-23); Carbon Dioxide 35 mmol/L (22-29); Chloride 99 mmol/L (98-107); Globulin 2.3 g/dL (1.3-4.6); Glucose 130 mg/dL (65-115); Lipase 12 U/L (13-60); NT Pro B Type Natriuretic Pept 3836 pg/mL (0-450); Osmolality Calculated 298 mOsm/kg (285-295); Sodium 142 mmol/L (136-145); Total Bilirubin 0.3 mg/dL (0.15-1.2); Total Protein 5.9 g/dL (6.6-8.7)
[2020-12-21 11:05] LABS: Anion Gap 12.6 (5-19)
[2020-12-21 11:06] LABS: Potassium 4.6 mmol/L (3.5-5.1)
[2020-12-21 11:59] LABS: ABG PH Result 7.31 (7.35-7.45); Arterial Blood Gas Hematocrit 35.2 % (37-47); Base Excess ABG 12.7 mmol/L (-2.0-2.0); Blood Gas LPM 2.5 %; Blood Gas Operator Identificat glc; Blood Gas Sample Site Brachial, right; Blood Gas Sample Type Arterial; HCO3 ABG 41.9 mmol/L (22-26); Oxygen Device NC; PO2 ABG 64.4 mmHg (80.0-100.0)
[2020-12-21 12:24] LABS: ABG PCO2 82.5 mmHg (35-45); Blood Gas CCRB Time 1205
[2020-12-21] MEDS: azithromycin 250 mg Tablet 500 MG PO (12:33)
[2020-12-21] MEDS: cefTRIAXone 1,000 MG in sodium chloride 0.9% (plus) 50 ML 100 MG IV (12:33)
--- NOTE | 2020-12-21 13:27 | PM.HP ---
Providers/Chief Complaint Admitting Physician: Marya Berg MD Primary Care Provider: Viri Molina DO Chief Complaint: LOW O2 SATS History of Present Illness Irina Velasquez is a 75 year old female with a history of chronic back pain, chronic disease, COPD, dyslipidemia, hypertension, hypothyroidism, obstructive sleep apnea, type 2 diabetes mellitus, atrial fibrillation who presented to the emergency room today with concerns of hypoxemia in the long term. She was noted to have low oxygen saturation and EMS was called. When EMS arrived patient's oxygen saturation was 78% on room air that improved to 90% nasal cannula. On arrival patient was altered and is a poor historian. The only thing to endorse with shortness of breath but denied chest pain, nausea vomiting, abdominal pain, back pain, fever or chills. She did report that he had a cough for the last 2 days. ED course: On arrival blood pressure 143/74, respiratory 22, pulse rate 73, temperature 98.5, pulse ox 99%. GCS was 14. She was confused but occasionally did answer some questions. She was saturating on 4 L nasal cannula 90%. She did have coarse breath sounds bilaterally. White count 11.8 not elevated. It is consistent with her baseline. X-ray did show possible atelectasis with possible superimposed pneumonia. She was also hypercapnic similar to baseline today in the 80s. Blood gas shows 7.31/82/64. Patient did receive 1 dose of ceftriaxone and 1 dose of azithromycin in the ER. She was also placed on BiPAP for hypercapnic respiratory failure. Medicine was called for admission for observation. Of note patient has had similar admissions in the past. She has been here for hypercapnic respiratory failure before but has never been hypoxic from what the ER reported. Urinalysis done in ER was normal. When seen in room 270, patient was more awake alert and responsive. She was AO x3. She said she has been having a cough recently and some shortness of breath as well. She does wear oxygen at home as well. She wears bipap at night. She is concerned she might have PNA. Nursing staff reported patient is not being compliant with bipap. Review of Systems General: Reports: 10 or more systems reviewed and unremarkable except in HPI and below Medications/Allergies Home Medications Medication Instructions Recorded Confirmed Last Taken Type aspirin 81 mg PO DAILY@0700 03/15/20 12/21/20 12/20/20 History methenamine hippurate 1 gram tablet 1 g PO BID@ #180 tab 08/04/20 12/21/20 12/20/20 Rx linaclotide 290 mcg capsule 290 mcg PO DAILY PRN 90 Days #90 09/05/20 12/21/20 12/20/20 Rx cap lovastatin 20 mg tablet 20 mg PO BEDTIME #30 tab 09/30/20 12/21/20 12/20/20 Rx metformin 850 mg tablet 850 mg PO BID@ #60 tab 09/30/20 12/21/20 12/20/20 Rx gabapentin 600 mg tablet 600 mg PO TID #90 tab 10/03/20 12/21/20 12/20/20 Rx levothyroxine 25 mcg tablet 25 mcg PO DAILY@07 90 Days #90 10/06/20 12/21/20 12/20/20 Rx tab mirtazapine 7.5 mg tablet 7.5 mg PO DAILY@1999 90 Days #90 10/06/20 12/21/20 12/20/20 Rx tab pantoprazole 40 mg tablet,delayed 40 mg PO DAILY@07 90 Days #90 tab 10/06/20 12/21/20 12/21/20 Rx release sitagliptin 100 mg tablet 100 mg PO DAILY@699 90 Days #90 10/06/20 12/21/20 12/19/20 Rx tab acetaminophen 650 mg PO Q6H PRN 12/21/20 12/21/20 Unknown History albuterol sulfate 0.63 mg INHALATION Q4H PRN 12/21/20 12/21/20 Unknown History apixaban [Eliquis] 5 mg PO BID 12/21/20 12/21/20 12/20/20 History bisacodyl 10 mg NV DAILY PRN 12/21/20 12/21/20 Unknown History furosemide [Lasix] 40 mg PO DAILY 12/21/20 12/21/20 12/20/20 History hydralazine 50 mg PO TID 12/21/20 12/21/20 12/20/20 History insulin aspart U-100 [Novolog 5 unit SUBCUT TIDWM 12/21/20 12/21/20 12/20/20 History Flexpen U-100 Insulin] insulin aspart U-100 [Novolog See Rx Instructions .ROUTE .COMPLEX 12/21/20 12/21/20 12/20/20 History Flexpen U-100 Insulin] insulin glargine [Lantus U-100 30 unit SUBCUT DAILY 12/21/20 12/21/20 12/20/20 History Insulin] ipratropium-albuterol 3 ml INHALATION TID PRN 12/21/20 12/21/20 12/20/20 History magnesium hydroxide [Milk of 30 ml PO DAILY PRN 12/21/20 12/21/20 Unknown History Magnesia] nystatin [Nystop] 1 applic TOPICAL BID PRN 12/21/20 12/21/20 Unknown History potassium chloride 20 meq PO DAILY 12/21/20 12/21/20 12/20/20 History prednisone 10 mg PO DAILY MDD PT HAS NOT 12/21/20 12/21/20 Unknown History STARTED Allergies Allergy/AdvReac Type Severity Reaction Status Date / Time codeine Allergy ALGY-Hives Verified 10/30/20 10:18 PFSH Acute PFSH: Medical History Chronic back pain Chronic idiopathic constipation Chronic kidney disease, stage II (mild) COPD (chronic obstructive pulmonary disease) Dyslipidemia Enrolled in chronic care management Hypertension 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 nursing home (current) use of opiate analgesic Obesity Sleep apnea, obstructive sleep study 04/2019, does not sound like she ever had titration study for bipap at home Type 2 diabetes mellitus, with long-term current use of insulin Venous stasis ulcers Surgical History History of cholecystectomy History of tonsillectomy and adenoidectomy S/P appendectomy Family History Other Diabetes Social History Smoking and tobacco status: former smoker Alcohol intake: never Household members: none and other Details: 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 She is resting comfortably in bed. Nursing staff trying to put bipap back on. HEENT: Normocephalic, atraumatic, EOMI, breathing on BiPAP when seen. Cardio: Regular rate rhythm, normal S1-S2, no murmurs rubs gallops, Respiratory: Mild ronchi bilaterally GI: Abdomen soft, nontender, nondistended, bowel sounds + Behavior: Appropriate and cooperative Extremities: Chronic venous statis changes in b/l LE. some sores present. Dont seem to be infected. Has SCDS in place. No cyanosis. Data : 12/21/20 10:13 12/21/20 10:13 A&P Assessment and plan (1) Pneumonia: Status: Acute (2) Hypercapnic respiratory failure: Status: Acute (3) Hypoxemia: Status: Acute (4) Venous stasis ulcers: Status: Chronic Qualifiers: Laterality: left Non-pressure ulcer stage: limited to breakdown of skin Varicose vein presence: without varicose veins Venous stasis ulcer site: ankle Qualified Code(s): I87.2 - Venous insufficiency (chronic) (peripheral); L97.321 - Non-pressure chronic ulcer of left ankle limited to breakdown of skin (5) Chronic idiopathic constipation: Status: Chronic (6) Acute on chronic respiratory failure with hypercapnia: Status: Acute (7) Type 2 diabetes mellitus, with long-term current use of insulin: Status: Chronic Qualifiers: Diabetes mellitus complication detail: with polyneuropathy Diabetes mellitus complication status: with neurologic complications Qualified Code(s): E11.42 - Type 2 diabetes mellitus with diabetic polyneuropathy; Z79.4 - nursing home (current) use of insulin (8) Dyslipidemia: Status: Chronic (9) Lumbar radiculopathy: Status: Chronic (10) Chronic back pain: Status: Chronic (11) Sleep apnea, obstructive: Status: Chronic (12) Chronic kidney disease, stage II (mild): Status: Chronic (13) Obesity: Status: Chronic Qualifiers: Body mass index: BMI 45.0-49.9 Obesity classification: adult class 3 (BMI >= 40) Obesity type: unspecified obesity type Serious obesity comorbidity presence: with serious comorbidity Qualified Code(s): E66.01 - Morbid (severe) obesity due to excess calories; Z68.42 - Body mass index [BMI] 45.0-49.9, adult (14) CHF (congestive heart failure): Status: Acute Additional A&P Information Patient has been admitted for acute on chronic respiratory failure with hypercapnia. She also is hypoxemic today. Requiring 4 L nasal cannula oxygen. She is from a long term. She has had previous admissions with similar complaint but has never been hypoxemic. Gas showed 7.3 . Chest x-ray did not exclude pneumonia. We will check bacterial antigens, MRSA nares, sputum culture with Gram stain. We will check blood cultures. We will cover her with ceftriaxone and azithromycin for now. Consider escalating therapy if oxygen requirements increasing or patient becomes febrile with increasing white count. We will also check procalcitonin. Patient has been placed on BiPAP. We will continue BiPAP overnight as well. We will recheck blood gas later in the day. Chronic constipation: Patient is on Linzess, stool softeners will continue. CKD: Patient does take gabapentin. Due to her somewhat altered mental status we will hold for now. Type 2 diabetes mellitus: Patient takes Lantus 30 units daily. Due to her being altered and decreased oral intake we will switch to 20 units daily. We will cover her with medium dose sliding scale. We will hold home Metformin and sitagliptin. Dyslipidemia: Continue statin, aspirin. Congestive heart failure: Patient on Lasix 40 mg daily. Fluids: 70 cc/h normal saline Electrolytes: Replete as needed Nutrition: Cardiac diet Activity: Out of bed to chair DVT prophylaxis: Patient is on Eliquis. We will continue that. Attestations Medical Necessity Statement*: Here for respiratory failure. 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[facility] [place] Diagnoses Pneumonia J18.9 Hypercapnic respiratory failure J96.92 Hypoxemia R09.02 Venous stasis ulcers I87.2; L97.321 Laterality: left Non-pressure ulcer stage: limited to breakdown of skin Varicose vein presence: without varicose veins Venous stasis ulcer site: ankle Chronic idiopathic constipation K59.04 Acute on chronic respiratory failure with hypercapnia J96.22 Type 2 diabetes mellitus, with long-term current use of insulin E11.42; Z79.4 Diabetes mellitus complication detail: with polyneuropathy Diabetes mellitus complication status: with neurologic complications Dyslipidemia E78.5 Lumbar radiculopathy M54.16 Chronic back pain M54.9; G89.29 Sleep apnea, obstructive G47.33 Chronic kidney disease, stage II (mild) N18.2 Obesity E66.01; Z68.42 Body mass index: BMI 45.0-49.9 Obesity classification: adult class 3 (BMI >= 40) Obesity type: unspecified obesity type Serious obesity comorbidity presence: with serious comorbidity CHF (congestive heart failure) I50.9
[2020-12-21] MEDS: hyDRALAzine 50 mg Tablet PO ×2 (16:00→19:59)
[2020-12-21 17:11] LABS: Glucose Point of Care 120 mg/dL (70-110)
[2020-12-21] MEDS: apixaban 5 mg Tablet PO (18:40)
[2020-12-21 19:15] LABS: Procalcitonin 0.11 ng/mL (0-0.5)
[2020-12-21] MEDS: atorvastatin 40 mg Tablet 20 MG PO (19:59)
[2020-12-21] MEDS: mirtazapine 15 mg Tablet 7.5 MG PO (20:00)
[2020-12-21 20:48] LABS: Glucose Point of Care 86 mg/dL (70-110)
[2020-12-21] MEDS: iohexol 350 mg/mL 100 mL Btl IV (21:08)
--- NOTE | 2020-12-21 21:39 | PC.NURSE ---
patient blood sugar is 86, had not eaten all day, food given to patient and requested to hold long acting insulin tonight
[2020-12-21 23:15] LABS: Glucose Point of Care 141 mg/dL (70-110)
[2020-12-22] VITALS (12 sets, daily range): BP systolic 117–156; BP diastolic 69–77; PULSE 75–110; RESP 16–22; TEMP 36.7–37.1; O2SAT 91–96
--- NOTE | 2020-12-22 00:16 | PC.NURSE ---
i reported high rep 22 to nurse
[2020-12-22 04:49] LABS: ABG PH Result 7.44 (7.35-7.45); Arterial Blood Gas Hematocrit 33.6 % (37-47); Base Excess ABG 15.9 mmol/L (-2.0-2.0); Blood Gas Allen Test Pos; Blood Gas Sample Site Radial, right; Blood Gas Sample Type Arterial; Carboxyhemoglobin 1.7 %THgb (0.4-20.1); HCO3 ABG 42.6 mmol/L (22-26); HGB O2 Sat 94.5 % (95-100); Ionized Calcium Level - ABG 1.2 mmol/L (1.1-1.4); Methemoglobin 0.9 % (0.4-1.5); Oxygen Device NC; PO2 ABG 76.1 mmHg (80.0-100.0); Potassium Level - ABG 4.1 mmol/L (3.5-5.0)
[2020-12-22 04:58] LABS: ABG PCO2 62.3 mmHg (35-45)
--- NOTE | 2020-12-22 05:36 | PC.NURSE ---
patient alert and oriented, able to answer questions appropriately, exhibited fatigue and became more tired after CT scan of abdomen, bipap placed, patient woke up around 0350and began yelling, patient verbalized having panic attack due to difficulty removing bipap off, patient blood sugar at HS was 86, milk, crackers and tomato soup given to patient recheck of BS pprox 1 hour after was 141.
[2020-12-22 06:06] LABS: Basophils % 0.4 %; Eosinophils # 0.2 10^3/uL (0.0-0.8); Eosinophils % 2.2 %; Hematocrit 37.7 % (37.0-47.0); Hemoglobin 10.8 g/dL (11.5-15.3); Lymphocytes # 1.2 10^3/uL (0.8-4.8); Lymphocytes % 12.2 %; Mean Corpuscular HGB Conc 28.6 g/dL (30.0-36.0); Mean Corpuscular Hemoglobin 27.7 pg (28.0-34.0); Mean Corpuscular Volume 96.7 fl (81-99); Mean Platelet Volume 10.7 fL (7.4-10.4); Monocytes # 0.9 10^3/uL (0.2-0.9); Neutrophils # 7.67 10^3/uL (1.8-7.7); Neutrophils % 75.3 %; Nucleated Red Blood Cells % 0 %; Platelet Count 192 10^3/cmm (130-400); White Blood Count 10.2 10^3/uL (4.0-10.0)
[2020-12-22] MEDS: aspirin 81 mg Chew Tablet PO (06:12)
[2020-12-22] MEDS: levothyroxine 25 mcg Tablet PO (06:12)
[2020-12-22] MEDS: pantoprazole DR 40 mg Tablet PO (06:12)
[2020-12-22 06:45] LABS: Glucose Point of Care 111 mg/dL (70-110)
[2020-12-22 06:47] LABS: Alanine Aminotransferase 17 U/L (0-33); Albumin Level 3.3 g/dL (3.5-5.2); Alkaline Phosphatase 78 IU/L (35-105); Anion Gap 10.3 (5-19); Aspartate Amino Transferase 15 U/L (0-32); Blood Urea Nitrogen 15 mg/dL (8-23); Calcium 9.1 mg/dL (8.5-10.5); Carbon Dioxide 38 mmol/L (22-29); Chloride 99 mmol/L (98-107); Globulin 2.6 g/dL (1.3-4.6); Glucose 114 mg/dL (65-115); Magnesium 1.5 mg/dL (1.7-2.3); Osmolality Calculated 298 mOsm/kg (285-295); Potassium 4.3 mmol/L (3.5-5.1); Sodium 143 mmol/L (136-145); Total Bilirubin 0.5 mg/dL (0.15-1.2); Total Protein 5.9 g/dL (6.6-8.7)
[2020-12-22] MEDS: ipratropium-albuterol 3 mL Neb INHALATION ×2 (08:37→15:32)
[2020-12-22] MEDS: hyDRALAzine 50 mg Tablet PO ×3 (09:18→20:53)
[2020-12-22] MEDS: FUROsemide 40 mg Tablet PO (09:18)
[2020-12-22] MEDS: apixaban 5 mg Tablet PO ×2 (09:18→17:57)
[2020-12-22 11:55] LABS: Glucose Point of Care 106 mg/dL (70-110)
[2020-12-22] MEDS: cefTRIAXone 1,000 MG in sodium chloride 0.9% (plus) 50 ML 100 MG IV (12:24)
[2020-12-22 13:46] LABS: Coronavirus Test Green County Not Detected
--- NOTE | 2020-12-22 14:40 | PC.RESP ---
sent pulmonary rehab information
[2020-12-22] MEDS: azithromycin 500 MG in sodium chloride 0.9% 250 ML 250 MG IV (15:24)
[2020-12-22 16:51] LABS: Glucose Point of Care 122 mg/dL (70-110)
--- NOTE | 2020-12-22 18:30 | PM.PN ---
Subjective Subjective: Interval history: Patient is endorsing feeling better wants to go back to [facility], she does use BiPAP at [facility], senior materials planner notified, prior authorization initiated Patient is back to baseline No overnight events Vitals/I&O/Wt Last Vital Signs Temp 98.0 F 12/22/20 15:37 Pulse 86 12/22/20 15:37 Resp 17 12/22/20 15:37 BP 125/75 12/22/20 15:37 Pulse Ox 96 12/22/20 15:37 12/22/20 12/22/20 12/22/20 06:59 14:59 22:59 Intake Total 0 / 290 290 / 290 490 / 780 Output Total 1000 / 1000 Balance -1000 / -710 290 / 290 490 / 780 Weight last 48 hrs Weight 141.067 kg Physical Exam Narrative: EXAM NARRATIVE: Patient lying comfortably in her bed No active neurological deficits however has left side of facial droop which patient is stating that is chronic No focal deficit Appropriate mood and affect Awake alert oriented x3 GCS 15 S1, S2 Currently saturating well on 3 L nasal cannula Soft abdomen visceral obesity Trace edema of lower extremities Edema of upper extremities noted 3+ Data : 12/22/20 05:46 12/22/20 05:46 A&P Assessment and plan (1) Hypercapnic respiratory failure: Status: Acute (2) Hypoxemia: Status: Acute (3) Venous stasis ulcers: Status: Chronic Qualifiers: Venous stasis ulcer site: ankle Varicose vein presence: without varicose veins Laterality: left Non-pressure ulcer stage: limited to breakdown of skin Qualified Code(s): I87.2 - Venous insufficiency (chronic) (peripheral); L97.321 - Non-pressure chronic ulcer of left ankle limited to breakdown of skin Additional A&P Information Acute on chronic hypoxic hypercapnic respiratory failure At baseline she uses 2 to 3 L at [facility] BiPAP at night At the time of admission was requiring 4 L, her blood gas and mentation did improved with use of BiPAP Has been empirically covered for pneumonia Antigens pending, afebrile, white count 10 Hypercapnia has improved, patient is back to her baseline oxygen requirement of 3 L Would use p.o. 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
[2020-12-22] MEDS: acetaminophen 325 mg Tablet 650 MG PO (19:24)
[2020-12-22] MEDS: atorvastatin 40 mg Tablet 20 MG PO (20:53)
[2020-12-22] MEDS: mirtazapine 15 mg Tablet 7.5 MG PO (20:54)
[2020-12-22 21:06] LABS: Glucose Point of Care 134 mg/dL (70-110)
[2020-12-22] MEDS: insulin glargine 100 units/1 mL 20 UNIT SUBCUT (21:06)
[2020-12-23] VITALS (8 sets, daily range): BP systolic 119–138; BP diastolic 69–80; PULSE 72–86; RESP 17–21; TEMP 36.4–37; O2SAT 94–98
[2020-12-23] MEDS: acetaminophen 325 mg Tablet 650 MG PO ×2 (01:29→11:14)
[2020-12-23 05:58] LABS: Basophils % 0.5 %; Eosinophils # 0.3 10^3/uL (0.0-0.8); Eosinophils % 3.1 %; Hematocrit 35.8 % (37.0-47.0); Hemoglobin 10.4 g/dL (11.5-15.3); Lymphocytes # 1.7 10^3/uL (0.8-4.8); Lymphocytes % 19.8 %; Mean Corpuscular HGB Conc 29.1 g/dL (30.0-36.0); Mean Corpuscular Hemoglobin 27.9 pg (28.0-34.0); Mean Platelet Volume 10.6 fL (7.4-10.4); Monocytes # 0.9 10^3/uL (0.2-0.9); Monocytes % 10.5 %; Neutrophils # 5.66 10^3/uL (1.8-7.7); Neutrophils % 64.7 %; Nucleated Red Blood Cells % 0 %; Platelet Count 185 10^3/cmm (130-400); Red Blood Count 3.73 10^6/uL (4.1-5.3); Red Cell Distribution Width 16.2 % (12.1-15.1); White Blood Count 8.7 10^3/uL (4.0-10.0)
[2020-12-23] MEDS: pantoprazole DR 40 mg Tablet PO (06:05)
[2020-12-23] MEDS: levoFLOXacin 750 mg Tablet PO (06:05)
[2020-12-23] MEDS: levothyroxine 25 mcg Tablet PO (06:05)
[2020-12-23] MEDS: aspirin 81 mg Chew Tablet PO (06:05)
--- NOTE | 2020-12-23 06:16 | PC.NURSE ---
SHIFT SUMMARY Has not rested very well tonight. Says she just cannot get comfortable. Has been assisted with repositioning several times by staff and was up in recliner for about an hour. Does not do well getting OOB and needs max assist. Did wear her BIPAP about 2 hours then requested it off. Has received po Tylenol X2 for c/o bilat leg and then generalized pain as well. O2 at 3l per NC. Denies SOB or cough
[2020-12-23 06:27] LABS: Blood Urea Nitrogen 14 mg/dL (8-23); Calcium 8.9 mg/dL (8.5-10.5); Carbon Dioxide 38 mmol/L (22-29); Chloride 92 mmol/L (98-107); Glucose 93 mg/dL (65-115); Osmolality Calculated 294 mOsm/kg (285-295); Sodium 142 mmol/L (136-145)
[2020-12-23 06:34] LABS: Anion Gap 15.3 (5-19); Potassium 3.3 mmol/L (3.5-5.1)
[2020-12-23 06:47] LABS: Glucose Point of Care 89 mg/dL (70-110)
[2020-12-23] MEDS: hyDRALAzine 50 mg Tablet PO (08:39)
[2020-12-23] MEDS: FUROsemide 40 mg Tablet PO (08:39)
[2020-12-23] MEDS: potassium chloride ER 20 mEq Tablet 40 MEQ PO (08:39)
[2020-12-23] MEDS: apixaban 5 mg Tablet PO ×2 (08:39→18:14)
[2020-12-23] MEDS: ipratropium-albuterol 3 mL Neb INHALATION (09:21)
--- NOTE | 2020-12-23 10:14 | PC.CHAP ---
Pastoral Care Encounter/Spiritual Assessment Type of Contact [] Declined kaiawhina kohanga reo visit [] Patient/Family/Request visit [] Outpatient visit [] Follow-up visit [] Physician referral [] Code/Alert [] Routine visit [] Staff referral [] Actively dying [] Patient sleeping [] Family support [] [] Out of room [] Palliative care [] [x] Receiving care in room [] Pre-surgical visit [] Trauma [] Long length of stay [] ICU visit [] Other: Relational/Emotional Strength [] Patient feels connected with others/family/visitors/staff [] Distress [] Loneliness/isolation [] Abandonment Spirituality of Patient [] Person of Keren [] Attends Judaism of their Keren [] Believes in Prayer [] Reads Bible or Christianity materials [] There are Spiritual issues to be addressed Health Unit Supervisor Interventions [] Prayer [] Active listening [] Non-anxious presence [] Spiritual/emotional support [] Crisis/trauma care [] Spiritual counseling [] Bereavement support [] Provided bereavement packet [] Provided Bible/devotional materials [] Provided toy/stuffed animal, coloring book to patient or family member [] Provided Communion [] Anointing/New Church [] Salvation [] Completed spiritual assessment [] Other: Impact on Illness or Injury [] Angry [] Fearful [] Anxious [] Often cries [] Exhaustion [] Unable to work [] Unable to attend denominational [] Unable to walk/stand [] Unable to read [] Unable to drive [] Unable to eat/drink [] Unable to sleep [] Unable to be with family [] Patient intubated [] Other: Summary Time spent with patient
--- NOTE | 2020-12-23 11:26 | PM.DCS ---
Discharge Providers Date of Admission: 12/21/20 12:09 Date of Discharge: December 23, 2020 Attending Provider at Admission: Marya Berg MD Attending Provider at Discharge: Christianne Kolb MD Primary Care Provider: Viri Molina DO Diagnoses at Discharge Discharge Diagnosis (1) Hypercapnic respiratory failure: Status: Acute (2) Hypoxemia: Status: Acute (3) Venous stasis ulcers: Status: Chronic Qualifiers: Laterality: left Non-pressure ulcer stage: limited to breakdown of skin Varicose vein presence: without varicose veins Venous stasis ulcer site: ankle Qualified Code(s): I87.2 - Venous insufficiency (chronic) (peripheral); L97.321 - Non-pressure chronic ulcer of left ankle limited to breakdown of skin Reason for Visit Reason for Visit: LOW O2 [facility] Hospital Course Hospital Course Irina Velasquez is a 75 year old female with a history of chronic back pain, chronic disease, COPD, dyslipidemia, hypertension, hypothyroidism, obstructive sleep apnea, type 2 diabetes mellitus, resident of skilled nursing, atrial fibrillation admitted for management of acute on chronic hypoxic hypercapnic restaurant failure, was requiring 4 L nasal cannula at the time of admission, bacterial antigens, MRSA nares negative, she was kept on empirical treatment of medical pneumonia, procalcitonin unremarkable, she was put on BiPAP that improved her respite distress. Patient stated that she was compliant with BiPAP usage at [facility] and for last few months she has not been able to ambulate because of weakness related to her previous stroke, she is able to move all of her extremities without any limitations but does not have any strength to keep her balance and walk independently. Physical therapy was requested during hospitalization, patient was 2-3 person assist. Her hypoxemia improved, at the time of discharge she was requiring 2 to 3 L, her ceftriaxone and azithromycin were discontinued and she was discharged with Levaquin Physical Exam Narrative: EXAM NARRATIVE: Morbid obese female Awake alert oriented x3 GCS 15 She does extend her arms when we try to change her position in the bed However did not cooperate very well because of back pain She has left-sided facial droop and mild residual weakness of right side of her body She does move upper and lower extremities without any limitations, Chowdary catheter removed at the time of discharge Distended abdomen visceral obesity, abdominal pannus moist fungal rash Saturating well on 3 L nasal cannula S1, S2 Venous stasis dermatitis, no active signs of cellulitis Discharge Data Data Completed and Pending: Completed Studies During Hospitalization Category Date Time Status CT angio chest PE protcl [id number] Urge nt Cat Scan 12/21/20 11:00 Completed XR chest 1V [place] [id number] Urgent Exams 12/21/20 07:30 Completed Pending at discharge Category Date Time Status Bacterial Antigen Stat Lab 12/21/20 15:30 Results Legionella Antige n STAT Stat Lab 12/21/20 15:30 Results Sputum Culture an d Gram Stain Stat Lab 12/21/20 13:37 Uncollected Labs from last 24 hours 12/23/20 12/23/20 12/23/20 06:37 05:08 05:08 WBC 8.7 RBC 3.73 L Hgb 10.4 L Hct 35.8 L MCV 96.0 MCH 27.9 L MCHC 29.1 L RDW 16.2 H Plt Count 185 MPV 10.6 H Neut % (Auto) 64.7 Lymph % (Auto) 19.8 Cassia % (Auto) 10.5 Eos % (Auto) 3.1 Baso % (Auto) 0.5 Neut # (Auto) 5.66 Lymph # (Auto) 1.7 Cassia # (Auto) 0.9 Eos # (Auto) 0.3 Baso # (Auto) 0.0 Nucleated RBC % (a uto) 0 Nucleated RBCs # 0.0 Sodium 142 Potassium 3.3 L Chloride 92 L Carbon Dioxide 38 H Anion Gap 15.3 BUN 14 Creatinine 0.7 GFR Calculation Not Reportable Glucose 93 POC Glucose 89 Calculated Osmolal ity 294 Calcium 8.9 Nasal/Oral COVID-1 9 PCR 12/22/20 12/22/20 12/22/20 20:58 16:40 11:39 WBC RBC Hgb Hct MCV MCH MCHC RDW Plt Count MPV Neut % (Auto) Lymph % (Auto) Cassia % (Auto) Eos % (Auto) Baso % (Auto) Neut # (Auto) Lymph # (Auto) Cassia # (Auto) Eos # (Auto) Baso # (Auto) Nucleated RBC % (a uto) Nucleated RBCs # Sodium Potassium Chloride Carbon Dioxide Anion Gap BUN Creatinine GFR Calculation Glucose POC Glucose 134 H 122 H 106 Calculated Osmolal ity Calcium Nasal/Oral COVID-1 9 PCR 12/21/20 08:52 WBC RBC Hgb Hct MCV MCH MCHC RDW Plt Count MPV Neut % (Auto) Lymph % (Auto) Cassia % (Auto) Eos % (Auto) Baso % (Auto) Neut # (Auto) Lymph # (Auto) Cassia # (Auto) Eos # (Auto) Baso # (Auto) Nucleated RBC % (a uto) Nucleated RBCs # Sodium Potassium Chloride Carbon Dioxide Anion Gap BUN Creatinine GFR Calculation Glucose POC Glucose Calculated Osmolal ity Calcium Nasal/Oral COVID-1 9 PCR Not detected Vitals: Last Vital Signs Temp 98.6 F 12/23/20 08:00 Pulse 78 12/23/20 09:29 Resp 17 12/23/20 09:29 BP 128/73 12/23/20 08:00 Pulse Ox 97 12/23/20 09:29 Discharge Plan Discharge Patient Disposition: Xfer [facility] Condition: Stable Prescriptions: New potassium chloride 10 mEq capsule, extended release 10 meq PO DAILY Qty: 30 RF: 0 levofloxacin 750 mg tablet 750 mg PO DAILY 5 Days Qty: 5 RF: 0 Continued metformin 850 mg tablet 850 mg PO BID@ Qty: 60 RF: 1 methenamine hippurate 1 gram tablet 1 g PO BID@ Qty: 180 RF: 1 Linzess 290 mcg capsule 290 mcg PO DAILY PRN (Reason: constipation) 90 Days Qty: 90 RF: 1 gabapentin 600 mg tablet 600 mg PO TID Qty: 90 RF: 1 levothyroxine 25 mcg tablet 25 mcg PO DAILY@699 90 Days Qty: 90 RF: 1 mirtazapine 7.5 mg tablet 7.5 mg PO DAILY@1999 90 Days Qty: 90 RF: 1 pantoprazole 40 mg tablet,delayed release (DR/EC) 40 mg PO DAILY@699 90 Days Qty: 90 RF: 1 Januvia 100 mg tablet 100 mg PO DAILY@699 90 Days Qty: 90 RF: 1 aspirin 81 mg Tablet,Chewable 81 mg PO DAILY@07 RF: 0 lovastatin 20 mg tablet 20 mg PO BEDTIME Qty: 30 RF: 3 albuterol sulfate 0.63 mg/3 mL Solution For Nebulization 0.63 mg INHALATION Q4H PRN (Reason: Shortness Of Breath) RF: 0 acetaminophen 325 mg Tablet 650 mg PO Q6H PRN (Reason: Pain) RF: 0 Lantus U-100 Insulin 100 unit/mL Solution 30 unit SUBCUT DAILY RF: 0 Milk of Magnesia 400 mg/5 mL Suspension 30 ml PO DAILY PRN (Reason: Constipation) RF: 0 bisacodyl 10 mg Suppository 10 mg HI DAILY PRN (Reason: Constipation) RF: 0 hydralazine 50 mg Tablet 50 mg PO TID RF: 0 Nystop 100,000 unit/gram Powder 1 applic TOPICAL BID PRN (Reason: Rash) RF: 0 Novolog Flexpen U-100 Insulin 100 unit/mL (3 mL) Insulin Pen See Rx Instructions .ROUTE .COMPLEX RF: 0 Novolog Flexpen U-100 Insulin 100 unit/mL (3 mL) Insulin Pen 5 unit SUBCUT TIDWM RF: 0 Eliquis 5 mg Tablet 5 mg PO BID RF: 0 potassium chloride 20 mEq Tablet Extended Release 20 meq PO DAILY RF: 0 Lasix 40 mg tablet 40 mg PO DAILY RF: 0 ipratropium-albuterol 0.5 mg-3 mg(2.5 mg base)/3 mL solution for nebulization 3 ml INHALATION TID PRN (Reason: shortness of breath or wheezing) RF: 0 Discontinued prednisone 10 mg Tablet 10 mg PO DAILY MDD PT HAS NOT STARTED RF: 0 Discharge Orders: Discharge Order (Routine); Ordered 12/23/20 Ordered By: Christianne Kolb Referrals: Viri Molina DO [Primary Care Provider] - Discharge Diet: Diabetic Discharge Activity: Wheelchair as instructed, As per PT/OT instructions and Cpap/Bipap as instructed Patient Instructions: Potassium Chloride (By mouth), Levofloxacin (By mouth), Pneumonia (GEN), Opioid Safety, Pneumonia Stoplight Discharge Attestations Time Spent in Discharge Care*: less than 30 min Quality Metrics Clinical Quality Measures During this hospital stay, did patient experience: None Coding Level of Care Code Acute Chg FW DC note Diagnoses Hypercapnic respiratory failure J96.92 Hypoxemia R09.02 Venous stasis ulcers I87.2; L97.321 Laterality: left Non-pressure ulcer stage: limited to breakdown of skin Varicose vein presence: without varicose veins Venous stasis ulcer site: ankle
[2020-12-23 12:00] LABS: Glucose Point of Care 135 mg/dL (70-110)
--- NOTE | 2020-12-23 16:11 | PC.NURSE ---
Patient refused her 1500 Hydrazine medications.
[2020-12-23 17:10] LABS: Glucose Point of Care 159 mg/dL (70-110)
--- NOTE | 2020-12-23 18:53 | PC.NURSE ---
[facility]
[2020-12-23 21:04] LABS: Glucose Point of Care 162 mg/dL (70-110)
[2020-12-23] MEDS: insulin glargine 100 units/1 mL 20 UNIT SUBCUT (21:07)
[2020-12-23] MEDS: mirtazapine 15 mg Tablet 7.5 MG PO (21:57)
[2020-12-23] MEDS: ondansetron 2 mg/ML SDV 2 mL 4 MG IVP (22:10)
[2020-12-24] VITALS (7 sets, daily range): BP systolic 108–145; BP diastolic 67–75; PULSE 68–79; RESP 16–20; TEMP 36.6–37.2; O2SAT 91–96
[2020-12-24] MEDS: aspirin 81 mg Chew Tablet PO (05:57)
[2020-12-24] MEDS: pantoprazole DR 40 mg Tablet PO (05:58)
--- NOTE | 2020-12-24 06:18 | PC.NURSE ---
SHIFT SUMMARY Has not slept or rested well again tonight. Has hard time getting comfortable and has been repositioned numerous times. Sits up on side of bed for few minutes then ready to lay back down. Has been moved from side to side many times. She is not helpful with moving. Had c/o stomach bothering her tonight with nausea. Order was obtained and was given IV Zofran which she says helped some.Has refused most of her po meds tonight. Took only the Mirtazapine in the evening and Protonix this morning.
[2020-12-24 06:40] LABS: Glucose Point of Care 72 mg/dL (70-110)
[2020-12-24] MEDS: FUROsemide 40 mg Tablet PO (08:35)
[2020-12-24] MEDS: apixaban 5 mg Tablet PO (08:35)
[2020-12-24] MEDS: hyDRALAzine 50 mg Tablet PO (08:35)
--- NOTE | 2020-12-24 09:16 | PC.SOCIAL ---
IMM update IMM updated with patient. Verbalized an understanding. Copy Pg 2 provided. Initialled, dated, timed, and placed in chart.
[2020-12-24] MEDS: ipratropium-albuterol 3 mL Neb INHALATION (10:13)
--- NOTE | 2020-12-24 11:36 | P.MISC_ITS ---
Miscellaneous Note Purpose of Documentation: Patient stayed overnight because custodial requested PT evaluation and that delayed her timely discharge from the hospital As per my communication with the human services case manager during MDR: She will be able to return to custodial today No overnight events patient is endorsing sacral area pain however as per the nursing report no pressure ulcer identified Patient is eager to return to custodial Willing to try BiPAP on daily basis Exam Patient was seen in supine position Left-sided facial droop, right sided hemiparesis Lower extremity no edema Venous stasis dermatitis S1, S2 Awake alert into x3 No audible stridor or wheezing Saturating well on 2 L nasal cannula . Discharge to custodial today
[2020-12-24 11:46] LABS: Glucose Point of Care 121 mg/dL (70-110)
--- NOTE | 2020-12-24 13:34 | PC.NURSE ---
IV removed intact. Patient tolerated well. Patient assisted to A&J cot at this time for transport to [facility].
--- NOTE | 2020-12-25 12:22 | PC.SOCIAL ---
discharge follow up call made, spoke with Kiesha, patients nurse at [facility]. she reports patient is very weak, wasn't able to take all of her morning meds due to weakness. patient continues to use O2 at 2-3L. patient vitals and blood sugar have been good per nurse. the nursing facility has all medications available for patient. no questions or concerns voiced from nurse.
== END 2020-12-24 13:15 | disposition skilled nursing facility (03) | DRG 189 ==
LOC: ER 12:08 → MEDSURG 13:16
PROVIDERS: Admitting Provider Internal Medicine; Emergency Provider Emergency Medicine; PCP Family Medicine; Visit Provider Internal Medicine
DX: J96.22 Acute and chronic respiratory failure with hypercapnia (principal); J18.9 Pneumonia, unspecified organism; J44.0 Chronic obstructive pulmonary disease with (acute) lower respiratory infection; I13.0 Hypertensive heart and chronic kidney disease with heart failure and stage 1 through stage 4 chronic kidney disease, or unspecified chronic kidney disease; Z68.43 Body mass index [BMI] 50.0-59.9, adult; L97.321 Non-pressure chronic ulcer of left ankle limited to breakdown of skin; J96.21 Acute and chronic respiratory failure with hypoxia; E78.5 Hyperlipidemia, unspecified; I48.91 Unspecified atrial fibrillation; E11.22 Type 2 diabetes mellitus with diabetic chronic kidney disease; N18.2 Chronic kidney disease, stage 2 (mild); I50.9 Heart failure, unspecified; M54.16 Radiculopathy, lumbar region; G89.29 Other chronic pain; K59.04 Chronic idiopathic constipation; E03.9 Hypothyroidism, unspecified; Z79.891 Long term (current) use of opiate analgesic; E66.9 Obesity, unspecified; G47.33 Obstructive sleep apnea (adult) (pediatric); E11.42 Type 2 diabetes mellitus with diabetic polyneuropathy; Z79.01 Long term (current) use of anticoagulants; Z79.4 Long term (current) use of insulin; Z79.51 Long term (current) use of inhaled steroids; Z79.82 Long term (current) use of aspirin; Z79.84 Long term (current) use of oral hypoglycemic drugs; Z99.89 Dependence on other enabling machines and devices
CPT/HCPCS: 36415; 36416; 36600; 71045; 71275; 80048; 80051; 80053; 81001; 82330; 82803; 82805; 82962; 83690; 83735; 83880; 84145; 84484; 85025; 85378; 86403; 87426; 87449; 87635; 87641; 93005; 94640; 94660; 96365; 96372; 97162; 99285; 99291; J0456; J0696; J1815 ×2; J2405; J7050; Q0144; Q9967

== ENCOUNTER 2020-12-31 01:22 | Observation (INO) | payer MEDICARE, MEDICAID, SELFPAY ==
[2020-12-31] VITALS (34 sets, daily range): BP systolic 95–161; BP diastolic 50–85; PULSE 67–98; RESP 16–28; TEMP 36.6–37; O2SAT 82–100; BMI 48.1
--- NOTE | 2020-12-31 01:26 | ECG_ITS ---
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 Measurements Intervals [place] Rate: 99 P: MS: QRS: -6 QRSD: 91 T: 74 QT: 355 QTc: 456 Interpretive Statements ATRIAL FIBRILLATION WITH ABERRANT CONDUCTION OR VENTRICULAR PREMATURE COMPLEXES POSSIBLE ANTERIOR MYOCARDIAL INFARCTION , PROBABLY OLD [30 ms Q WAVE IN V3/V4, OR R < 0.2 mV IN V4] ABNORMAL RHYTHM ECG Compared to ECG 12/21/2020 07:32:23 Ventricular premature complex(es) now present Aberrant conduction of supraventricular beat(s) now present Myocardial infarct finding still present Electronically Signed On 12-31-2020 19:53:09 CDT by Jane Calvillo M.D. [email or web address]
--- NOTE | 2020-12-31 01:26 | XRR_ITS ---
PROCEDURE INFORMATION: Exam: XR Chest Exam date and time: 12/31/2020 1:26 AM Age: 75 years old Clinical indication: Shortness of breath; Prior surgery; Surgery type: Gb; Patient HX: SOB and hypoxia. History of copd and chf. TECHNIQUE: Imaging protocol: XR of the chest. Views: 1 view. COMPARISON: CR (CHEST, ) 12/21/2020 7:55 AM FINDINGS: Lungs: Low lung volumes. Patchy bibasilar atelectasis or other infiltrates. Pleural spaces: Suspect small pleural effusions. Heart/Mediastinum: No cardiomegaly. Bones/joints: No acute fracture. XR/XR chest 1V portable [id number] IMPRESSION: Patchy bibasilar atelectasis or other infiltrates. Suspect small pleural effusions. . Radiation Dose CTDIVOL = (mGy): DLP = (mGy-cm)
[2020-12-31 01:34] LABS: Basophils # 0.1 10^3/uL (0.0-0.1); Basophils % 0.6 %; Eosinophils # 0.3 10^3/uL (0.0-0.8); Eosinophils % 3.1 %; Hemoglobin 11.3 g/dL (11.5-15.3); Lymphocytes % 20.5 %; Mean Corpuscular HGB Conc 28.3 g/dL (30.0-36.0); Mean Corpuscular Hemoglobin 27.1 pg (28.0-34.0); Mean Corpuscular Volume 95.9 fl (81-99); Mean Platelet Volume 10.4 fL (7.4-10.4); Monocytes # 0.8 10^3/uL (0.2-0.9); Monocytes % 8.6 %; Neutrophils # 6.37 10^3/uL (1.8-7.7); Neutrophils % 66.2 %; Nucleated Red Blood Cells % 0 %; Platelet Count 220 10^3/cmm (130-400); Red Blood Count 4.17 10^6/uL (4.1-5.3); Red Cell Distribution Width 15.5 % (12.1-15.1); White Blood Count 9.6 10^3/uL (4.0-10.0)
--- NOTE | 2020-12-31 01:34 | W.ED.SOB ---
HPI - SOB/Dyspnea General: Chief Complaint: Shortness of Breath/Dyspnea Stated Complaint: lathargic Time Seen by Provider: 12/31/20 01:22 Source: patient and EMS Mode of arrival: EMS Limitations: no limitations History of Present Illness: HPI Narrative: 75-year-old female who is a history of COPD and hypercapnia she had [facility] supposed to sleep with her BiPAP. Is unsure if she is actually wearing her BiPAP at night nurses came into the room patient was hypoxic at 67% and baseline oxygen requirements of 4 L. EMS is increased her to 6 L and she is improved. Patient here is lethargic but will awaken answer my questions she had no cough no fever no chest pain. Associated symptoms: Deny abdominal pain, chest pain, fever(s), nausea or vomiting Review of Systems Const: Denies: fever(s), chills, body aches or change in appetite Eyes: Denies: blurry vision or eye discomfort ENMT: Denies: throat pain or dental pain Card: Denies: chest pain Resp: Reports: dyspnea GI: Denies: abdominal pain, nausea, vomiting or diarrhea : Denies: dysuria Musc: Denies: neck pain or back pain Skin/Breast: Denies: rash Neuro: Denies: headache(s) Psych: Denies: depression Lit/Lymph: Denies: easy bruising All/Imm: Denies: urticaria PFSH ED PFSH: Medical History Chronic back pain Chronic idiopathic constipation Chronic kidney disease, stage II (mild) COPD (chronic obstructive pulmonary disease) Dyslipidemia Enrolled in chronic care management Hypertension 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 Obesity Sleep apnea, obstructive sleep study 04/2019, does not sound like she ever had titration study for bipap at home Type 2 diabetes mellitus, with long-term current use of insulin Venous stasis ulcers Surgical History History of cholecystectomy History of tonsillectomy and adenoidectomy S/P appendectomy Family History Other Diabetes Social History Smoking and tobacco status: former smoker Alcohol intake: never Household members: none and other Details: 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 Female Reproductive History: Date of last menstrual period: 06/12/20 Physical Exam Const: COMMON NORMALS: patient oriented x3 GENERAL APPEARANCE: lethargic and ill appearing ORIENTATION/CONSCIOUSNESS: Yes lethargic HENMT: COMMON NORMALS: normocephalic and atraumatic HEAD & SCALP: normocephalic and atraumatic Eye: COMMON NORMALS: Equal, round and reactive pupils present and EOMs intact bilaterally PUPIL: Yes Equal, round and reactive pupils present Neck/C-Spine: COMMON NORMALS: full ROM and supple Chest: COMMONS NORMALS: normal inspection of the chest and normal palpation of entire chest wall Resp: COMMON NORMALS: normal respiratory effort, No retractions, No use of accessory muscles and clear to auscultation bilaterally AUSCULTATION: clear to auscultation bilaterally Cardio: COMMON NORMALS: regular rate, regular rhythm and No murmurs present (Cardio) RATE: regular rate RHYTHM: regular rhythm GI: COMMON NORMALS: Normal to inspection, nondistended, normoactive bowel sounds present, Soft to palpation, non-tender and no masses PALPATION: Yes Soft to palpation Extremity: COMMON NORMALS: normal to inspection and full ROM Neuro: COMMON NORMALS: patient oriented x3, moves all extremities and no focal motor deficits SENSORIUM/ORIENTATION: Yes lethargic Psych: COMMON NORMALS: mental status grossly normal, Normal thought process present and cooperative THOUGHT PROCESS: Normal thought process present Skin: COMMON NORMALS: no rashes or lesions noted and no wounds GENERAL SKIN EXAM: no rashes or lesions noted Course Vital Signs: Vital signs: Vital Signs Pulse Rate 72 12/31/20 04:12 Respiratory Rate 20 H 12/31/20 04:12 Blood Pressure 95/53 12/31/20 04:12 Pulse Oximetry 100 12/31/20 04:12 MDM - SOB/Dyspnea MDM Narrative: Medical decision making narrative: Patient presents here with dyspnea also has hypercapnia she is acute on chronic respiratory failure. She will respond to questions does not to be elevated at this time. Patient is on BiPAP. She has no signs of pneumonia blood work is normal. Lab Data: Labs: Lab Results 12/31/20 12/31/20 12/31/20 01:30 01:30 01:30 WBC 9.6 10^3/uL 10^3/ uL (4.0-10.0) RBC 4.17 10^6/uL 10^6 /uL (4.1-5.3) Hgb 11.3 g/dL L g/dL (11.5-15.3) Hct 40.0 % % (37.0-47.0) MCV 95.9 fl fl (81-99) MCH 27.1 pg L pg (28.0-34.0) MCHC 28.3 g/dL L g/dL (30.0-36.0) RDW 15.5 % H % (12.1-15.1) Plt Count 220 10^3/cmm 10^3 /cmm (130-400) MPV 10.4 fL fL (7.4-10.4) Neut % (Auto) 66.2 % % Lymph % (Auto) 20.5 % % [place] % (Auto) 8.6 % % Eos % (Auto) 3.1 % % Baso % (Auto) 0.6 % % Neut # (Auto) 6.37 10^3/uL 10^3 /uL (1.8-7.7) Lymph # (Auto) 2.0 10^3/uL 10^3/ uL (0.8-4.8) [place] # (Auto) 0.8 10^3/uL 10^3/ uL (0.2-0.9) Eos # (Auto) 0.3 10^3/uL 10^3/ uL (0.0-0.8) Baso # (Auto) 0.1 10^3/uL 10^3/ uL (0.0-0.1) Nucleated RBC % (a uto) 0 % % Nucleated RBCs # 0.0 /100WBC /100W BC PT 14.70 SECONDS SEC ONDS (12.1-14.9) INR 1.12 (0.8-1.2) Specimen Type Sample Site ABG pH ABG pO2 ABG HCO3 ABG Base Excess Vineet Test Hematocrit Hgb O2 Saturation Carboxyhemoglobin Methemoglobin Total Hemoglobin O2 Delivery Device FiO2 PEEP Supervisor Sewer System ID Sodium 142 mmol/L mmol/L (136-145) Potassium 3.8 mmol/L mmol/L (3.5-5.1) Chloride 88 mmol/L L mmol/ L (98-107) Carbon Dioxide 49 mmol/L H* mmol /L (22-29) Anion Gap 8.8 (5-19) BUN 20 mg/dL mg/dL (8-23) Creatinine 1.0 mg/dL H mg/dL (0.5-0.9) GFR Calculation Not Reportable Glucose 180 mg/dL H mg/dL (65-115) Calculated Osmolal ity 301 mOsm/kg H mOs m/kg (285-295) Lactic Acid Calcium 9.7 mg/dL mg/dL (8.5-10.5) Total Bilirubin 0.3 mg/dL mg/dL (0.15-1.2) AST 14 U/L U/L (0-32) ALT 14 U/L U/L (0-33) Alkaline Phosphata se 79 IU/L IU/L (35-105) NT-Pro-B Natriuret Pep 3770 pg/mL H pg/m L (0-450) Total Protein 6.8 g/dL g/dL (6.6-8.7) Albumin 3.5 g/dL g/dL (3.5-5.2) Globulin 3.3 g/dL g/dL (1.3-4.6) 12/31/20 12/31/20 12/31/20 01:45 01:53 03:29 WBC RBC Hgb Hct MCV MCH MCHC RDW Plt Count MPV Neut % (Auto) Lymph % (Auto) [place] % (Auto) Eos % (Auto) Baso % (Auto) Neut # (Auto) Lymph # (Auto) [place] # (Auto) Eos # (Auto) Baso # (Auto) Nucleated RBC % (a uto) Nucleated RBCs # PT INR Specimen Type Arterial Arterial Sample Site Radial, right Radial, right ABG pH 7.42 7.41 (7.35-7.45) (7.35-7.45) ABG pO2 82.6 mmHg mmHg 98.9 mmHg mmHg (80.0-100.0) (80.0-100.0) ABG HCO3 53.4 mmol/L H mmo l/L 54.0 mmol/L H mmo l/L (22-26) (22-26) ABG Base Excess 24.5 mmol/L H mmo l/L 24.5 mmol/L H mmo l/L (-2.0-2.0) (-2.0-2.0) Vineet Test Pos Pos Hematocrit 34.1 % L % 36.1 % L % (37-47) (37-47) Hgb O2 Saturation 95.0 % % (95-100) Carboxyhemoglobin 1.5 %THgb %THgb (0.4-20.1) Methemoglobin 0.9 % % (0.4-1.5) Total Hemoglobin 11.1 g/dL L g/dL (12-16) O2 Delivery Device Bipap Bipap FiO2 45.0 % % 45.0 % % PEEP 8.0 cmH20 cmH20 8.0 cmH20 cmH20 Supervisor Sewer System ID [email or web address] Sodium Potassium Chloride Carbon Dioxide Anion Gap BUN Creatinine GFR Calculation Glucose Calculated Osmolal ity Lactic Acid 0.8 mmol/L mmol/L (0.5-2.2) Calcium Total Bilirubin AST ALT Alkaline Phosphata se NT-Pro-B Natriuret Pep Total Protein Albumin Globulin EKG Data^: EKG 1: Attestation: I personally reviewed and interpreted this EKG as follows: EKG Interpretation Date: 12/31/20 EKG interpretation time: 01:36 Interpretation: afib hr [address] or t wave abnormalities qrs 91 qtc 411 Critical Care Time Critical Care Time: Critical Care Time: Yes Total Critical Care Time: 35 Attestation: The high probability of a clinically significant, sudden or life threatening deterioration of the patient's [] system(s) required my full and direct attention, intervention and personal management. The critical care time is as shown. This time is in addition to time spent performing any reported procedures but includes the following: [x] Data and vital sign review and interpretation [x] Patient assessment, examination and intervention [x] Documentation [x] Medication orders and management Discharge Plan Discharge Patient Disposition: Admitted As Inpatient Admit Provider: Kristy Roy Clinical Impression: Acute on chronic respiratory failure with hypercapnia, COPD (chronic obstructive pulmonary disease) Condition: Stable Coding Level of Care Code ED Quality Assurance Intern for Chg Fwd Exam Comprehensive
[2020-12-31 01:45] LABS: INR 1.12 (0.8-1.2)
[2020-12-31 02:04] LABS: ABG PH Result 7.42 (7.35-7.45); Arterial Blood Gas Hematocrit 34.1 % (37-47); Base Excess ABG 24.5 mmol/L (-2.0-2.0); Blood Gas Allen Test Pos; Blood Gas Sample Type Arterial; Carboxyhemoglobin 1.5 %THgb (0.4-20.1); HCO3 ABG 53.4 mmol/L (22-26); Methemoglobin 0.9 % (0.4-1.5); PO2 ABG 82.6 mmHg (80.0-100.0); Total Hemoglobin 11.1 g/dL (12-16)
[2020-12-31 02:05] LABS: Alanine Aminotransferase 14 U/L (0-33); Albumin Level 3.5 g/dL (3.5-5.2); Alkaline Phosphatase 79 IU/L (35-105); Anion Gap 8.8 (5-19); Aspartate Amino Transferase 14 U/L (0-32); Blood Urea Nitrogen 20 mg/dL (8-23); Calcium 9.7 mg/dL (8.5-10.5); Chloride 88 mmol/L (98-107); Globulin 3.3 g/dL (1.3-4.6); Glucose 180 mg/dL (65-115); NT Pro B Type Natriuretic Pept 3770 pg/mL (0-450); Osmolality Calculated 301 mOsm/kg (285-295); Potassium 3.8 mmol/L (3.5-5.1); Sodium 142 mmol/L (136-145); Total Bilirubin 0.3 mg/dL (0.15-1.2); Total Protein 6.8 g/dL (6.6-8.7)
[2020-12-31 02:06] LABS: Blood Gas Sample Site Radial, right; Oxygen Device BIPAP
[2020-12-31 02:11] LABS: Carbon Dioxide 49 mmol/L (22-29)
[2020-12-31 02:13] LABS: Lactic Sepsis W/Reflex 0.8 mmol/L (0.5-2.2)
[2020-12-31 03:40] LABS: ABG PH Result 7.41 (7.35-7.45); Arterial Blood Gas Hematocrit 36.1 % (37-47); Base Excess ABG 24.5 mmol/L (-2.0-2.0); Blood Gas Allen Test Pos; Blood Gas Sample Site Radial, right; Blood Gas Sample Type Arterial; Oxygen Device BIPAP; PO2 ABG 98.9 mmHg (80.0-100.0)
--- NOTE | 2020-12-31 04:41 | PM.HP ---
Providers/Chief Complaint Admitting Physician: Kristy Roy Primary Care Provider: Viri Molina DO Chief Complaint: lathargic History of Present Illness 75 year old female with a history of chronic back pain, chronic disease, COPD, dyslipidemia, hypertension, hypothyroidism, obstructive sleep apnea, type 2 diabetes mellitus, atrial fibrillation who presented to the emergency room with respiratory distress. Patient was recently admitted to the hospital with similar complaint and discharged on 12/23/2020. Patient was unable to provide history. Laboratory work-up on arrival showed a WBC of 9.6, hemoglobin 11.3, hematocrit of 40.0 and a platelet count of 220. INR 1.12. Sodium 142, potassium 3.8, chloride 88, bicarb 49, BUN 20 and a creatinine of 1.0. AST of 14, ALT of 14 and alkaline phosphatase of 79 proBNP of 3770. Arterial blood gas showed a pH of 7.41, PCO2 of 85.7, PO2 of 98.9 and a bicarb of 54. Chest x-ray showed patchy bibasilar atelectasis or infiltrates. Patient was placed on BiPAP and admitted. Review of Systems General: Reports: ROS unobtainable due to medical condition and ROS unobtainable due to mental status Medications/Allergies Home Medications Medication Instructions Recorded Confirmed Last Taken Type aspirin 81 mg PO DAILY@0700 03/15/20 12/31/20 12/30/20 08:07 History methenamine hippurate 1 gram tablet 1 g PO BID@07 #180 tab 08/04/20 12/31/20 12/30/20 20:10 Rx lovastatin 20 mg tablet 20 mg PO BEDTIME #30 tab 09/30/20 12/31/20 12/30/20 20:10 Rx gabapentin 600 mg tablet 600 mg PO TID #90 tab 10/03/20 12/31/20 12/30/20 20:10 Rx levothyroxine 25 mcg tablet 25 mcg PO DAILY@0700 90 Days #90 10/06/20 12/31/20 12/30/20 08:07 Rx tab pantoprazole 40 mg tablet,delayed 40 mg PO DAILY@0700 90 Days #90 tab 10/06/20 12/31/20 12/30/20 05:02 Rx release Eliquis 5 mg PO BID 12/21/20 12/31/20 12/30/20 20:10 History Lantus U-100 Insulin 30 unit SUBCUT DAILY 12/21/20 12/31/20 12/30/20 08:07 History acetaminophen 650 mg PO Q6H PRN 12/21/20 12/31/20 Unknown History albuterol sulfate 0.63 mg INHALATION Q4H PRN 12/21/20 12/31/20 Unknown History bisacodyl 10 mg MT DAILY PRN 12/21/20 12/31/20 Unknown History hydralazine 50 mg PO TID 12/21/20 12/31/20 12/30/20 20:10 History insulin aspart U-100 [Novolog 5 unit SUBCUT TIDWM 12/21/20 12/31/20 12/30/20 17:07 History Flexpen U-100 Insulin] insulin aspart U-100 [Novolog See Rx Instructions .ROUTE .COMPLEX 12/21/20 12/31/20 12/30/20 20:10 History Flexpen U-100 Insulin] ipratropium-albuterol 3 ml INHALATION TID PRN 12/21/20 12/31/20 12/30/20 20:10 History magnesium hydroxide [Milk of 30 ml PO DAILY PRN 12/21/20 12/31/20 Unknown History Magnesia] nystatin [Nystop] 1 applic TOPICAL BID PRN 12/21/20 12/31/20 12/30/20 History potassium chloride 10 meq PO DAILY #30 cap 12/23/20 12/31/20 12/30/20 08:07 Rx furosemide 40 mg PO DAILY 12/31/20 12/31/20 12/30/20 08:10 History ondansetron HCl 4 mg PO Q4H 12/31/20 12/31/20 12/25/20 17:00 History Allergies Allergy/AdvReac Type Severity Reaction Status Date / Time codeine Allergy ALGY-Hives Verified 10/30/20 10:18 PFSH Acute PFSH: Medical History Chronic back pain Chronic idiopathic constipation Chronic kidney disease, stage II (mild) COPD (chronic obstructive pulmonary disease) Dyslipidemia Enrolled in chronic care management Hypertension 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 Obesity Sleep apnea, obstructive sleep study 04/2019, does not sound like she ever had titration study for bipap at home Type 2 diabetes mellitus, with long-term current use of insulin Venous stasis ulcers Surgical History History of cholecystectomy History of tonsillectomy and adenoidectomy S/P appendectomy Family History Other Diabetes Social History Smoking and tobacco status: former smoker Alcohol intake: never Household members: none and other Details: 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 Female Reproductive History: Date of last menstrual period: 06/12/20 Vitals/I&O/Wt Last Vital Signs Temp 98 F 12/31/20 04:56 Pulse 74 12/31/20 06:05 Resp 16 12/31/20 06:05 BP 161/85 12/31/20 04:56 Pulse Ox 96 12/31/20 06:05 Weight last 48 hrs Weight 126.144 kg Weight 135.171 kg Physical Exam Narrative: EXAM NARRATIVE: General: Drowsy on Bipap HEENT: Grossly unremarkable CVS ; NSR Chest: Non-labored respiration Abd; venteral hernia - nontender Ext; 2+ edema bilaterally Urinary Catheter Management^: Chowdary: Cath Placed During This Visit: yes Reason for Continuing Indwelling Catheter: Acute Urinary Retention or Obstruction Urinary Catheter Date of Insertion: 12/31/20 Urinary Catheter Time of Insertion: 04:58 Data : 12/31/20 01:30 12/31/20 01:30 A&P Assessment and plan (1) Acute on chronic respiratory failure with hypercapnia: Compensated hypercapnic respiratory failure Resumed on Bipap Continue duoneb Consider pulmonary consult Monitor on tele Status: Acute (2) CHF (congestive heart failure): BMP elevated Not in oververt failure Resumed on diuretics Daily weight Strict i&O monitoring Status: Acute (3) Hypertension: Verify home meds Status: Chronic Qualifiers: Hypertension type: essential hypertension Qualified Code(s): I10 - Essential (primary) hypertension (4) COPD (chronic obstructive pulmonary disease): Duoeb and management as noted in #`1 Status: Chronic Additional A&P Information DVT ppx - SCDS - Eliquis Attestations Medical Necessity Statement*: Over 2 midnight stay in hospital for eval and treatment Time Spent in Patient Care: Greater than 35 minutes (>than 50% of time spent in counselling and/or direct pt care on unit). Coding Level of Care Code Acute Information Clerk [employer] Fwd Diagnoses Acute on chronic respiratory failure with hypercapnia J96.22 CHF (congestive heart failure) I50.9 Hypertension I10 Hypertension type: essential hypertension COPD (chronic obstructive pulmonary disease) J44.9
[2020-12-31 06:05] LABS: ABG PCO2 85.7 mmHg (35-45)
--- NOTE | 2020-12-31 06:21 | PC.NURSE ---
Admit Note Patient admitted to CSU room 101 from ED via stretcher. Patient transferred to bed x4 assist. Patient responsive to painful stimuli at this time. Dr Roy in with patient at admission. Noted patient to have excoriation to sacrum and just below the right buttock along with non-blanchable redness to both those areas. Generalized redness to zaida-area. Cleaned zaida area prior to calhoun catheter placement. Patient also has redness to patient's folds. These areas cleaned as well on admission. Dry skin observed and flaking to bilateral lower extremities. Dr Roy saw these and is aware. Covering service notified. Patient presents with lethargy. Orders reviewed & will continue to monitor. Patient and/or training representative oriented to environment, equipment, and informed of the following as found in the admission booklet: patient rights & responsibilities, visitor policy, hand and respiratory hygiene practice. Other education includes: calhoun care/placement. Patient is unaware of teaching at this time. Patient has bipap in place at this time for elevated CO2 levels and continued lethargy. Calhoun catheter was placed as ordered using aseptic technique. No other distresses observed. Will continue to monitor frequently.
[2020-12-31 06:38] LABS: Glucose Point of Care 206 mg/dL (70-110)
[2020-12-31] MEDS: insulin glargine 100 units/1 mL 30 UNIT SUBCUT (08:21)
[2020-12-31] MEDS: insulin lispro 100 unit/1 mL SUBCUT (08:21)
--- NOTE | 2020-12-31 09:10 | PC.CHAP ---
Pastoral Care Encounter/Spiritual Assessment Type of Contact [] Declined bank messenger visit [] Patient/Family/Request visit [] Outpatient visit [] Follow-up visit [] Physician referral [] Code/Alert [x] Routine visit [] Staff referral [] Actively dying [] Patient sleeping [] Family support [] [] Out of room [] Palliative care [] [] Receiving care in room [] Pre-surgical visit [] Trauma [] Long length of stay [] ICU visit [] Other: Relational/Emotional Strength [] Patient feels connected with others/family/visitors/staff [] Distress [] Loneliness/isolation [] Abandonment Spirituality of Patient [] Person of Keren [] Attends Congregational of their Keren [] Believes in Prayer [] Reads Bible or Yazidism materials [] There are Spiritual issues to be addressed 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 Interventions [x] Prayer [] Active listening [] Non-anxious presence [] Spiritual/emotional support [] Crisis/trauma care [] Spiritual counseling [] Bereavement support [] Provided bereavement packet [] Provided Bible/devotional materials [] Provided toy/stuffed animal, coloring book to patient or family member [] Provided Communion [] Anointing/[place] [] Salvation [x] Completed spiritual assessment [] Other: Impact on Illness or Injury [] Angry [] Fearful [] Anxious [] Often cries [] Exhaustion [] Unable to work [] Unable to attend christianity [] Unable to walk/stand [] Unable to read [] Unable to drive [] Unable to eat/drink [] Unable to sleep [] Unable to be with family [] Patient intubated [] Other: Summary patient sleeping... having difficulty with breathing device Time spent with patient 5 min
--- NOTE | 2020-12-31 10:58 | PM.PN ---
Subjective Subjective: Interval history: Patient was seen and examined this morning, she was kept on BiPAP overnight, when I saw her in the morning she was alert and awake, wanted to eat. Her other vitals and labs have been reviewed. Medications: Reviewed: Yes Vitals/I&O/Wt Last Vital Signs Temp 98 F 12/31/20 04:56 Pulse 73 12/31/20 09:58 Resp 16 12/31/20 06:05 BP 121/67 12/31/20 09:58 Pulse Ox 97 12/31/20 09:58 Weight last 48 hrs Weight 126.144 kg Weight 135.171 kg Physical Exam Const: COMMON NORMALS: patient oriented x3 HENMT: COMMON NORMALS: normocephalic and atraumatic HEAD & SCALP: normocephalic and atraumatic Resp: COMMON NORMALS: clear to auscultation bilaterally AUSCULTATION: clear to auscultation bilaterally Cardio: COMMON NORMALS: regular rate, regular rhythm, S1 normal heart sound present, S2 normal heart sound present, No gallops present (Cardio), No murmurs present (Cardio), No rub (Cardio) and Peripheral pulses 2+ throughout RATE: regular rate RHYTHM: regular rhythm HEART SOUNDS: S1 normal heart sound present and S2 normal heart sound present PERIPHERAL PULSES: Peripheral pulses 2+ throughout GI: COMMON NORMALS: Normal to inspection, nondistended, normoactive bowel sounds present, Soft to palpation, non-tender, No hepatosplenomegaly present and no masses AUSCULTATION: Yes normoactive bowel sounds PALPATION: Yes Soft to palpation and Yes No hepatosplenomegaly present RECTAL EXAM: deferred : COMMON NORMALS: Yes no CVA tenderness BLADDER/KIDNEY EXAM: Yes no CVA tenderness Back/Pelvis: COMMON NORMALS: no CVA tenderness Extremity: COMMON NORMALS: no clubbing, cyanosis or edema and no pedal edema Neuro: COMMON NORMALS: patient oriented x3 Urinary Catheter Management^: Chowdary: Cath Placed During This Visit: yes Reason for Continuing Indwelling Catheter: Acute Urinary Retention or Obstruction Urinary Catheter Date of Insertion: 12/31/20 Urinary Catheter Time of Insertion: 04:58 Data : 12/31/20 01:30 12/31/20 01:30 A&P Assessment and plan (1) Acute on chronic respiratory failure with hypercapnia: Currently compensated hypercapnic respiratory failure Currently patient is on BIPAP. Will transition her to nasal canula as she is alert and awake and wants to eat and drink. Continue BIPAP at night. Monitor ABG Continue air sampling and monitoring Status: Acute (2) CHF (congestive heart failure): Currently euvolemic Continue Lasix 40 mg p.o. daily Intake output charting Daily weight Status: Acute (3) Hypertension: Hydralazine 50 mg p.o. 3 times daily Status: Chronic Qualifiers: Hypertension type: essential hypertension Qualified Code(s): I10 - Essential (primary) hypertension (4) COPD (chronic obstructive pulmonary disease): DuoNebs Supplemental oxygen as needed Status: Chronic (5) Atrial fibrillation: Currently rate controlled Continue Eliquis for anticoagulation Status: Acute (6) Type 2 diabetes mellitus, with long-term current use of insulin: Lantus 30 units subcu daily Sliding scale insulin Diabetic diet Status: Chronic Qualifiers: Diabetes mellitus complication status: with neurologic complications Diabetes mellitus complication detail: with polyneuropathy Qualified Code(s): E11.42 - Type 2 diabetes mellitus with diabetic polyneuropathy; Z79.4 - group home (current) use of insulin (7) 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: Levothyroxine 25 mcg p.o. daily Status: Chronic Qualifiers: 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 type: acquired Qualified Code(s): E03.9 - 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, unspecified (8) Sleep apnea, obstructive: Status: Chronic Additional A&P Information DVT ppx - SCDS - Eliquis Attestations Medical Necessity Statement*: Patient is to be in the hospital for management of hypercapnic respiratory failure. Coding Level of Care Code Acute Field Tech for [facility] Fwd Diagnoses Acute on chronic respiratory failure with hypercapnia J96.22 CHF (congestive heart failure) I50.9 Hypertension I10 Hypertension type: essential hypertension COPD (chronic obstructive pulmonary disease) J44.9 Atrial fibrillation I48.91 Type 2 diabetes mellitus, with long-term current use of insulin E11.42; Z79.4 Diabetes mellitus complication status: with neurologic complications Diabetes mellitus complication detail: with polyneuropathy 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 E03.9 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 type: acquired Sleep apnea, obstructive G47.33
--- NOTE | 2020-12-31 12:23 | PC.PT ---
Physical therapy evaluation on hold awaiting further determinations by family and social group worker/ocular care aide; currently patient is [place] lift at custodial and does not participate in her care, per custodial staff, therefore inappropriate for physical therapy services at this time, will follow.
[2020-12-31 12:44] LABS: Glucose Point of Care 105 mg/dL (70-110)
[2020-12-31] MEDS: gabapentin 300 mg Capsule 600 MG PO ×2 (13:13→14:59)
[2020-12-31] MEDS: hyDRALAzine 50 mg Tablet PO ×2 (13:14→15:00)
[2020-12-31] MEDS: pantoprazole DR 40 mg Tablet PO (13:14)
[2020-12-31] MEDS: levothyroxine 25 mcg Tablet PO (13:15)
[2020-12-31] MEDS: apixaban 5 mg Tablet PO (13:15)
[2020-12-31] MEDS: FUROsemide 40 mg Tablet PO (13:15)
[2020-12-31 18:01] LABS: ABG PCO2 83.1 mmHg (35-45)
[2020-12-31 18:23] LABS: Glucose Point of Care 99 mg/dL (70-110)
[2020-12-31 20:46] LABS: Glucose Point of Care 88 mg/dL (70-110)
[2021-01-01] VITALS (12 sets, daily range): BP systolic 114–172; BP diastolic 61–77; PULSE 66–88; RESP 18–27; TEMP 37.3–37.5; O2SAT 90–97; BMI 44.5
[2021-01-01 05:17] LABS: Basophils # 0.1 10^3/uL (0.0-0.1); Basophils % 0.6 %; Eosinophils # 0.3 10^3/uL (0.0-0.8); Eosinophils % 3.1 %; Hemoglobin 10.7 g/dL (11.5-15.3); Lymphocytes # 2.7 10^3/uL (0.8-4.8); Lymphocytes % 27.4 %; Mean Corpuscular HGB Conc 28.9 g/dL (30.0-36.0); Mean Corpuscular Hemoglobin 27.1 pg (28.0-34.0); Mean Corpuscular Volume 93.7 fl (81-99); Mean Platelet Volume 10.2 fL (7.4-10.4); Monocytes # 1.1 10^3/uL (0.2-0.9); Monocytes % 10.7 %; Neutrophils # 5.59 10^3/uL (1.8-7.7); Neutrophils % 57.3 %; Nucleated Red Blood Cells % 0 %; Platelet Count 218 10^3/cmm (130-400); Red Blood Count 3.95 10^6/uL (4.1-5.3); Red Cell Distribution Width 15.8 % (12.1-15.1); White Blood Count 9.8 10^3/uL (4.0-10.0)
[2021-01-01 05:31] LABS: Alanine Aminotransferase 12 U/L (0-33); Albumin Level 3.2 g/dL (3.5-5.2); Alkaline Phosphatase 69 IU/L (35-105); Aspartate Amino Transferase 17 U/L (0-32); Blood Urea Nitrogen 22 mg/dL (8-23); Calcium 9.2 mg/dL (8.5-10.5); Chloride 87 mmol/L (98-107); Glucose 90 mg/dL (65-115); Magnesium 1.5 mg/dL (1.7-2.3); Osmolality Calculated 295 mOsm/kg (285-295); Potassium 3.8 mmol/L (3.5-5.1); Sodium 141 mmol/L (136-145); Total Bilirubin 0.3 mg/dL (0.15-1.2); Total Protein 6.2 g/dL (6.6-8.7)
[2021-01-01 05:43] LABS: Procalcitonin 0.18 ng/mL (0-0.5)
[2021-01-01 05:50] LABS: Anion Gap 8.8 (5-19)
[2021-01-01 05:54] LABS: Carbon Dioxide 49 mmol/L (22-29); Creatinine Clr Calc Pharmacy 63.6802
[2021-01-01 06:29] LABS: Glucose Point of Care 101 mg/dL (70-110)
--- NOTE | 2021-01-01 06:36 | PC.NURSE ---
Addendum entered by Marilee Xiao RN 01/01/21 06:40: Pt SpO2 dropped to 85% on bipap with Fio2 at 50%. Increased FiO2 to 65% and SpO2 increased to 92%. RT aware. Original Note: End of shift Uneventful night. Pt remains responsive to painful stimuli only. Unable to administer PO meds. aware.
[2021-01-01] MEDS: gabapentin 300 mg Capsule 600 MG PO ×3 (08:31→20:51)
[2021-01-01] MEDS: pantoprazole DR 40 mg Tablet PO (08:32)
[2021-01-01] MEDS: apixaban 5 mg Tablet PO ×2 (08:32→17:30)
[2021-01-01] MEDS: FUROsemide 40 mg Tablet PO (08:32)
[2021-01-01] MEDS: hyDRALAzine 50 mg Tablet PO ×3 (08:32→20:51)
[2021-01-01] MEDS: insulin glargine 100 units/1 mL 30 UNIT SUBCUT (08:32)
[2021-01-01] MEDS: acetaminophen 325 mg Tablet 650 MG PO ×2 (08:36→23:29)
--- NOTE | 2021-01-01 10:18 | PC.CHAP ---
Pastoral Care Encounter/Spiritual Assessment Type of Contact [] Declined public health engineer visit [] Patient/Family/Request visit [] Outpatient visit [] Follow-up visit [] Physician referral [] Code/Alert [x] Routine visit [] Staff referral [] Actively dying [] Patient sleeping [] Family support [] [] Out of room [] Palliative care [] [x] Receiving care in room [] Pre-surgical visit [] Trauma [x] Long length of stay [] ICU visit [] Other: Relational/Emotional Strength [x] Patient feels connected with others/family/visitors/staff [] Distress [] Loneliness/isolation [] Abandonment Spirituality of Patient [x] Person of Keren [] Attends Yazdanism of their Keren [x] Believes in Prayer [] Reads Bible or Sikh materials [] There are Spiritual issues to be addressed Hub Borer Interventions [x] Prayer [x] Active listening [x] Non-anxious presence [x] Spiritual/emotional support [] Crisis/trauma care [x] Spiritual counseling [] Bereavement support [] Provided bereavement packet [] Provided Bible/devotional materials [] Provided toy/stuffed animal, coloring book to patient or family member [] Provided Communion [] Anointing/Converse [] Salvation [x] Completed spiritual assessment [] Other: Impact on Illness or Injury [] Angry [] Fearful [x] Anxious [] Often cries [] Exhaustion [x] Unable to work [] Unable to attend mosque [] Unable to walk/stand [] Unable to read [] Unable to drive [] Unable to eat/drink [] Unable to sleep [] Unable to be with family [] Patient intubated [] Other: Summary she is life supportis able coomunicate doesn't know about her health condision is concerned not use when she can go home Time spent with patient 10 mins
[2021-01-01 13:40] LABS: Glucose Point of Care 130 mg/dL (70-110)
[2021-01-01] MEDS: acetaZOLAMIDE 250 mg Tablet PO (14:05)
--- NOTE | 2021-01-01 14:33 | P.PN_ITS ---
Subjective Subjective: Interval history: Patient was seen and examined this morning, currently she is requiring 6 L oxygen through nasal cannula, much higher than home oxygen 2 Ls, she stayed on BiPAP last night, when I saw her this morning,she was seen sitting in the chair and eating her breakfast, she was alert , awake oriented. Medications: Reviewed: Yes Vitals/I&O/Wt Last Vital Signs Temp 99.5 F 01/01/21 03:29 Pulse 66 01/01/21 14:04 Resp 26 H 01/01/21 14:04 BP 122/77 01/01/21 14:04 Pulse Ox 97 01/01/21 14:04 12/31/20 01/01/21 01/01/21 22:59 06:59 14:59 Intake Total 240 / 240 Output Total 1200 / 1200 250 / 1450 Balance -1200 / -1200 -250 / -1450 240 / 240 Weight last 48 hrs Weight 125.101 kg Weight 126.144 kg Weight 135.171 kg Physical Exam Const: COMMON NORMALS: patient oriented x3 HENMT: COMMON NORMALS: normocephalic and atraumatic HEAD & SCALP: nor mocephalic and atraumatic Resp: COMMON NORMALS: clear to auscultation bilaterally AUSCULTATION: clear to auscultation bilaterally Cardio: COMMON NORMALS: regular rate, regular rhythm, S1 normal heart sound present, S2 normal heart sound present, No gallops present (Cardio), No murmurs present (Cardio), No rub (Cardio) and Peripheral pulses 2+ throughout RATE: regular rate RHYTHM: regular rhythm HEART SOUNDS: S1 normal heart sound present and S2 normal heart sound present PERIPHERAL PULSES: Peripheral pulses 2+ throughout GI: COMMON NORMALS: Normal to inspection, nondistended, normoactive bowel so unds present, Soft to palpation, non-tender, No hepatosplenomegaly present and no masses AUSCULTATION: Yes normoactive bowel sounds PALPATION: Yes Soft to palpation and Yes No hepatosplenomegaly present RECTAL EXAM: deferred Extremity: COMMON NORMALS: no clubbing, cyanosis or edema and no pedal edema Neuro: COMMON NORMALS: patient oriented x3 Urinary Catheter Management^: Chowdary: Cath Placed During This Visit: yes Reason for Continuing Indwelling Catheter: Acute Urinary Retention or Obstruction Urinary Catheter Date of Insertion: 12/31/20 Urinary Catheter Time of Insertion: 04:58 Data : 01/01/21 04:13 01/01/21 04:13 A&P Assessment and plan (1) Acute on chronic respiratory failure with hypercapnia: compensated hypercapnic respiratory failure Currently patient is on BIPAP. Will transition her to nasal canula as she is alert and awake and wants to eat and drink. Continue BIPAP at night. Monitor ABG Continue compliance monitor Status: Acute (2) CHF (congestive heart failure): Currently euvolemic Continue Lasix 40 mg p.o. daily Acetazolamide 250 mg po daily Intake output charting Daily weight Status: Acute (3) Hypertension: Hydralazine 50 mg p.o. 3 times daily Status: Chronic Qualifiers: Hypertension type: essential hypertension Qualified Code(s): I10 - Essential (primary) hypertension (4) COPD (chronic obstructive pulmonary disease): DuoNebs Supplemental oxygen as needed Status: Chronic (5) Atrial fibrillation: Currently rate controlled Continue Eliquis for anticoagulation Status: Acute (6) Type 2 diabetes mellitus, with long-term current use of insulin: Lantus 30 units subcu daily Sliding scale insulin Diabetic diet Status: Chronic Qualifiers: Diabetes mellitus complication status: with neurologic complications Diabetes mellitus complication detail: with polyneuropathy Qualified Code(s): E11.42 - Type 2 diabetes mellitus with diabetic polyneuropathy; 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 daily Status: Chronic Qualifiers: 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 type: acquired Qualified Code(s): E03.9 - 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, unspecified (8) Sleep apnea, obstructive: Status: Chronic Additional A&P Information DVT ppx - SCDS - Eliquis Attestations Medical Necessity Statement*: Patient needs to be in hospital for management of hypercapnic respiratory failure. Coding Level of Care Code Acute Tower Observer for [facility] Fwd Diagnoses Acute on chronic respiratory failure with hypercapnia J96.22 CHF (congestive heart failure) I50.9 Hypertension I10 Hypertension type: essential hypertension COPD (chronic obstructive pulmonary disease) J44.9 Atrial fibrillation I48.91 Type 2 diabetes mellitus, with long-term current use of insulin E11.42; Z79.4 Diabetes mellitus complication status: with neurologic complications Diabetes mellitus complication detail: with polyneuropathy 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 E03.9 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 type: acquired Sleep apnea, obstructive G47.33
[2021-01-01] MEDS: insulin lispro 100 unit/1 mL SUBCUT ×2 (17:30→20:51)
[2021-01-01 17:51] LABS: Glucose Point of Care 209 mg/dL (70-110)
--- NOTE | 2021-01-01 18:11 | PC.NURSE ---
Shift Note Frequent safety and comfort rounds continue. Orders and/or nursing care completed as indicated. Patient monitored for response to intervention and treatment(s). Education provided includes use of Bipap at fdc. Patient and/or credit representative verbalized understanding needs reinforcement. Will continue to monitor.
--- NOTE | 2021-01-01 18:35 | PC.PT ---
PT remains on hold,until/unless new orders received,D/T pt remains at her prior level of function,pt supposed to return to [place] and claritza lift transfers tuesday.
[2021-01-01 20:19] LABS: Glucose Point of Care 142 mg/dL (70-110)
[2021-01-01] MEDS: atorvastatin 40 mg Tablet 20 MG PO (20:51)
[2021-01-02] VITALS (10 sets, daily range): BP systolic 111–151; BP diastolic 58–78; PULSE 71–80; RESP 18–26; TEMP 36.6–37; O2SAT 87–97
[2021-01-02] MEDS: lanolin oint 7 gm 1 APPLIC TOPICAL (01:32)
[2021-01-02] MEDS: aspirin 81 mg Chew Tablet PO (06:20)
[2021-01-02] MEDS: acetaminophen 325 mg Tablet 650 MG PO (06:20)
[2021-01-02] MEDS: levothyroxine 25 mcg Tablet PO (06:20)
[2021-01-02 06:36] LABS: Glucose Point of Care 92 mg/dL (70-110)
[2021-01-02] MEDS: gabapentin 300 mg Capsule 600 MG PO ×2 (08:22→15:57)
[2021-01-02] MEDS: acetaZOLAMIDE 250 mg Tablet PO (08:25)
[2021-01-02] MEDS: FUROsemide 40 mg Tablet PO (08:25)
[2021-01-02] MEDS: hyDRALAzine 50 mg Tablet PO ×2 (08:25→15:57)
[2021-01-02] MEDS: pantoprazole DR 40 mg Tablet PO (08:26)
[2021-01-02] MEDS: insulin glargine 100 units/1 mL 30 UNIT SUBCUT (08:26)
[2021-01-02] MEDS: apixaban 5 mg Tablet PO (08:26)
[2021-01-02] MEDS: insulin lispro 100 unit/1 mL SUBCUT (11:27)
[2021-01-02 11:31] LABS: Glucose Point of Care 202 mg/dL (70-110)
--- NOTE | 2021-01-02 11:36 | PM.DCS ---
Discharge Providers Date of Admission: 12/31/20 03:52 Date of Discharge: January 02, 2021 Attending Provider at Admission: Kristy Roy Attending Provider at Discharge: Nicholas Marina MD Primary Care Provider: Viri Molina DO Diagnoses at Discharge Discharge Diagnosis (1) Acute on chronic respiratory failure with hypercapnia: Status: Acute (2) CHF (congestive heart failure): Status: Acute (3) Hypertension: Status: Chronic Qualifiers: Hypertension type: essential hypertension Qualified Code(s): I10 - Essential (primary) hypertension (4) COPD (chronic obstructive pulmonary disease): Status: Chronic (5) Atrial fibrillation: Status: Acute (6) Type 2 diabetes mellitus, with long-term current use of insulin: Status: Chronic Qualifiers: Diabetes mellitus complication detail: with polyneuropathy Diabetes mellitus complication status: with neurologic complications Qualified Code(s): E11.42 - Type 2 diabetes mellitus with diabetic polyneuropathy; 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 Patient was recently admitted to the hospital with similar complaint and discharged on 12/23/2020. Patient was unable to provide history. Laboratory work-up on arrival showed a WBC of 9.6, hemoglobin 11.3, hematocrit of 40.0 and a platelet count of 220. INR 1.12. Sodium 142, potassium 3.8, chloride 88, bicarb 49, BUN 20 and a creatinine of 1.0. AST of 14, ALT of 14 and alkaline phosphatase of 79 proBNP of 3770. Arterial blood gas showed a pH of 7.41, PCO2 of 85.7, PO2 of 98.9 and a bicarb of 54. Chest x-ray showed patchy bibasilar atelectasis or infiltrates. Patient was placed on BiPAP and admitted. Patient was admitted for management of Compensated hypercapnic respiratory failure she was continued on BiPAP duo nebs, and other conservative pulmonary supportive measures.See did well with BiPAP use, at the time of discharge, her supplemental oxygen requirement was slightly higher than her baseline requirement of 2-3 Ls, she was requiring 4 Ls at the time of discharge. Pulmonary medicine was consulted as steve, they will see her as an outpatient, she will follow Dr. Muse as an outpatient. Her mentation was at her baseline at the time of discharge she was alert oriented x3.for history of A. fib heart rate was well controlled. On anticoagulation (Eliquis 5 mg p.o. twice daily ), for history of heart failure with preserved ejection fraction she was continued on Lasix 40 mg p.o. daily as she was euvolemic. Diamox 250 po daily was added for 7 days as her serum bicarb is extremely high.She was also managed for her hypothyroidism was continued on levothyroxine 25 mcg p.o. daily. She was continued to be managed for her other comorbid conditions. She has also agreed to see cardiology as an outpatient for management of her heart failure and A. fib.Appointments for both cardiology and pulmonary medicine is being made. She will continue to follow with primary care physician as an outpatient.She will have to continue to use BiPAP at the residential regularly at night. Physical Exam Const: COMMON NORMALS: patient oriented x3 HENMT: COMMON NORMALS: normocephalic and atraumatic HEAD & SCALP: normocephalic and atraumatic Resp: COMMON NORMALS: clear to auscultation bilaterally AUSCULTATION: clear to auscultation bilaterally Cardio: COMMON NORMALS: regular rate, regular rhythm, S1 normal heart sound present, S2 normal heart sound present, No gallops present (Cardio), No murmurs present (Cardio), No rub (Cardio) and Peripheral pulses 2+ throughout RATE: regular rate RHYTHM: regular rhythm HEART SOUNDS: S1 normal heart sound present and S2 normal heart sound present PERIPHERAL PULSES: Peripheral pulses 2+ throughout GI: COMMON NORMALS: Normal to inspection, nondistended, normoactive bowel sounds present, Soft to palpation, non-tender, No hepatosplenomegaly present and no masses AUSCULTATION: Yes normoactive bowel sounds PALPATION: Yes Soft to palpation and Yes No hepatosplenomegaly present RECTAL EXAM: deferred Extremity: COMMON NORMALS: no clubbing, cyanosis or edema and no pedal edema Neuro: COMMON NORMALS: patient oriented x3 Urinary Catheter Management^: Chowdary: Cath Placed During This Visit: yes Reason for Continuing Indwelling Catheter: Acute Urinary Retention or Obstruction Urinary Catheter Date of Insertion: 12/31/20 Urinary Catheter Time of Insertion: 04:58 Discharge Data Data Completed and Pending: Completed Studies During Hospitalization Category Date Time Status XR chest 1V [place] ble [id number] Urgent Exams 12/31/20 01:26 Completed Labs from last 24 hours 01/02/21 01/02/21 01/01/21 11:02 06:28 20:05 POC Glucose 202 H 92 142 H 01/01/21 01/01/21 16:35 11:51 POC Glucose 209 H 130 H Vitals: Last Vital Signs Temp 98.0 F 01/02/21 09:09 Pulse 80 01/02/21 09:09 Resp 24 H 01/02/21 09:09 BP 134/63 01/02/21 09:09 Pulse Ox 97 01/02/21 09:09 Discharge Plan Discharge Patient Disposition: Home Condition: Stable Prescriptions: New acetazolamide 250 mg Tablet 250 mg PO DAILY 7 Days Qty: 7 RF: 0 Continued methenamine hippurate 1 gram tablet 1 g PO BID@0700,1999 Qty: 180 RF: 1 gabapentin 600 mg tablet 600 mg PO TID Qty: 90 RF: 1 levothyroxine 25 mcg tablet 25 mcg PO DAILY@0700 90 Days Qty: 90 RF: 1 pantoprazole 40 mg tablet,delayed release (DR/EC) 40 mg PO DAILY@0700 90 Days Qty: 90 RF: 1 aspirin 81 mg Tablet,Chewable 81 mg PO DAILY@0700 RF: 0 furosemide 40 mg Tablet 40 mg PO DAILY RF: 0 ondansetron HCl 4 mg Tablet 4 mg PO Q4H RF: 0 lovastatin 20 mg tablet 20 mg PO BEDTIME Qty: 30 RF: 3 albuterol sulfate 0.63 mg/3 mL Solution For Nebulization 0.63 mg INHALATION Q4H PRN (Reason: Shortness Of Breath) RF: 0 acetaminophen 325 mg Tablet 650 mg PO Q6H PRN (Reason: Pain) RF: 0 Lantus U-100 Insulin 100 unit/mL Solution 30 unit SUBCUT DAILY RF: 0 magnesium hydroxide [Milk of Magnesia] 400 mg/5 mL Suspension 30 ml PO DAILY PRN (Reason: Constipation) RF: 0 bisacodyl 10 mg Suppository 10 mg [place] DAILY PRN (Reason: Constipation) RF: 0 hydralazine 50 mg Tablet 50 mg PO TID RF: 0 nystatin [Nystop] 100,000 unit/gram Powder 1 applic TOPICAL BID PRN (Reason: Rash) RF: 0 insulin aspart U-100 [Novolog Flexpen U-100 Insulin] 100 unit/mL (3 mL) Insulin Pen See Rx Instructions .ROUTE .COMPLEX RF: 0 insulin aspart U-100 [Novolog Flexpen U-100 Insulin] 100 unit/mL (3 mL) Insulin Pen 5 unit SUBCUT TIDWM RF: 0 Eliquis 5 mg Tablet 5 mg PO BID RF: 0 ipratropium-albuterol 0.5 mg-3 mg(2.5 mg base)/3 mL solution for nebulization 3 ml INHALATION TID PRN (Reason: shortness of breath or wheezing) RF: 0 potassium chloride 10 mEq capsule, extended release 10 meq PO DAILY Qty: 30 RF: 0 Referrals: Saul Muse MD [Physician] - 2 weeks Viri Molina DO [Primary Care Provider] - 2 weeks Tyesha Crawley MD [Physician] - 2 weeks Discharge Diet: Diabetic Discharge Activity: Resume usual activity Patient Instructions: Opioid Safety Discharge Attestations Time Spent in Discharge Care*: less than 30 min Specific Discharge Activities: educating patient, educating and/or supporting family/caregiver, discussing with pcp/other providers, discussing with social work case manager/social workers/dc planners, documenting/other paperwork and evaluating patient/reviewing data Status at Discharge: Cognitive status at discharge: cognitively intact, Behavioral status at discharge: cooperative, Functional status at discharge: other assisted ambulation Overall status at discharge: patient is back to baseline Quality Metrics Clinical Quality Measures During this hospital stay, did patient experience: None Coding Level of Care Code Acute Chg FW DC note Diagnoses Acute on chronic respiratory failure with hypercapnia J96.22 CHF (congestive heart failure) I50.9 Hypertension I10 Hypertension type: essential hypertension COPD (chronic obstructive pulmonary disease) J44.9 Atrial fibrillation I48.91 Type 2 diabetes mellitus, with long-term current use of insulin E11.42; Z79.4 Diabetes mellitus complication detail: with polyneuropathy Diabetes mellitus complication status: with neurologic complications 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 E03.9 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 type: acquired Sleep apnea, obstructive G47.33
--- NOTE | 2021-01-02 13:17 | DCPLANNER ---
Though patient is being discharged to SNF, Dr. Marina asked I reach out and make her appointments. Unfortunately[facility] were [facility] closed and all back up numbers were not being answered in their office. Same as for Dr. Molina's office. I had to do as I would if this was the weekend and fax appointment orders to each department. I tried.
--- NOTE | 2021-01-02 16:06 | PC.RESP ---
PULMONARY REHAB INFORMATION SENT TO PATIENT.
[2021-01-02 18:01] LABS: Glucose Point of Care 146 mg/dL (70-110)
--- NOTE | 2021-01-02 18:55 | PC.NURSE ---
D/C held up due to transport. [facility] just arrived to take pt back to [facility]. Pt IV and calhoun removed.
== END 2021-01-02 18:56 | disposition home or self-care (01) ==
LOC: ER 01:59 → CSU 04:23
PROVIDERS: Admitting Provider Hospitalist; Emergency Provider Emergency Medicine; PCP Family Medicine; Visit Provider Internal Medicine
DX: J96.22 Acute and chronic respiratory failure with hypercapnia (principal); I11.0 Hypertensive heart disease with heart failure; I50.9 Heart failure, unspecified; J44.9 Chronic obstructive pulmonary disease, unspecified; I48.91 Unspecified atrial fibrillation; E11.42 Type 2 diabetes mellitus with diabetic polyneuropathy; Z79.4 Long term (current) use of insulin; E03.9 Hypothyroidism, unspecified; G47.33 Obstructive sleep apnea (adult) (pediatric); E78.5 Hyperlipidemia, unspecified; Z79.01 Long term (current) use of anticoagulants
CPT/HCPCS: 36415; 36416; 36600; 51702; 71045; 80053; 82803; 82805; 82962; 83605; 83735; 83880; 84145; 85025; 85610; 93005; 94660; 94664; 96372; 99291; G0378; J1815 ×2

== ENCOUNTER → 2021-01-19 11:50 | Outpatient (BNVA) | payer MEDICARE, MEDICAID, SELFPAY | PROVIDERS: PCP Internal Medicine; Visit Provider Internal Medicine Cardiovascular Disease | DX: R06.02 Shortness of breath; R06.00 Dyspnea, unspecified; E78.5 Hyperlipidemia, unspecified; I50.33 Acute on chronic diastolic (congestive) heart failure; I48.91 Unspecified atrial fibrillation; E66.2 Morbid (severe) obesity with alveolar hypoventilation; E11.42 Type 2 diabetes mellitus with diabetic polyneuropathy; Z79.4 Long term (current) use of insulin | CPT/HCPCS: 80048; 83880 ==

== ENCOUNTER 2021-03-03 07:24 | Outpatient (CLI) | payer MEDICARE, MEDICAID, SELFPAY ==
[2021-03-03 08:11] VITALS: BMI 48.4
--- NOTE | 2021-03-03 08:16 | ECG_ITS ---
[facility] Test Date: 2021-03-03 Pat Name: Irina Velasquez Department: Room: Gender: Female Director Life Sciences: Becky Zhang : 1945 Requested By: Jane Calvillo Order Number: [id number] Percy MD: Jane Calvillo M.D. Interpretive Statements NAME OF STUDY: LEXISCAN SESTAMIBI STRESS TEST INDICATION: Chest Pain, PROCEDURE: At the baseline, the EKG revealed atrial fibrillation with a controlled ventricular response rate and frequent PVCs. The baseline blood pressure was 136/95 mm Hg with a heart rate of 74 beats/min. Lexiscan was infused over a period of 20 seconds. A total of 0.4 milligrams of Lexiscan was infused. The stress phase was continued for a total of 5 minutes. Heart rate at the end of the stress phase was 90 with a blood pressure 107/71. The EKG at the peak infusion revealed almost disappearance of the baseline PVCs. Sestamibi was injected 20 seconds after the Lexiscan infusion. Blood pressure at the end of the recovery phase was 145/73 with a heart rate of 81 per minute. CONCLUSION: 1. No significant EKG changes with the LexiScan infusion 2. No LexiScan induced chest pain or cardiac arrhythmia . disappearance of the baseline PVCs with the peak infusion 3. Normal blood pressure and heart rate response 4. Sestamibi/sestamibi perfusion scan pending; see separate report. Electronically Signed On 03-06-2021 1:57:04 SECURITY INSTALLATION TECHNICIAN by Jane Calvillo M.D. [email or web address]
--- NOTE | 2021-03-03 08:23 | NMCV_ITS ---
NM laurel perf SPECT r/s* [id number] Irina Velasquez Age: 75 Gender: F : 1945 Exam Date: 03/03/2021 09:40 Ordering Phys: Jane Calvillo MD ([email or web address]) Technologist: MORRIS Max Exam Location: [facility] Indications: SHORTNESS OF BREATH STRESS TEST Please see separate stress test report in [facility] for full findings IMAGE PROTOCOL Rest/Stress 1 Lexiscan Day Radiopharmaceutical Dose (mCi) Administration Site Administered by Rest: Tc-99m 10.8 IV MORRIS Chiang Sestamibi Stress:Tc-99m 33.0 IV MORRIS Chiang Sestamibi Rest: 03-Mar-2021 60 Discovery 630 Stress: 03-Mar-2021 30 Discovery 630 0.4mg Lexiscan. Supine position only as patient was unable to lay prone. SPECT RESULTS Technical Quality: Excellent Raw Data Analysis: Normal Image Corrections: No attenuation or motion correction applied Summed Stress Score: 9 Summed Rest Score: 11 Summed Difference Score: 3 PERFUSION FINDINGS Moderate area of decreased aseptic in the mid and apical inferior, mid inferolateral, anterolateral, apical lateral and LV apex. Some reversibility was noted in the mid inferolateral and mid inferior regions FUNCTIONAL RESULTS (calculated via Gated SPECT) Stress Image LV EF (%): 70 Stress EDV (mL):120 TID: 0.95 Stress ESV (mL):36 FUNCTIONAL FINDINGS: Segmental wall motion analysis revealed mild hypokinesia of the LV apex IMPRESSIONS 1. Myocardial perfusion imaging revealing moderate area of decreased aseptic in the inferior, inferolateral, anterolateral and apical segments with significant reversibility, suggestive of myocardial scarring with ischemia mostly in the distribution of the left circumflex artery with some involvement in the right coronary artery. 2. Normal LV ejection fraction of 70%. 3. LV wall motion analysis revealing mild hypokinesia of the LV apex. 4. Normal LV volume. No similar previous studies are available for comparison Dr Jane Calvillo MD FACC (Electronically Signed) Final Date: 04 March 2021 19:54 S
[2021-03-03] MEDS: regadenoson 0.4 Mg/5 ml Syringe IVP (10:22)
[2021-03-03] MEDS: ondansetron 2 mg/ML SDV 2 mL 4 MG IVP (10:34)
[2021-03-03 10:37] VITALS: BP 145/73; PULSE 78
== END 2021-03-03 07:25 | disposition home or self-care (01) ==
PROVIDERS: PCP Internal Medicine; Visit Provider Internal Medicine Cardiovascular Disease
DX: I50.9 Heart failure, unspecified (principal); I48.91 Unspecified atrial fibrillation; R06.02 Shortness of breath
CPT/HCPCS: 78452; 93017; A9500; J2405; J2785

== ENCOUNTER 2021-03-11 10:35 | Outpatient (CLI) | payer MEDICARE, MEDICAID, SELFPAY ==
--- NOTE | 2021-03-11 11:00 | USCV_ITS ---
Irina Velasquez Age: 75 Gender: F : 1945 Exam Date: 03/11/2021 10:59 Ordering Phys: Jane Calvillo MD ([email or web address]) Technologist: Ruben Guerrero Exam Location: [facility] [place] Indication: dyspne, unspecified BP: 149 / 74 HR: 60 Rhythm: Sinus Technical Quality: Adequate MEASUREMENTS (Male / Female) Normal Values 2D ECHO LV Diastolic Diameter PLAX 3.5 cm 4.2 - 5.9 / 3.9 - 5.3 cm LV Systolic Diameter PLAX 2.4 cm IVS Diastolic Thickness 1.0 cm 0.6 - 1.0 / 0.6 - 0.9 cm IVS Systolic Thickness 1.4 cm LVPW Diastolic Thickness 1.1 cm 0.6 - 1.0 / 0.6 - 0.9 cm LVPW Systolic Thickness 1.3 cm LVOT Diameter 2.0 cm LV Ejection Fraction 2D Teich 58.0 % LV Ejection Fraction MOD 2C 66.9 % LV Ejection Fraction 2C AL 67.0 % LA Diameter 4.4 cm LA Width 3.5 cm LA Height 5.1 cm RA Width 4.0 cm RA Height 4.9 cm Aorta at Sinotubular Diameter 2.5 cm M-MODE Aortic Annulus Diameter 4.4 cm LA Ao Ratio MM 1.0 MV E Point Septal Separation 1.1 cm DOPPLER AV Peak Velocity 98.0 cm/s LVOT Peak Velocity 104.0 cm/s AV Area Cont Eq vti 2.9 cm squared AV Area Cont Eq pk 3.5 cm squared MV Area PHT 5.0 cm squared Mitral E to A Ratio 2.7 MV E' Velocity 70.5 cm/s Mitral E to MV E' Ratio 10.6 Mitral E to LV E' Lateral Ratio 10.7 Mitral E to LV E' Septal Ratio 10.6 TR Peak Velocity 156.0 cm/s TR Peak Gradient 9.7 mmHg TV Peak E Velocity 83.0 cm/s Right Atrial Pressure 3.0 mmHg Pulmonary Artery Systolic Pressu 12.7 mmHg FINDINGS Left Ventricle Possibly normal LV size and ejection fraction. Right Ventricle Possibly normal RV size and ejection fraction Right Atrium Right atrium not well visualized. Left Atrium Possibly of normal size Mitral Valve Moderate mitral annular calcification. Thickened mitral valve. Aortic Valve Could not be visualized well Tricuspid Valve Could not be visualized well Pulmonic Valve Pulmonic valve not well visualized. Pericardium Normal pericardium without effusion. Aorta Normal ascending aorta dimension. CONCLUSIONS Technically very difficult study because of the poor ultrasonic window. Possibly normal LV size and ejection fraction-67%. Possibly normal RV size and ejection fraction. Left atrium, possibly of normal size. Thickened mitral valve with a moderate mitral annular calcification There is no pericardial effusion. Comparison with the previous study is difficult because of the difference in the technical quality. Dr Jane Calvillo MD FACC (Electronically Signed) Final Date: 14 March 2021 15:55 S
== END 2021-03-11 10:36 | disposition home or self-care (01) ==
LOC: RAD 10:39
PROVIDERS: PCP Internal Medicine; Visit Provider Internal Medicine Cardiovascular Disease
DX: R06.00 Dyspnea, unspecified (principal); I50.9 Heart failure, unspecified; I05.9 Rheumatic mitral valve disease, unspecified
CPT/HCPCS: 93306

== ENCOUNTER 2021-03-19 12:41 | Emergency (ER) | payer MEDICARE, MEDICAID, SELFPAY ==
[2021-03-19] VITALS (7 sets, daily range): BP systolic 144–149; BP diastolic 67–83; PULSE 78–88; RESP 18–32; TEMP 36.7; O2SAT 89–98; BMI 48.4
--- NOTE | 2021-03-19 12:59 | CTR_ITS ---
PROCEDURE INFORMATION: Exam: CT Chest Without Contrast; Diagnostic Exam date and time: 03/19/2021 12:59 PM Age: 75 years old Clinical indication: Injury or trauma; Fall; Generalized; Blunt trauma (contusions or hematomas); Injury details: Dropped from claritza lift; Additional info: Fall R sided pain TECHNIQUE: Imaging protocol: Diagnostic computed tomography of the chest without contrast. Radiation optimization: All CT scans at this facility use at least one of these dose optimization techniques: automated exposure control; mA and/or kV adjustment per patient size (includes targeted exams where dose is matched to clinical indication); or iterative reconstruction. COMPARISON: CT pelvis wo con [id number] 11/23/2020 9:56 AM RADIATION DOSE METRICS: Total DLP (mGy-cm): 2305.29 FINDINGS: Thyroid: The bilateral thyroid lobes are unremarkable. Lungs: Bilateral posterior pulmonary partial passive atelectasis. Pleural spaces: No pneumothorax identified. Moderate-large right pleural effusion. Small left pleural effusion. Heart: Mitral annular calcification is present. LAD, LCx and RCA calcified coronary atherosclerosis. Mediastinal space: No mediastinal hematoma identified. Pulmonary arteries: The main and bilateral pulmonary arteries are enlarged with peripheral tapering. Aorta: Mild aortic arch, branch, and descending thoracic aortic atherosclerotic calcification without ectasia. Lymph nodes: No enlarged lymph nodes. Bones/joints: No acute thoracic spine or sternal fracture identified. Thoracic spine vertebral body marginal osteophytes are noted at multiple levels. Mildly displaced lateral right 2nd and 3rd rib fractures. Posterolateral minimally displaced lateral right 4th rib fracture. Displaced right posterolateral 5th, 7th, 8th, 9th and 10th rib fractures. Displaced posterior right 11th and 12th rib fractures. Lower thoracic spine bridging syndesmophytes suggesting chronic inflammatory spondylopathy. Soft tissues: Unremarkable. PROCEDURE INFORMATION: Exam: CT Abdomen And Pelvis Without Contrast Exam date and time: 03/19/2021 12:59 PM Age: 75 years old Clinical indication: Injury or trauma; Fall; Generalized; Blunt trauma (contusions or hematomas); Injury details: Dropped from claritza lift; Additional info: Fall R sided pain TECHNIQUE: Imaging protocol: Computed tomography of the abdomen and pelvis without contrast. Radiation optimization: All CT scans at this facility use at least one of these dose optimization techniques: automated exposure control; mA and/or kV adjustment per patient size (includes targeted exams where dose is matched to clinical indication); or iterative reconstruction. COMPARISON: CT pelvis wo con [id number] 11/23/2020 9:56 AM RADIATION DOSE METRICS: Total DLP (mGy-cm): 2305.29 FINDINGS: Liver: Normal. No mass. Gallbladder and bile ducts: The gallbladder is surgically absent, with metallic clips in the gallbladder fossa. The extrahepatic bile ducts are dilated, measuring 16.8 mm, tapering in the pancreatic head. No ductal calculus. Pancreas: Moderate pancreatic atrophy. No pancreatic mass or ductal dilatation identified. Spleen: Normal. No splenomegaly. Adrenal glands: Normal. No mass. Kidneys and ureters: Normal. No hydronephrosis. Stomach and bowel: Unremarkable. No obstruction. No mucosal thickening. Appendix: No evidence of appendicitis. Intraperitoneal space: No free air. No significant fluid collection. Vasculature: Moderate aortic atherosclerotic calcification without aneurysm. The iliac arteries show moderate bilateral atherosclerotic calcifications without evidence of aneurysm. Lymph nodes: No enlarged lymph nodes. Urinary bladder: The urinary bladder is drained by a Chowdary catheter. The urinary bladder is decompressed and difficult to assess. Reproductive: Unremarkable as visualized. Bones/joints: No pelvic or sacral fracture identified. Bilateral mild lower lumbar facet primary osteoarthritis. Lumbar spine vertebral body marginal osteophytes are noted at multiple levels. Soft tissues: Lower anterior abdominal wall subcutaneous adipose edema (lap belt injury?). CT/CT chest abd pel wo con IMPRESSION: 1. Moderate-large right pleural effusion. 2. Small left pleural effusion. 3. Multiple right-sided rib fractures. 4. Probable pulmonary arterial hypertension. Clinical correlation is recommended. 5. Chronic inflammatory spondylopathy. 6. Coronary atherosclerosis. 7. Please see the abdomen/pelvis CT report of the same date for additional findings. IMPRESSION: 1. Lack of IV contrast reduces sensitivity to abdominal solid visceral organ traumatic injury. IV contrast enhanced imaging may add additional useful information if not contraindicated. 2. Post cholecystectomy with extrahepatic biliary ductal dilatation. No ductal calculus identified. 3. Lower anterior abdominal wall subcutaneous adipose edema (lap belt injury?). 4. No acute intra-abdominal/intrapelvic injury identified, as visualized. 5. Please see the CT chest report of the same date for additional findings.
--- NOTE | 2021-03-19 12:59 | CTR_ITS ---
PROCEDURE INFORMATION: Exam: CT Head Without Contrast Exam date and time: 03/19/2021 12:59 PM Age: 75 years old Clinical indication: Injury or trauma; Fall; Blunt trauma (contusions or hematomas); Consciousness not specified; Injury details: Dropped from claritza lift TECHNIQUE: Imaging protocol: Computed tomography of the head without contrast. Radiation optimization: All CT scans at this facility use at least one of these dose optimization techniques: automated exposure control; mA and/or kV adjustment per patient size (includes targeted exams where dose is matched to clinical indication); or iterative reconstruction. COMPARISON: CT head wo con* [id number] 11/25/2020 11:53 PM RADIATION DOSE METRICS: Total DLP (mGy-cm): 1440.78 FINDINGS: Brain: Mild hypoattenuating foci are noted in the anterior lateral ventricular periventricular white matter bilaterally. No intracranial hemorrhage. No mass or acute cortical infarction identified. Cerebral ventricles: Prominence of the ventricular system and subarachnoid spaces is consistent with the patient's age of 75 years. Paranasal sinuses: Visualized sinuses are unremarkable. No fluid levels. Mastoid air cells: Visualized mastoid air cells are well aerated. Orbital cavity: Bilateral prior cataract surgery with lens replacements. Vasculature: Atherosclerotic calcifications are present involving the carotid artery siphons and vertebral arteries bilaterally. Bones/joints: No acute abnormality. No acute fracture. Soft tissues: Unremarkable. CT/CT head wo con* [id number] IMPRESSION: 1. Age appropriate supratentorial and infratentorial atrophy. 2. Mild chronic white matter microvascular ischemic disease. 3. No acute intracranial injury identified.
[2021-03-19] MEDS: acetaminophen 500 mg Tablet PO (13:14)
[2021-03-19] MEDS: morphine 4 mg/mL SDV 1 mL 2 MG IM (13:14)
--- NOTE | 2021-03-19 13:19 | ED_ITS ---
HPI - General Adult General: Chief complaint: Fall Stated complaint: FALL FROM CLOVIS LIFT Time Seen by Provider: 03/19/21 12:46 History of Present Illness: HPI narrative: Patient is a 75-year-old female with history of COPD on 2 L of home oxygen presenting from long-term after her Clovis lift that broke. Patient tells me that she fell down onto her right side. Patient complains of right back pain and right flank pain. Patient denies any LOC. No complaints of chest pain, shortness with palpitation, fever/chills cough, runny nose, diarrhea, melena hematochezia. Patient does not remember whether she is on any anticoagulation. Onset: 30 minutes ago Duration:30 minutes Location: long-term Severity:moderate Review of Systems Narrative: Constitutional: No fever, no chills. HEENT: No vision changes CV: No chest pain, no palpitations PULM: no cough, no dyspnea. GI: No abdominal pain, no N/V/D. : No dysuria MSKEL: No muscle pain SKIN: No new rashes, no lesions. NEURO: No headache, no focal weakness. HEME: No visible bruises PSYCH: Normal mood BACK: +R upper bakc and R CVA bruise and pain PFSH ED PFSH: Medical History (Updated 03/19/21 @ 18:42 by Олег Coleman MD) Acute on chronic respiratory failure with hypercapnia Atrial fibrillation CHF (congestive heart failure) Chronic back pain Chronic idiopathic constipation Chronic kidney disease, stage II (mild) COPD (chronic obstructive pulmonary disease) COPD (chronic obstructive pulmonary disease) Dyslipidemia Enrolled in chronic care management History of CVA (cerebrovascular accident) Hypertension 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 USP (current) use of opiate analgesic Obesity ABBY (obstructive sleep apnea) Sleep apnea, obstructive Type 2 diabetes mellitus, with long-term current use of insulin Venous stasis ulcers Surgical History History of cholecystectomy History of tonsillectomy and adenoidectomy S/P appendectomy Family History (Updated 01/19/21 @ 11:02 by Kiesha Toussaint RN) Sister Diabetes Lung disease Other Adopted Denies family history of CAD (coronary artery disease) Clotting disorder Dementia Chronic kidney disease (CKD) Suicide Anesthesia complication Bleeding disorder Cancer Stroke Social History Smoking and tobacco status: former smoker Quit status (tobacco): has quit using tobacco Year quit tobacco: 2017 Former quit date comment: 1ppd x 69 years Alcohol intake: never Household members: none and other Details: has some hospice home health aide services a few days per week Female Reproductive History: Date of last menstrual period: 06/12/20 Physical Exam Narrative: EXAM NARRATIVE: Head: Atraumatic Eyes: PERRL, conjunctiva without injection ENT: Mucous membrane moist NECK: Supple, ROM intact LUNGS: LCTAB, no crackles/rhonchi CV: RRR ABDOMEN: Soft, nontender in all quadrants EXTREMITY: Normal ROM SKIN: No rash or erythema NEURO: Awake and alert, no focal motor deficits PSYCH: Normal mood and affect BACK: +R paraspinal thoracic and lumbar tenderness to palpation Course Vital Signs: Vital signs: Vital Signs Temperature 98.1 F 03/19/21 12:52 Pulse Rate 87 03/19/21 20:00 Respiratory Rate 18 03/19/21 20:14 Blood Pressure 149/83 03/19/21 12:52 Pulse Oximetry 98 03/19/21 20:14 MDM - General Adult MDM Narrative: Medical decision making narrative: Patient is a 75-year-old female who presents emergency room after a fall from a Clovis lift earlier this today. Patient complains of right-sided thoracic and lumbar back pain. +R paraspinal lumbar and thoracic tenderness to palpation. Imaging study shows multiple R sided rib fractures. Patient is noted to have mildly displaced lateral right 2nd and 3rd rib fractures, posterolateral minimally displaced lateral right 4th rib fracture. Displaced right posterolate ral 5th, 7th, 8th, 9th and 10th rib fractures. Displaced posterior right 11th and 12th rib fractures. At 5:15pm, I performed shared decision-making with patient regarding admission versus discharge today, and patient prefers to be discharged. I explained patient that normally given number for fracture, we would observe them to ensure no of issues with pain. However this present time, patient asked to go back to the long-term. The risks of leaving the hospital today including respiratory depression and inadequate pain control discussed extensively with patient. Patient verbalizes understanding of these discussed risk and elect for the alternative of following up with orthopedics for rib fractures. Patient verbalizes understanding to return for any worsening symptoms including dyspnea, fever/chill, pain, or any new or concerning issues. Around 700, patient reports pain still continues to be uncontrolled. Patient would like to be admitted to the hospital at this time. Case was discussed with Dr. Lucio. Given the fact the patient has a large right-sided pleural effusion quiring higher oxygen and the fact that we do not have pulmonology this weekend during holiday times, patient will be transferred to outside facility. Case was discussed with Dr. Malcolm who agreed with the transfer to [facility] for management of rib fractures and R sided pleural effusion. Disposition: Transfer to outside hospital Lab Data: Labs: Lab Results 03/19/21 03/19/21 21:51 21:51 WBC 19.1 10^3/uL H 10 ^3/uL (4.0-10.0) RBC 3.39 10^6/uL L 10 ^6/uL (4.1-5.3) Hgb 9.7 g/dL L g/dL (11.5-15.3) Hct 31.2 % L % (37.0-47.0) MCV 92.0 fl fl (81-99) MCH 28.6 pg pg (28.0-34.0) MCHC 31.1 g/dL g/dL (30.0-36.0) RDW 15.7 % H % (12.1-15.1) Plt Count 256 10^3/cmm 10^3 /cmm (130-400) MPV 10.7 fL H fL (7.4-10.4) Neut % (Auto) 88.1 % % Lymph % (Auto) 7.0 % % [place] % (Auto) 4.1 % % Eos % (Auto) 0.0 % % Baso % (Auto) 0.3 % % Neut # (Auto) 16.80 10^3/uL H 1 0^3/uL (1.8-7.7) Lymph # (Auto) 1.3 10^3/uL 10^3/ uL (0.8-4.8) [place] # (Auto) 0.8 10^3/uL 10^3/ uL (0.2-0.9) Eos # (Auto) 0.0 10^3/uL 10^3/ uL (0.0-0.8) Baso # (Auto) 0.1 10^3/uL 10^3/ uL (0.0-0.1) Nucleated RBC % (a uto) 0 % % Nucleated RBCs # 0.0 /100WBC /100W BC Sodium Cancelled Potassium Cancelled Chloride Cancelled Carbon Dioxide Cancelled Anion Gap Cancelled BUN Cancelled Creatinine Cancelled GFR Calculation Cancelled Glucose Cancelled Calculated Osmolal ity Cancelled Calcium Cancelled Imaging Data^: Other Imaging: Radiologist's impression: [id number] Олег Coleman MD Find Patient NIRAJ - Irina Velasquez 75 F 1945 ACTIVITY DATE EXAM STATUS AUTHOR 03/19/21 12:59 Signed Hipolito Lovette 03/19/21 12:59 [facility] [place] [id number] Scan ReportSigned Patient: Irina Velasquez #: [id number]: 1945cct#:[id number]/Sex: 75 / FADM Date: 03/19/21Loc: ERRoom/Bed:Attending Dr: Ordering Provider/Ordering MD: Олег Coleman MD Date of Service: 03/19/21 Procedure(s): CT head wo con* [id number] Accession Number(s): [id number] Report Number: [id number] PROCEDURE INFORMATION: Exam: CT Head Without Contrast Exam date and time: 03/19/2021 12:59 PM Age: 75 years old Clinical indication: Injury or trauma; Fall; Blunt trauma (contusions or hematomas); Consciousness not specified; Injury details: Dropped from clovis lift TECHNIQUE: Imaging protocol: Computed tomography of the head without contrast. Radiation optimization: All CT scans at this facility use at least one of these dose optimization techniques: automated exposure control; mA and/or kV adjustment per patient size (includes targeted exams where dose is matched to clinical indication); or iterative reconstruction. COMPARISON: CT head wo con* [id number] 11/25/2020 11:53 PM RADIATION DOSE METRICS: Total DLP (mGy-cm): 1440.78 FINDINGS: Brain: Mild hypoattenuating foci are noted in the anterior lateral ventricular periventricular white matter bilaterally. No intracranial hemorrhage. No mass or acute cortical infarction identified. Cerebral ventricles: Prominence of the ventricular system and subarachnoid spaces is consistent with the patient's age of 75 years. Paranasal sinuses: Visualized sinuses are unremarkable. No fluid levels. Mastoid air cells: Visualized mastoid air cells are well aerated. Orbital cavity: Bilateral prior cataract surgery with lens replacements. Vasculature: Atherosclerotic calcifications are present involving the carotid artery siphons and vertebral arteries bilaterally. Bones/joints: No acute abnormality. No acute fracture. Soft tissues: Unremarkable. CT/CT head wo con* [id number] IMPRESSION: 1. Age appropriate supratentorial and infratentorial atrophy. 2. Mild chronic white matter microvascular ischemic disease. 3. No acute intracranial injury identified. Dictated By:Dereje Lovett MDSigned By:Dereje Lovett MDSigned Date/Time:03/19/21 1559DD/ [address] [facility] [place], [place] [address]KT Scan ReportSigned Patient: Irina Velasquez #: [id number]: [id number]#:[id number]/Sex: 75 / FADM Date: 03/19/21Loc: ERRoom/Bed:Attending Dr: Ordering Provider/Ordering MD: Олег Coleman MD Date of Service: 03/19/21 Procedure(s): CT chest abd pel wo con Accession Number(s): [id number] Report Number: [id number] PROCEDURE INFORMATION: Exam: CT Chest Without Contrast; Diagnostic Exam date and time: 03/19/2021 12:59 PM Age: 75 years old Clinical indication: Injury or trauma; Fall; Generalized; Blunt trauma (contusions or hematomas); Injury details: Dropped from clovis lift; Additional info: Fall R sided pain TECHNIQUE: Imaging protocol: Diagnostic computed tomography of the chest without contrast. Radiation optimization: All CT scans at this facility use at least one of these dose optimization techniques: automated exposure control; mA and/or kV adjustment per patient size (includes targeted exams where dose is matched to clinical indication); or iterative reconstruction. COMPARISON: CT pelvis wo con [id number] 11/23/2020 9:56 AM RADIATION DOSE METRICS: Total DLP (mGy-cm): 2305.29 FINDINGS: Thyroid: The bilateral thyroid lobes are unremarkable. Lungs: Bilateral posterior pulmonary partial passive atelectasis. Pleural spaces: No pneumothorax identified. Moderate-large right pleural effusion. Small left pleural effusion. Heart: Mitral annular calcification is present. LAD, LCx and RCA calcified coronary atherosclerosis. Mediastinal space: No mediastinal hematoma identified. Pulmonary arteries: The main and bilateral pulmonary arteries are enlarged with peripheral tapering. Aorta: Mild aortic arch, branch, and descending thoracic aortic atherosclerotic calcification without ectasia. Lymph nodes: No enlarged lymph nodes. Bones/joints: No acute thoracic spine or sternal fracture identified. Thoracic spine vertebral body marginal osteophytes are noted at multiple levels. Mildly displaced lateral right 2nd and 3rd rib fractures. Posterolateral minimally displaced lateral right 4th rib fracture. Displaced right posterolateral 5th, 7th, 8th, 9th and 10th rib fractures. Displaced posterior right 11th and 12th rib fractures. Lower thoracic spine bridging syndesmophytes suggesting chronic inflammatory spondylopathy. Soft tissues: Unremarkable. PROCEDURE INFORMATION: Exam: CT Abdomen And Pelvis Without Contrast Exam date and time: 03/19/2021 12:59 PM Age: 75 years old Clinical indication: Injury or trauma; Fall; Generalized; Blunt trauma (contusions or hematomas); Injury details: Dropped from clovis lift; Additional info: Fall R sided pain TECHNIQUE: Imaging protocol: Computed tomography of the abdomen and pelvis without contrast. Radiation optimization: All CT scans at this facility use at least one of these dose optimization techniques: automated exposure control; mA and/or kV adjustment per patient size (includes targeted exams where dose is matched to clinical indication); or iterative reconstruction. COMPARISON: CT pelvis con [id number] 11/23/2020 9:56 AM RADIATION DOSE METRICS: Total DLP (mGy-cm): 2305.29 FINDINGS: Liver: Normal. No mass. Gallbladder and bile ducts: The gallbladder is surgically absent, with metallic clips in the gallbladder fossa. The extrahepatic bile ducts are dilated, measuring 16.8 mm, tapering in the pancreatic head. No ductal calculus. Pancreas: Moderate pancreatic atrophy. No pancreatic mass or ductal dilatation identified. Spleen: Normal. No splenomegaly. Adrenal glands: Normal. No mass. Kidneys and ureters: Normal. No hydronephrosis. Stomach and bowel: Unremarkable. No obstruction. No mucosal thickening. Appendix: No evidence of appendicitis. Intraperitoneal space: No free air. No significant fluid collection. Vasculature: Moderate aortic atherosclerotic calcification without aneurysm. The iliac arteries show moderate bilateral atherosclerotic calcifications without evidence of aneurysm. Lymph nodes: No enlarged lymph nodes. Urinary bladder: The urinary bladder is drained by a Chowdary catheter. The urinary bladder is decompressed and difficult to assess. Reproductive: Unremarkable as visualized. Bones/joints: No pelvic or sacral fracture identified. Bilateral mild lower lumbar facet primary osteoarthritis. Lumbar spine vertebral body marginal osteophytes are noted at multiple levels. Soft tissues: Lower anterior abdominal wall subcutaneous adipose edema (lap belt injury?). CT/CT chest abd pel wo con IMPRESSION: 1. Moderate-large right pleural effusion. 2. Small left pleural effusion. 3. Multiple right-sided rib fractures. 4. Probable pulmonary arterial hypertension. Clinical correlation is recommended. 5. Chronic inflammatory spondylopathy. 6. Coronary atherosclerosis. 7. Please see the abdomen/pelvis CT report of the same date for additional findings. IMPRESSION: 1. Lack of IV contrast reduces sensitivity to abdominal solid visceral organ traumatic injury. IV contrast enhanced imaging may add additional useful information if not contraindicated. 2. Post cholecystectomy with extrahepatic biliary ductal dilatation. No ductal calculus identified. 3. Lower anterior abdominal wall subcutaneous adipose edema (lap belt injury?). 4. No acute intra-abdominal/intrapelvic injury identified, as visualized. 5. Please see the CT chest report of the same date for additional findings. Dictated By:Dereje Lovett MDSigned By:Dereje Lovett MDSigned Date/Time:03/19/21 1622DD/ 1259 Discharge Plan Discharge Patient Disposition: Transfer to ED Clinical Impression: Fall, Pleural effusion, Closed rib fracture Condition: Stable Prescriptions: New acetaminophen 500 mg tablet 500 mg PO Q6H PRN (Reason: pain) 5 Days Qty: 20 RF: 0 Biofreeze (menthol) 5 % gel 1 ea topical BID PRN (Reason: pain) 10 Days Qty: 1 RF: 0 lidocaine 5 % adhesive patch,medicated 1 patch topical DAILY PRN (Reason: pain) 10 Days Qty: 10 RF: 0 Percocet 5-325 mg tablet 1 tab PO Q6H PRN (Reason: pain) Qty: 12 RF: 0 No Action methenamine hippurate 1 gram tablet 1 g PO BID@0700,2000 Qty: 180 RF: 1 gabapentin 600 mg tablet 600 mg PO TID Qty: 90 RF: 1 levothyroxine 25 mcg tablet 25 mcg PO DAILY@0700 90 Days Qty: 90 RF: 1 pantoprazole 40 mg tablet,delayed release (DR/EC) 40 mg PO DAILY@0700 90 Days Qty: 90 RF: 1 aspirin 81 mg Tablet,Chewable 81 mg PO DAILY@0700 RF: 0 furosemide 40 mg Tablet 40 mg PO DAILY RF: 0 ondansetron HCl 4 mg Tablet 4 mg PO Q4H RF: 0 lovastatin 20 mg tablet 20 mg PO BEDTIME Qty: 30 RF: 3 albuterol sulfate 0.63 mg/3 mL Solution For Nebulization 0.63 mg INHALATION Q4H PRN (Reason: Shortness Of Breath) RF: 0 acetaminophen 325 mg Tablet 650 mg PO Q6H PRN (Reason: Pain) RF: 0 Lantus U-100 Insulin 100 unit/mL Solution 30 unit SUBCUT DAILY RF: 0 magnesium hydroxide [Milk of Magnesia] 400 mg/5 mL Suspension 30 ml PO DAILY PRN (Reason: Constipation) RF: 0 bisacodyl 10 mg Suppository 10 mg MA DAILY PRN (Reason: Constipation) RF: 0 hydralazine 50 mg Tablet 50 mg PO TID RF: 0 nystatin [Nystop] 100,000 unit/gram Powder 1 applic TOPICAL BID PRN (Reason: Rash) RF: 0 insulin aspart U-100 [Novolog Flexpen U-100 Insulin] 100 unit/mL (3 mL) Insulin Pen See Rx Instructions .ROUTE .COMPLEX RF: 0 insulin aspart U-100 [Novolog Flexpen U-100 Insulin] 100 unit/mL (3 mL) Insulin Pen 5 unit SUBCUT TIDWM RF: 0 Eliquis 5 mg Tablet 5 mg PO BID RF: 0 ipratropium-albuterol 0.5 mg-3 mg(2.5 mg base)/3 mL solution for nebulization 3 ml INHALATION TID PRN (Reason: shortness of breath or wheezing) RF: 0 potassium chloride 10 mEq capsule, extended release 10 meq PO DAILY Qty: 30 RF: 0 Referrals: Ariel Khan DO [Primary Care Provider] - Discharge Diet: Advance as tolerated Discharge Activity: Increase activity as tolerated Patient Instructions: Rib Fracture (ED), Fall Prevention (ED), Opioid Safety Activity Restrictions/Additional Instructions: Come back to the emergency room if have any more pain, fever/chills, nausea/vomiting, worsening pain, or any new concerning complaints. Follow-up with your orthopedic doctor for evaluation of your rib fractures. Come back to the emergency room if you are having worsening pain, fever/chills, cough, or any new concerning complaints. Please use your incentive spirometer daily. Coding Level of Care Code ED Counter Clerk [employer] for Isaiah Tatum
[2021-03-19] MEDS: LORazepam 2 mg/mL INJ 1 mL 1 MG IM (15:03)
[2021-03-19] MEDS: oxyCODONE-APAP 5-325 mg Tablet 1 TAB PO (18:15)
[2021-03-19] MEDS: HYDROmorphone 1 mg/mL INJ 1 mL 0.5 MG IVP (20:14)
[2021-03-19 22:06] LABS: Basophils # 0.1 10^3/uL (0.0-0.1); Basophils % 0.3 %; Hematocrit 31.2 % (37.0-47.0); Hemoglobin 9.7 g/dL (11.5-15.3); Lymphocytes # 1.3 10^3/uL (0.8-4.8); Mean Corpuscular HGB Conc 31.1 g/dL (30.0-36.0); Mean Corpuscular Hemoglobin 28.6 pg (28.0-34.0); Mean Platelet Volume 10.7 fL (7.4-10.4); Monocytes # 0.8 10^3/uL (0.2-0.9); Monocytes % 4.1 %; Neutrophils % 88.1 %; Nucleated Red Blood Cells % 0 %; Platelet Count 256 10^3/cmm (130-400); Red Blood Count 3.39 10^6/uL (4.1-5.3); Red Cell Distribution Width 15.7 % (12.1-15.1); White Blood Count 19.1 10^3/uL (4.0-10.0)
[2021-03-19 22:39] LABS: SARS Covid-2 Antigen Negative (Negative)
[2021-03-19] MEDS: fentaNYL 50 mcg/mL INJ 2mL IVP (23:11)
[2021-03-19 23:16] LABS: Calcium 8.5 mg/dL (8.5-10.5); Carbon Dioxide 24 mmol/L (22-29); Chloride 98 mmol/L (98-107)
[2021-03-19] MEDS: ondansetron 2 mg/ML SDV 2 mL 4 MG IVP (23:39)
[2021-03-19 23:44] LABS: INR 1.01 (0.8-1.2)
[2021-03-19 23:45] LABS: Partial Thromboplastin Time 31.1 SECONDS (23.9-36.7)
[2021-03-19 23:54] LABS: Sodium 139 mmol/L (136-145)
[2021-03-19 23:55] LABS: Blood Urea Nitrogen 31 mg/dL (8-23); Glucose 201 mg/dL (65-115); Osmolality Calculated 300 mOsm/kg (285-295)
--- NOTE | 2021-03-23 10:34 | DCPLANNER ---
Addendum entered by Marlen Henry 04/06/21 08:39: manager talent acquisition contacted Tanvi at ortho to confirm that a follow up appointment had been scheduled for patient. manager talent acquisition was told that the appointment was cancelled due to patient being scheduled to [facility] for treatment. Original Note: manager talent acquisition had message to schedule a follow up appointment for patient with ortho. manager talent acquisition called the ortho clinic, spoke with Tanvi, gave clinic patients information. manager talent acquisition was told that patients information would be printed and reviewed. Clinic will call patient with appointment information.
== END 2021-03-19 23:47 ==
PROVIDERS: Emergency Provider Emergency Medicine; PCP Internal Medicine
DX: J90 Pleural effusion, not elsewhere classified (principal); S22.41XA Multiple fractures of ribs, right side, initial encounter for closed fracture; Z79.01 Long term (current) use of anticoagulants; Z79.82 Long term (current) use of aspirin; Z79.4 Long term (current) use of insulin; I13.0 Hypertensive heart and chronic kidney disease with heart failure and stage 1 through stage 4 chronic kidney disease, or unspecified chronic kidney disease; E11.22 Type 2 diabetes mellitus with diabetic chronic kidney disease; N18.2 Chronic kidney disease, stage 2 (mild); I50.9 Heart failure, unspecified; J44.9 Chronic obstructive pulmonary disease, unspecified; E78.5 Hyperlipidemia, unspecified; Z86.73 Personal history of transient ischemic attack (TIA), and cerebral infarction without residual deficits; Z87.891 Personal history of nicotine dependence; W04.XXXA Fall while being carried or supported by other persons, initial encounter; Y92.129 Unspecified place in nursing home as the place of occurrence of the external cause; Z20.822 Contact with and (suspected) exposure to COVID-19
CPT/HCPCS: 36415; 51701; 70450; 71250; 74176; 80048; 85025; 85610; 85730; 87426; 96372; 96374; 96375; 99285; J1170; J2060; J2270; J2405; J3010

== ENCOUNTER 2021-03-31 10:51 | Inpatient (IN) | payer MEDICARE, MEDICAID, SELFPAY ==
[2021-03-31 11:00] VITALS: BP 164/102; PULSE 91; RESP 18; O2SAT 95
--- NOTE | 2021-03-31 11:06 | ED_ITS ---
HPI - General Adult General: Chief complaint: Weakness Stated complaint: FALL Time Seen by Provider: 03/31/21 11:04 History of Present Illness: HPI narrative: Patient is a 75-year-old female with a history of CAD, diabetes, CHF on 2L at baseline, hx recent fall complicated by multiple rib fractures who presents to the emergency room and request of Dr. Khan from shelter for concerns for right knee pain and leg pain and concerns for breathing after rib fractures. While doing rounds, the provider was concerned the patient may have a DVT in the right leg and also may be experiencing difficulty breathing with underlying breathing difficulties. In addition, patient had routine blood work done at shelter which showed possible acute kidney injury and Dr. Khan wanted patient to be evaluated for that. However, patient tells me that she has been throwing up and spitting up since the fall. Patient also reports right knee and right leg pain that is new since the fall last time. Patient denies any trauma or injuries recently. Onset: 4 days ago Duration:4 days Location:home Severity:moderate Associated symptoms: Reports dyspnea; Deny chest pain, nausea, rash, palpitations or vomiting Review of Systems Const: Denies: fever(s) or chills Eyes: Denies: change in vision ENMT: Denies: mouth pain Card: Denies: chest pain or palpitations Resp: Reports: dyspnea and non-productive cough GI: Denies: abdominal pain, nausea, vomiting or diarrhea : Denies: dysuria Musc: Reports: extremity pain (+R knee and R leg pain) Skin/Breast: Denies: rash or new lesions Neuro: Denies: weakness in extremities Psych: Reports: other (Normal mood) Lit/Lymph: Denies: easy bruising PFSH ED PFSH: Medical History Acute on chronic respiratory failure with hypercapnia Atrial fibrillation CHF (congestive heart failure) Chronic back pain Chronic idiopathic constipation Chronic kidney disease, stage II (mild) COPD (chronic obstructive pulmonary disease) COPD (chronic obstructive pulmonary disease) Dyslipidemia Enrolled in chronic care management History of CVA (cerebrovascular accident) Hypertension 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 custodial (current) use of opiate analgesic Obesity ABBY (obstructive sleep apnea) Sleep apnea, obstructive Type 2 diabetes mellitus, with long-term current use of insulin Venous stasis ulcers Surgical History History of cholecystectomy History of tonsillectomy and adenoidectomy S/P appendectomy Family History Sister Diabetes Lung disease Other Adopted Denies family history of CAD (coronary artery disease) Clotting disorder Dementia Chronic kidney disease (CKD) Suicide Anesthesia complication Bleeding disorder Cancer Stroke Social History Smoking and tobacco status: former smoker Quit status (tobacco): has quit using tobacco Year quit tobacco: 2016 Former quit date comment: 1ppd x 69 years Alcohol intake: never Household members: none and other Details: 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 a few days per week Female Reproductive History: Date of last menstrual period: 06/12/20 Physical Exam Const: COMMON NORMALS: alert HENMT: COMMON NORMALS: atraumatic HEAD & SCALP: atraumatic MOUTH: moist mucous membranes not abnormal Eye: COMMON NORMALS: EOMs intact bilaterally and conjunctivae normal CONJUNCTIVA: Yes conjunctivae normal Neck/C-Spine: COMMON NORMALS: full ROM and supple Resp: COMMON NORMALS: normal respiratory effort OTHER: coarse breath sounds b/l Cardio: COMMON NORMALS: regular rate RATE: regular rate GI: COMMON NORMALS: Soft to palpation and non-tender PALPATION: Yes Soft to palpation Extremity: COMMON NORMALS: full ROM NARRATIVE EXTREMITY EXAM: +R knee tenderness to palpation without any fluctuance/swelling/erythema, +R tib/fib tenderness to palpation, no sarita sign, R DP/PT pulses intact Neuro: SENSORIUM/ORIENTATION: Yes alert MOTOR EXAM: No Abnormal motor strength present and Other motor observations present (no focal motor deficits) Psych: COMMON NORMALS: speech normal SPEECH: Yes normal speech MOOD & AFFECT: Yes euthymic mood Course Vital Signs: Vital signs: Vital Signs Temperature 98.0 F 04/02/21 08:00 Pulse Rate 81 04/02/21 10:24 Respiratory Rate 20 H 04/02/21 08:00 Blood Pressure 123/77 04/02/21 08:00 Pulse Oximetry 93 04/02/21 10:24 MDM - General Adult MDM Narrative: Medical decision making narrative: Patient is a 75-year-old female who presents the emergency room for concerns of difficult to breathing and right lower extremity pain. On arrival, patient is in no respiratory distress, continues to sat greater than 95% on room air. Patient reports mild respect sputum. There is moderate tenderness to palpation over the right knee and his right tib-fib. Workup: CBC, BMP, BNP, XR chest, XR knee, XR tib/fib Intervention: lasix 40mg On reassessment, patient was found to have acute kidney failure creatinine 1.2 baseline 0.8. X-ray chest showed worsening right-sided pleural effusion. proBNP appears to be elevated when at 10,000K, significantly elevated compared to baseline. Patient uses 2L of NC at home now requiring 5L. S/p lasix 40mg. P atient's status post Lasix. Worsening pulmonary edema and pleural effusion, patient will be admitted to the hospital for CHF exacerbation and possible thoracentesis. WBC consistent with baseline. Disposition: admission Lab Data: Labs: Lab Results 03/31/21 03/31/21 03/31/21 12:50 12:50 12:50 WBC 19.3 10^3/uL H 10 ^3/uL (4.0-10.0) RBC 3.08 10^6/uL L 10 ^6/uL (4.1-5.3) Hgb 8.8 g/dL L g/dL (11.5-15.3) Hct 28.8 % L % (37.0-47.0) MCV 93.5 fl fl (81-99) MCH 28.6 pg pg (28.0-34.0) MCHC 30.6 g/dL g/dL (30.0-36.0) RDW 15.6 % H % (12.1-15.1) Plt Count 352 10^3/cmm 10^3 /cmm (130-400) MPV 9.9 fL fL (7.4-10.4) Neut % (Auto) 81.9 % % Lymph % (Auto) 7.9 % % Peach % (Auto) 8.3 % % Eos % (Auto) 0.1 % % Baso % (Auto) 0.3 % % Neut # (Auto) 15.79 10^3/uL H 1 0^3/uL (1.8-7.7) Lymph # (Auto) 1.5 10^3/uL 10^3/ uL (0.8-4.8) Peach # (Auto) 1.6 10^3/uL H 10^ 3/uL (0.2-0.9) Eos # (Auto) 0.0 10^3/uL 10^3/ uL (0.0-0.8) Baso # (Auto) 0.1 10^3/uL 10^3/ uL (0.0-0.1) Nucleated RBC % (a uto) 1.4 % % Nucleated RBCs # 0.3 /100WBC /100W BC PT INR APTT Specimen Type Sample Site ABG pH ABG pCO2 ABG pO2 ABG HCO3 ABG Base Excess Vineet Test Hematocrit O2 Delivery Device O2 Liters/Min FiO2 Fire Equipment Inspector Helper ID Sodium 139 mmol/L mmol/L (136-145) Potassium 4.4 mmol/L mmol/L (3.5-5.1) Chloride 95 mmol/L L mmol/ L (98-107) Carbon Dioxide 31 mmol/L H mmol/ L (22-29) Anion Gap 17.4 (5-19) BUN 48 mg/dL H mg/dL (8-23) Creatinine 1.2 mg/dL H mg/dL (0.5-0.9) GFR Calculation Not Reportable Glucose 214 mg/dL H mg/dL (65-115) Calculated Osmolal ity 307 mOsm/kg H mOs m/kg (285-295) Calcium 9.5 mg/dL mg/dL (8.5-10.5) Iron Ferritin C-Reactive Protein 55.1 mg/L H mg/L (0.0-4.9) NT-Pro-B Natriuret Pep 73888 pg/mL H pg/ mL (0-450) Procalcitonin 0.33 ng/mL ng/mL (0-0.5) Urine Color Urine Appearance Urine pH Ur Specific Gravit y Urine Protein Urine Glucose (UA) Urine Ketones Urine Blood Urine Nitrate Urine Bilirubin Prot Sulfosalicyli c Acd Urine Urobilinogen Ur Leukocyte Arianna ase Urine RBC Urine WBC Ur Squamous Epith Cells Amorphous Sediment Urine Bacteria Coronavirus 229E ( PCR) SARS-CoV-2 (PCR) 03/31/21 03/31/21 03/31/21 12:50 14:58 15:55 WBC RBC Hgb Hct MCV MCH MCHC RDW Plt Count MPV Neut % (Auto) Lymph % (Auto) Peach % (Auto) Eos % (Auto) Baso % (Auto) Neut # (Auto) Lymph # (Auto) Peach # (Auto) Eos # (Auto) Baso # (Auto) Nucleated RBC % (a uto) Nucleated RBCs # PT 18.50 SECONDS H S ECONDS (12.1-14.9) INR 1.50 H (0.8-1.2) APTT 32.0 SECONDS SECO NDS (23.9-36.7) Specimen Type Sample Site ABG pH ABG pCO2 ABG pO2 ABG HCO3 ABG Base Excess Vineet Test Hematocrit O2 Delivery Device O2 Liters/Min FiO2 Fire Equipment Inspector Helper ID Sodium Potassium Chloride Carbon Dioxide Anion Gap BUN Creatinine GFR Calculation Glucose Calculated Osmolal ity Calcium Iron 19 ug/dL L ug/dL (37-145) Ferritin 338 ng/mL H ng/mL (15-150) C-Reactive Protein NT-Pro-B Natriuret Pep Procalcitonin Urine Color Urine Appearance Urine pH Ur Specific Gravit y Urine Protein Urine Glucose (UA) Urine Ketones Urine Blood Urine Nitrate Urine Bilirubin Prot Sulfosalicyli c Acd Urine Urobilinogen Ur Leukocyte Arianna ase Urine RBC Urine WBC Ur Squamous Epith Cells Amorphous Sediment Urine Bacteria Coronavirus 229E ( PCR) Not detected (NOT DETECT) SARS-CoV-2 (PCR) Not detected (NOT DETECT) 03/31/21 03/31/21 15:55 16:08 WBC RBC Hgb Hct MCV MCH MCHC RDW Plt Count MPV Neut % (Auto) Lymph % (Auto) Peach % (Auto) Eos % (Auto) Baso % (Auto) Neut # (Auto) Lymph # (Auto) Peach # (Auto) Eos # (Auto) Baso # (Auto) Nucleated RBC % (a uto) Nucleated RBCs # PT INR APTT Specimen Type Arterial Sample Site Radial, right ABG pH 7.41 (7.35-7.45) ABG pCO2 59.4 mmHg H mmHg (35-45) ABG pO2 79.1 mmHg L mmHg (80.0-100.0) ABG HCO3 37.9 mmol/L H mmo l/L (22-26) ABG Base Excess 11.7 mmol/L H mmo l/L (-2.0-2.0) Vineet Test Pos Hematocrit 27.7 % L % (37-47) O2 Delivery Device Nc O2 Liters/Min 4.0 % % FiO2 36.0 % % Fire Equipment Inspector Helper ID Monro Sodium Potassium Chloride Carbon Dioxide Anion Gap BUN Creatinine GFR Calculation Glucose Calculated Osmolal ity Calcium Iron Ferritin C-Reactive Protein NT-Pro-B Natriuret Pep Procalcitonin Urine Color Yellow (Yellow) Urine Appearance Cloudy (CLEAR) Urine pH 8 H (5-7) Ur Specific Gravit y 1.015 (1.005-1.030) Urine Protein Neg (Negative) Urine Glucose (UA) Norm (Normal) Urine Ketones Negative (Negative) Urine Blood 2+ H (Negative) Urine Nitrate Positive H (Negative) Urine Bilirubin Neg (Negative) Prot Sulfosalicyli c Acd Negative (Negative) Urine Urobilinogen Neg mg/dL mg/dL (Negative) Ur Leukocyte Arianna ase 2+ H (Negative) Urine RBC 15-25 /hpf H /hpf (0-2) Urine WBC Too numerous to c nt /hpf H /hpf (0-5) Ur Squamous Epith Cells None /hpf /hpf (0-5) Amorphous Sediment Not Reportable Urine Bacteria 1+ /hpf H /hpf (NONE) Coronavirus 229E ( PCR) SARS-CoV-2 (PCR) Imaging Data^: Other Imaging: Radiologist's impression: [address] [address]QAsf ReportSigned Patient: Irina Velasquez #: [id number]: [id number]#:[id number]/Sex: 75 / FADM Date: 03/31/21Loc: [facility]/Bed:Attending Dr: Ordering Provider/Ordering MD: Олег Coleman MD Date of Service: 03/31/21 Procedure(s): XR tibia fibula RT 2V Accession Number(s): [id number] Report Number: [id number] WS: [email or web address] XR tibia fibula RT REASON FOR EXAM: bruise and pain FINDINGS: The right tibia and fibula are intact. No fracture or focal bone lesion. Extensive superficial venous calcifications. XR/XR tibia fibula RT 2 IMPRESSION: No acute abnormality. Dictated By:Yaniv Gómez Jr MDSigned By:Yaniv Gómez Jr MDSigned Date/Time:03/31/21 1213DD/ [address] [place], [place] [address]JHly ReportSigned Patient: Irina Velasquez #: [id number]: 1945cct#:[id number]/Sex: 75 / FADM Date: 03/31/21Loc: [facility]/Bed:Attending Dr: Ordering Provider/Ordering MD: Олег Coleman MD Date of Service: 03/31/21 Procedure(s): XR knee RT 3V* [id number] Accession Number(s): [id number] Report Number: [id number] WS: [email or web address] XR knee RT 3V* [id number] REASON FOR EXAM: eval for tibial plateau fx FINDINGS: No fracture or focal bone lesion. Mild to moderate narrowing of the 3 knee joint spaces. Mild subchondral sclerosis and small marginal osteophytes. There is calcification in the medial and lateral menisci. Possible knee joint effusion, equivocal. XR/XR knee RT 3V* [id number] IMPRESSION: Except for the possible joint effusion no acute abnormality identified. 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 Dictated By:Yaniv Gómez Jr MDSigned By:Yaniv Gómez Jr MDSigned Date/Time:03/31/21 1218DD/ [address] [place], [place] [address]RRuc ReportSigned Patient: Irina Velasquez #: [id number]: [id number]#:[id number]/Sex: 75 / FADM Date: 03/31/21Loc: [facility]/Bed:Attending Dr: Ordering Provider/Ordering MD: Олег Coleman MD Date of Service: 03/31/21 Procedure(s): XR chest 1V portable [id number] Accession Number(s): [id number] Report Number: [id number] WS: [email or web address] XR chest 1V portable [id number] REASON FOR EXAM: cough FINDINGS: CT scan of the chest on 03/19/2021 demonstrated bilateral pleural effusions and lung findings compatible with pulmonary edema. There is significant cardiomegaly and marked enlargement of the left atrium. Current examination demonstrates significantly increased pleural fluid in the right hemithorax compared to the previous CT examination. There continues to be linear and patchy lung opacities in the lower lung ruiz. No definite pulmonary edema. XR/XR chest 1V portable [id number] IMPRESSION: Increasing right pleural effusion. Dictated By:Yaniv Gómez Jr MDSigned By:Yaniv Gómez Jr MDSigned Date/Time:03/31/21 1211DD/ 1205 Discharge Plan Discharge Patient Disposition: Admitted As Inpatient Admit Provider: Adam Gill Clinical Impression: History of fall, History of fracture of rib, Knee pain, Leg pain, Pleural effusion, Dyspnea, Increased oxygen demand, CHF exacerbation Condition: Stable Discharge Diet: Advance as tolerated Discharge Activity: Resume usual activity Coding Level of Care Code ED Casing Worker for Chg Fwd Exam Comprehensive
--- NOTE | 2021-03-31 11:37 | XR_ITS ---
WS: [email or web address] XR tibia fibula RT 2V [id number] REASON FOR EXAM: bruise and pain FINDINGS: The right tibia and fibula are intact. No fracture or focal bone lesion. Extensive superficial venous calcifications. XR/XR tibia fibula RT 2V [id number] IMPRESSION: No acute abnormality.
--- NOTE | 2021-03-31 11:37 | XR_ITS ---
WS: [email or web address] XR chest 1V portable [id number] REASON FOR EXAM: cough FINDINGS: CT scan of the chest on 03/19/2021 demonstrated bilateral pleural effusions and lung findings compati ble with pulmonary edema. There is significant cardiomegaly and marked enlargement of the left atrium . Current examination demonstrates significantly increased pleural fluid in the right hemithorax compar ed to the previous CT examination. There continues to be linear and patchy lung opacities in the lower lung ruiz. No definite pulmonary edema. XR/XR chest 1V portable [id number] IMPRESSION: Increasing right pleural effusion.
--- NOTE | 2021-03-31 11:37 | XR_ITS ---
WS: [email or web address] XR knee RT 3V* [id number] REASON FOR EXAM: eval for tibial plateau fx FINDINGS: No fracture or focal bone lesion. Mild to moderate narrowing of the 3 knee joint spaces. Mild subchondral sclerosis and small marginal osteophytes. There is calcification in the medial and lateral menisci. Possible knee joint effusion, equivocal. XR/XR knee RT 3V* [id number] IMPRESSION: Except for the possible joint effusion no acute abnormality identified. 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
--- NOTE | 2021-03-31 11:47 | USCV_ITS ---
Irina Velasquez Age: 75 Gender: F : 1945 Exam Date: 03/31/2021 13:15 Ordering Phys: Олег Coleman MD Technologist: ESMER Exam Location: [facility] [place] Indication: SWELLING HISTORY: Swelling. PROCEDURES: Venous duplex imaging was performed in only the right lower extremity. The following venous structures were evaluated: common femoral vein, profunda vein, proximal portion of the greater saphenous vein, superficial femoral vein, and the popliteal vein. In addition, the posterior tibial and peroneal trunk were evaluated. FINDINGS: TDS due to body habitus appears normal 2-D Doppler and augmentation and compressibility throughout the lower extremity venous structures. Additional imaging through the proximal calf veins also reveals no thrombus. Limited evaluation of the greater saphenous vein is patent with no thrombus.. CONCLUSIONS No evidence of right lower extremity DVT. Technically difficult exam Benjie Joya MD (Electronically Signed) Final Date: 31 March 2021 17:07 S
--- NOTE | 2021-03-31 12:48 | PC.NURSE ---
1215- unable to obtain iv access. Dr. Coleman notified of need of ultrasound guided iv access and will attempt. patient in no obvious distress.
[2021-03-31 13:10] LABS: Basophils # 0.1 10^3/uL (0.0-0.1); Basophils % 0.3 %; Eosinophils % 0.1 %; Hematocrit 28.8 % (37.0-47.0); Hemoglobin 8.8 g/dL (11.5-15.3); Lymphocytes # 1.5 10^3/uL (0.8-4.8); Lymphocytes % 7.9 %; Mean Corpuscular HGB Conc 30.6 g/dL (30.0-36.0); Mean Corpuscular Hemoglobin 28.6 pg (28.0-34.0); Mean Corpuscular Volume 93.5 fl (81-99); Mean Platelet Volume 9.9 fL (7.4-10.4); Monocytes # 1.6 10^3/uL (0.2-0.9); Monocytes % 8.3 %; Neutrophils # 15.79 10^3/uL (1.8-7.7); Neutrophils % 81.9 %; Nucleated Red Blood Cells # 0.3 /100WBC; Nucleated Red Blood Cells % 1.4 %; Platelet Count 352 10^3/cmm (130-400); Red Blood Count 3.08 10^6/uL (4.1-5.3); Red Cell Distribution Width 15.6 % (12.1-15.1); White Blood Count 19.3 10^3/uL (4.0-10.0)
[2021-03-31 13:13] VITALS: RESP 22
[2021-03-31] MEDS: oxyCODONE-APAP 5-325 mg Tablet 1 TAB PO (13:13)
[2021-03-31] MEDS: sodium chloride 0.9% 500 ML IV (13:14)
--- NOTE | 2021-03-31 13:17 | PC.NURSE ---
ultrasound at bedside performing procedure. patient in no obivous distress.
[2021-03-31 13:41] LABS: Anion Gap 17.4 (5-19); Blood Urea Nitrogen 48 mg/dL (8-23); Calcium 9.5 mg/dL (8.5-10.5); Carbon Dioxide 31 mmol/L (22-29); Chloride 95 mmol/L (98-107); Glucose 214 mg/dL (65-115); NT Pro B Type Natriuretic Pept 10403 pg/mL (0-450); Osmolality Calculated 307 mOsm/kg (285-295); Potassium 4.4 mmol/L (3.5-5.1); Sodium 139 mmol/L (136-145)
--- NOTE | 2021-03-31 14:21 | US_ITS ---
WS: [email or web address] ULTRASOUND CHEST INDICATION: Pleural effusion TECHNIQUE: Ultrasound examination right chest FINDINGS: Ultrasound right chest. Only a small amount of free flowing pleural fluid is visualized breonna roximately 36 cc in volume with associated compressive atelectasis in the right lower lobe. This appe ars larger on the radiograph and may be partially loculated. This can be followed up with chest CT fo r better detail. US/US chest [id number] IMPRESSION: Small right pleural effusion with compressive atelectasis as descri bed above
--- NOTE | 2021-03-31 14:55 | P.HP_ITS ---
Providers/Chief Complaint Primary Care Provider: Ariel Khan DO Chief Complaint: FALL History of Present Illness Irina Velasquez is a 75 year old female with a hypoxic hypercapnic respiratory failure, obstructive sleep apnea, obesity hypoventilation syndrome, history of bilateral pleural effusions, history of heart failure with preserved ejection fraction, history of atrial fibrillation on Eliquis, history of COPD, hypertension, hypothyroidism, insulin-dependent type 2 diabetes mellitus, chronic immobility [employer] lift. Who recently fell at [facility], patient is [place] lift dependent, one of the straps broke on the [place] lift, she fell according to patient 4 feet, fell on her right side, she developed multiple bruises, she had significant right-sided rib fractures with significant pain requiring transfer to [facility]. She tells me that at [facility] she had a right thoracocentesis and had a what it sounds like a hemothorax, she didn't receive any other surgeries, and she was eventually discharged back to [facility]. She tells me that at any T she continues to have right hip pain, right leg pain, right rib pain, is managed with oxycodone but she tells is not good enough. Denies any fevers, no chills, no nausea, vomiting. Her negative COVID test was yesterday at [facility]. Has been not been vaccinated for COVID. She tells me that she has been feeling more short of breath, more lower extremity edema, particularly she is having a lot of right leg swelling. No lightheadedness, dizziness, no nausea, no vomiting. She does take Lasix at the [facility]. I spoke to [facility], they told me that she was sent here this morning as she was looking more pale, more diaphoretic, had lower extremity edema, had pain complaints, in addition they advised me that she is compliant with her Eliquis therapy, the only dose she didn't take was yesterday as she was nauseous, but took this morning's dose Review of Systems Const: Reports: body aches; Denies: fever(s) or chills Eyes: Denies: change in vision or blurry vision ENMT: Denies: nasal congestion Card: Reports: edema and swelling of feet/ankles; Denies: chest pain or lightheadedness Resp: Reports: dyspnea; Denies: productive cough, non-productive cough or wheezing GI: Denies: abdominal pain, nausea, vomiting, hematemesis, diarrhea, constipation, hematochezia or melena : Denies: flank pain, dysuria or urinary frequency Musc: Reports: extremity pain, extremity swelling, joint pain, joint swelling and muscle cramps; Denies: neck pain or back pain Skin/Breast: Reports: rash Neuro: Denies: headache(s), dizziness or vertigo Endo: Denies: polyuria or polydipsia Medications/Allergies Home Medications Medication Instructions Recorded Confirmed Last Taken Type aspirin 81 mg PO DAILY@0700 03/15/20 01/19/21 12/30/20 08:07 History methenamine hippurate 1 gram tablet 1 g PO BID@ #180 tab 08/04/20 01/19/21 12/30/20 20:10 Rx lovastatin 20 mg tablet 20 mg PO BEDTIME #30 tab 09/30/20 01/19/21 12/30/20 20:10 Rx gabapentin 600 mg tablet 600 mg PO TID #90 tab 10/03/20 01/19/21 12/30/20 20:10 Rx levothyroxine 25 mcg tablet 25 mcg PO DAILY@0700 90 Days #90 10/06/20 01/19/21 12/30/20 08:07 Rx tab pantoprazole 40 mg tablet,delayed 40 mg PO DAILY@0700 90 Days #90 tab 10/06/20 01/19/21 12/30/20 05:02 Rx release Eliquis 5 mg PO BID 12/21/20 01/19/21 12/30/20 20:10 History Lantus U-100 Insulin 30 unit SUBCUT DAILY 12/21/20 01/19/21 12/30/20 08:07 History acetaminophen 650 mg PO Q6H PRN 12/21/20 01/19/21 Unknown History albuterol sulfate 0.63 mg INHALATION Q4H PRN 12/21/20 01/19/21 Unknown History bisacodyl 10 mg [place] DAILY PRN 12/21/20 01/19/21 Unknown History hydralazine 50 mg PO TID 12/21/20 01/19/21 12/30/20 20:10 History insulin aspart U-100 [Novolog 5 unit SUBCUT TIDWM 12/21/20 01/19/21 12/30/20 17:07 History Flexpen U-100 Insulin] insulin aspart U-100 [Novolog See Rx Instructions .ROUTE .COMPLEX 12/21/20 01/19/21 12/30/20 20:10 History Flexpen U-100 Insulin] ipratropium-albuterol 3 ml INHALATION TID PRN 12/21/20 01/19/21 12/30/20 20:10 History magnesium hydroxide [Milk of 30 ml PO DAILY PRN 12/21/20 01/19/21 Unknown History Magnesia] nystatin [Nystop] 1 applic TOPICAL BID PRN 12/21/20 01/19/21 12/30/20 History potassium chloride 10 meq PO DAILY #30 cap 12/23/20 01/19/21 12/30/20 08:07 Rx furosemide 40 mg PO DAILY 12/31/20 01/19/21 12/30/20 08:10 History ondansetron HCl 4 mg PO Q4H 12/31/20 01/19/21 12/25/20 17:00 History oxycodone-acetaminophen [Percocet] 1 tab PO Q6H PRN #12 tab 03/19/21 Unknown Rx acetaminophen 500 mg PO Q6H PRN 5 Days #20 tab 03/31/21 Unknown Rx lidocaine 1 patch TOPICAL DAILY PRN 10 Days 03/31/21 Unknown Rx #10 ea Allergies Allergy/AdvReac Type Severity Reaction Status Date / Time codeine Allergy ALGY-Hives Verified 01/19/21 10:26 PFSH Acute PFSH: Medical History Acute on chronic respiratory failure with hypercapnia Atrial fibrillation CHF (congestive heart failure) Chronic back pain Chronic idiopathic constipation Chronic kidney disease, stage II (mild) COPD (chronic obstructive pulmonary disease) COPD (chronic obstructive pulmonary disease) Dyslipidemia Enrolled in chronic care management History of CVA (cerebrovascular accident) Hypertension 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 custodial (current) use of opiate analgesic Obesity ABBY (obstructive sleep apnea) Sleep apnea, obstructive Type 2 diabetes mellitus, with long-term current use of insulin Venous stasis ulcers Surgical History History of cholecystectomy History of tonsillectomy and adenoidectomy S/P appendectomy Family History Sister Diabetes Lung disease Other Adopted Denies family history of CAD (coronary artery disease) Clotting disorder Dementia Chronic kidney disease (CKD) Suicide Anesthesia complication Bleeding disorder Cancer Stroke Social History Smoking and tobacco status: former smoker Quit status (tobacco): has quit using tobacco Year quit tobacco: 2016 Former quit date comment: 1ppd x 69 years Alcohol intake: never Household members: none and other Details: has some home connect lpn services a few days per week Female Reproductive History: Date of last menstrual period: 06/12/20 Vitals/I&O/Wt Last Vital Signs Pulse 91 03/31/21 11:00 Resp 22 H 03/31/21 13:13 BP 164/102 03/31/21 11:00 Pulse Ox 95 03/31/21 11:00 Physical Exam Narrative: EXAM NARRATIVE: Morbidly obese female Multiple bruises present, along right mcmullen, right knee, right thigh, right hip, right side of the chest Pannus present Bilateral shins, erythema, swelling, 2+ pitting edema Const: COMMON NORMALS: no acute distress and patient oriented x3 GENERAL APPEARANCE: cooperative and comfortable HENMT: COMMON NORMALS: normocephalic HEAD & SCALP: normocephalic Eye: COMMON NORMALS: Equal, round and reactive pupils present and EOMs intact bilaterally GENERAL EYE: appearance normal, both eyes and all related structures PUPIL: Yes Equal, round and reactive pupils present Neck/C-Spine: COMMON NORMALS: full ROM and no lymphadenopathy Lymph: LYMPHATIC: no lymphadenopathy noted Resp: COMMON NORMALS: normal respiratory effort, No retractions, No use of accessory muscles and clear to auscultation bilaterally AUSCULTATION: clear to auscultation bilaterally Cardio: COMMON NORMALS: regular rate, regular rhythm, S1 normal heart sound present, S2 normal heart sound present, No gallops present (Cardio), No clicks present (Cardio) and No murmurs present (Cardio) RATE: regular rate RHYTHM: regular rhythm HEART SOUNDS: S1 normal heart sound present and S2 normal heart sound present GI: COMMON NORMALS: Normal to inspection, nondistended, normoactive bowel sounds present, Soft to palpation and non-tender Neuro: COMMON NORMALS: patient oriented x3, CN's II-XII intact bilaterally, moves all extremities and no focal motor deficits Psych: COMMON NORMALS: mental status grossly normal, Normal thought process present and cooperative THOUGHT PROCESS: Normal thought process present Data : 03/31/21 12:50 03/31/21 12:50 A&P Assessment and plan (1) History of fall: Status: Acute (2) History of fracture of rib: Status: Acute (3) Pleural effusion: Status: Acute (4) Acute diastolic CHF (congestive heart failure): Status: Acute (5) Sleep apnea, obstructive: Status: Acute (6) Type 2 diabetes mellitus, with long-term current use of insulin: Status: Acute Qualifiers: Diabetes mellitus complication status: with neurologic complications Diabetes mellitus complication detail: with polyneuropathy Qualified Code(s): E11.42 - Type 2 diabetes mellitus with diabetic polyneuropathy; Z79.4 - custodial (current) use of insulin (7) Obesity hypoventilation syndrome: Status: Acute (8) Chronic respiratory failure with hypoxia and hypercapnia: Status: Acute (9) COPD (chronic obstructive pulmonary disease): Status: Acute (10) Pneumonia: Status: Acute (11) Venous stasis ulcers: Status: Chronic Qualifiers: Venous stasis ulcer site: ankle Varicose vein presence: without varicose veins Laterality: left Non-pressure ulcer stage: limited to breakdown of skin Qualified Code(s): I87.2 - Venous insufficiency (chronic) (peripheral); L97.321 - Non-pressure chronic ulcer of left ankle limited to breakdown of skin (12) Generalized weakness: Status: Acute (13) 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: Status: Chronic (14) Chronic kidney disease, stage II (mild): Status: Chronic (15) Obesity: Status: Chronic Qualifiers: Body mass index: BMI 45.0-49.9 Obesity classification: adult class 3 (BMI >= 40) Obesity type: unspecified obesity type Serious obesity comorbidity presence: with serious comorbidity Qualified Code(s): E66.01 - Morbid (severe) obesity due to excess calories; Z68.42 - Body mass index [BMI] 45.0-49.9, adult Additional A&P Information Acute on chronic respiratory failure with hypoxia and hypercapnia -Requiring 4 L -Chest x-ray showing bilateral pleural effusion -Enlarged right pleural effusion -Elevated BNP 12/22/2002 -WBC 19.3 -Concerning for underlying diastolic CHF exacerbation, enlarged right pleural effusion possible hemothorax given her fall in history at [facility], cannot rule out underlying pneumonia Plan: -Is having ultrasound in the emergency room, did take Eliquis this morning, hold Eliquis, hold all blood thinners, plan on thoracocentesis when radiology agrees -Lasix 40 mg IV twice daily, with Diamox -Monitor urine output, monitor creatinine -Fluid restriction 1500 cc -Cardiac echocardiogram -Monitor respiratory status closely, oxygen therapy -Start Zosyn for antibiotic coverage -Blood cultures, sputum cultures, urine bacterial antigens -Urine cultures pending, UA pending -Does have right lower extremity edema, will do venous ultrasound -BiPAP as needed during the day for shortness of breath, during the night for history of sleep apnea, obesity who moved to ventilation syndrome, CHF exacerbation -Full code -Pepcid for GI prophylaxis -Chowdary catheter in place -SCDs for DVT prophylaxis Eliquis on hold for plans on thoracocentesis History of fall -Complaining of hip pain, shoulder pain we'll do x-ray -Dilaudid 0.5 mg every 6 hours for pain Anemia, hemoglobin 8.8, iron studies, Hemoccult stool, monitor for now is on Eliquis, has multiple bruises from fall CKD, creatinine 1.2, monitor Type II days mellitus, Lantus 20 units every morning, low-dose sliding scale Attestations Medical Necessity Statement*: Patient requires hospitalization, inpatient, greater than 2 midnights, for diastolic CHF exacerbation, pneumonia, Coding Level of Care Code Acute Email Marketing Intern for [facility] Fwd Diagnoses History of fall Z91.81 History of fracture of rib Z87.81 Pleural effusion J90 Acute diastolic CHF (congestive heart failure) I50.31 Sleep apnea, obstructive G47.33 Type 2 diabetes mellitus, with long-term current use of insulin E11.42; Z79.4 Diabetes mellitus complication status: with neurologic complications Diabetes mellitus complication detail: with polyneuropathy Obesity hypoventilation syndrome E66.2 Chronic respiratory failure with hypoxia and hypercapnia J96.11; J96.12 COPD (chronic obstructive pulmonary disease) J44.9 Pneumonia J18.9 Venous stasis ulcers I87.2; L97.321 Venous stasis ulcer site: ankle Varicose vein presence: without varicose veins Laterality: left Non-pressure ulcer stage: limited to breakdown of skin Generalized weakness R53.1 custodial (current) use of opiate analgesic Z79.891 Chronic kidney disease, stage II (mild) N18.2 Obesity E66.01; Z68.42 Body mass index: BMI 45.0-49.9 Obesity classification: adult class 3 (BMI >= 40) Obesity type: unspecified obesity type Serious obesity comorbidity presence: with serious comorbidity
--- NOTE | 2021-03-31 15:00 | XRR_ITS ---
PROCEDURE INFORMATION: Exam: XR Pelvis Exam date and time: 03/31/2021 3:00 PM Age: 75 years old Clinical indication: Injury or trauma; Fall; Blunt trauma (contusions or hematomas); Does not apply; Pelvic region TECHNIQUE: Imaging protocol: XR pelvis. Views: 1 or 2 view. COMPARISON: CT chest abd pel wo con 03/19/2021 3:24 PM FINDINGS: Bones/joints: See Soft tissues finding. Soft tissues: Osseous structures are somewhat obscured by bowel gas and soft tissue, consider further evaluation with a CT scan if fracture remains a concern clinically. Gastrointestinal tract: Moderate constipation without bowel dilation to indicate obstruction. XR/XR pelvis 1-2V* [id number] IMPRESSION: 1. Moderate constipation without bowel dilation to indicate obstruction. 2. Osseous structures are somewhat obscured by bowel gas and soft tissue, consider further evaluation with a CT scan if fracture remains a concern clinically.
[2021-03-31 15:07] VITALS: BP 133/50; PULSE 68; RESP 22; TEMP 36.7; O2SAT 94
[2021-03-31 15:27] LABS: Procalcitonin 0.33 ng/mL (0-0.5)
[2021-03-31 15:38] LABS: C Reactive Protein 55.1 mg/L (0.0-4.9)
[2021-03-31 15:53] LABS: Ferritin 338 ng/mL (15-150); Iron 19 ug/dL (37-145)
[2021-03-31] MEDS: FUROsemide 10 mg/mL SDV 4mL 40 MG IVP ×2 (15:57→20:18)
--- NOTE | 2021-03-31 16:08 | PC.NURSE ---
patients linen and sheets changed. patient found to have soiled self urination and defacation noted. Chowdary catheter placed and draining to bedside drainage . patient in no obivous distress. Patinet on ekg monitor. call light within reach. Side rails raised x 2 and bed in low, locked positoin.
[2021-03-31 16:21] LABS: ABG PCO2 59.4 mmHg (35-45); ABG PH Result 7.41 (7.35-7.45); Arterial Blood Gas Hematocrit 27.7 % (37-47); Base Excess ABG 11.7 mmol/L (-2.0-2.0); Blood Gas Allen Test Pos; Blood Gas Operator Identificat MONRO; Blood Gas Sample Site Radial, right; Blood Gas Sample Type Arterial; HCO3 ABG 37.9 mmol/L (22-26); Oxygen Device NC; PO2 ABG 79.1 mmHg (80.0-100.0)
[2021-03-31 16:24] LABS: Add Urine Microscopic? YES; Bilirubin Urine Neg (Negative); Blood Urine 2+ (Negative); Glucose Urine UA Norm (Normal); Ketones Urine Negative (Negative); Leukocyte Esterase Urine 2+ (Negative); Nitrate Urine Positive (Negative); Protein Urine Neg (Negative); Specific Gravity, Urine 1.015 (1.005-1.030); Sulfosalicylic Acid Urine Negative (Negative); Urine Appearance Cloudy (CLEAR); Urine Color Yellow (Yellow); Urobilinogen Urine Neg (Negative); pH Urine 8 (5-7)
[2021-03-31 16:25] LABS: Add Urine Culture? Yes; Bacteria Urine 1+ /hpf; RBC Urine 15-25 /hpf (0-2); WBC Urine TOO NUMEROUS TO CNT /hpf (0-5)
[2021-03-31 18:10] LABS: Adenovirus Not Detected (NOT DETECT); Chlamydia Pneumoniae Not Detected (NOT DETECT); Coronavirus 229E,HKU1,NL63,OC4 Not Detected (NOT DETECT); Human Metapneumovirus Not Detected (NOT DETECT); Human Rhinovirus/Enterovirus Not Detected (NOT DETECT); Influenza A Not Detected (NOT DETECT); Influenza A H1 Not Detected (NOT DETECT); Influenza A H1-2009 Not Detected (NOT DETECT); Influenza A H3 Not Detected (NOT DETECT); Influenza B Not Detected (NOT DETECT); Mycoplasma Pneumoniae Not Detected (NOT DETECT); Parainfluenza Virus Type 1 Not Detected (NOT DETECT); Parainfluenza Virus Type 2 Not Detected (NOT DETECT); Parainfluenza Virus Type 3 Not Detected (NOT DETECT); Parainfluenza Virus Type 4 Not Detected (NOT DETECT); Respiratory Syncytial Virus A Not Detected (NOT DETECT); Respiratory Syncytial Virus B Not Detected (NOT DETECT); SARS-COV-2 Not Detected (NOT DETECT)
--- NOTE | 2021-03-31 18:52 | XRR_ITS ---
PROCEDURE INFORMATION: Exam: XR Right Shoulder Exam date and time: 03/31/2021 6:52 PM Age: 75 years old Clinical indication: Injury or trauma; Fall; Blunt trauma (contusions or hematomas); Shoulder; Right TECHNIQUE: Imaging protocol: XR Right shoulder. Views: 1 view. COMPARISON: CR XR chest 1V portable [id number] 03/31/2021 11:43 AM FINDINGS: Bones/joints: Multiple right rib fractures are present with up to 5 mm of displacement. The shoulder appears intact with no obvious acute fracture. No significant degenerative or destructive changes are seen in the shoulder. Soft tissues: Normal. XR/XR shoulder RT 1V [id number] IMPRESSION: Multiple right rib fractures. No definite shoulder abnormality is seen in this single projection.
[2021-03-31 19:02] VITALS: BP 134/58; PULSE 84; RESP 20; TEMP 37.1; O2SAT 94
[2021-03-31] MEDS: ondansetron 2 mg/ML SDV 2 mL 4 MG IVP (19:21)
[2021-03-31 19:24] VITALS: BMI 51.3
[2021-03-31 19:52] VITALS: BP 136/83; PULSE 66; RESP 17; TEMP 36.5; O2SAT 96
[2021-03-31] MEDS: piperacillin-tazobactam 3.375 GM in sodium chloride 0.9% (plus) 50 ML IV (20:12)
[2021-03-31] MEDS: hyDRALAzine 50 mg Tablet PO (20:17)
[2021-03-31] MEDS: atorvastatin 40 mg Tablet PO (20:18)
[2021-03-31] MEDS: acetaZOLAMIDE 250 mg Tablet PO (20:18)
[2021-03-31] MEDS: famotidine 20 mg Tablet PO (20:18)
[2021-03-31] MEDS: gabapentin 300 mg Capsule 600 MG PO (20:18)
[2021-03-31 21:01] LABS: Glucose Point of Care 192 mg/dL (70-110)
[2021-03-31] MEDS: nystatin powder 15 gm Btl 1 APPLIC TOPICAL (22:10)
[2021-04-01] VITALS (13 sets, daily range): BP systolic 108–134; BP diastolic 54–76; PULSE 62–88; RESP 17–23; TEMP 36.5–36.8; O2SAT 93–98
[2021-04-01] MEDS: piperacillin-tazobactam 3.375 GM in sodium chloride 0.9% (plus) 50 ML IV ×3 (03:55→19:51)
[2021-04-01] MEDS: levothyroxine 25 mcg Tablet PO (05:04)
[2021-04-01 05:51] LABS: Basophils # 0.1 10^3/uL (0.0-0.1); Basophils % 0.4 %; Eosinophils # 0.2 10^3/uL (0.0-0.8); Eosinophils % 0.9 %; Hematocrit 29.8 % (37.0-47.0); Hemoglobin 8.9 g/dL (11.5-15.3); Lymphocytes % 12.9 %; Mean Corpuscular HGB Conc 29.9 g/dL (30.0-36.0); Mean Corpuscular Hemoglobin 28.4 pg (28.0-34.0); Mean Corpuscular Volume 95.2 fl (81-99); Monocytes % 12.3 %; Neutrophils # 11.44 10^3/uL (1.8-7.7); Neutrophils % 72.3 %; Nucleated Red Blood Cells # 0.2 /100WBC; Nucleated Red Blood Cells % 1.3 %; Platelet Count 348 10^3/cmm (130-400); Red Blood Count 3.13 10^6/uL (4.1-5.3); Red Cell Distribution Width 15.7 % (12.1-15.1); White Blood Count 15.8 10^3/uL (4.0-10.0)
[2021-04-01 06:13] LABS: Alanine Aminotransferase 356 U/L (0-33); Albumin Level 3.1 g/dL (3.5-5.2); Alkaline Phosphatase 170 IU/L (35-105); Anion Gap 16.5 (5-19); Aspartate Amino Transferase 236 U/L (0-32); Blood Urea Nitrogen 42 mg/dL (8-23); Calcium 8.2 mg/dL (8.5-10.5); Carbon Dioxide 33 mmol/L (22-29); Chloride 94 mmol/L (98-107); Globulin 3.2 g/dL (1.3-4.6); Glucose 172 mg/dL (65-115); Magnesium 1.8 mg/dL (1.7-2.3); Osmolality Calculated 305 mOsm/kg (285-295); Phosphorus 3.1 mg/dL (2.5-4.5); Potassium 3.5 mmol/L (3.5-5.1); Sodium 140 mmol/L (136-145); Total Bilirubin 0.4 mg/dL (0.15-1.2); Total Protein 6.3 g/dL (6.6-8.7)
--- NOTE | 2021-04-01 07:00 | XRR_ITS ---
PROCEDURE INFORMATION: Exam: XR Chest Exam date and time: 04/01/2021 7:00 AM Age: 75 years old Clinical indication: Condition or disease; Lung condition and disease; Pleural effusion; Other: Not specified TECHNIQUE: Imaging protocol: XR of the chest. Views: 1 view. COMPARISON: CR XR chest 1V portable [id number] 03/31/2021 11:43 AM FINDINGS: Lungs: There is opacification of the right lower hemithorax consistent with right pleural effusion and right basilar consolidation and atelectasis. There is minimal atelectasis in the left base. Pleural spaces: No pneumothorax Heart/Mediastinum: The cardiac silhouette is enlarged but unchanged. Bones/joints: There are multiple mildly displaced right rib fractures. XR/XR chest 1V portable [id number] IMPRESSION: Opacification of the right base consistent with pleural effusion and basilar infiltration/atelectasis. Allowing for differences in position there is probably no significant change.
[2021-04-01] MEDS: gabapentin 300 mg Capsule 600 MG PO ×3 (08:47→20:22)
[2021-04-01] MEDS: famotidine 20 mg Tablet PO ×2 (08:47→18:12)
[2021-04-01] MEDS: acetaZOLAMIDE 250 mg Tablet PO (08:47)
[2021-04-01] MEDS: aspirin 81 mg EC Tablet PO (08:47)
[2021-04-01] MEDS: hyDRALAzine 50 mg Tablet PO ×3 (08:47→20:22)
[2021-04-01] MEDS: FUROsemide 10 mg/mL SDV 4mL 40 MG IVP ×2 (08:48→18:10)
[2021-04-01] MEDS: HYDROmorphone 1 mg/mL INJ 1 mL 0.5 MG IVP (08:48)
[2021-04-01] MEDS: metOLazone 5 MG Tablet 10 MG PO (10:06)
[2021-04-01] MEDS: nystatin powder 15 gm Btl 1 APPLIC TOPICAL ×2 (10:44→18:09)
[2021-04-01] MEDS: insulin glargine 100 units/1 mL 20 UNIT SUBCUT (10:44)
[2021-04-01 12:30] LABS: Glucose Point of Care 207 mg/dL (70-110)
[2021-04-01 12:30] LABS: Glucose Point of Care 263 mg/dL (70-110)
[2021-04-01 12:30] LABS: Glucose Point of Care 238 mg/dL (70-110)
[2021-04-01] MEDS: ondansetron 2 mg/ML SDV 2 mL 4 MG IVP ×2 (13:00→20:26)
--- NOTE | 2021-04-01 16:58 | P.PN_ITS ---
Subjective Subjective: Interval history: She was seen this morning, on BiPAP, she follows commands, tells me that her shortness of breath has improved, her lower lower extremity edema has improved, no chest pain, no nausea, no vomiting Vitals/I&O/Wt Last Vital Signs Temp 97.9 F 04/01/21 16:46 Pulse 62 04/01/21 16:46 Resp 18 04/01/21 16:46 BP 130/75 04/01/21 16:46 Pulse Ox 96 04/01/21 16:46 04/01/21 04/01/21 04/01/21 06:59 14:59 22:59 Intake Total 750.000 / 1250.000 650 / 650 Output Total 1500 / 2750 Balance -750.000 / -1500.000 650 / 650 Weight last 48 hrs Weight 144.242 kg Physical Exam Narrative: EXAM NARRATIVE: Morbidly obese female Multiple bruises present, along right mcmullen, right knee, right thigh, right hip, right side of the chest Pannus present Bilateral shins, erythema, swelling, 2+ pitting edema Const: COMMON NORMALS: no acute distress and patient oriented x3 Resp: COMMON NORMALS: normal respiratory effort, No retractions, No use of accessory muscles and clear to auscultation bilaterally AUSCULTATION: clear to auscultation bilaterally Cardio: COMMON NORMALS: regular rate, regular rhythm, S1 normal heart sound present and S2 normal heart sound present RATE: regular rate RHYTHM: regular rhythm HEART SOUNDS: S1 normal heart sound present and S2 normal heart sound present GI: COMMON NORMALS: Normal to inspection, nondistended, normoactive bowel sounds present, Soft to palpation and non-tender PALPATION: Yes Soft to palpation Extremity: NARRATIVE EXTREMITY EXAM: 1+ pitting edema bilateral extremity Neuro: COMMON NORMALS: patient oriented x3 Psych: COMMON NORMALS: mental status grossly normal Urinary Catheter Management^: Chowdary: Cath Placed During This Visit: yes Reason for Continuing Indwelling Catheter: Required Immobilization for Trauma or Surgery or Anesthesia Urinary Catheter Date of Insertion: 03/31/21 Urinary Catheter Time of Insertion: 19:00 Data : 04/01/21 05:02 04/01/21 05:02 Micro: Microbiology 03/31/21 15:55 MRSA Culture - Final Nose 03/31/21 15:55 Blood Culture - Preliminary Blood NEGATIVE TO DATE 04/01/21 00:20 Urine Culture - Preliminary Urine Catheterized Gram Negative Rods 03/31/21 15:55 Bacterial Antigens - Final Urine Kidney 03/31/21 18:00 Blood Culture - Preliminary Blood SPECIMEN COLLECTED A&P Assessment and plan (1) History of fall: Status: Acute (2) History of fracture of rib: Status: Acute (3) Pleural effusion: Status: Acute (4) Acute diastolic CHF (congestive heart failure): Status: Acute (5) Sleep apnea, obstructive: Status: Acute (6) Type 2 diabetes mellitus, with long-term current use of insulin: Status: Acute Qualifiers: Diabetes mellitus complication status: with neurologic complications Diabetes mellitus complication detail: with polyneuropathy Qualified Code(s): E11.42 - Type 2 diabetes mellitus with diabetic polyneuropathy; Z79.4 - intermediate (current) use of insulin (7) Obesity hypoventilation syndrome: Status: Acute (8) Chronic respiratory failure with hypoxia and hypercapnia: Status: Acute (9) COPD (chronic obstructive pulmonary disease): Status: Acute (10) Pneumonia: Status: Acute (11) Venous stasis ulcers: Status: Chronic Qualifiers: Venous stasis ulcer site: ankle Varicose vein presence: without varicose veins Laterality: left Non-pressure ulcer stage: limited to breakdown of skin Qualified Code(s): I87.2 - Venous insufficiency (chronic) (peripheral); L97.321 - Non-pressure chronic ulcer of left ankle limited to breakdown of skin (12) Generalized weakness: Status: Acute (13) intermediate (current) use of opiate analgesic: Status: Chronic (14) Chronic kidney disease, stage II (mild): Status: Chronic (15) Obesity: Status: Chronic Qualifiers: Body mass index: BMI 45.0-49.9 Obesity classification: adult class 3 (BMI >= 40) Obesity type: unspecified obesity type Serious obesity comorbidity presence: with serious comorbidity Qualified Code(s): E66.01 - Morbid (severe) obesity due to excess calories; Z68.42 - Body mass index [BMI] 45.0-49.9, adult (16) UTI (urinary tract infection): Status: Acute Additional A&P Information Acute on chronic respiratory failure with hypoxia and hypercapnia -Requiring 4 L -Chest x-ray showing bilateral pleural effusion -Enlarged right pleural effusion -Elevated BNP -WBC 15.9 -Concerning for underlying diastolic CHF exacerbation, enlarged right pleural effusion, cannot rule out underlying pneumonia -Ultrasound of the chest shows small right pleural effusion Plan: -Lasix 40 mg IV twice daily, with Diamox, 1 dose metolazone -Monitor urine output, monitor creatinine -Fluid restriction 1500 cc -Cardiac echocardiogram -Monitor respiratory status closely, oxygen therapy -Start Zosyn for antibiotic coverage -Blood cultures, sputum cultures, urine bacterial antigens -Zosyn as above for UTI -BiPAP as needed during the day for shortness of breath, during the night for history of sleep apnea, obesity who moved to ventilation syndrome, CHF exacerbation -Full code -Pepcid for GI prophylaxis -Chowdary catheter in place -Eliquis for DVT prophylaxis History of fall -Complaining of hip pain, shoulder pain -Hydrocodone for pain Anemia, hemoglobin 8.9, ferritin 338, Hemoccult stool, monitor for now is on Eliquis, has multiple bruises from fall CKD, creatinine 1.1, monitor Type II diabetes mellitus Lantus 20 units every morning, low-dose sliding scale Transaminitis, AST 236, ALT 356, alk phos 170, status post cholecystectomy, continue to monitor Attestations Medical Necessity Statement*: Patient requires hospitalization for diastolic CHF exacerbation Coding Level of Care Code Acute Assembler Tubing for g Fwd Diagnoses History of fall Z91.81 History of fracture of rib Z87.81 Pleural effusion J90 Acute diastolic CHF (congestive heart failure) I50.31 Sleep apnea, obstructive G47.33 Type 2 diabetes mellitus, with long-term current use of insulin E11.42; Z79.4 Diabetes mellitus complication status: with neurologic complications Diabetes mellitus complication detail: with polyneuropathy Obesity hypoventilation syndrome E66.2 Chronic respiratory failure with hypoxia and hypercapnia J96.11; J96.12 COPD (chronic obstructive pulmonary disease) J44.9 Pneumonia J18.9 Venous stasis ulcers I87.2; L97.321 Venous stasis ulcer site: ankle Varicose vein presence: without varicose veins Laterality: left Non-pressure ulcer stage: limited to breakdown of skin Generalized weakness R53.1 intermediate (current) use of opiate analgesic Z79.891 Chronic kidney disease, stage II (mild) N18.2 Obesity E66.01; Z68.42 Body mass index: BMI 45.0-49.9 Obesity classification: adult class 3 (BMI >= 40) Obesity type: unspecified obesity type Serious obesity comorbidity presence: with serious comorbidity UTI (urinary tract infection) N39.0
--- NOTE | 2021-04-01 18:52 | USCV_ITS ---
Irina Velasquez Age: 75 Gender: F : 1945 Exam Date: 04/01/2021 06:32 Ordering Phys: Adam Gill MD Technologist: Exam Location: [facility] [place] Indication: CHF BP: 120 / 70 HR: 63 Rhythm: Sinus Technical Quality: Adequate MEASUREMENTS (Male / Female) Normal Values 2D ECHO LV Diastolic Diameter PLAX 4.3 cm 4.2 - 5.9 / 3.9 - 5.3 cm LV Systolic Diameter PLAX 2.9 cm IVS Diastolic Thickness 1.1 cm 0.6 - 1.0 / 0.6 - 0.9 cm IVS Systolic Thickness 1.8 cm LVPW Diastolic Thickness 1.1 cm 0.6 - 1.0 / 0.6 - 0.9 cm LVPW Systolic Thickness 1.7 cm LVOT Diameter 2.4 cm LV Ejection Fraction 2D Teich 59.7 % LA Diameter 3.5 cm LA Width 4.4 cm LA Height 5.7 cm RA Width 4.3 cm RA Height 4.4 cm M-MODE MV E Point Septal Separation 0.9 cm DOPPLER TR Peak Velocity 137.0 cm/s TR Peak Gradient 7.5 mmHg TV Peak E Velocity 97.0 cm/s Right Atrial Pressure 3.0 mmHg Pulmonary Artery Systolic Pressu 10.5 mmHg FINDINGS Left Ventricle Normal left ventricular cavity size. Normal left ventricular systolic function. Left ventricular ejection fraction is estimated at 60 %. Right Ventricle Right Atrium Left Atrium Mitral Valve Aortic Valve Tricuspid Valve Pulmonic Valve Pericardium No pericardial effusion. Aorta CONCLUSIONS Please note that this is a limited echo 1-Normal left ventricular cavity size. Normal left ventricular systolic function. Left ventricular ejection fraction is estimated at 60 %. 2-There is no pericardial effusion. 3-Cannot compare with the prior echocardiogram due to limited study Christianne Sierra MD (Electronically Signed) Final Date: 01 April 2021 22:15 S
[2021-04-01] MEDS: atorvastatin 40 mg Tablet PO (20:22)
[2021-04-01] MEDS: apixaban 5 mg Tablet PO (20:22)
[2021-04-01 20:49] LABS: Glucose Point of Care 345 mg/dL (70-110)
[2021-04-01] MEDS: insulin lispro 100 unit/1 mL SUBCUT (20:58)
[2021-04-02] VITALS (7 sets, daily range): BP systolic 110–130; BP diastolic 50–77; PULSE 58–81; RESP 12–20; TEMP 36.5–37; O2SAT 93–97
[2021-04-02] MEDS: piperacillin-tazobactam 3.375 GM in sodium chloride 0.9% (plus) 50 ML IV ×3 (03:36→21:01)
[2021-04-02] MEDS: FUROsemide 10 mg/mL SDV 4mL 40 MG IVP ×2 (05:41→17:40)
[2021-04-02] MEDS: levothyroxine 25 mcg Tablet PO (05:41)
[2021-04-02] MEDS: insulin glargine 100 units/1 mL 20 UNIT SUBCUT (06:26)
[2021-04-02 06:28] LABS: Glucose Point of Care 200 mg/dL (70-110)
[2021-04-02 06:54] LABS: Albumin Level 3.3 g/dL (3.5-5.2); Alkaline Phosphatase 165 IU/L (35-105); Blood Urea Nitrogen 42 mg/dL (8-23); Calcium 8.4 mg/dL (8.5-10.5); Carbon Dioxide 38 mmol/L (22-29); Chloride 91 mmol/L (98-107); Glucose 167 mg/dL (65-115); Osmolality Calculated 298 mOsm/kg (285-295); Phosphorus 3.4 mg/dL (2.5-4.5); Sodium 137 mmol/L (136-145); Total Bilirubin 0.4 mg/dL (0.15-1.2); Total Protein 6.3 g/dL (6.6-8.7)
[2021-04-02 06:58] LABS: Alanine Aminotransferase 325 U/L (0-33); Anion Gap 11.6 (5-19); Aspartate Amino Transferase 167 U/L (0-32); Potassium 3.6 mmol/L (3.5-5.1)
[2021-04-02] MEDS: famotidine 20 mg Tablet PO ×2 (08:56→17:40)
[2021-04-02] MEDS: apixaban 5 mg Tablet PO ×2 (08:56→21:02)
[2021-04-02] MEDS: docusate sodium 100 mg Capsule PO (08:56)
[2021-04-02] MEDS: aspirin 81 mg EC Tablet PO (08:56)
[2021-04-02] MEDS: acetaZOLAMIDE 250 mg Tablet PO (08:56)
[2021-04-02] MEDS: hyDRALAzine 50 mg Tablet PO ×3 (08:56→21:02)
[2021-04-02] MEDS: gabapentin 300 mg Capsule 600 MG PO ×3 (08:57→21:02)
[2021-04-02] MEDS: insulin lispro 100 unit/1 mL SUBCUT ×3 (09:04→21:03)
[2021-04-02] MEDS: polyethylene glycol 3350 Pkt 17 gm PO (09:04)
[2021-04-02 09:44] LABS: Basophils # 0.1 10^3/uL (0.0-0.1); Basophils % 0.5 %; Eosinophils # 0.3 10^3/uL (0.0-0.8); Eosinophils % 2.1 %; Hematocrit 30.7 % (37.0-47.0); Hemoglobin 9.2 g/dL (11.5-15.3); Lymphocytes # 2.2 10^3/uL (0.8-4.8); Lymphocytes % 14.2 %; Mean Corpuscular Hemoglobin 28.8 pg (28.0-34.0); Mean Corpuscular Volume 96.2 fl (81-99); Monocytes # 1.8 10^3/uL (0.2-0.9); Monocytes % 11.7 %; Neutrophils # 11.01 10^3/uL (1.8-7.7); Nucleated Red Blood Cells % 0 %; Platelet Count 350 10^3/cmm (130-400); Red Blood Count 3.19 10^6/uL (4.1-5.3); Red Cell Distribution Width 15.7 % (12.1-15.1); White Blood Count 15.5 10^3/uL (4.0-10.0)
--- NOTE | 2021-04-02 12:27 | P.PN_ITS ---
Subjective Subjective: Interval history: Patient was seen this morning, she tells me that her swelling has significantly improved, she is able to move her feet, no she tells me that the breakfast was not great this morning, and she splurged a little and had jam on her toast Vitals/I&O/Wt Last Vital Signs Temp 98.0 F 04/02/21 08:00 Pulse 81 04/02/21 10:24 Resp 20 H 04/02/21 08:00 BP 123/77 04/02/21 08:00 Pulse Ox 93 04/02/21 10:24 04/01/21 04/02/21 04/02/21 22:59 06:59 14:59 Intake Total 290 / 940 50 / 990 Output Total 2000 / 1999 1000 / 1000 Balance 290 / 940 -1950 / -1010 -1000 / -1000 Weight last 48 hrs Weight 144.242 kg Physical Exam Narrative: EXAM NARRATIVE: Morbidly obese female Multiple bruises present, along right mcmullen, right knee, right thigh, right hip, right side of the chest Pannus present Bilateral shins, erythema, swelling, 1+ pitting edema Const: COMMON NORMALS: no acute distress and patient oriented x3 Resp: COMMON NORMALS: normal respiratory effort, No retractions, No use of accessory muscles and clear to auscultation bilaterally AUSCULTATION: clear to auscultation bilaterally Cardio: COMMON NORMALS: regular rate, regular rhythm, S1 normal heart sound present and S2 normal heart sound present RATE: regular rate RHYTHM: regular rhythm HEART SOUNDS: S1 normal heart sound present and S2 normal heart sound present GI: COMMON NORMALS: Normal to inspection, nondistended, normoactive bowel sounds present, Soft to palpation and non-tender PALPATION: Yes Soft to palpation Extremity: NARRATIVE EXTREMITY EXAM: 1+ pitting edema bilateral extremity Neuro: COMMON NORMALS: patient oriented x3 Psych: COMMON NORMALS: mental status grossly normal Urinary Catheter Management^: Chowdary: Cath Placed During This Visit: yes Reason for Continuing Indwelling Catheter: Required Immobilization for Trauma or Surgery or Anesthesia Urinary Catheter Date of Insertion: 03/31/21 Urinary Catheter Time of Insertion: 19:00 Data : 04/02/21 09:23 04/02/21 06:26 Micro: Microbiology 04/01/21 00:20 Urine Culture - Final Urine Catheterized Proteus mirabilis 03/31/21 18:00 Blood Culture - Preliminary Blood NEGATIVE TO DATE 03/31/21 15:55 MRSA Culture - Final Nose 03/31/21 15:55 Blood Culture - Preliminary Blood NEGATIVE TO DATE 03/31/21 15:55 Bacterial Antigens - Final Urine Kidney A&P Assessment and plan (1) History of fall: Status: Acute (2) History of fracture of rib: Status: Acute (3) Pleural effusion: Status: Acute (4) Acute diastolic CHF (congestive heart failure): Status: Acute (5) Sleep apnea, obstructive: Status: Acute (6) Type 2 diabetes mellitus, with long-term current use of insulin: Status: Acute Qualifiers: Diabetes mellitus complication status: with neurologic complications Diabetes mellitus complication detail: with polyneuropathy Qualified Code(s): E11.42 - Type 2 diabetes mellitus with diabetic polyneuropathy; 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 (7) Obesity hypoventilation syndrome: Status: Acute (8) Chronic respiratory failure with hypoxia and hypercapnia: Status: Acute (9) COPD (chronic obstructive pulmonary disease): Status: Acute (10) Pneumonia: Status: Acute (11) Venous stasis ulcers: Status: Chronic Qualifiers: Venous stasis ulcer site: ankle Varicose vein presence: without varicose veins Laterality: left Non-pressure ulcer stage: limited to breakdown of skin Qualified Code(s): I87.2 - Venous insufficiency (chronic) (peripheral); L97.321 - Non-pressure chronic ulcer of left ankle limited to breakdown of skin (12) Generalized weakness: Status: Acute (13) 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: Status: Chronic (14) Chronic kidney disease, stage II (mild): Status: Chronic (15) Obesity: Status: Chronic Qualifiers: Body mass index: BMI 45.0-49.9 Obesity classification: adult class 3 (BMI >= 40) Obesity type: unspecified obesity type Serious obesity comorbidity presence: with serious comorbidity Qualified Code(s): E66.01 - Morbid (severe) obesity due to excess calories; Z68.42 - Body mass index [BMI] 45.0-49.9, adult (16) UTI (urinary tract infection): Status: Acute Additional A&P Information Acute on chronic respiratory failure with hypoxia and hypercapnia -Requiring 3 L -Chest x-ray showing bilateral pleural effusion -Enlarged right pleural effusion -Elevated BNP -WBC 15.5 -Concerning for underlying diastolic CHF exacerbation, enlarged right pleural effusion, cannot rule out underlying pneumonia -Ultrasound of the chest shows small right pleural effusion Plan: -Lasix 40 mg IV twice daily, with Diamox, 1 dose metolazone -Monitor urine output -2L, monitor creatinine -Fluid restriction 1500 cc -Cardiac echocardiogram 1-Normal left ventricular cavity size. Normal left ventricular systolic function. Left ventricular ejection fraction is estimated at 60 %. 2-There is no pericardial effusion. 3-Cannot compare with the prior echocardiogram due to limited study -Monitor respiratory status closely, oxygen therapy -countinue Zosyn for antibiotic coverage -Blood cultures, sputum cultures, urine bacterial antigens -Zosyn as above for UTI -BiPAP as needed during the day for shortness of breath, during the night for history of sleep apnea, obesity who moved to ventilation syndrome, CHF exacerbation -Full code -Pepcid for GI prophylaxis -Chowdary catheter in place -Eliquis for DVT prophylaxis History of fall -Complaining of hip pain, shoulder pain -Hydrocodone for pain Anemia, hemoglobin9.2, ferritin 338, Hemoccult stool, monitor for now is on Eliquis, has multiple bruises from fall CKD, creatinine 1.1, monitor Type II diabetes mellitus Lantus 20 units every morning, low-dose sliding scale Transaminitis, status post cholecystectomy, continue to monitor Attestations Medical Necessity Statement*: Patient requires hospitalization for diastolic CHF exacerbation Coding Level of Care Code Acute Fingernail Technician for Chg Fwd Diagnoses History of fall Z91.81 History of fracture of rib Z87.81 Pleural effusion J90 Acute diastolic CHF (congestive heart failure) I50.31 Sleep apnea, obstructive G47.33 Type 2 diabetes mellitus, with long-term current use of insulin E11.42; Z79.4 Diabetes mellitus complication status: with neurologic complications Diabetes mellitus complication detail: with polyneuropathy Obesity hypoventilation syndrome E66.2 Chronic respiratory failure with hypoxia and hypercapnia J96.11; J96.12 COPD (chronic obstructive pulmonary disease) J44.9 Pneumonia J18.9 Venous stasis ulcers I87.2; L97.321 Venous stasis ulcer site: ankle Varicose vein presence: without varicose veins Laterality: left Non-pressure ulcer stage: limited to breakdown of skin Generalized weakness R53.1 longterm (current) use of opiate analgesic Z79.891 Chronic kidney disease, stage II (mild) N18.2 Obesity E66.01; Z68.42 Body mass index: BMI 45.0-49.9 Obesity classification: adult class 3 (BMI >= 40) Obesity type: unspecified obesity type Serious obesity comorbidity presence: with serious comorbidity UTI (urinary tract infection) N39.0
[2021-04-02] MEDS: metOLazone 5 MG Tablet 10 MG PO (13:54)
[2021-04-02 17:09] LABS: Glucose Point of Care 290 mg/dL (70-110)
[2021-04-02 17:22] LABS: Glucose Point of Care 288 mg/dL (70-110)
[2021-04-02] MEDS: nystatin powder 15 gm Btl 1 APPLIC TOPICAL (17:44)
[2021-04-02] MEDS: atorvastatin 40 mg Tablet PO (21:03)
[2021-04-03] VITALS: BP 113/54; PULSE 69; RESP 16; TEMP 36.5; O2SAT 96
[2021-04-03 00:25] VITALS: PULSE 67; RESP 12; O2SAT 94
[2021-04-03 01:18] LABS: Glucose Point of Care 292 mg/dL (70-110)
[2021-04-03 01:18] LABS: Glucose Point of Care 317 mg/dL (70-110)
[2021-04-03 04:00] VITALS: BP 101/63; PULSE 64; RESP 15; TEMP 36.6; O2SAT 92
[2021-04-03 04:40] VITALS: PULSE 70; PULSE 71; RESP 14; O2SAT 93
[2021-04-03] MEDS: insulin glargine 100 units/1 mL 20 UNIT SUBCUT (05:01)
[2021-04-03] MEDS: piperacillin-tazobactam 3.375 GM in sodium chloride 0.9% (plus) 50 ML IV (05:01)
[2021-04-03] MEDS: FUROsemide 10 mg/mL SDV 4mL 40 MG IVP (05:02)
[2021-04-03] MEDS: levothyroxine 25 mcg Tablet PO (05:02)
[2021-04-03 05:23] LABS: Basophils # 0.1 10^3/uL (0.0-0.1); Basophils % 0.5 %; Eosinophils # 0.4 10^3/uL (0.0-0.8); Eosinophils % 3.1 %; Hematocrit 31.2 % (37.0-47.0); Hemoglobin 9.3 g/dL (11.5-15.3); Lymphocytes # 2.2 10^3/uL (0.8-4.8); Lymphocytes % 18.5 %; Mean Corpuscular HGB Conc 29.8 g/dL (30.0-36.0); Mean Corpuscular Hemoglobin 28.6 pg (28.0-34.0); Mean Platelet Volume 9.7 fL (7.4-10.4); Monocytes # 1.4 10^3/uL (0.2-0.9); Monocytes % 11.4 %; Neutrophils # 7.97 10^3/uL (1.8-7.7); Neutrophils % 65.9 %; Nucleated Red Blood Cells % 0 %; Platelet Count 336 10^3/cmm (130-400); Red Blood Count 3.25 10^6/uL (4.1-5.3); Red Cell Distribution Width 15.6 % (12.1-15.1); White Blood Count 12.1 10^3/uL (4.0-10.0)
[2021-04-03 05:48] LABS: Alanine Aminotransferase 253 U/L (0-33); Albumin Level 3.4 g/dL (3.5-5.2); Alkaline Phosphatase 161 IU/L (35-105); Aspartate Amino Transferase 97 U/L (0-32); Blood Urea Nitrogen 40 mg/dL (8-23); Calcium 8.4 mg/dL (8.5-10.5); Carbon Dioxide 40 mmol/L (22-29); Chloride 87 mmol/L (98-107); Globulin 2.9 g/dL (1.3-4.6); Glucose 160 mg/dL (65-115); Magnesium 1.9 mg/dL (1.7-2.3); Osmolality Calculated 297 mOsm/kg (285-295); Phosphorus 3.5 mg/dL (2.5-4.5); Sodium 137 mmol/L (136-145); Total Bilirubin 0.4 mg/dL (0.15-1.2); Total Protein 6.3 g/dL (6.6-8.7)
[2021-04-03 07:40] VITALS: BP 115/67; PULSE 60; RESP 20; TEMP 36.3; O2SAT 96
[2021-04-03] MEDS: famotidine 20 mg Tablet PO (08:48)
[2021-04-03] MEDS: gabapentin 300 mg Capsule 600 MG PO (08:48)
[2021-04-03] MEDS: acetaZOLAMIDE 250 mg Tablet PO (08:48)
[2021-04-03] MEDS: apixaban 5 mg Tablet PO (08:49)
[2021-04-03] MEDS: docusate sodium 100 mg Capsule PO (08:49)
[2021-04-03] MEDS: hyDRALAzine 50 mg Tablet PO (08:49)
[2021-04-03] MEDS: aspirin 81 mg EC Tablet PO (08:49)
[2021-04-03] MEDS: insulin lispro 100 unit/1 mL SUBCUT (08:53)
--- NOTE | 2021-04-03 09:20 | PC.SOCIAL ---
IMM Update pg 2 of IMM updated and reviewed w/ patient. Copy provided.
--- NOTE | 2021-04-03 10:32 | PM.DCS ---
Discharge Providers Date of Admission: 03/31/21 18:52 Date of Discharge: April 03, 2021 Attending Provider at Admission: Adam Gill MD Attending Provider at Discharge: Adam Gill MD Primary Care Provider: Ariel Khan DO Diagnoses at Discharge Discharge Diagnosis (1) History of fall: Status: Acute (2) History of fracture of rib: Status: Acute (3) Pleural effusion: Status: Acute (4) Acute diastolic CHF (congestive heart failure): Status: Acute (5) Sleep apnea, obstructive: Status: Acute (6) Type 2 diabetes mellitus, with long-term current use of insulin: Status: Acute Qualifiers: Diabetes mellitus complication detail: with polyneuropathy Diabetes mellitus complication status: with neurologic complications Qualified Code(s): E11.42 - Type 2 diabetes mellitus with diabetic polyneuropathy; Z79.4 - half-way (current) use of insulin (7) Obesity hypoventilation syndrome: Status: Acute (8) Chronic respiratory failure with hypoxia and hypercapnia: Status: Acute (9) COPD (chronic obstructive pulmonary disease): Status: Acute (10) Pneumonia: Status: Acute (11) Venous stasis ulcers: Status: Chronic Qualifiers: Laterality: left Non-pressure ulcer stage: limited to breakdown of skin Varicose vein presence: without varicose veins Venous stasis ulcer site: ankle Qualified Code(s): I87.2 - Venous insufficiency (chronic) (peripheral); L97.321 - Non-pressure chronic ulcer of left ankle limited to breakdown of skin (12) Generalized weakness: Status: Acute (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: Status: Chronic (14) Chronic kidney disease, stage II (mild): Status: Chronic (15) Obesity: Status: Chronic Qualifiers: Body mass index: BMI 45.0-49.9 Obesity classification: adult class 3 (BMI >= 40) Obesity type: unspecified obesity type Serious obesity comorbidity presence: with serious comorbidity Qualified Code(s): E66.01 - Morbid (severe) obesity due to excess calories; Z68.42 - Body mass index [BMI] 45.0-49.9, adult (16) UTI (urinary tract infection): Status: Acute Reason for Visit Reason for Visit: FALL Hospital Course Hospital Course Irina Velasquez is a 75 year old female with a hypoxic hypercapnic respiratory failure, obstructive sleep apnea, obesity hypoventilation syndrome, history of bilateral pleural effusions, history of heart failure with preserved ejection fraction, history of atrial fibrillation on Eliquis, history of COPD, hypertension, hypothyroidism, insulin-dependent type 2 diabetes mellitus, chronic immobility [place] lift. Patient presents to [facility] for acute on chronic respiratory failure with hypoxia hypercapnia secondary to diastolic CHF, received inpatient diuresis, diuresed over 5 L, clinically improved. Discharged on 3 L nasal cannula, Lasix 40 mg twice daily, with potassium supplementation, with recheck blood work on Tuesday. She also had a Proteus Mirabella's UTI, discharged on Bactrim. Possible underlying pneumonia, discharged on doxycycline, monitor respiratory's closely. History of fall from [place] lift, multiple pain complaints, history of multiple rib fractures, right chest ultrasound showed small pleural effusion, pain was controlled as inpatient, no acute fractures identified. Physical Exam Const: COMMON NORMALS: no acute distress and patient oriented x3 Resp: COMMON NORMALS: normal respiratory effort, No retractions, No use of accessory muscles and clear to auscultation bilaterally AUSCULTATION: clear to auscultation bilaterally Cardio: COMMON NORMALS: regular rate, regular rhythm, S1 normal heart sound present and S2 normal heart sound present RATE: regular rate RHYTHM: regular rhythm HEART SOUNDS: S1 normal heart sound present and S2 normal heart sound present GI: COMMON NORMALS: Normal to inspection, nondistended, normoactive bowel sounds present, Soft to palpation and non-tender PALPATION: Yes Soft to palpation Extremity: COMMON NORMALS: no pedal edema Neuro: COMMON NORMALS: patient oriented x3 Psych: COMMON NORMALS: mental status grossly normal Urinary Catheter Management^: Chowdary: Cath Placed During This Visit: yes Reason for Continuing Indwelling Catheter: Acute Urinary Retention or Obstruction Urinary Catheter Date of Insertion: 03/31/21 Urinary Catheter Time of Insertion: 19:00 Discharge Data Data Completed and Pending: Completed Studies During Hospitalization Category Date Time Status XR chest 1V harris ble [id number] Routine Exams 04/01/21 07:00 Completed XR chest 1V harris ble [id number] Urgent Exams 03/31/21 11:37 Completed XR knee RT 3V* 73 562 Urgent Exams 03/31/21 11:37 Completed XR pelvis 1-2V* 7 2170 Stat Exams 03/31/21 15:00 Completed XR shoulder RT 1V 31786 Routine Exams 03/31/21 18:52 Completed XR tibia fibula R T 2V 25203 Urgent Exams 03/31/21 11:37 [place] [address] Urgent Ultrasound 03/31/21 11:47 Completed CV. echo limited 15264 Routine Ultrasound 04/01/21 18:52 [place] chest 29599 Ur gent Ultrasound 03/31/21 14:21 Completed Pending at discharge Category Date Time Status Blood Culture Sta t Lab 03/31/21 18:00 Results COVID OZH [Pedraza virus PCR] Routine Lab 04/03/21 09:19 Ordered Immunochemical Fe steve OCB Routine Lab 03/31/21 18:52 Uncollected Sputum Culture an d Gram Stain Stat Lab 03/31/21 14:53 Uncollected Labs from last 24 hours 04/03/21 04/03/21 04/02/21 04:47 04:47 20:39 WBC 12.1 H RBC 3.25 L Hgb 9.3 L Hct 31.2 L MCV 96.0 MCH 28.6 MCHC 29.8 L RDW 15.6 H Plt Count 336 MPV 9.7 Neut % (Auto) 65.9 Lymph % (Auto) 18.5 [place] % (Auto) 11.4 Eos % (Auto) 3.1 Baso % (Auto) 0.5 Neut # (Auto) 7.97 H Lymph # (Auto) 2.2 [place] # (Auto) 1.4 H Eos # (Auto) 0.4 Baso # (Auto) 0.1 Nucleated RBC % (a uto) 0 Nucleated RBCs # 0.0 Sodium 137 Potassium 3.0 L Chloride 87 L Carbon Dioxide 40 H Anion Gap 13.0 BUN 40 H Creatinine 1.1 H GFR Calculation Not Reportable Glucose 160 H POC Glucose 292 H Calculated Osmolal ity 297 H Calcium 8.4 L Phosphorus 3.5 Magnesium 1.9 Total Bilirubin 0.4 AST 97 H ALT 253 H Alkaline Phosphata se 161 H Total Protein 6.3 L Albumin 3.4 L Globulin 2.9 04/02/21 04/02/21 04/01/21 16:49 11:39 17:55 WBC RBC Hgb Hct MCV MCH MCHC RDW Plt Count MPV Neut % (Auto) Lymph % (Auto) [place] % (Auto) Eos % (Auto) Baso % (Auto) Neut # (Auto) Lymph # (Auto) [place] # (Auto) Eos # (Auto) Baso # (Auto) Nucleated RBC % (a uto) Nucleated RBCs # Sodium Potassium Chloride Carbon Dioxide Anion Gap BUN Creatinine GFR Calculation Glucose POC Glucose 288 H 317 H 290 H Calculated Osmolal ity Calcium Phosphorus Magnesium Total Bilirubin AST ALT Alkaline Phosphata se Total Protein Albumin Globulin Vitals: Last Vital Signs Temp 97.4 F L 04/03/21 07:40 Pulse 60 04/03/21 07:40 Resp 20 H 04/03/21 07:40 BP 115/67 04/03/21 07:40 Pulse Ox 96 04/03/21 07:40 Discharge Plan Discharge Patient Disposition: Home Condition: Stable Prescriptions: New docusate sodium 100 mg Capsule 100 mg PO BID 30 Days Qty: 60 RF: 0 polyethylene glycol 3350 17 gram Powder In Packet 17 g PO DAILY 30 Days Qty: 100 RF: 0 Bactrim DS 800-160 mg tablet 1 tab PO BID 3 Days Qty: 6 RF: 0 doxycycline hyclate 100 mg tablet 100 mg PO BID 7 Days Qty: 14 RF: 0 Continued gabapentin 600 mg tablet 600 mg PO TID Qty: 90 RF: 1 levothyroxine 25 mcg tablet 25 mcg PO DAILY@0700 90 Days Qty: 90 RF: 1 pantoprazole 40 mg tablet,delayed release (DR/EC) 40 mg PO DAILY@0700 90 Days Qty: 90 RF: 1 aspirin 81 mg Tablet,Chewable 81 mg PO DAILY@0700 RF: 0 ondansetron HCl 4 mg Tablet 4 mg PO Q4H PRN (Reason: NAUSEA) RF: 0 lovastatin 20 mg tablet 20 mg PO BEDTIME Qty: 30 RF: 3 albuterol sulfate 0.63 mg/3 mL Solution For Nebulization 0.63 mg INHALATION Q4H PRN (Reason: Shortness Of Breath) RF: 0 acetaminophen 325 mg Tablet 650 mg PO Q6H PRN (Reason: Pain) RF: 0 Lantus U-100 Insulin 100 unit/mL Solution 40 unit SUBCUT DAILY RF: 0 magnesium hydroxide [Milk of Magnesia] 400 mg/5 mL Suspension 30 ml PO DAILY PRN (Reason: Constipation) RF: 0 bisacodyl 10 mg Suppository 10 mg [place] DAILY PRN (Reason: Constipation) RF: 0 hydralazine 50 mg Tablet 50 mg PO TID RF: 0 nystatin [Nystop] 100,000 unit/gram Powder 1 applic TOPICAL BID PRN (Reason: Rash) RF: 0 insulin aspart U-100 [Novolog Flexpen U-100 Insulin] 100 unit/mL (3 mL) Insulin Pen See Rx Instructions .ROUTE .COMPLEX RF: 0 insulin aspart U-100 [Novolog Flexpen U-100 Insulin] 100 unit/mL (3 mL) Insulin Pen 14 unit SUBCUT TIDWM RF: 0 Eliquis 5 mg Tablet 5 mg PO BID RF: 0 Vitamin C 500 mg Tablet 500 mg PO DAILY RF: 0 losartan 25 mg Tablet 25 mg PO DAILY RF: 0 docusate sodium 100 mg Capsule 100 mg PO BID RF: 0 ipratropium bromide 0.02 % Solution 2.5 ml INHALATION TID PRN (Reason: Shortness Of Breath) RF: 0 Linzess 290 mcg Capsule 290 mcg PO DAILY RF: 0 Trelegy Ellipta 100-62.5-25 mcg Blister With Device 1 inh INHALATION DAILY RF: 0 Changed furosemide 40 mg Tablet 40 mg PO Q12H 30 Days Qty: 60 RF: 0 potassium chloride 10 mEq capsule, extended release 20 meq PO BID Qty: 30 RF: 0 Held methenamine hippurate 1 gram tablet 1 g PO BID@0700,2000 Qty: 180 RF: 1 Hold Instructions: Resume on 04/07/21. until bactrim finished Discharge Orders: Discharge Order (Routine); Ordered 04/03/21 Ordered By: Adam Gill Referrals: Ariel Khan DO [Primary Care Provider] - Discharge Diet: Advance as tolerated Discharge Activity: Resume usual activity Patient Instructions: Rib Fracture (ED), Knee Pain (ED), Opioid Safety Activity Restrictions/Additional Instructions: Our case manager specialist will have you follow-up with Orthopedic surgery in the next few days for rib fractures and knee/tib/fib pain. You would be expected to have a phone call with our case manager specialist who will put you on the schedule. Our case manager specialist will have you follow-up with a PCP in the next few days for management of electrolyte abnormalities. You would be expected to have a phone call with our case manager specialist who will put you on the schedule. Our case manager specialist will have you follow-up with pulmonology in the next few days. You would be expected to have a phone call with our case manager specialist who will put you on the schedule. Continue to use your incentive spirometer for your rib fractures. -for diastolic heart failure please take Lasix 40 mg twice daily with potassium supplementation -Recheck kidney function on Tuesday -Recheck potassium on Tuesday -Limit fluid intake between 1500 to 2000 cc a day -Monitor for lower extremity edema if worsening worsening shortness of breath come back to the emergency room -Take Bactrim for UTI -For constipation use Colace, MiraLAX -For pain use Tylenol Discharge Attestations Time Spent in Discharge Care*: less than 30 min Status at Discharge: Cognitive status at discharge: cognitively intact, Behavioral status at discharge: cooperative, Quality Metrics Clinical Quality Measures During this hospital stay, did patient experience: None Coding Level of Care Code Acute [facility] note Diagnoses History of fall Z91.81 History of fracture of rib Z87.81 Pleural effusion J90 Acute diastolic CHF (congestive heart failure) I50.31 Sleep apnea, obstructive G47.33 Type 2 diabetes mellitus, with long-term current use of insulin E11.42; Z79.4 Diabetes mellitus complication detail: with polyneuropathy Diabetes mellitus complication status: with neurologic complications Obesity hypoventilation syndrome E66.2 Chronic respiratory failure with hypoxia and hypercapnia J96.11; J96.12 COPD (chronic obstructive pulmonary disease) J44.9 Pneumonia J18.9 Venous stasis ulcers I87.2; L97.321 Laterality: left Non-pressure ulcer stage: limited to breakdown of skin Varicose vein presence: without varicose veins Venous stasis ulcer site: ankle Generalized weakness R53.1 half-way (current) use of opiate analgesic Z79.891 Chronic kidney disease, stage II (mild) N18.2 Obesity E66.01; Z68.42 Body mass index: BMI 45.0-49.9 Obesity classification: adult class 3 (BMI >= 40) Obesity type: unspecified obesity type Serious obesity comorbidity presence: with serious comorbidity UTI (urinary tract infection) N39.0
--- NOTE | 2021-04-03 10:46 | DCPLANNER ---
senior software project manager had message to schedule a follow up appointment with [facility]. senior software project manager called [facility], spoke with Marisa Vitale, gave clinic patients information. A follow up appointment is scheduled for patient for Thursday, April 08, 2021 at 3:[address] Parker. senior software project manager called in patient social worker masters, spoke with Becky, had information put on patients discharge information.
--- NOTE | 2021-04-03 10:49 | PC.CHAP ---
Pastoral Care Encounter/Spiritual Assessment Type of Contact [] Declined envelope adjuster visit [] Patient/Family/Request visit [] Outpatient visit [] Follow-up visit [] Physician referral [] Code/Alert [xx] Routine visit [] Staff referral [] Actively dying [] Patient sleeping [] Family support [] [] Out of room [] Palliative care [] [] Receiving care in room [] Pre-surgical visit [] Trauma [] Long length of stay [] ICU visit [] Other: Relational/Emotional Strength [xx] Patient feels connected with others/family/visitors/staff [] Distress [] Loneliness/isolation [] Abandonment Spirituality of Patient [xx] Person of Keren [xx] Attends Episcopal of their Keren [xx] Believes in Prayer [xx] Reads Bible or Zoroastrian materials [] There are Spiritual issues to be addressed Forepart Laster Interventions [xx] Prayer [xx] Active listening [xx] Non-anxious presence [] Spiritual/emotional support [] Crisis/trauma care [] Spiritual counseling [] Bereavement support [] Provided bereavement packet [xx] Provided Bible/devotional materials [] Provided toy/stuffed animal, coloring book to patient or family member [] Provided Communion [] Anointing/[place] [] Salvation [xx] Completed spiritual assessment [] Other: Impact on Illness or Injury [] Angry [] Fearful [] Anxious [] Often cries [] Exhaustion [] Unable to work [xx] Unable to attend latter-day [xx] Unable to walk/stand [] Unable to read [] Unable to drive [] Unable to eat/drink [] Unable to sleep [] Unable to be with family [] Patient intubated [] Other: Summary Patient expects to return to [facility], where she resides, by ambulance later today. She expects her son will be visiting her before discharge and may follow to to [facility]. She feels better but is very sore from having been dropped from a [place] lift when a strap broke. She is looking forward to returning home and hopes she can get some specialized physical therapy to help her walk again. Time spent with patient 10 minutes
[2021-04-03 11:14] LABS: Glucose Point of Care 288 mg/dL (70-110)
[2021-04-03 12:00] VITALS: BP 138/69; PULSE 61; RESP 20; TEMP 36.7; O2SAT 98
[2021-04-03] MEDS: lidocaine 1% 5 ML in potassium chloride premix 100 ML 25 ML IV (12:30)
[2021-04-03 12:56] LABS: Adenovirus Not Detected (NOT DETECT); Chlamydia Pneumoniae Not Detected (NOT DETECT); Coronavirus 229E,HKU1,NL63,OC4 Not Detected (NOT DETECT); Human Metapneumovirus Not Detected (NOT DETECT); Human Rhinovirus/Enterovirus Not Detected (NOT DETECT); Influenza A Not Detected (NOT DETECT); Influenza A H1 Not Detected (NOT DETECT); Influenza A H1-2009 Not Detected (NOT DETECT); Influenza A H3 Not Detected (NOT DETECT); Influenza B Not Detected (NOT DETECT); Mycoplasma Pneumoniae Not Detected (NOT DETECT); Parainfluenza Virus Type 1 Not Detected (NOT DETECT); Parainfluenza Virus Type 2 Not Detected (NOT DETECT); Parainfluenza Virus Type 3 Not Detected (NOT DETECT); Parainfluenza Virus Type 4 Not Detected (NOT DETECT); Respiratory Syncytial Virus A Not Detected (NOT DETECT); Respiratory Syncytial Virus B Not Detected (NOT DETECT); SARS-COV-2 Not Detected (NOT DETECT)
[2021-04-03] MEDS: potassium chloride ER 20 mEq Tablet 40 MEQ PO (13:43)
[2021-04-06 07:56] LABS: Glucose Point of Care 182 mg/dL (70-110)
--- NOTE | 2021-04-06 14:50 | DCPLANNER ---
Addendum entered by Marlen Henry 04/23/21 17:42: Patient had a follow up appointment scheduled with [facility] - patient did attend appointment. Original Note: Patient is a resident at [facility] halfway facility. graphic manager called the [facility] about follow up and was told that [facility] by [facility] in the [facility] on a regular basis.
== END 2021-04-03 15:00 | disposition skilled nursing facility (03) | DRG 291 ==
LOC: ER 14:22 → MEDSURG 18:01
PROVIDERS: Admitting Provider Family Medicine; Emergency Provider Emergency Medicine; PCP Internal Medicine; Visit Provider Family Medicine
DX: I13.0 Hypertensive heart and chronic kidney disease with heart failure and stage 1 through stage 4 chronic kidney disease, or unspecified chronic kidney disease (principal); I50.33 Acute on chronic diastolic (congestive) heart failure; J96.22 Acute and chronic respiratory failure with hypercapnia; J96.21 Acute and chronic respiratory failure with hypoxia; J18.9 Pneumonia, unspecified organism; N17.9 Acute kidney failure, unspecified; J44.0 Chronic obstructive pulmonary disease with (acute) lower respiratory infection; N39.0 Urinary tract infection, site not specified; E66.2 Morbid (severe) obesity with alveolar hypoventilation; Z68.43 Body mass index [BMI] 50.0-59.9, adult; N18.2 Chronic kidney disease, stage 2 (mild); E11.22 Type 2 diabetes mellitus with diabetic chronic kidney disease; I25.10 Atherosclerotic heart disease of native coronary artery without angina pectoris; M25.561 Pain in right knee; M25.511 Pain in right shoulder; I48.91 Unspecified atrial fibrillation; G89.29 Other chronic pain; M54.9 Dorsalgia, unspecified; K59.00 Constipation, unspecified; E78.5 Hyperlipidemia, unspecified; Z86.73 Personal history of transient ischemic attack (TIA), and cerebral infarction without residual deficits; E03.9 Hypothyroidism, unspecified; Z79.891 Long term (current) use of opiate analgesic; Z79.01 Long term (current) use of anticoagulants; Z79.4 Long term (current) use of insulin; Z79.82 Long term (current) use of aspirin; B96.4 Proteus (mirabilis) (morganii) as the cause of diseases classified elsewhere; I87.8 Other specified disorders of veins; L98.491 Non-pressure chronic ulcer of skin of other sites limited to breakdown of skin; S22.41XD Multiple fractures of ribs, right side, subsequent encounter for fracture with routine healing; W17.89XD Other fall from one level to another, subsequent encounter; D64.9 Anemia, unspecified; Z87.891 Personal history of nicotine dependence
CPT/HCPCS: 36415; 36416; 36600; 71045; 72170; 73020; 73562; 73590; 76604; 80048; 80053; 81001; 82728; 82803; 82962; 83540; 83735; 83880; 84100; 84145; 85025; 85610; 85730; 86140; 86403; 87040; 87077; 87086; 87186; 87635; 87641; 93308; 93971; 94660; 94664; 96361; 96372; 96374; 99285; J1170; J1815 ×2; J1940; J2405; J2543; J3480; J7040